=== PATIENT | female | born 1985 | race African-American/Black ===

== ENCOUNTER 2016-12-28 06:52 | Emergency (ER) | payer MEDICAID ==
[2016-12-28] MEDS ORDERED: Alum Hydrox/Mag Hydrox/Simeth 30 ML, Lidocaine 2% 15 ML PO ONE ×2 (07:12)
[2016-12-28] MEDS ORDERED: Ondansetron 4 MG/2 ML SDV IVPUSH ONE (07:14)
[2016-12-28] MEDS ORDERED: Sodium Chloride 0.9% 1,000 ML IV SCH (07:15)
[2016-12-28] MEDS ORDERED: Hyoscyamine 0.125 MG Tab.SL SL ONE (07:16)
--- NOTE | 2016-12-28 07:19 | EDM.PDOC ---
ED HPI GENERAL MEDICAL PROBLEM - General Chief Complaint: Chest Pain Stated Complaint: CHEST PAIN Time Seen by Provider: 12/28/16 07:06 Source of Information: Reports: Patient History Limitations: Reports: No Limitations - History of Present Illness INITIAL COMMENTS - FREE TEXT/NARRATIVE: 31-year-old female descent presents to the ED with acute onset of central lower chest pain about 45 minutes ago that started at work this morning. She describes a deep aching burning sensation. She not prone to reflux but she is up overweight. She's had previous cholecystectomy. She states she's been drinking only water so far this morning. Denies true odynophagia. Does not hurt to take a deep breath has not been coughing or bringing up any phlegm. No associated fever or chills. Does not drink alcohol. She does not smoke cigarettes. She is nondiabetic. Onset: Today Onset Date: 12/28/16 Onset Time: 06:00 Duration: Minutes: Location: Reports: Chest (Lower retrosternal area.) Quality: Reports: Ache, Burning, Pressure Severity: Moderate Improves with: Reports: None Worsens with: Reports: None Context: Denies: Activity, Exercise, Lifting, Sick Contact, Trauma, Other Associated Symptoms: Reports: Chest Pain. 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 Denies: Blood Pressure Problem (See history of present), Claudication, Dyspnea on Exertion, Edema, Lightheadedness, Orthopnea, PND Endocrine: Reports: No Symptoms GI/Abdominal: Denies: Anorexia, Black Stool, Bloody Stool, Constipation, Diarrhea, Decreased Appetite, Difficulty Swallowing, Distension, Flatus, Hematemesis, Hematochezia, Melena : Reports: No Symptoms Musculoskeletal: Reports: No Symptoms Skin: Reports: No Symptoms Neurological: Reports: No Symptoms Psychiatric: Reports: No Symptoms Hematologic/Lymphatic: Reports: No Symptoms Immunologic: Reports: No Symptoms ED EXAM, GENERAL - Physical Exam Exam: See Below Exam Limited By: No Limitations General Appearance: Alert, WD/WN, No Apparent Distress Eye Exam: Bilateral Eye: Normal Inspection (No jaundice) Throat/Mouth: Normal Inspection, Normal Lips, Normal Oropharynx Head: Atraumatic, Normocephalic Neck: Normal Inspection, Supple, Non-Tender, Full Range of Motion. No: Lymphadenopathy (L), Lymphadenopathy (R) Respiratory/Chest: No Respiratory Distress, Lungs Clear, Normal Breath Sounds, No Accessory Muscle Use, Other (No chest wall pain on examination.) Cardiovascular: Normal Peripheral Pulses, Regular Rate, Rhythm, No Edema, No Gallop, No Murmur Peripheral Pulses: 2+: Posterior Tibial (L), Posterior Tibial (R), Dorsalis Pedis (L), Dorsalis Pedis (R) GI/Abdominal: Normal Bowel Sounds, Soft, Non-Tender, No Organomegaly, No Distention (Moderately obese.), No Abnormal Bruit, No Mass, Other Back Exam: Normal Inspection, Full Range of Motion. No: CVA Tenderness (L), CVA Tenderness (R) Extremities: Normal Inspection, Normal Range of Motion, Non-Tender, No Pedal Edema, Normal Capillary Refill Neurological: Alert, Oriented, Normal Cognition, Normal Gait, Normal Reflexes, No Motor/Sensory Deficits Psychiatric: Normal Affect, Normal Mood Skin Exam: Warm, Dry, Intact, Normal Color, No Rash EKG INTERPRETATION EKG Date: 12/28/16 Time: 07:20 Rhythm: NSR Rate (beats/min): 80 [place]: normal P-wave: present QRS: other (Early R wave transition. Decreased voltage in precordial leads.) ST-T: other (T-wave inversion in leads [address] segment elevation in leads one and aVL which is a early repolarization pattern.) Course - Vital Signs Last Recorded V/S: Last Vital Signs Temp 36.8 C 12/28/16 07:01 Pulse 76 12/28/16 07:01 Resp 24 H 12/28/16 07:01 BP 104/83 12/28/16 07:01 Pulse Ox 97 12/28/16 07:01 - Orders/Labs/Meds Orders: Active Orders 24 hr Category Date Time Status EKG Documentation Completion [RC] STAT Care 12/28/16 07:13 Active Abdomen 1V Flat [CR] Stat Exams 12/28/16 07:13 Ordered Chest 1V Frontal [CR] Stat Exams 12/28/16 07:13 Ordered Famotidine [Pepcid] Med 12/28/16 08:35 Once 20 mg PO ONETIME ONE Sodium Chloride 0.9% [Normal Saline] 1,000 ml Med 12/28/16 07:15 Active IV ASDIRECTED Medication Orders Sodium Chloride (Normal Saline) 1,000 mls @ 125 mls/hr IV ASDIRECTED SAMANTA Last Admin: 12/28/16 07:37 Dose: 125 mls/hr Labs: Laboratory Tests 12/28/16 12/28/16 Range/Units 08:01 08:01 WBC 6.29 (3.98-10.04) K/mm3 RBC 4.69 (3.98-5.22) M/mm3 Hgb 12.8 (11.2-15.7) gm/L Hct 40.5 (34.1-44.9) % MCV 86.4 (79.4-94.8) fl MCH 27.3 (25.6-32.2) pg MCHC 31.6 L (32.2-35.5) g/dl RDW Std Deviation 45.6 (36.4-46.3) fL Plt Count 350 (182-369) K/mm3 MPV 9.8 (9.4-12.3) fl Neutrophils % (Manual) 59 (40-60) % Band Neutrophils % 1 (0-10) % Lymphocytes % (Manual) 35 (20-40) % Atypical Lymphs % 0 % Monocytes % (Manual) 3 (2-10) % Eosinophils % (Manual) 2 (0.7-5.8) % Basophils % (Manual) 0 L (0.1-1.2) Platelet Estimate Adequate RBC Morph Comment Normal Sodium 140 (136-145) mEq/L Potassium 4.1 (3.5-5.1) mEq/L Chloride 105 (98-107) mEq/L Carbon Dioxide 24 (21-32) mEq/L Anion Gap 15.1 H (5-15) BUN 13 (7-18) mg/dL Creatinine 0.9 (0.55-1.02) mg/dL Est Cr Clr Drug Dosing 79.64 mL/min Estimated GFR (MDRD) > 60 (>60) mL/min BUN/Creatinine Ratio 14.4 (14-18) Glucose 93 (74-106) mg/dL Calcium 9.1 (8.5-10.1) mg/dL Total Bilirubin 0.2 (0.2-1.0) mg/dL AST 12 L (15-37) U/L ALT 19 (14-59) U/L Alkaline Phosphatase 53 (46-116) U/L C-Reactive Protein 0.3 (<1.0) mg/dL Total Protein 8.7 H (6.4-8.2) g/dl Albumin 3.6 (3.4-5.0) g/dl Globulin 5.1 gm/dL Albumin/Globulin Ratio 0.7 L (1-2) Amylase 57 (25-115) U/L Meds: Medications Generic Name Dose Route Start Last Admin Trade Name Ducq PRN Reason Stop Dose Admin Sodium Chloride 1,000 mls @ 125 mls/hr 12/28/16 07:15 12/28/16 07:37 Normal Saline IV 125 mls/hr ASDIRECTED SAMANTA Administration Discontinued Medications Generic Name Dose Route Start Last Admin Trade Name Ducq PRN Reason Stop Dose Admin Al Hydroxide/Mg Hydroxide 30 0 ml 12/28/16 07:12 12/28/16 07:36 ml/ Lidocaine HCl 15 ml PO 12/28/16 07:13 15 ml ONETIME ONE Administration Hyoscyamine 0.125 mg 12/28/16 07:16 12/28/16 08:04 Hyomax-Sl SL 12/28/16 07:17 0.125 mg ONETIME ONE Administration Ondansetron HCl 4 mg 12/28/16 07:14 12/28/16 07:37 Zofran IVPUSH 12/28/16 07:15 4 mg ONETIME ONE Administration - Radiology Interpretation Free Text/Narrative:: 31-year-old female of descent presents to the ED with centrals lower chest discomfort which she describes as burning pressure discomfort. Started about 45 minutes ago after she had started work at 6:00. No trouble swallowing water. She is mildly prominent to gastroesophageal reflux but does not use TUMS or Rolaids very often. She's had previous cholecystectomy. Examination reveals a benign chest examination no pain on palpation of ribs or sternum. There is equal bilaterally heart sounds are normal. She is obese and some pain appreciated on deep palpation in the epigastrium. Previous cholecystectomy noted. Bowel sounds are normal. Plan one view chest x-ray one view abdomen. Routine labs included amylase. Suspect gastroesophageal reflux with esophageal spasm. Given Zofran 4 mg IV. Will send 0.125 mg sublingual. GI cocktail will be given as well. - Re-Assessments/Exams Free Text/Narrative Re-Assessment/Exam: 12/28/16 07:59 chest x-ray which is within normal limits. Abdominal films reveal increased air in the gastric pouch right in the midline. There is no evidence of air upon the heart suggests hiatal hernia. 12/28/16 08:35 chemistry is normal as well. It appears that since she is pain- free after taking Alesse in the GI cocktail that it was GI tract in origin i.e. esophageal spasm or hiatal hernia. Will give her Pepcid 20 mg po now. Ecomend Zantack 150mg odat hs for the next week. She wishes to return to work. Departure - Departure Time of Disposition: 08:41 Disposition: Home, Self-Care 01 Condition: fair Clinical Impression: GERD without esophagitis Forms: ED Department Discharge, Return to Work/School Form Additional Instructions: Evaluation in the emergency room today in regards to development is retrosternal or chest pain after obtaining work today. Most likely this appears it was secondary to spasm of your food pipe likely from reflux of stomach contents up into the lower food pipe during sleep last night. This would cause an irritation and inflammation that may last up to a week. Suggest either Pepcid 20 mg twice daily or Zantac 50 mg twice daily for the next week to bring it under control. May use TUMS or Rolaids or other antacids as well it reoccurs. You are cleared to return to work with no restrictions. - My Orders Last 24 Hours: My Active Orders 12/28/16 07:13 EKG Documentation Completion [RC] STAT Abdomen 1V Flat [CR] Stat Chest 1V Frontal [CR] Stat 12/28/16 07:15 Sodium Chloride 0.9% [Normal Saline] 1,000 ml IV ASDIRECTED 12/28/16 08:35 Famotidine [Pepcid] 20 mg PO ONETIME ONE - Assessment/Plan Last 24 Hours: My Active Orders 12/28/16 07:13 EKG Documentation Completion [RC] STAT Abdomen 1V Flat [CR] Stat Chest 1V Frontal [CR] Stat 12/28/16 07:15 Sodium Chloride 0.9% [Normal Saline] 1,000 ml IV ASDIRECTED 12/28/16 08:35 Famotidine [Pepcid] 20 mg PO ONETIME ONE
[2016-12-28] MEDS ORDERED: Famotidine 20 MG Tab PO ONE (08:35)
[2016-12-28 09:05] VITALS: BP 110/64
--- NOTE | 2016-12-29 08:17 | CR ---
Abdomen: Supine view of the abdomen was obtained. Comparison: No previous study. Mild increased stool is seen throughout colon. Bowel gas pattern is otherwise unremarkable. Surgical clip is noted within the right upper abdomen. Calcification noted within the left pelvis compatible with phlebolith. Bony structures are grossly intact. Impression: 1. Mild increased stool throughout the colon. Other incidental findings. Diagnostic code #2
--- NOTE | 2016-12-29 08:17 | CR ---
Chest: PA view of the chest was obtained. Comparison: No previous study. Heart size and mediastinum are within normal limits for PA technique. Lungs are clear with no acute infiltrates. Old fracture deformity which appears healed is seen within the right clavicle. Incidental azygos lobe is noted. Impression: 1. Incidental findings. Nothing acute is appreciated on PA chest x-ray. Diagnostic code #2
== END 2016-12-28 09:01 | disposition home or self-care (01) ==
LOC: JD.ED 06:52
DX: K21.9 Gastro-esophageal reflux disease without esophagitis (principal); Z88.6 Allergy status to analgesic agent; Z90.49 Acquired absence of other specified parts of digestive tract
CPT/HCPCS: 36415; 71010; 74000; 80053; 82150; 85025; 86140; 93005; 96361; 96374; 99285; A9270; J2405; J7040; 99284

== ENCOUNTER 2017-07-31 08:45 | Emergency (ER) | payer BC, MEDICAID ==
--- NOTE | 2017-07-31 09:49 | EDM.PDOC ---
ED HPI GENERAL MEDICAL PROBLEM - General Chief Complaint: Upper Extremity Injury/Pain Stated Complaint: RIGHT SHOULDER INJURY Time Seen by Provider: 07/31/17 09:05 Source of Information: Reports: Patient History Limitations: Reports: No Limitations - History of Present Illness INITIAL COMMENTS - FREE TEXT/NARRATIVE: The patient presents with right clavicle pain. She slipped and fell and landed into the garbage can. She did not hit her head and she had no LOC. She has no headache. Her clavicle hurts. She broke her clavicle back in 2007 and it did not heal right. She also has a rash that she has had for weeks. It is on the right arm,chest and right leg. This does itch. She has no new detergents or soaps. Onset: Gradual Duration: Hour(s): Location: Reports: Upper Extremity, Right (clavicle) Quality: Reports: Sharp Severity: Moderate Improves with: Reports: Immobilization Worsens with: Reports: Movement Context: Reports: Trauma (She slipped and fell and hurt her right clavicle) Associated Symptoms: Reports: No Other Symptoms Right Shoulder Pain Score (Numeric/FACES): 10 - Related Data Allergies Allergy/AdvReac Type Severity Reaction Status Date / Time aspirin Allergy Anaphylactic Verified 12/28/16 07:01 Shock Home Meds: Home Meds Nystatin [Nystatin Crm] 15 gm TOP BID #1 tube 07/31/17 [Rx] traMADol [Ultram] 50 - 100 mg PO Q6H PRN #20 tablet 07/31/17 [Rx] Past Medical History - Past Surgical History GI Surgical History: Reports: Cholecystectomy Musculoskeletal Surgical History: Reports: Other (See Below) Other Musculoskeletal Surgeries/Procedures:: right collarbone surgery. Social & Family History - Family History Family Medical History: Noncontributory - Tobacco Use Smoking Status *Q: Never Smoker Second Hand Smoke Exposure: No - Caffeine Use Caffeine Use: Reports: None - Recreational Drug Use Recreational Drug Use: No - Living Situation & Occupation Living situation: Reports: Occupation: Employed Review of Systems - Review of Systems Review Of Systems: See Below Constitutional: Reports: No Symptoms Eyes: Reports: No Symptoms Ears: Reports: No Symptoms Nose: Reports: No Symptoms Mouth/Throat: Reports: No Symptoms Respiratory: Reports: No Symptoms Cardiovascular: Reports: No Symptoms GI/Abdominal: Reports: No Symptoms Genitourinary: Reports: No Symptoms Musculoskeletal: Reports: Other (Right clavicle pain) Skin: Reports: Rash ED EXAM, GENERAL - Physical Exam Exam: See Below Exam Limited By: No Limitations General Appearance: Alert, No Apparent Distress Ears: Normal External Exam Nose: Normal Inspection Head: Atraumatic, Normocephalic Neck: Normal Inspection Respiratory/Chest: No Respiratory Distress, Lungs Clear, Normal Breath Sounds Cardiovascular: Regular Rate, Rhythm, No Edema, No Murmur GI/Abdominal: Soft, Non-Tender, No Organomegaly, No Mass Extremities: Other (Pain upon palpation to the right clavicle. Good sensation and pulses distally) Neurological: Alert, Oriented, No Motor/Sensory Deficits Skin Exam: Other (Scally rash to the right arm, right chest and right leg. There is a clear center to a few of the lesions.) Course - Vital Signs Last Recorded V/S: Last Vital Signs Temp 98.6 F 07/31/17 08:56 Pulse 85 07/31/17 08:56 Resp 14 07/31/17 08:56 BP 128/83 07/31/17 08:56 Pulse Ox 96 07/31/17 08:56 - Orders/Labs/Meds Orders: Active Orders 24 hr Category Date Time Status Clavicle Rt [CR] Stat Exams 07/31/17 09:18 Taken Durable Medical Equipment for Discharge [DME for Oth 07/31/17 10:07 Ordered Discharge] [COMM] Stat - Re-Assessments/Exams Free Text/Narrative Re-Assessment/Exam: 07/31/17 09:46 Her clavicle x-ray shows an old fracture but nothing new. She has ring worm or tinea corporis. I will get her on some nystatin. Departure - Departure Time of Disposition: 10:10 Disposition: Home, Self-Care 01 Condition: Good Clinical Impression: Tinea corporis Fall Qualifiers: Encounter type: initial encounter Qualified Code(s): W19.XXXA - Unspecified fall, initial encounter Contusion of right clavicle Qualifiers: Encounter type: initial encounter Qualified Code(s): S40.011A - Contusion of right shoulder, initial encounter - Discharge Information Prescriptions: Nystatin [Nystatin Crm] 15 gm TOP BID #1 tube traMADol [Ultram] 50 - 100 mg PO Q6H PRN #20 tablet PRN Reason: Pain Referrals: PCP,None [Primary Care Provider] - Forms: ED Department Discharge Additional Instructions: Apply the nystatin 2 times per day. Ice your clavicle 3 times per day. Take the ultram as needed for pain. - My Orders Last 24 Hours: My Active Orders 07/31/17 09:18 Clavicle Rt [CR] Stat 07/31/17 10:07 Durable Medical Equipment for Discharge [DME for Discharge] [COMM] Stat - Assessment/Plan Last 24 Hours: My Active Orders 07/31/17 09:18 Clavicle Rt [CR] Stat 07/31/17 10:07 Durable Medical Equipment for Discharge [DME for Discharge] [COMM] Stat
[2017-07-31 10:23] VITALS: BP 112/77
--- NOTE | 2017-08-01 10:43 | CR ---
Right clavicle: Two views of the right clavicle were obtained. Comparison: No previous study. Deformity from old healed clavicle fracture is seen. No acute fracture is identified. No additional abnormality is seen. Impression: 1. Old healed fracture deformity within the clavicle. Nothing acute is seen. Diagnostic code #2
== END 2017-07-31 10:23 | disposition home or self-care (01) ==
LOC: JD.ED 08:45
DX: S40.011A Contusion of right shoulder, initial encounter (principal); B35.4 Tinea corporis; Z88.6 Allergy status to analgesic agent; W01.0XXA Fall on same level from slipping, tripping and stumbling without subsequent striking against object, initial encounter
CPT/HCPCS: 73000-26-RT; 73000-RT; 99283

== ENCOUNTER 2017-08-16 11:57 | Emergency (ER) | payer BC ==
[2017-08-16 12:10] VITALS: BP 132/108
[2017-08-16] MEDS ORDERED: LORazepam 2 MG/ML MDV IVPUSH ONE (12:12)
[2017-08-16] MEDS ORDERED: Sodium Chloride 0.9% 10 ML Syringe FLUSH PRN ×2 (12:12→13:46)
[2017-08-16] MEDS ORDERED: HYDROmorphone 1 MG/ML Syringe IVPUSH ONE (12:12)
[2017-08-16] MEDS ORDERED: Ondansetron 4 MG/2 ML SDV IVPUSH ONE (12:13)
[2017-08-16] MEDS ORDERED: Sodium Chloride 0.9% 1,000 ML IV ONE (12:13)
--- NOTE | 2017-08-16 12:19 | EDM.PDOC ---
ED HPI GENERAL MEDICAL PROBLEM - General Chief Complaint: Respiratory Problem Stated Complaint: SOB Time Seen by Provider: 08/16/17 12:04 Source of Information: Reports: Patient History Limitations: Reports: No Limitations - History of Present Illness INITIAL COMMENTS - FREE TEXT/NARRATIVE: 32-year-old female presents for evaluation and treatment of sudden onset of chest pain and shortness breath. Patient reports that she was playing with her kids. She then developed sudden chest pain. This occurred about 30 minutes prior to arrival in the ER. Current symptoms include chest pain, shortness of breath, lightheadedness, nausea and vomiting. She reports the pain in her chest is severe with any deep breathing. Rates the pain as a 10 out of 10. She states she has not been ill recently. Denies any recent fevers or coughs. Denies any pain or swelling in her legs recently. States she's never had anything like this before. No treatments prior to arrival in the ER. Patient enters the ER and is hyperventilating and vomiting. Onset: Today Duration: Minutes: (30) Location: Reports: Chest Middle Chest Pain Score (Numeric/FACES): 10 - Related Data Allergies Allergy/AdvReac Type Severity Reaction Status Date / Time aspirin Allergy Anaphylactic Verified 08/16/17 12:10 Shock Home Meds: Home Meds Omeprazole 20 mg PO DAILY #14 cap.sr 08/16/17 [Rx] Past Medical History - Past Surgical History GI Surgical History: Reports: Cholecystectomy Musculoskeletal Surgical History: Reports: Other (See Below) Other Musculoskeletal Surgeries/Procedures:: right collarbone surgery. Social & Family History - Family History Family Medical History: Noncontributory - Tobacco Use Smoking Status *Q: Never Smoker Second Hand Smoke Exposure: No - Caffeine Use Caffeine Use: Reports: None - Recreational Drug Use Recreational Drug Use: No - Living Situation & Occupation Living situation: Reports: Occupation: Employed ED ROS GENERAL - Review of Systems Review Of Systems: See Below Constitutional: Denies: Fever Respiratory: Reports: Shortness of Breath. Denies: Cough Cardiovascular: Reports: Chest Pain, Lightheadedness. Denies: Syncope GI/Abdominal: Reports: Nausea, Vomiting. Denies: Abdominal Pain Musculoskeletal: Denies: Leg Pain Neurological: Denies: Syncope ED EXAM, GENERAL - Physical Exam Exam: See Below Exam Limited By: No Limitations General Appearance: Alert, WD/WN, Anxious, Moderate Distress, Obese, Other ( vomiting) Eye Exam: Bilateral Eye: Normal Inspection Ears: Normal External Exam Nose: Normal Inspection Throat/Mouth: Normal Inspection, Normal Lips, Normal Voice, No Airway Compromise Neck: Normal Inspection Respiratory/Chest: Lungs Clear, Normal Breath Sounds, Other (tachypnea) Cardiovascular: Normal Peripheral Pulses, No Murmur, Tachycardia Peripheral Pulses: 2+: Radial (L), Radial (R) GI/Abdominal: Normal Bowel Sounds, Soft, Non-Tender Neurological: Alert, Oriented, Normal Cognition Psychiatric: Anxious Skin Exam: Warm, Dry, Normal Color EKG INTERPRETATION EKG Date: 08/16/17 Time: 13:00 Rhythm: NSR Rate (Beats/Min): 98 Slater: Normal P-Wave: Present QRS: Normal ST-T: Normal QT: Normal EKG Interpretation Comments: NSR at [address] segment changes. Reviewed by myself and Dr. Lobato. Course - Vital Signs Last Recorded V/S: Last Vital Signs Temp 36.4 C 08/16/17 12:06 Pulse 142 H 08/16/17 12:06 Resp 20 08/16/17 12:06 BP 132/108 H 08/16/17 12:06 Pulse Ox 96 08/16/17 12:06 - Orders/Labs/Meds Orders: Active Orders 24 hr Category Date Time Status Cardiac Monitoring [RC] . DIRECTED Care 08/16/17 12:12 Active EKG 12 Lead [EKG Documentation Completion] [RC] STAT Care 08/16/17 12:10 Active Peripheral IV Care [RC] . DIRECTED Care 08/16/17 12:12 Active Peripheral IV Insertion Adult [OM.PC] Routine Oth 08/16/17 12:12 Ordered Labs: Laboratory Tests 08/16/17 08/16/17 08/16/17 Range/Units 13:05 13:05 13:05 WBC 8.96 (3.98-10.04) K/mm3 RBC 4.67 (3.98-5.22) M/mm3 Hgb 12.9 (11.2-15.7) gm/L Hct 40.4 (34.1-44.9) % MCV 86.5 (79.4-94.8) fl MCH 27.6 (25.6-32.2) pg MCHC 31.9 L (32.2-35.5) g/dl RDW Std Deviation 47.4 H (36.4-46.3) fL Plt Count 370 H (182-369) K/mm3 MPV 9.6 (9.4-12.3) fl Neutrophils % (Manual) 72 H (40-60) % Band Neutrophils % 1 (0-10) % Lymphocytes % (Manual) 22 (20-40) % Atypical Lymphs % 0 % Monocytes % (Manual) 4 (2-10) % Eosinophils % (Manual) 1 (0.7-5.8) % Basophils % (Manual) 0 L (0.1-1.2) Platelet Estimate Adequate Plt Morphology Comment Normal RBC Morph Comment Normal PT 10.7 (8.0-13.0) SECONDS INR 0.98 APTT 23 (22-36) SECONDS Sodium 141 (136-145) mEq/L Potassium 3.8 (3.5-5.1) mEq/L Chloride 107 (98-107) mEq/L Carbon Dioxide 22 (21-32) mEq/L Anion Gap 15.8 H (5-15) BUN 14 (7-18) mg/dL Creatinine 1.1 H (0.55-1.02) mg/dL Est Cr Clr Drug Dosing 64.58 mL/min Estimated GFR (MDRD) > 60 (>60) mL/min BUN/Creatinine Ratio 12.7 L (14-18) Glucose 98 (74-106) mg/dL Calcium 9.0 (8.5-10.1) mg/dL Total Bilirubin 0.2 (0.2-1.0) mg/dL AST 16 (15-37) U/L ALT 24 (14-59) U/L Alkaline Phosphatase 48 (46-116) U/L Troponin I < 0.017 (0.00-0.056) ng/mL C-Reactive Protein < 0.2 (<1.0) mg/dL Total Protein 8.1 (6.4-8.2) g/dl Albumin 3.6 (3.4-5.0) g/dl Globulin 4.5 gm/dL Albumin/Globulin Ratio 0.8 L (1-2) Lipase 146 (73-393) U/L HCG, Qual (NEGATIVE) 08/16/17 08/16/17 Range/Units 13:05 15:15 WBC (3.98-10.04) K/mm3 RBC (3.98-5.22) M/mm3 Hgb (11.2-15.7) gm/L Hct (34.1-44.9) % MCV (79.4-94.8) fl MCH (25.6-32.2) pg MCHC (32.2-35.5) g/dl RDW Std Deviation (36.4-46.3) fL Plt Count (182-369) K/mm3 MPV (9.4-12.3) fl Neutrophils % (Manual) (40-60) % Band Neutrophils % (0-10) % Lymphocytes % (Manual) (20-40) % Atypical Lymphs % % Monocytes % (Manual) (2-10) % Eosinophils % (Manual) (0.7-5.8) % Basophils % (Manual) (0.1-1.2) Platelet Estimate Plt Morphology Comment RBC Morph Comment PT (8.0-13.0) SECONDS INR APTT (22-36) SECONDS Sodium (136-145) mEq/L Potassium (3.5-5.1) mEq/L Chloride (98-107) mEq/L Carbon Dioxide (21-32) mEq/L Anion Gap (5-15) BUN (7-18) mg/dL Creatinine (0.55-1.02) mg/dL Est Cr Clr Drug Dosing mL/min Estimated GFR (MDRD) (>60) mL/min BUN/Creatinine Ratio (14-18) Glucose (74-106) mg/dL Calcium (8.5-10.1) mg/dL Total Bilirubin (0.2-1.0) mg/dL AST (15-37) U/L ALT (14-59) U/L Alkaline Phosphatase (46-116) U/L Troponin I < 0.017 (0.00-0.056) ng/mL C-Reactive Protein (<1.0) mg/dL Total Protein (6.4-8.2) g/dl Albumin (3.4-5.0) g/dl Globulin gm/dL Albumin/Globulin Ratio (1-2) Lipase (73-393) U/L HCG, Qual Negative (NEGATIVE) Meds: Medications Discontinued Medications Generic Name Dose Route Start Last Admin Trade Name Freq PRN Reason Stop Dose Admin Acetaminophen 650 mg 08/16/17 14:47 08/16/17 14:54 Tylenol PO 08/16/17 14:48 650 mg NOW ONE Administration Al Hydroxide/Mg Hydroxide 30 0 ml 08/16/17 14:46 08/16/17 14:55 ml/ Lidocaine HCl 15 ml PO 08/16/17 14:47 45 ml ONETIME ONE Administration Hydromorphone HCl 1 mg 08/16/17 12:12 08/16/17 12:36 Dilaudid IVPUSH 08/16/17 12:13 1 mg ONETIME ONE Administration Sodium Chloride 1,000 mls @ 125 mls/hr 08/16/17 12:13 08/16/17 12:33 Normal Saline IV 08/16/17 20:12 125 mls/hr ONETIME ONE Administration Sodium Chloride 100 mls @ 75 mls/hr 08/16/17 14:00 Normal Saline IV ASDIRECTED SAMANTA Iopamidol 100 ml 08/16/17 13:46 08/16/17 14:00 Isovue-370 (76%) IVPUSH 08/16/17 13:47 100 ml ONETIME ONE Administration Iopamidol 50 ml 08/16/17 13:46 08/16/17 14:00 Isovue-370 (76%) IVPUSH 08/16/17 13:47 50 ml ONETIME ONE Administration Lorazepam 0.5 mg 08/16/17 12:12 08/16/17 12:37 Ativan IVPUSH 08/16/17 12:13 0.5 mg ONETIME ONE Administration Ondansetron HCl 4 mg 08/16/17 12:13 08/16/17 12:35 Zofran IVPUSH 08/16/17 12:14 4 mg ONETIME ONE Administration Sodium Chloride 10 ml 08/16/17 12:12 08/16/17 12:35 Saline Flush FLUSH 10 ml ASDIRECTED PRN Administration Keep Vein Open Sodium Chloride 10 ml 08/16/17 13:46 Saline Flush FLUSH ONETIME PRN IV FLUSH - Radiology Interpretation Free Text/Narrative:: CT chest Technique: Multiple axial sections through the chest were obtained. Intravenous contrast was utilized. Study has been performed as a pulmonary angiogram protocol. Findings: Details are slightly diminished secondary to body habitus. Within this limitation, no discrete filling defects are seen to indicate definite pulmonary embolism. Mediastinum and hilar regions show no adenopathy or mass. No pericardial thickening is seen. Small portion of the visualized upper abdominal structures are within normal limits. Small azygos lobe is incidentally noted. Lungs are clear. No pleural effusions or pneumothorax is seen. Partially visualized old healed right-sided clavicle fracture is incidentally noted. No acute bony abnormality is identified. Impression: 1. Slightly less than optimal study secondary to artifact from patient body habitus. 2. Within this limitation, nothing acute is seen. No findings of pulmonary embolism. - Re-Assessments/Exams Free Text/Narrative Re-Assessment/Exam: 08/16/17 14:47 I reviewed the labs, EKG and imaging results the patient. She reports that she still some discomfort in her chest. She is now mostly complaining of a headache. She states that it still is hard for her to breathe. I would treat her for some reflux with a GI cocktail. Tylenol for the headache. Plan is to repeat a troponin in about 10-15 minutes for three-hour troponin and will discharge if negative. 08/16/17 16:05 Repeat trop is negative at <0.017 Patient reports she is coughing up blood. Reports she is coughing up blood clots. I asked nursing staff about this. She was vomiting when she arrived in the ER. We do not appreciate any blood in the emesis. Neither nursing staff or myself as appreciated her coughing at all. I question if this is just some blood tinged sputum as she was retching rather hard when she first arrived to the ER. I do not think she has any esophageal varices or any anything acute. No esophageal perforation or anything else concerning was seen on her CT. I will treat her for reflux as I feel this is likely the cause of her discomfort. I'll have her follow-up with primary care this week. Discharge instructions as documented. Departure - Departure Time of Disposition: 16:14 Disposition: Home, Self-Care 01 Condition: Fair Clinical Impression: Gastroesophageal reflux disease - Discharge Information Prescriptions: Omeprazole 20 mg PO DAILY #14 cap.sr Instructions: Indigestion, [id number] Referrals: PCP,Unknown [Ordering Only Provider] - Cortes Toussaint [Physician] - Forms: ED Department Discharge Additional Instructions: Take the omeprazole as prescribed. 1 tab daily. Follow-up with family medicine in 1-2 weeks for recheck of your symptoms. Recommend Dr. Liang at the [facility]. Call [phone] to schedule with him. Avoid foods that can worsen your symptoms such as spicy foods and alcohol. Please return to ER if your symptoms change or worsen. - My Orders Last 24 Hours: My Active Orders 08/16/17 12:10 EKG 12 Lead [EKG Documentation Completion] [RC] STAT 08/16/17 12:12 Cardiac Monitoring [RC] . DIRECTED Peripheral IV Care [RC] . DIRECTED Peripheral IV Insertion Adult [OM.PC] Routine - Assessment/Plan Last 24 Hours: My Active Orders 08/16/17 12:10 EKG 12 Lead [EKG Documentation Completion] [RC] STAT 08/16/17 12:12 Cardiac Monitoring [RC] . DIRECTED Peripheral IV Care [RC] . DIRECTED Peripheral IV Insertion Adult [OM.PC] Routine
[2017-08-16] MEDS ORDERED: Iopamidol 755 Mg/ML 100 ML Bottle IVPUSH ONE (13:46)
[2017-08-16] MEDS ORDERED: Iopamidol 755 MG/ML 50 ML Bottle IVPUSH ONE (13:46)
[2017-08-16] MEDS ORDERED: Sodium Chloride 0.9% 100 ML IV SCH (14:00)
--- NOTE | 2017-08-16 14:34 | CT ---
CT chest Technique: Multiple axial sections through the chest were obtained. Intravenous contrast was utilized. Study has been performed as a pulmonary angiogram protocol. Findings: Details are slightly diminished secondary to body habitus. Within this limitation, no discrete filling defects are seen to indicate definite pulmonary embolism. Mediastinum and hilar regions show no adenopathy or mass. No pericardial thickening is seen. Small portion of the visualized upper abdominal structures are within normal limits. Small azygos lobe is incidentally noted. Lungs are clear. No pleural effusions or pneumothorax is seen. Partially visualized old healed right-sided clavicle fracture is incidentally noted. No acute bony abnormality is identified. Impression: 1. Slightly less than optimal study secondary to artifact from patient body habitus. 2. Within this limitation, nothing acute is seen. No findings of pulmonary embolism. Diagnostic code #2
[2017-08-16] MEDS ORDERED: Alum Hydrox/Mag Hydrox/Simeth 30 ML, Lidocaine 2% 15 ML PO ONE ×2 (14:46)
[2017-08-16] MEDS ORDERED: Acetaminophen 325 MG Tab PO ONE (14:47)
== END 2017-08-16 16:35 | disposition home or self-care (01) ==
LOC: JD.ED 11:57
DX: K21.9 Gastro-esophageal reflux disease without esophagitis (principal); Z88.6 Allergy status to analgesic agent; Z79.899 Other long term (current) drug therapy
CPT/HCPCS: 36415; 71275; 80053; 83690; 84484; 84703; 85025; 85610; 85730; 86140; 93005; 96361; 96374; 96375; 99285; A9270; J1170; J2060; J2405; J7040; J7050; Q9967; 93010; 99284-25

== ENCOUNTER 2017-11-12 17:49 | Emergency (ER) | payer SELFPAY ==
[2017-11-12] MEDS ORDERED: Sodium Chloride 0.9% 10 ML Syringe FLUSH PRN (18:19)
[2017-11-12 18:29] VITALS: BP 135/86
--- NOTE | 2017-11-12 18:48 | EDM.PDOC ---
ED HPI GENERAL MEDICAL PROBLEM - General Chief Complaint: Abdominal Pain Stated Complaint: CHEST PAIN EYE PROBLEMS HEADACHE Time Seen by Provider: 11/12/17 18:02 Source of Information: Reports: Patient History Limitations: Reports: No Limitations - History of Present Illness INITIAL COMMENTS - FREE TEXT/NARRATIVE: 32-year-old female presents for evaluation and treatment of chest pain, abdominal pain, headaches and blurry vision. Patient reports all of her symptoms started yesterday. States that the headache is located on the left side of her head spinning from the frontal area to the temporal area. She is also complaining of blurry vision. No nausea or vomiting. Addition she is complaining of abdominal pain and chest pain. States that the chest pain is located in the substernal area and radiates under her left breast. No shortness of breath, cough, nausea, vomiting, fevers or chills. Additionally she complains of feeling lightheaded. No syncope as of yet. Patient reports that she took some ibuprofen yesterday but has not had any symptom relief. Last menstrual period was October 08. Patient reports she recently came back to [place] from [place]. She was on a bus for approximately 3 days. She does not have a primary care provider Location: Reports: Head, Chest, Abdomen Headache Pain Score (Numeric/FACES): 9 Abdominal Pain Score (Numeric/FACES): 10 - Related Data Allergies Allergy/AdvReac Type Severity Reaction Status Date / Time aspirin Allergy Anaphylactic Verified 11/12/17 17:57 Shock Home Meds: Home Meds Omeprazole 20 mg PO DAILY #30 cap.sr 11/12/17 [Rx] SUMAtriptan [Imitrex] 25 mg PO ASDIRECTED PRN #10 tab 11/12/17 [Rx] Past Medical History - Past Health History Medical/Surgical History: Denies Medical/Surgical History - Past Surgical History GI Surgical History: Reports: Cholecystectomy Musculoskeletal Surgical History: Reports: Other (See Below) Other Musculoskeletal Surgeries/Procedures:: right collarbone surgery. Social & Family History - Family History Family Medical History: Noncontributory - Tobacco Use Smoking Status *Q: Never Smoker Second Hand Smoke Exposure: No - Caffeine Use Caffeine Use: Reports: None - Recreational Drug Use Recreational Drug Use: No - Living Situation & Occupation Living situation: Reports: Occupation: Employed ED ROS GENERAL - Review of Systems Review Of Systems: See Below Constitutional: Denies: Fever, Chills HEENT: Reports: Ear Pain (left), Vision Change (reports blurry vision) Respiratory: Denies: Shortness of Breath, Cough Cardiovascular: Reports: Chest Pain (earlier, none now) GI/Abdominal: Reports: Abdominal Pain (epigastric/LUQ). Denies: Nausea, Vomiting Neurological: Reports: Headache. Denies: Syncope ED EXAM, GI/ABD - Physical Exam Exam: See Below Exam Limited By: No Limitations General Appearance: Alert, WD/WN, No Apparent Distress, Obese Eyes: Bilateral: Normal Appearance (PERRLA) Ears: Normal External Exam, Normal Canal, Hearing Grossly Normal, Normal TMs Nose: Normal Inspection Throat/Mouth: Normal Inspection, Normal Lips, Normal Oropharynx, Normal Voice, No Airway Compromise Neck: Normal Inspection Respiratory/Chest: No Respiratory Distress, Lungs Clear, Normal Breath Sounds, Chest Non-Tender Cardiovascular: Normal Peripheral Pulses, Regular Rate, Rhythm, No Murmur GI/Abdominal Exam: Normal Bowel Sounds, Soft, Non-Tender Neurological: Alert, Oriented, Normal Cognition, Normal Gait Psychiatric: Normal Affect, Normal Mood Skin Exam: Warm, Dry, Normal Color EKG INTERPRETATION EKG Date: 11/12/17 Time: 18:05 Rhythm: NSR Rate (Beats/Min): 89 Kake: Normal P-Wave: Present QRS: Normal ST-T: Normal QT: Normal EKG Interpretation Comments: NSR at 89 bpm. T wave flattening AVF - non specific. Reviewed by myself and Dr. Martinez. Course - Vital Signs Last Recorded V/S: Last Vital Signs Temp 36.5 C 11/12/17 17:58 Pulse 91 11/12/17 17:58 Resp 18 11/12/17 17:58 BP 135/86 11/12/17 17:58 Pulse Ox 97 11/12/17 17:58 - Orders/Labs/Meds Orders: Active Orders 24 hr Category Date Time Status Cardiac Monitoring [RC] . DIRECTED Care 11/12/17 18:18 Active EKG Documentation Completion [RC] ASDIRECTED Care 11/12/17 18:18 Active Peripheral IV Care [RC] . DIRECTED Care 11/12/17 18:19 Active Chest 2V [CR] Stat Exams 11/12/17 18:18 Taken UA W/MICROSCOPIC [URIN] Stat Lab 11/12/17 18:35 Ordered Sodium Chloride 0.9% [Normal Saline] 100 ml Med 11/12/17 19:30 Active IV ASDIRECTED Sodium Chloride 0.9% [Saline Flush] Med 11/12/17 18:19 Active 10 ml FLUSH ASDIRECTED PRN Peripheral IV Insertion Adult [OM.PC] Routine Oth 11/12/17 18:19 Ordered EKG 12 Lead [EK] Stat Ther 11/12/17 18:18 Ordered Medication Orders Sodium Chloride (Normal Saline) 100 mls @ 60 mls/hr IV ASDIRECTED SAMANTA Last Admin: 11/12/17 19:46 Dose: 60 mls/hr Sodium Chloride (Saline Flush) 10 ml FLUSH ASDIRECTED PRN PRN Reason: Keep Vein Open Last Admin: 11/12/17 19:23 Dose: 10 ml Labs: Laboratory Tests 11/12/17 11/12/17 11/12/17 Range/Units 18:13 18:13 18:13 WBC 5.49 (3.98-10.04) K/mm3 RBC 4.30 (3.98-5.22) M/mm3 Hgb 12.0 (11.2-15.7) gm/L Hct 38.0 (34.1-44.9) % MCV 88.4 (79.4-94.8) fl MCH 27.9 (25.6-32.2) pg MCHC 31.6 L (32.2-35.5) g/dl RDW Std Deviation 45.1 (36.4-46.3) fL Plt Count 323 (182-369) K/mm3 MPV 9.8 (9.4-12.3) fl Neutrophils % (Manual) 53 (40-60) % Band Neutrophils % 0 (0-10) % Lymphocytes % (Manual) 40 (20-40) % Atypical Lymphs % 0 % Monocytes % (Manual) 5 (2-10) % Eosinophils % (Manual) 2 (0.7-5.8) % Basophils % (Manual) 0 L (0.1-1.2) Platelet Estimate Adequate RBC Morph Comment Normal PT (9.5-12.1) SECONDS INR APTT (24-31) SECONDS D-Dimer, Quantitative 0.77 H (0.19-0.50) mg/L Sodium 141 (136-145) mEq/L Potassium 3.7 (3.5-5.1) mEq/L Chloride 104 (98-107) mEq/L Carbon Dioxide 27 (21-32) mEq/L Anion Gap 13.7 (5-15) BUN 13 (7-18) mg/dL Creatinine 0.9 (0.55-1.02) mg/dL Est Cr Clr Drug Dosing 78.93 mL/min Estimated GFR (MDRD) > 60 (>60) mL/min BUN/Creatinine Ratio 14.4 (14-18) Glucose 117 H (74-106) mg/dL Calcium 9.0 (8.5-10.1) mg/dL Total Bilirubin 0.1 L (0.2-1.0) mg/dL AST 11 L (15-37) U/L ALT 21 (14-59) U/L Alkaline Phosphatase 54 (46-116) U/L Troponin I < 0.017 (0.00-0.056) ng/mL C-Reactive Protein (<1.0) mg/dL Total Protein 7.8 (6.4-8.2) g/dl Albumin 3.3 L (3.4-5.0) g/dl Globulin 4.5 gm/dL Albumin/Globulin Ratio 0.7 L (1-2) HCG, Qual (NEGATIVE) Urine Color (Yellow) Urine Appearance (Clear) Urine pH (5.0-8.0) Ur Specific [place] (1.005-1.030) Urine Protein (Negative) Urine Glucose (UA) (Negative) Urine Ketones (Negative) Urine Occult Blood (Negative) Urine Nitrite (Negative) Urine Bilirubin (Negative) Urine Urobilinogen (0.2-1.0) Ur Leukocyte Esterase (Negative) Urine RBC (0-5) /hpf Urine WBC (0-5) /hpf Ur Epithelial Cells (0-5) /hpf Urine Bacteria (FEW) /hpf Urine Mucus (FEW) /hpf 11/12/17 11/12/17 11/12/17 Range/Units 18:13 18:13 18:13 WBC (3.98-10.04) K/mm3 RBC (3.98-5.22) M/mm3 Hgb (11.2-15.7) gm/L Hct (34.1-44.9) % MCV (79.4-94.8) fl MCH (25.6-32.2) pg MCHC (32.2-35.5) g/dl RDW Std Deviation (36.4-46.3) fL Plt Count (182-369) K/mm3 MPV (9.4-12.3) fl Neutrophils % (Manual) (40-60) % Band Neutrophils % (0-10) % Lymphocytes % (Manual) (20-40) % Atypical Lymphs % % Monocytes % (Manual) (2-10) % Eosinophils % (Manual) (0.7-5.8) % Basophils % (Manual) (0.1-1.2) Platelet Estimate RBC Morph Comment PT 10.5 (9.5-12.1) SECONDS INR 0.96 APTT 28 (24-31) SECONDS D-Dimer, Quantitative (0.19-0.50) mg/L Sodium (136-145) mEq/L Potassium (3.5-5.1) mEq/L Chloride (98-107) mEq/L Carbon Dioxide (21-32) mEq/L Anion Gap (5-15) BUN (7-18) mg/dL Creatinine (0.55-1.02) mg/dL Est Cr Clr Drug Dosing mL/min Estimated GFR (MDRD) (>60) mL/min BUN/Creatinine Ratio (14-18) Glucose (74-106) mg/dL Calcium (8.5-10.1) mg/dL Total Bilirubin (0.2-1.0) mg/dL AST (15-37) U/L ALT (14-59) U/L Alkaline Phosphatase (46-116) U/L Troponin I (0.00-0.056) ng/mL C-Reactive Protein 0.6 (<1.0) mg/dL Total Protein (6.4-8.2) g/dl Albumin (3.4-5.0) g/dl Globulin gm/dL Albumin/Globulin Ratio (1-2) HCG, Qual Negative (NEGATIVE) Urine Color (Yellow) Urine Appearance (Clear) Urine pH (5.0-8.0) Ur Specific [place] (1.005-1.030) Urine Protein (Negative) Urine Glucose (UA) (Negative) Urine Ketones (Negative) Urine Occult Blood (Negative) Urine Nitrite (Negative) Urine Bilirubin (Negative) Urine Urobilinogen (0.2-1.0) Ur Leukocyte Esterase (Negative) Urine RBC (0-5) /hpf Urine WBC (0-5) /hpf Ur Epithelial Cells (0-5) /hpf Urine Bacteria (FEW) /hpf Urine Mucus (FEW) /hpf 11/12/17 Range/Units 18:35 WBC (3.98-10.04) K/mm3 RBC (3.98-5.22) M/mm3 Hgb (11.2-15.7) gm/L Hct (34.1-44.9) % MCV (79.4-94.8) fl MCH (25.6-32.2) pg MCHC (32.2-35.5) g/dl RDW Std Deviation (36.4-46.3) fL Plt Count (182-369) K/mm3 MPV (9.4-12.3) fl Neutrophils % (Manual) (40-60) % Band Neutrophils % (0-10) % Lymphocytes % (Manual) (20-40) % Atypical Lymphs % % Monocytes % (Manual) (2-10) % Eosinophils % (Manual) (0.7-5.8) % Basophils % (Manual) (0.1-1.2) Platelet Estimate RBC Morph Comment PT (9.5-12.1) SECONDS INR APTT (24-31) SECONDS D-Dimer, Quantitative (0.19-0.50) mg/L Sodium (136-145) mEq/L Potassium (3.5-5.1) mEq/L Chloride (98-107) mEq/L Carbon Dioxide (21-32) mEq/L Anion Gap (5-15) BUN (7-18) mg/dL Creatinine (0.55-1.02) mg/dL Est Cr Clr Drug Dosing mL/min Estimated GFR (MDRD) (>60) mL/min BUN/Creatinine Ratio (14-18) Glucose (74-106) mg/dL Calcium (8.5-10.1) mg/dL Total Bilirubin (0.2-1.0) mg/dL AST (15-37) U/L ALT (14-59) U/L Alkaline Phosphatase (46-116) U/L Troponin I (0.00-0.056) ng/mL C-Reactive Protein (<1.0) mg/dL Total Protein (6.4-8.2) g/dl Albumin (3.4-5.0) g/dl Globulin gm/dL Albumin/Globulin Ratio (1-2) HCG, Qual (NEGATIVE) Urine Color Yellow (Yellow) Urine Appearance Clear (Clear) Urine pH 8.5 H (5.0-8.0) Ur Specific [place] 1.020 (1.005-1.030) Urine Protein 1+ H (Negative) Urine Glucose (UA) Negative (Negative) Urine Ketones Negative (Negative) Urine Occult Blood 1+ H (Negative) Urine Nitrite Negative (Negative) Urine Bilirubin Negative (Negative) Urine Urobilinogen 0.2 (0.2-1.0) Ur Leukocyte Esterase Negative (Negative) Urine RBC 0-5 (0-5) /hpf Urine WBC 0-5 (0-5) /hpf Ur Epithelial Cells 5-10 H (0-5) /hpf Urine Bacteria Few (FEW) /hpf Urine Mucus Not seen (FEW) /hpf Meds: Medications Generic Name Dose Route Start Last Admin Trade Name Freq PRN Reason Stop Dose Admin Sodium Chloride 100 mls @ 60 mls/hr 11/12/17 19:30 11/12/17 19:46 Normal Saline IV 60 mls/hr ASDIRECTED SAMANTA Administration Sodium Chloride 10 ml 11/12/17 18:19 11/12/17 19:23 Saline Flush FLUSH 10 ml ASDIRECTED PRN Administration Keep Vein Open Discontinued Medications Generic Name Dose Route Start Last Admin Trade Name Freq PRN Reason Stop Dose Admin Famotidine 20 mg 11/12/17 20:46 11/12/17 20:50 Pepcid IVPUSH 11/12/17 20:47 20 mg ONETIME ONE Administration Sodium Chloride 1,000 mls @ 999 mls/hr 11/12/17 19:12 11/12/17 19:19 Normal Saline IV 11/12/17 20:12 999 mls/hr ONETIME ONE Administration Iopamidol 100 ml 11/12/17 19:25 11/12/17 19:45 Isovue-370 (76%) IVPUSH 11/12/17 19:26 100 ml ONETIME ONE Administration Iopamidol 50 ml 11/12/17 19:25 11/12/17 19:45 Isovue-370 (76%) IVPUSH 11/12/17 19:26 10 ml ONETIME ONE Administration Morphine Sulfate 4 mg 11/12/17 19:05 11/12/17 19:21 Morphine IVPUSH 11/12/17 19:06 4 mg ONETIME ONE Administration Ondansetron HCl 4 mg 11/12/17 19:05 11/12/17 19:20 Zofran IVPUSH 11/12/17 19:06 4 mg ONETIME ONE Administration Sodium Chloride 10 ml 11/12/17 19:25 11/12/17 19:45 Saline Flush FLUSH 11/12/17 19:26 10 ml ONETIME ONE Administration - Radiology Interpretation Free Text/Narrative:: Chest x-ray shows no acute intrathoracic process. CT chest Technique: Multiple axial sections through the chest were obtained. Intravenous contrast was utilized. Study has been performed as a pulmonary angiogram protocol. Comparison: Previous CT chest performed as a pulmonary angiogram protocol dated 08/16/17. Findings: Details are slightly less than optimal secondary to patient body habitus. Pulmonary arteries are fairly well-opacified. No discrete filling defects are seen to indicate pulmonary embolism. Mediastinal and hilar regions show no adenopathy or mass. No pericardial effusion is seen. Small portion of the visualized upper abdominal structures appear within normal limits. Lungs are clear with no acute parenchymal densities. Incidental azygos lobe is noted. No pleural effusions are seen. Bone window settings were reviewed which shows no acute osseous abnormality. Impression: 1. No definite pulmonary embolism. 2. Other portions of the CT exam of the chest performed as a pulmonary angiogram protocol appear within normal limits. No significant change from previous exam is seen. Head CT Technique: Multiple axial sections through the brain were obtained. Intravenous contrast was not utilized. Comparison: No previous intracranial imaging is available. Findings: Ventricles along with basal cisterns and sulci over the convexities are within normal limits. No abnormal parenchymal densities are seen. No evidence of intracranial hemorrhage. No midline shift or mass effect is seen. Bone window settings were reviewed which shows no acute calvarial abnormality. Visualized sinuses are clear. Impression: 1. Nothing acute is identified on noncontrast head CT study. - Re-Assessments/Exams Free Text/Narrative Re-Assessment/Exam: 11/12/17 19:16 Checked on the patient. She just returned from x-ray. She is now crying because of the headache and the abdominal pain is so severe. I'm starting to get her labs back. Her d-dimer is elevated at 0.77. Will get a CT pulmonary injury gram to rule out a PE as she does have a risk factor of a long bus ride recently. I will also scan her head is she is complaining of significant headache and blurry vision. Morphine 4 mg of Zofran IV ordered. Of note when she initially entered the ER she was in no obvious distress. She was resting comfortably and watching TV and on her cellphone. 11/12/17 20:[address] results with the patient. Working diagnosis is migraine and reflux. States she is concerned that when she returns home the migraine will return as she has intermittent "head rushes "states this has been occurring the last several days. Initially she reported to me that her symptoms started yesterday. I jacki prescribe her some Imitrex for the migraine and put her on some omeprazole. She is instructed to follow-up with family medicine. Discharge instructions as documented. Departure - Departure Time of Disposition: 20:47 Disposition: Home, Self-Care 01 Condition: Fair Clinical Impression: Migraine, GERD (gastroesophageal reflux disease) - Discharge Information Prescriptions: Omeprazole 20 mg PO DAILY #30 cap.sr SUMAtriptan [Imitrex] 25 mg PO ASDIRECTED PRN #10 tab PRN Reason: Headache Instructions: Migraine Headache, [id number], Gastroesophageal Reflux Disease , Adult, [id number] Referrals: PCP,None [Primary Care Provider] - Cortes Toussaint [Physician] - Forms: ED Department Discharge Additional Instructions: You were given medication the ER that can affect your ability to drive and operate machinery. Do not drive or operate machinery within 12 hours of taking prescription narcotic pain medication. Imitrex 1 tab at onset of migraine. may repeat the dose 2 hours later for migraine persist. May take [id number] Tylenol or Motrin as needed for additional migraine relief. Rest. make sure you are drinking plenty of fluids. Taking omeprazole daily. Follow-up with family medicine within one week for recheck of your symptoms. Recommend Dr. Liang at the [facility], [place], operated by [facility]. Call [phone] to schedule with him. Please return to the ER if your symptoms change or worsen. - My Orders Last 24 Hours: My Active Orders 11/12/17 18:18 Cardiac Monitoring [RC] . DIRECTED EKG Documentation Completion [RC] ASDIRECTED Chest 2V [CR] Stat EKG 12 Lead [EK] Stat 11/12/17 18:19 Peripheral IV Care [RC] . DIRECTED Sodium Chloride 0.9% [Saline Flush] 10 ml FLUSH ASDIRECTED PRN Peripheral IV Insertion Adult [OM.PC] Routine 11/12/17 18:35 UA W/MICROSCOPIC [URIN] Stat 11/12/17 19:30 Sodium Chloride 0.9% [Normal Saline] 100 ml IV ASDIRECTED - Assessment/Plan Last 24 Hours: My Active Orders 11/12/17 18:18 Cardiac Monitoring [RC] . DIRECTED EKG Documentation Completion [RC] ASDIRECTED Chest 2V [CR] Stat EKG 12 Lead [EK] Stat 11/12/17 18:19 Peripheral IV Care [RC] . DIRECTED Sodium Chloride 0.9% [Saline Flush] 10 ml FLUSH ASDIRECTED PRN Peripheral IV Insertion Adult [OM.PC] Routine 11/12/17 18:35 UA W/MICROSCOPIC [URIN] Stat 11/12/17 19:30 Sodium Chloride 0.9% [Normal Saline] 100 ml IV ASDIRECTED
[2017-11-12] MEDS ORDERED: Ondansetron 4 MG/2 ML SDV IVPUSH ONE (19:05)
[2017-11-12] MEDS ORDERED: Morphine 4 MG/ML Syringe IVPUSH ONE (19:05)
[2017-11-12] MEDS ORDERED: Sodium Chloride 0.9% 1,000 ML IV ONE (19:12)
[2017-11-12] MEDS ORDERED: Iopamidol 755 Mg/ML 100 ML Bottle IVPUSH ONE (19:25)
[2017-11-12] MEDS ORDERED: Sodium Chloride 0.9% 10 ML Syringe FLUSH ONE (19:25)
[2017-11-12] MEDS ORDERED: Iopamidol 755 MG/ML 50 ML Bottle IVPUSH ONE (19:25)
[2017-11-12] MEDS ORDERED: Sodium Chloride 0.9% 100 ML IV SCH (19:30)
--- NOTE | 2017-11-12 20:12 | CT ---
Head CT Technique: Multiple axial sections through the brain were obtained. Intravenous contrast was not utilized. Comparison: No previous intracranial imaging is available. Findings: Ventricles along with basal cisterns and sulci over the convexities are within normal limits. No abnormal parenchymal densities are seen. No evidence of intracranial hemorrhage. No midline shift or mass effect is seen. Bone window settings were reviewed which shows no acute calvarial abnormality. Visualized sinuses are clear. Impression: 1. Nothing acute is identified on noncontrast head CT study. Diagnostic code #1
--- NOTE | 2017-11-12 20:13 | CT ---
CT chest Technique: Multiple axial sections through the chest were obtained. Intravenous contrast was utilized. Study has been performed as a pulmonary angiogram protocol. Comparison: Previous CT chest performed as a pulmonary angiogram protocol dated 08/16/17. Findings: Details are slightly less than optimal secondary to patient body habitus. Pulmonary arteries are fairly well-opacified. No discrete filling defects are seen to indicate pulmonary embolism. Mediastinal and hilar regions show no adenopathy or mass. No pericardial effusion is seen. Small portion of the visualized upper abdominal structures appear within normal limits. Lungs are clear with no acute parenchymal densities. Incidental azygos lobe is noted. No pleural effusions are seen. Bone window settings were reviewed which shows no acute osseous abnormality. Impression: 1. No definite pulmonary embolism. 2. Other portions of the CT exam of the chest performed as a pulmonary angiogram protocol appear within normal limits. No significant change from previous exam is seen. Diagnostic code #1
[2017-11-12] MEDS ORDERED: Famotidine 20 MG/2 ML SDV IVPUSH ONE (20:46)
--- NOTE | 2017-11-13 09:17 | CR ---
Chest: Two views of the chest were obtained. Comparison: Prior chest x-ray of 12/28/16. Heart size and mediastinum are normal. Old healed right clavicle fracture is seen. Bony structures are otherwise unremarkable. Lungs are clear. Impression: 1. Incidental finding. Nothing acute is appreciated on two-view chest x-ray. Diagnostic code #2
== END 2017-11-12 21:04 | disposition home or self-care (01) ==
LOC: JD.ED 17:49
DX: G43.909 Migraine, unspecified, not intractable, without status migrainosus (principal); K21.9 Gastro-esophageal reflux disease without esophagitis; Z88.6 Allergy status to analgesic agent
CPT/HCPCS: 36415; 70450; 71046; 71275; 80053; 81001; 84484; 84703; 85025; 85379; 85610; 85730; 86140; 93005; 96361; 96374; 96375; 99285; J2270; J2405; J7030; J7040; J7050; Q9967; 93010; 99284

== ENCOUNTER 2017-11-28 11:38 | Emergency (ER) | payer MEDICAID ==
--- NOTE | 2017-11-28 12:08 | EDM.PDOC ---
ED HPI GENERAL MEDICAL PROBLEM - General Chief Complaint: Abdominal Pain Stated Complaint: ABDOMINAL PAIN Time Seen by Provider: 11/28/17 12:07 Source of Information: Reports: Patient History Limitations: Reports: No Limitations - History of Present Illness INITIAL COMMENTS - FREE TEXT/NARRATIVE: Patient is here for evaluation of right lower quadrant/right flank pain. She states that this is been intermittent for the last few months significantly worse today. She took one Motrin last night felt it helped a small bit but she has taking nothing today. Patient denies any nausea or vomiting. She denies fever or chills. She has had significantly decreased appetite. Did have some chicken this morning and tolerated this well. Last bowel movement was this morning and normal. She has been drinking less fluids. Patient has no chronic medical conditions. She is not on any medication on a routine basis. LMP 11/08/2017. She is sexually active. Denies any vaginal itching/burning/discharge. She reports occasional/ intermittent dysuria. Denies any hematuria or abnormal urine color or smell. Right Lower Abdomen Pain Score (Numeric/FACES): 10 - Related Data Allergies Allergy/AdvReac Type Severity Reaction Status Date / Time aspirin Allergy Anaphylactic Verified 11/12/17 17:57 Shock Home Meds: Home Meds Omeprazole 20 mg PO DAILY #30 tablet. 11/28/17 [Rx] Past Medical History - Past Health History Medical/Surgical History: Denies Medical/Surgical History - Past Surgical History GI Surgical History: Reports: Cholecystectomy Female Surgical History: Reports: Section Musculoskeletal Surgical History: Reports: Other (See Below) Other Musculoskeletal Surgeries/Procedures:: right collarbone fracture Social & Family History - Family History Family Medical History: Noncontributory - Tobacco Use Smoking Status *Q: Never Smoker Second Hand Smoke Exposure: No - Caffeine Use Caffeine Use: Reports: None - Recreational Drug Use Recreational Drug Use: No - Living Situation & Occupation Living situation: Reports: Occupation: Employed ED ROS GENERAL - Review of Systems Review Of Systems: See Below Constitutional: Reports: Decreased Appetite. Denies: Fever, Chills, Weakness, Fatigue HEENT: Reports: No Symptoms Respiratory: Reports: No Symptoms Cardiovascular: Reports: No Symptoms GI/Abdominal: Reports: Abdominal Pain, Decreased Appetite. Denies: Constipation , Diarrhea, Nausea, Vomiting : Reports: Flank Pain. Denies: Dysuria, Frequency, Hematuria Musculoskeletal: Reports: No Symptoms Skin: Reports: No Symptoms ED EXAM, GI/ABD - Physical Exam Exam: See Below General Appearance: Alert, WD/WN, Anxious, Mild Distress Throat/Mouth: Normal Inspection, Normal Oropharynx Respiratory/Chest: No Respiratory Distress, Lungs Clear, Normal Breath Sounds Cardiovascular: Normal Peripheral Pulses, Regular Rate, Rhythm, No Murmur GI/Abdominal Exam: Normal Bowel Sounds, Soft, Tender (RLQ tenderness), Other ( Negative Ros[place] sign). No: Rebound Back Exam: Normal Inspection, CVA Tenderness (R). No: CVA Tenderness (L) Neurological: Alert, Oriented, No Motor/Sensory Deficits Psychiatric: Anxious Skin Exam: Warm, Dry, Intact Course - Vital Signs Last Recorded V/S: Last Vital Signs Temp 98.4 F 11/28/17 11:57 Pulse 111 H 11/28/17 11:57 Resp 20 11/28/17 11:57 BP 126/89 11/28/17 11:57 Pulse Ox 96 11/28/17 11:57 - Orders/Labs/Meds Orders: Active Orders 24 hr Category Date Time Status UA W/MICROSCOPIC [URIN] Stat Lab 11/28/17 12:10 Ordered Sodium Chloride 0.9% [Saline Flush] Med 11/28/17 14:05 Active 10 ml FLUSH ONETIME PRN Medication Orders Sodium Chloride (Saline Flush) 10 ml FLUSH ONETIME PRN PRN Reason: IV FLUSH Last Admin: 11/28/17 14:10 Dose: 10 ml Labs: Laboratory Tests 11/28/17 11/28/17 11/28/17 Range/Units 12:05 12:05 12:10 WBC 9.24 (3.98-10.04) K/mm3 RBC 4.60 (3.98-5.22) M/mm3 Hgb 12.9 (11.2-15.7) gm/L Hct 40.1 (34.1-44.9) % MCV 87.2 (79.4-94.8) fl MCH 28.0 (25.6-32.2) pg MCHC 32.2 (32.2-35.5) g/dl RDW Std Deviation 46.2 (36.4-46.3) fL Plt Count 405 H (182-369) K/mm3 MPV 9.9 (9.4-12.3) fl Neutrophils % (Manual) 62 H (40-60) % Band Neutrophils % 0 (0-10) % Lymphocytes % (Manual) 33 (20-40) % Atypical Lymphs % 0 % Monocytes % (Manual) 5 (2-10) % Eosinophils % (Manual) 0 L (0.7-5.8) % Basophils % (Manual) 0 L (0.1-1.2) Platelet Estimate Adequate RBC Morph Comment Normal Sodium 132 L (136-145) mEq/L Potassium 5.0 (3.5-5.1) mEq/L Chloride 101 (98-107) mEq/L Carbon Dioxide 23 (21-32) mEq/L Anion Gap 13.0 (5-15) BUN 12 (7-18) mg/dL Creatinine 0.8 (0.55-1.02) mg/dL Est Cr Clr Drug Dosing 88.79 mL/min Estimated GFR (MDRD) > 60 (>60) mL/min BUN/Creatinine Ratio 15.0 (14-18) Glucose 131 H (74-106) mg/dL Calcium 9.3 (8.5-10.1) mg/dL Total Bilirubin 0.4 (0.2-1.0) mg/dL AST 31 (15-37) U/L ALT 23 (14-59) U/L Alkaline Phosphatase 49 (46-116) U/L C-Reactive Protein 1.1 H* (<1.0) mg/dL Total Protein 8.6 H (6.4-8.2) g/dl Albumin 3.5 (3.4-5.0) g/dl Globulin 5.1 gm/dL Albumin/Globulin Ratio 0.7 L (1-2) Urine Color Yellow (Yellow) Urine Appearance Clear (Clear) Urine pH 5.5 (5.0-8.0) Ur Specific [place] > or = 1.030 (1.005-1.030) Urine Protein Negative (Negative) Urine Glucose (UA) Negative (Negative) Urine Ketones Negative (Negative) Urine Occult Blood Negative (Negative) Urine Nitrite Negative (Negative) Urine Bilirubin Negative (Negative) Urine Urobilinogen 0.2 (0.2-1.0) Ur Leukocyte Esterase Negative (Negative) Urine RBC Not seen (0-5) /hpf Urine WBC 0-5 (0-5) /hpf Ur Epithelial Cells 0-5 (0-5) /hpf Urine Bacteria Few (FEW) /hpf Urine Mucus Few (FEW) /hpf Urine HCG, Qual (NEGATIVE) 11/28/17 Range/Units 12:10 WBC (3.98-10.04) K/mm3 RBC (3.98-5.22) M/mm3 Hgb (11.2-15.7) gm/L Hct (34.1-44.9) % MCV (79.4-94.8) fl MCH (25.6-32.2) pg MCHC (32.2-35.5) g/dl RDW Std Deviation (36.4-46.3) fL Plt Count (182-369) K/mm3 MPV (9.4-12.3) fl Neutrophils % (Manual) (40-60) % Band Neutrophils % (0-10) % Lymphocytes % (Manual) (20-40) % Atypical Lymphs % % Monocytes % (Manual) (2-10) % Eosinophils % (Manual) (0.7-5.8) % Basophils % (Manual) (0.1-1.2) Platelet Estimate RBC Morph Comment Sodium (136-145) mEq/L Potassium (3.5-5.1) mEq/L Chloride (98-107) mEq/L Carbon Dioxide (21-32) mEq/L Anion Gap (5-15) BUN (7-18) mg/dL Creatinine (0.55-1.02) mg/dL Est Cr Clr Drug Dosing mL/min Estimated GFR (MDRD) (>60) mL/min BUN/Creatinine Ratio (14-18) Glucose (74-106) mg/dL Calcium (8.5-10.1) mg/dL Total Bilirubin (0.2-1.0) mg/dL AST (15-37) U/L ALT (14-59) U/L Alkaline Phosphatase (46-116) U/L C-Reactive Protein (<1.0) mg/dL Total Protein (6.4-8.2) g/dl Albumin (3.4-5.0) g/dl Globulin gm/dL Albumin/Globulin Ratio (1-2) Urine Color (Yellow) Urine Appearance (Clear) Urine pH (5.0-8.0) Ur Specific [place] (1.005-1.030) Urine Protein (Negative) Urine Glucose (UA) (Negative) Urine Ketones (Negative) Urine Occult Blood (Negative) Urine Nitrite (Negative) Urine Bilirubin (Negative) Urine Urobilinogen (0.2-1.0) Ur Leukocyte Esterase (Negative) Urine RBC (0-5) /hpf Urine WBC (0-5) /hpf Ur Epithelial Cells (0-5) /hpf Urine Bacteria (FEW) /hpf Urine Mucus (FEW) /hpf Urine HCG, Qual Negative (NEGATIVE) Meds: Medications Generic Name Dose Route Start Last Admin Trade Name Freq PRN Reason Stop Dose Admin Sodium Chloride 10 ml 11/28/17 14:05 11/28/17 14:10 Saline Flush FLUSH 10 ml ONETIME PRN Administration IV FLUSH Discontinued Medications Generic Name Dose Route Start Last Admin Trade Name Freq PRN Reason Stop Dose Admin Hydromorphone HCl 0.5 mg 11/28/17 12:19 11/28/17 12:36 Dilaudid IVPUSH 11/28/17 12:20 0.5 mg ONETIME ONE Administration Sodium Chloride 1,000 mls @ 999 mls/hr 11/28/17 13:06 11/28/17 13:25 Normal Saline IV 11/28/17 14:06 999 mls/hr ONETIME ONE Administration Iopamidol 150 ml 11/28/17 14:05 11/28/17 14:10 Isovue-300 (61%) IVPUSH 11/28/17 14:06 150 ml ONETIME ONE Administration - Re-Assessments/Exams Free Text/Narrative Re-Assessment/Exam: Patient is a fair amount of pain so was given 0.5 mg Dilaudid IV which helped. She continues to have significant right lower quadrant tenderness. WBC 9,240 with 62% neutrophils and no bands. This is normal range, however, her WBC on 11/12/2017 was 5,490. CRP is 1.1 (was 0.6 11/12/2017). Urinalysis does not demonstrate infection or hematuria. Will get a CT of her abdomen and pelvis. With the flank pain will not use oral contrast. CT is unremarkable. There is no hydronephrosis or nephrolithiasis. No findings of appendicitis, appendix measures 6 mm size and has no inflammatory changes. Nothing acute on CT to explain patient's pain. She has had some greasy foods in the past few days and this certainly could be contributing to it. Recommend a bland/low fat diet. Maximize oral fluid intake. She also was started on omeprazole several weeks ago but has not picked this up yet. I recommend she start that daily. She has a PCP at [facility] that was assigned by Medicaid, she is not sure who this is. Patient will find out and follow up with the next week or return to emergency room if needed. 11/28/17 15:03 11/28/17 15:09 Departure - Departure Time of Disposition: 15:05 Disposition: Home, Self-Care 01 Condition: Good Clinical Impression: Abdominal pain Qualifiers: Abdominal location: right lower quadrant Qualified Code(s): R10.31 - Right lower quadrant pain - Discharge Information Prescriptions: Omeprazole 20 mg PO DAILY #30 tablet.dr Instructions: Abdominal Pain, Adult, [id number] Referrals: PCP,None [Primary Care Provider] - Forms: ED Department Discharge Additional Instructions: You are evaluated in the emergency room for abdominal pain. Your workup here today was negative. I recommend a very bland low-fat and no processed foods. High fiber. Maximize oral fluid intake. Start the omeprazole that was previously prescribed and sent to [facility] Follow-up next week with your PCP at [facility] or return to the emergency room if any worsening of pain or fever greater than 101F. - My Orders Last 24 Hours: My Active Orders 11/28/17 12:10 UA W/MICROSCOPIC [URIN] Stat 11/28/17 14:05 Sodium Chloride 0.9% [Saline Flush] 10 ml FLUSH ONETIME PRN - Assessment/Plan Last 24 Hours: My Active Orders 11/28/17 12:10 UA W/MICROSCOPIC [URIN] Stat 11/28/17 14:05 Sodium Chloride 0.9% [Saline Flush] 10 ml FLUSH ONETIME PRN
[2017-11-28] MEDS ORDERED: HYDROmorphone 0.5 MG/0.5 ML SYRINGE IVPUSH ONE (12:19)
[2017-11-28] MEDS ORDERED: Sodium Chloride 0.9% 1,000 ML IV ONE (13:06)
[2017-11-28] MEDS ORDERED: Sodium Chloride 0.9% 10 ML Syringe FLUSH PRN (14:05)
[2017-11-28] MEDS ORDERED: Iopamidol 612 MG/ML 150 ML Bottle IVPUSH ONE (14:05)
--- NOTE | 2017-11-28 14:38 | CT ---
CT abdomen and pelvis. Technique:: Multiple axial sections were obtained from above the dome of the diaphragm inferiorly through the pubic symphysis. Intravenous contrast was utilized. Comparison: No prior CT abdomen or pelvis exam Findings: Appendix measures 6 mm in size which is within normal limits. No inflammatory change is seen around the appendix. Visualized lung bases shows nothing acute. Liver shows no focal parenchymal abnormality. Surgical clips are seen from prior cholecystectomy. Spleen appears within normal limits. Several soft tissue nodules anterior to the spleen are seen which are compatible with incidental accessory splenic tissue. Adrenal glands show no nodule. Kidneys show symmetric contrast enhancement without hydronephrosis or mass. Pancreas is within normal limits. Aorta shows no aneurysmal dilatation. No retroperitoneal adenopathy or mesenteric abnormalities are seen. Delayed images shows contrast within the distal ureters and within the bladder. No free fluid or inflammatory change is seen. No bowel dilatation is seen. Scattered mesenteric lymph nodes are seen which are felt to be within normal limits. Bone window settings were reviewed which appear within normal limits for the patient's age. Small fat-containing umbilical hernia is noted. Impression: 1. No findings of appendicitis. 2. Nothing acute is appreciated on CT study of the abdomen and pelvis. Diagnostic code #2
[2017-11-28 15:29] VITALS: BP 108/65
== END 2017-11-28 15:25 | disposition home or self-care (01) ==
LOC: JD.ED 11:38
DX: R10.31 Right lower quadrant pain (principal); Z88.6 Allergy status to analgesic agent
CPT/HCPCS: 36415; 74177; 80053; 81001; 81025; 85025; 86140; 96361; 96374; 99284; J1170; J7040; J7050; Q9967

== ENCOUNTER 2018-01-14 10:39 | Emergency (ER) | payer MEDICAID ==
[2018-01-14 10:53] VITALS: BP 126/77
--- NOTE | 2018-01-14 10:55 | EDM.PDOC ---
ED HPI GENERAL MEDICAL PROBLEM - General Chief Complaint: Headache Stated Complaint: HEADACHE/DIZZY Time Seen by Provider: 01/14/18 10:55 Source of Information: Reports: Patient - History of Present Illness INITIAL COMMENTS - FREE TEXT/NARRATIVE: Patient is here for evaluation of the headache started approximately 3 days ago. She states that this was initially behind her left eye, now moved only through her entire left side of her head. She says it is NOT the worst headache she is ever had but it is very bad. She states that she has not had a frequent history of headache or migraine diagnosis, however she was evaluated in the emergency room 2 months ago for similar headache. Patient states that she took Advil last night which helped very minimally. She has not taken anything today. She does note an aspirin allergy, however he takes Advil/ibuprofen and has previously taken Toradol without difficulty. She has not had any head injury. Patient denies any change in her routine. Has not traveled recently, went to [place] several months ago. No ill contacts. She does not take medications daily Drinks approximately one soda per day for caffeine. Denies any tobacco use. Denies any illicit drug use. She does have significant photophobia, no phonophobia. She is , works at [employer], [employer] 29 Dec 2017. Had a recent eye exam a few months ago and reports this was normal. Treatments CHICKEN FANCIER: Reports: Other (see below) Other Treatments CHICKEN FANCIER: advil last noc Headache Pain Score (Numeric/FACES): 10 - Related Data Allergies Allergy/AdvReac Type Severity Reaction Status Date / Time aspirin Allergy Anaphylactic Verified 11/12/17 17:57 Shock Home Meds: Home Meds SUMAtriptan Succinate [Imitrex] 50 mg PO DAILY #10 tablet 01/14/18 [Rx] Past Medical History - Past Health History Medical/Surgical History: Denies Medical/Surgical History - Past Surgical History GI Surgical History: Reports: Cholecystectomy Female Surgical History: Reports: Section Musculoskeletal Surgical History: Reports: Other (See Below) Other Musculoskeletal Surgeries/Procedures:: right collarbone fracture Social & Family History - Family History Family Medical History: Noncontributory - Tobacco Use Smoking Status *Q: Never Smoker - Caffeine Use Caffeine Use: Reports: Soda - Recreational Drug Use Recreational Drug Use: No - Living Situation & Occupation Living situation: Reports: Occupation: Employed ED ROS GENERAL - Review of Systems Review Of Systems: See Below Constitutional: Denies: Fever, Chills, Malaise, Weakness, Fatigue HEENT: Denies: Ear Pain, Eye Discharge Respiratory: Reports: No Symptoms Cardiovascular: Reports: No Symptoms Endocrine: Reports: No Symptoms GI/Abdominal: Reports: No Symptoms : Reports: No Symptoms Musculoskeletal: Denies: Neck Pain, Shoulder Pain, Back Pain, Muscle Stiffness Skin: Reports: No Symptoms Neurological: Reports: Headache. Denies: Confusion, Dizziness, Numbness, Paresthesia, Seizure, Syncope, Tingling, Weakness, Change in Speech, Gait Disturbance Psychiatric: Reports: Anxiety. Denies: Agitation, Confusion, Depression Hematologic/Lymphatic: Reports: No Symptoms - Physical Exam Exam: See Below Exam Limited By: No Limitations General Appearance: Alert, WD/WN, Anxious Eye Exam: Bilateral Eye: PERRL, Vision Changes Ears: Normal External Exam, Normal Canal, Normal TMs Nose: Normal Inspection, Normal Mucosa Throat/Mouth: Normal Inspection, Normal Oropharynx, Other (Gold tooth) Head Exam: Atraumatic, Normocephalic Neck: Normal Inspection, Non-Tender, Full Range of Motion Respiratory/Chest: No Respiratory Distress, Lungs Clear, Normal Breath Sounds Cardiovascular: Normal Peripheral Pulses, Regular Rate, Rhythm, No Murmur GI/Abdominal: Normal Bowel Sounds, Soft, Non-Tender Neuro Exam (Abbreviated): Alert, Oriented, Normal Cognition, Normal Gait, Normal Reflexes, No Motor/Sensory Deficits Psychiatric: Normal Affect, Normal Mood Skin Exam: Warm, Dry, Intact Course - Vital Signs Last Recorded V/S: Last Vital Signs Temp 98.0 F 01/14/18 10:52 Pulse 85 01/14/18 10:52 Resp 20 01/14/18 10:52 BP 126/77 01/14/18 10:52 Pulse Ox 97 01/14/18 10:52 - Orders/Labs/Meds Orders: Active Orders 24 hr Category Date Time Status DRUG SCREEN, URINE [URCHEM] Stat Lab 01/14/18 11:30 Ordered HCG QUALITATIVE,URINE [URCHEM] Stat Lab 01/14/18 11:30 Ordered UA W/MICROSCOPIC [URIN] Stat Lab 01/14/18 11:30 Ordered Labs: Laboratory Tests 01/14/18 01/14/18 01/14/18 Range/Units 11:25 11:25 11:30 WBC 6.56 (3.98-10.04) K/mm3 RBC 4.41 (3.98-5.22) M/mm3 Hgb 12.6 (11.2-15.7) gm/L Hct 38.5 (34.1-44.9) % MCV 87.3 (79.4-94.8) fl MCH 28.6 (25.6-32.2) pg MCHC 32.7 (32.2-35.5) g/dl RDW Std Deviation 45.8 (36.4-46.3) fL Plt Count 342 (182-369) K/mm3 MPV 9.8 (9.4-12.3) fl Neutrophils % (Manual) 55 (40-60) % Band Neutrophils % 1 (0-10) % Lymphocytes % (Manual) 34 (20-40) % Atypical Lymphs % 0 % Monocytes % (Manual) 5 (2-10) % Eosinophils % (Manual) 4 (0.7-5.8) % Basophils % (Manual) 1 (0.1-1.2) Platelet Estimate Adequate Plt Morphology Comment Normal RBC Morph Comment Normal Sodium 137 (136-145) mEq/L Potassium 4.4 (3.5-5.1) mEq/L Chloride 105 (98-107) mEq/L Carbon Dioxide 24 (21-32) mEq/L Anion Gap 12.4 (5-15) BUN 14 (7-18) mg/dL Creatinine 1.0 (0.55-1.02) mg/dL Est Cr Clr Drug Dosing 71.03 mL/min Estimated GFR (MDRD) > 60 (>60) mL/min BUN/Creatinine Ratio 14.0 (14-18) Glucose 90 (74-106) mg/dL Calcium 9.4 (8.5-10.1) mg/dL Total Bilirubin 0.2 (0.2-1.0) mg/dL AST 20 (15-37) U/L ALT 28 (14-59) U/L Alkaline Phosphatase 52 (46-116) U/L C-Reactive Protein 0.5 (<1.0) mg/dL Total Protein 8.1 (6.4-8.2) g/dl Albumin 3.4 (3.4-5.0) g/dl Globulin 4.7 gm/dL Albumin/Globulin Ratio 0.7 L (1-2) TSH 3rd Generation 0.439 (0.358-3.74) uIU/mL Urine Color (Yellow) Urine Appearance (Clear) Urine pH (5.0-8.0) Ur Specific [place] (1.005-1.030) Urine Protein (Negative) Urine Glucose (UA) (Negative) Urine Ketones (Negative) Urine Occult Blood (Negative) Urine Nitrite (Negative) Urine Bilirubin (Negative) Urine Urobilinogen (0.2-1.0) Ur Leukocyte Esterase (Negative) Urine RBC (0-5) /hpf Urine WBC (0-5) /hpf Ur Epithelial Cells (0-5) /hpf Amorphous Sediment (NOT SEEN) /hpf Urine Bacteria (FEW) /hpf Urine Mucus (FEW) /hpf Urine HCG, Qual (NEGATIVE) Urine Opiates Screen Negative (NEGATIVE) Ur Buprenorphine Scrn Negative (NEGATIVE) Ur Oxycodone Screen Negative (NEGATIVE) Urine Methadone Screen Negative (NEGATIVE) Ur Propoxyphene Screen Negative (NEGATIVE) Ur Barbiturates Screen Negative (NEGATIVE) Ur Tricyclics Screen Negative (NEGATIVE) Ur Phencyclidine Scrn Negative (NEGATIVE) Ur Amphetamine Screen Negative (NEGATIVE) U Methamphetamines Scrn Negative (NEGATIVE) U Benzodiazepines Scrn Negative (NEGATIVE) U Cocaine Metab Screen Negative (NEGATIVE) U Marijuana (THC) Screen Negative (NEGATIVE) Ethyl Alcohol 0.00 (0.00) gm% 01/14/18 01/14/18 Range/Units 11:30 11:30 WBC (3.98-10.04) K/mm3 RBC (3.98-5.22) M/mm3 Hgb (11.2-15.7) gm/L Hct (34.1-44.9) % MCV (79.4-94.8) fl MCH (25.6-32.2) pg MCHC (32.2-35.5) g/dl RDW Std Deviation (36.4-46.3) fL Plt Count (182-369) K/mm3 MPV (9.4-12.3) fl Neutrophils % (Manual) (40-60) % Band Neutrophils % (0-10) % Lymphocytes % (Manual) (20-40) % Atypical Lymphs % % Monocytes % (Manual) (2-10) % Eosinophils % (Manual) (0.7-5.8) % Basophils % (Manual) (0.1-1.2) Platelet Estimate Plt Morphology Comment RBC Morph Comment Sodium (136-145) mEq/L Potassium (3.5-5.1) mEq/L Chloride (98-107) mEq/L Carbon Dioxide (21-32) mEq/L Anion Gap (5-15) BUN (7-18) mg/dL Creatinine (0.55-1.02) mg/dL Est Cr Clr Drug Dosing mL/min Estimated GFR (MDRD) (>60) mL/min BUN/Creatinine Ratio (14-18) Glucose (74-106) mg/dL Calcium (8.5-10.1) mg/dL Total Bilirubin (0.2-1.0) mg/dL AST (15-37) U/L ALT (14-59) U/L Alkaline Phosphatase (46-116) U/L C-Reactive Protein (<1.0) mg/dL Total Protein (6.4-8.2) g/dl Albumin (3.4-5.0) g/dl Globulin gm/dL Albumin/Globulin Ratio (1-2) TSH 3rd Generation (0.358-3.74) uIU/mL Urine Color Yellow (Yellow) Urine Appearance Clear (Clear) Urine pH 6.5 (5.0-8.0) Ur Specific [place] 1.025 (1.005-1.030) Urine Protein Trace H (Negative) Urine Glucose (UA) Negative (Negative) Urine Ketones Negative (Negative) Urine Occult Blood Negative (Negative) Urine Nitrite Negative (Negative) Urine Bilirubin Negative (Negative) Urine Urobilinogen 0.2 (0.2-1.0) Ur Leukocyte Esterase Negative (Negative) Urine RBC 0-5 (0-5) /hpf Urine WBC 0-5 (0-5) /hpf Ur Epithelial Cells 5-10 H (0-5) /hpf Amorphous Sediment Moderate H (NOT SEEN) /hpf Urine Bacteria Few (FEW) /hpf Urine Mucus Not seen (FEW) /hpf Urine HCG, Qual Negative (NEGATIVE) Urine Opiates Screen (NEGATIVE) Ur Buprenorphine Scrn (NEGATIVE) Ur Oxycodone Screen (NEGATIVE) Urine Methadone Screen (NEGATIVE) Ur Propoxyphene Screen (NEGATIVE) Ur Barbiturates Screen (NEGATIVE) Ur Tricyclics Screen (NEGATIVE) Ur Phencyclidine Scrn (NEGATIVE) Ur Amphetamine Screen (NEGATIVE) U Methamphetamines Scrn (NEGATIVE) U Benzodiazepines Scrn (NEGATIVE) U Cocaine Metab Screen (NEGATIVE) U Marijuana (THC) Screen (NEGATIVE) Ethyl Alcohol (0.00) gm% Meds: Medications Discontinued Medications Generic Name Dose Route Start Last Admin Trade Name Freq PRN Reason Stop Dose Admin Diphenhydramine HCl 25 mg 01/14/18 11:13 01/14/18 11:39 Benadryl IVPUSH 01/14/18 11:14 25 mg ONETIME ONE Administration Sodium Chloride 1,000 mls @ 999 mls/hr 01/14/18 11:09 01/14/18 11:36 Normal Saline IV 01/14/18 12:09 999 mls/hr ONETIME ONE Administration Ketorolac Tromethamine 30 mg 01/14/18 11:15 01/14/18 11:41 Toradol IVPUSH 01/14/18 11:16 30 mg ONETIME ONE Administration Metoclopramide HCl 5 mg 01/14/18 11:11 01/14/18 11:37 Reglan IVPUSH 01/14/18 11:12 5 mg ONETIME ONE Administration Sumatriptan Succinate 50 mg 01/14/18 12:09 01/14/18 12:30 Imitrex PO 01/14/18 12:10 50 mg ONETIME ONE Administration - Re-Assessments/Exams Free Text/Narrative Re-Assessment/Exam: Neurologic exam normal. Will get basic lab work. She had normal head CT 11/12/17 and reports today's headache is not the worst she has ever had. Incidentally noted she is on her cell phone in the room. Will give 30 mg Toradol, as she has taken this safely in the past. 25 mg Benadryl & 5mg Reglan. Start 1L NS. 50 mg by mouth Imitrex. Patient significantly improved on above treatment. Will discharge home on 400mg riboflavin daily and PRN Imitrex. She will FU with PCP this week or return to ER if needed. 01/14/18 11:37 01/14/18 17:53 Departure - Departure Time of Disposition: 13:33 Disposition: Home, Self-Care 01 Condition: Good Clinical Impression: Migraine - Discharge Information Prescriptions: SUMAtriptan Succinate [Imitrex] 50 mg PO DAILY #10 tablet Instructions: Migraine Headache, [id number] Referrals: PCP,Unknown [Primary Care Provider] - Forms: ED Department Discharge Additional Instructions: You were evaluated in the emergency room for a migraine headache. Recommend you go home and rest, continue to push water intake. You may take the Imitrex at onset of headache, can repeat this in an hour if needed. Do not take more than 4 tablets in a 24-hour period. Start [id number] Riboflavin 400 mg daily. You need to follow up with her primary provider within the week for further evaluation and to discuss prevention of these. Certainly return to the emergency room if needed. - My Orders Last 24 Hours: My Active Orders 01/14/18 11:30 DRUG SCREEN, URINE [URCHEM] Stat HCG QUALITATIVE,URINE [URCHEM] Stat UA W/MICROSCOPIC [URIN] Stat - Assessment/Plan Last 24 Hours: My Active Orders 01/14/18 11:30 DRUG SCREEN, URINE [URCHEM] Stat HCG QUALITATIVE,URINE [URCHEM] Stat UA W/MICROSCOPIC [URIN] Stat
[2018-01-14] MEDS ORDERED: Sodium Chloride 0.9% 1,000 ML IV ONE (11:09)
[2018-01-14] MEDS ORDERED: Metoclopramide 10 MG/2 ML SDV IVPUSH ONE (11:11)
[2018-01-14] MEDS ORDERED: diphenhydrAMINE 50 MG/ML SDV IVPUSH ONE (11:13)
[2018-01-14] MEDS ORDERED: Ketorolac 30 MG/ML SDV IVPUSH ONE (11:15)
[2018-01-14] MEDS ORDERED: SUMAtriptan 50 MG Tab PO ONE (12:09)
== END 2018-01-14 14:12 | disposition home or self-care (01) ==
LOC: JD.ED 10:39
DX: G43.909 Migraine, unspecified, not intractable, without status migrainosus (principal); Z79.899 Other long term (current) drug therapy; Z88.6 Allergy status to analgesic agent
CPT/HCPCS: 36415; 80053; 80306; 81001; 81025; 84443; 85007; 85027; 86140; 96361; 96374; 96375; 99284; A9270; G0480; J1200; J1885; J2765; J7040

== ENCOUNTER 2018-02-05 16:03 | Emergency (ER) | payer MEDICAID ==
[2018-02-05 16:28] VITALS: BP 113/64
--- NOTE | 2018-02-05 17:39 | EDM.PDOC ---
ED HPI GENERAL MEDICAL PROBLEM - General Chief Complaint: Lower Extremity Injury/Pain Stated Complaint: KNEE PAIN /FALL Time Seen by Provider: 02/05/18 16:29 Source of Information: Reports: Patient History Limitations: Reports: No Limitations - History of Present Illness INITIAL COMMENTS - FREE TEXT/NARRATIVE: The patient was at a shop in town and she slipped and fell and landed on her knees. She has bilateral knee pain and low back pain. She did not hit her head or hurt her neck. She has no numbness or weakness in her legs. Onset: Sudden Duration: Minutes: Location: Reports: Back, Lower Extremity, Left (knee), Lower Extremity, Right ( Knee) Quality: Reports: Sharp Severity: Moderate Improves with: Reports: Immobilization Worsens with: Reports: Movement Associated Symptoms: Reports: No Other Symptoms Bilateral Knee Pain Score (Numeric/FACES): 9 - Related Data Allergies Allergy/AdvReac Type Severity Reaction Status Date / Time aspirin Allergy Anaphylactic Verified 11/12/17 17:57 Shock Past Medical History - Past Health History Medical/Surgical History: Denies Medical/Surgical History - Past Surgical History GI Surgical History: Reports: Cholecystectomy Female Surgical History: Reports: Section Musculoskeletal Surgical History: Reports: Other (See Below) Other Musculoskeletal Surgeries/Procedures:: right collarbone fracture Social & Family History - Family History Family Medical History: Noncontributory - Tobacco Use Smoking Status *Q: Never Smoker - Caffeine Use Caffeine Use: Reports: Soda - Recreational Drug Use Recreational Drug Use: No - Living Situation & Occupation Living situation: Reports: Occupation: Employed Review of Systems - Review of Systems Review Of Systems: See Below Constitutional: Reports: No Symptoms Eyes: Reports: No Symptoms Ears: Reports: No Symptoms Nose: Reports: No Symptoms Mouth/Throat: Reports: No Symptoms Respiratory: Reports: No Symptoms Cardiovascular: Reports: No Symptoms GI/Abdominal: Reports: No Symptoms Genitourinary: Reports: No Symptoms Musculoskeletal: Reports: Back Pain (Moderat pain upon palpation to the low back ), Other (Bilateral knee pain) ED EXAM, GENERAL - Physical Exam Exam: See Below Exam Limited By: No Limitations General Appearance: Alert, No Apparent Distress Ears: Normal External Exam Nose: Normal Inspection Head: Atraumatic, Normocephalic Neck: Normal Inspection Respiratory/Chest: No Respiratory Distress, Lungs Clear, Normal Breath Sounds Cardiovascular: Regular Rate, Rhythm, No Edema, No Murmur GI/Abdominal: Soft, Non-Tender, No Organomegaly, No Mass Back Exam: Other (Pain upon palpation to her low back.) Extremities: Other (Pain upon palpation to both knees. She can walk. Ligaments feel stable.) Neurological: Alert, Oriented, No Motor/Sensory Deficits Course - Vital Signs Last Recorded V/S: Last Vital Signs Temp 97.5 F 02/05/18 16:25 Pulse 88 02/05/18 16:25 Resp 18 02/05/18 16:25 BP 113/64 02/05/18 16:25 Pulse Ox 99 02/05/18 16:25 - Orders/Labs/Meds Orders: Active Orders 24 hr Category Date Time Status Knee Min 4V Lt [CR] Stat Exams 02/05/18 16:33 Taken Knee Min 4V Rt [CR] Stat Exams 02/05/18 16:33 Taken Lumbar Spine 2 or 3V [CR] Stat Exams 02/05/18 16:34 Taken - Re-Assessments/Exams Free Text/Narrative Re-Assessment/Exam: 02/05/18 17:38 I ordered an x-ray of her lumbar spine and both knees. Her x-rays look good. Departure - Departure Time of Disposition: 17:40 Disposition: Home, Self-Care 01 Condition: Good Clinical Impression: Fall Qualifiers: Encounter type: initial encounter Qualified Code(s): W19.XXXA - Unspecified fall, initial encounter Knee contusion Qualifiers: Encounter type: initial encounter Laterality: unspecified laterality Qualified Code(s): S80.00XA - Contusion of unspecified knee, initial encounter - Discharge Information Referrals: PCP,None [Primary Care Provider] - Elsy Barriga PA [Physician Compliance Professional] - 1 Week Additional Instructions: Ice the areas that hurt for 15 minutes 3 times per day for 2 days. Take tylenol or motrin for pain. Follow up with Elsy Barriga within a week if you are not better. Please return if you are worse. - My Orders Last 24 Hours: My Active Orders 02/05/18 16:33 Knee Min 4V Lt [CR] Stat Knee Min 4V Rt [CR] Stat 02/05/18 16:34 Lumbar Spine 2 or 3V [CR] Stat - Assessment/Plan Last 24 Hours: My Active Orders 02/05/18 16:33 Knee Min 4V Lt [CR] Stat Knee Min 4V Rt [CR] Stat 02/05/18 16:34 Lumbar Spine 2 or 3V [CR] Stat
--- NOTE | 2018-02-06 10:58 | CR ---
Left knee: Five views of the left knee were obtained. Comparison: No prior left knee exam. Medial and lateral joint spaces are maintained in height. No joint effusion is seen. No fracture or other bony abnormality is seen. Impression: 1. No abnormality is seen on left knee exam. Diagnostic code #1
--- NOTE | 2018-02-06 10:58 | CR ---
Right knee: Four views of the right knee were obtained. Comparison: No prior right knee exam. No joint effusion is seen. Medial and lateral joint compartments are maintained in height. No fracture or other bony abnormality is seen. Impression: 1. No abnormality is seen on right knee exam. Diagnostic code #1
--- NOTE | 2018-02-06 10:58 | CR ---
Lumbar spine: AP, lateral and coned-down lateral views centered to the lumbosacral junction were obtained. Comparison: No previous lumbar spine imaging. Vertebral body heights are maintained. Disc spaces are maintained. Minimal posterior osteophyte is noted at L4-L5. No anterior osteophytes are seen. Pedicles as well as transverse and spinous processes are intact. Sacroiliac joints are unremarkable. Impression: 1. Minimal degenerative change. 2. Nothing acute is appreciated on three-view lumbar spine study. Diagnostic code #1
== END 2018-02-05 18:00 | disposition home or self-care (01) ==
LOC: JD.ED 16:03
DX: S80.01XA Contusion of right knee, initial encounter (principal); S80.02XA Contusion of left knee, initial encounter; Z88.6 Allergy status to analgesic agent; W01.0XXA Fall on same level from slipping, tripping and stumbling without subsequent striking against object, initial encounter
CPT/HCPCS: 72100; 72100-26; 73564-26-LT; 73564-26-RT; 73564-LT; 73564-RT; 99283

== ENCOUNTER 2018-09-30 08:02 | Emergency (ER) | payer MEDICAID ==
[2018-09-30 08:35] VITALS: BP 103/72
--- NOTE | 2018-09-30 08:45 | EDM.PDOC ---
<Rusty Kirkland - Last Filed: 09/30/18 08:45> ED HPI GENERAL MEDICAL PROBLEM - General Chief Complaint: General Stated Complaint: SORES IN MOUTH Time Seen by Provider: 09/30/18 08:33 - History of Present Illness INITIAL COMMENTS - FREE TEXT/NARRATIVE: Pt presents to the Emergency room for concerns about a lesion in her mouth that she first noticed last evening. She describes the lesion as a "red spot" that is located on the inner surface of her left cheek. It is not painful, it does not bleed, there is no discharge, it has not progressed or changed in any way. She denies any aggravating factors. She has not tried anything to treat the lesion. She denies any traumatic injury to the region however she admits to have had dental "cleaning" that took place on Sep 10. She also admits to have changed toothpaste recently. She has no new sexual contacts within the past year. She lives with her son who has had exposure to hand foot mouth disease at a local school. - Related Data Allergies Allergy/AdvReac Type Severity Reaction Status Date / Time aspirin Allergy Anaphylactic Verified 09/30/18 08:30 Shock Home Meds: Home Meds . [No Known Home Meds] 09/30/18 [History] Past Medical History Cardiovascular History: Reports: High Cholesterol (On atorvastatin) ED ROS GENERAL - Review of Systems Review Of Systems: See Below Constitutional: Reports: No Symptoms. Denies: Fever, Chills HEENT: Reports: Rhinitis, Other (See HPI). Denies: Dental Pain, Ear Pain, Eye Pain, Hearing Loss Respiratory: Reports: No Symptoms. Denies: Shortness of Breath, Wheezing, Cough Cardiovascular: Reports: No Symptoms. Denies: Chest Pain, Edema, Palpitations Endocrine: Reports: No Symptoms, Other (History of prediabetes). Denies: Polydypsia GI/Abdominal: Reports: No Symptoms. Denies: Abdominal Pain, Bloody Stool, Diarrhea, Difficulty Swallowing, Nausea, Vomiting : Reports: No Symptoms. Denies: Dysuria, Flank Pain, Frequency, Irregular Menses Musculoskeletal: Reports: No Symptoms. Denies: Joint Pain, Muscle Pain, Muscle Stiffness Skin: Reports: No Symptoms. Denies: Jaundice, Mottled, Bruising, Rash Neurological: Reports: No Symptoms. Denies: Confusion, Dizziness, Headache Psychiatric: Reports: No Symptoms. Denies: Agitation, Anxiety, Confusion, Suicidal Ideation Hematologic/Lymphatic: Reports: No Symptoms. Denies: Anemia, Easy Bleeding, Easy Bruising, Swollen Glands ED EXAM, GENERAL - Physical Exam Exam: See Below Exam Limited By: No Limitations General Appearance: Alert, No Apparent Distress Eye Exam: Bilateral Eye: EOMI, Normal Inspection, PERRL Ears: Normal External Exam, Normal Canal, Hearing Grossly Normal, Normal TMs Ear Exam: Bilateral Ear: Auricle Normal, Canal Normal, TM normal Nose: Normal Inspection, Normal Mucosa, No Blood Throat/Mouth: Normal Lips, Normal Teeth, Normal Gums, Normal Voice, No Airway Compromise, Other (approximately 0.25 cm superficial hemorrhagic nonblanchable lesion on the inner surface of the mid left buccal surface.There is no active bleeding, discharge, or surrounding erythema. Right cheek is without lesions or discoloration.) Head: Atraumatic, Normocephalic. No: Facial Tenderness Neck: Normal Inspection, Supple, Non-Tender, Full Range of Motion. No: Lymphadenopathy (L) Respiratory/Chest: No Respiratory Distress, Lungs Clear, Normal Breath Sounds. No: Rhonchi, Wheezing Cardiovascular: Normal Peripheral Pulses, Regular Rate, Rhythm, No Edema, No Gallop, No JVD, No Murmur, No Rub Peripheral Pulses: 2+: Radial (L), Radial (R) GI/Abdominal: Normal Bowel Sounds, Soft, Non-Tender, No Organomegaly, No Distention (Female) Exam: Deferred Rectal (Female) Exam: Deferred Neurological: Alert, Oriented, CN II-XII Intact, Normal Cognition, Normal Reflexes, No Motor/Sensory Deficits Psychiatric: Normal Affect, Normal Mood Skin Exam: Warm, Dry, Intact, Normal Color, No Rash. No: Jaundice, Petechiae Lymphatic: No Adenopathy Course - Vital Signs Last Recorded V/S: Last Vital Signs Temp 36.6 C 09/30/18 08:32 Pulse 78 09/30/18 08:32 Resp 18 09/30/18 08:32 BP 103/72 09/30/18 08:32 Pulse Ox 97 09/30/18 08:32 Departure - Departure Disposition: Home, Self-Care 01 Clinical Impression: Oral mucosal lesion - Discharge Information Instructions: Oral Mucositis Referrals: Marlen,Ewelina L, PA-C [Primary Care Provider] - Forms: ED Department Discharge Additional Instructions: Evaluation the emergency room this morning in regards to identified painless sore on the inner aspect of your left cheek. On inspection this has all the signs and symptoms of a bite to the mucosa or lining of your cheek as it lines up perfectly with where your teeth with me. It's may have occurred while you were asleep. At any rate it does not represent any sign of any infectious disease disorder or gdmj-ibew-fnm-mouth disorder. It will go through the colors of a bruise in dissipate over the next 5-7 days. No treatment is required <Tavon Martinez - Last Filed: 09/30/18 09:20> ED HPI GENERAL MEDICAL PROBLEM - General Source of Information: Reports: Patient History Limitations: Reports: No Limitations - History of Present Illness Onset: Sudden Onset Date: 09/29/18 (Patient first noted lesions in her left buccal mucosa last evening.) Duration: Hour(s): Location: Reports: Face (Lesions in her left buccal mucosa.) Quality: Reports: Other Severity: Mild (No pain) Improves with: Reports: None Worsens with: Reports: None Associated Symptoms: Reports: No Other Symptoms Treatments HAMMERER: Reports: Other (see below) (None) Past Medical History - Past Health History Medical/Surgical History: Denies Medical/Surgical History Cardiovascular History: Reports: High Cholesterol 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 - Infectious Disease History Infectious Disease History: Reports: Chicken Pox - Past Surgical History GI Surgical History: Reports: Cholecystectomy Female Surgical History: Reports: Section Musculoskeletal Surgical History: Reports: Other (See Below) Other Musculoskeletal Surgeries/Procedures:: right collarbone fracture Social & Family History - Family History Family Medical History: Noncontributory - Tobacco Use Smoking Status *Q: Never Smoker Second Hand Smoke Exposure: No - Caffeine Use Caffeine Use: Reports: None - Recreational Drug Use Recreational Drug Use: No - Living Situation & Occupation Living situation: Reports: Occupation: Employed Course - Radiology Interpretation Free Text/Narrative:: Patient was seen and examined by student Oscar Kirkland-PA student. I then examined the patient myself. I agree with his findings of a self bite to the inner buccal mucosa on the left side. She has no recollection of biting herself and therefore may have occurred while she was sleeping. However the lesion is right where the teeth would meet. Is in the midline and left buccal mucosa and shows 2 small hemorrhagic areas of 0.25 mm with some superficial abrasions. Patient denies any pain at the site. Patient reassured she does not have anything contagious or infectious. I agree with the student's documentation and findings. And treatment plan Departure - Departure Time of Disposition: 08:43 Condition: Fair - Discharge Information *PRESCRIPTION DRUG MONITORING PROGRAM REVIEWED*: Not Applicable *COPY OF PRESCRIPTION DRUG MONITORING REPORT IN PATIENT ANN: Not Applicable
== END 2018-09-30 08:51 | disposition home or self-care (01) ==
LOC: JD.ED 08:02
DX: K13.70 Unspecified lesions of oral mucosa (principal); Z88.6 Allergy status to analgesic agent
CPT/HCPCS: 99281; 99282

== ENCOUNTER 2018-12-12 22:14 | Emergency (ER) | payer MEDICAID ==
[2018-12-12 22:25] VITALS: BP 120/79
--- NOTE | 2018-12-12 23:23 | EDM.PDOC ---
ED HPI GENERAL MEDICAL PROBLEM - General Chief Complaint: Abdominal Pain Stated Complaint: RIGHT SIDE PAIN Time Seen by Provider: 12/12/18 23:16 - History of Present Illness INITIAL COMMENTS - FREE TEXT/NARRATIVE: 33-year-old female presents emergency room with abdominal pain Pain started for 5 days ago progressively getting worse starts in the right flank radiates down. She says it always hurts nothing seems to improve it or make it better other than taking some medication but she's not sure what she's taken for. She has minimal nausea no vomiting. No diarrhea no constipation. She denies a prior history of kidney stones. She denies being because she hasn't been sexually active. Right Lower Abdomen Pain Score (Numeric/FACES): 10 - Related Data Allergies Allergy/AdvReac Type Severity Reaction Status Date / Time aspirin Allergy Anaphylactic Verified 09/30/18 08:30 Shock Home Meds: Home Meds . 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 - Infectious Disease History Infectious Disease History: Reports: Chicken Pox - Past Surgical History GI Surgical History: Reports: Cholecystectomy Female Surgical History: Reports: Section Musculoskeletal Surgical History: Reports: Other (See Below) Other Musculoskeletal Surgeries/Procedures:: right collarbone fracture Social & Family History - Family History Family Medical History: Noncontributory - Tobacco Use Smoking Status *Q: Never Smoker - Caffeine Use Caffeine Use: Reports: None - Recreational Drug Use Recreational Drug Use: No - Living Situation & Occupation Living situation: Reports: Occupation: Employed ED ROS GENERAL - Review of Systems Review Of Systems: See Below Constitutional: Reports: No Symptoms HEENT: Reports: No Symptoms Respiratory: Reports: No Symptoms Cardiovascular: Reports: No Symptoms Endocrine: Reports: No Symptoms GI/Abdominal: Reports: Abdominal Pain : Reports: No Symptoms ED EXAM, GI/ABD - Physical Exam Exam: See Below Exam Limited By: No Limitations General Appearance: Alert, No Apparent Distress Head: Atraumatic, Normocephalic Neck: Normal Inspection, Supple, Non-Tender, Full Range of Motion Respiratory/Chest: No Respiratory Distress, Lungs Clear, Normal Breath Sounds Cardiovascular: Regular Rate, Rhythm, No Edema, No Murmur GI/Abdominal Exam: Normal Bowel Sounds, Other (He has right sided discomfort not necessarily worsened with palpation no suprapubic discomfort no epigastric discomfort no rigidity rebound or guarding she is morbidly obese which interfere somewhat with the exam) Back Exam: Normal Inspection. No: CVA Tenderness (L), CVA Tenderness (R) Extremities: Normal Inspection. No: Pedal Edema Course - Vital Signs Last Recorded V/S: Last Vital Signs Temp 36.7 C 12/12/18 22:24 Pulse 77 12/12/18 22:24 Resp 20 12/12/18 22:24 BP 120/79 12/12/18 22:24 Pulse Ox 100 12/12/18 22:24 - Orders/Labs/Meds Orders: Active Orders 24 hr Category Date Time Status Abdomen w Cont [CT] Stat Exams 12/12/18 23:55 Taken Labs: Laboratory Tests 12/12/18 12/12/18 12/12/18 Range/Units 22:40 22:50 22:50 WBC 9.60 (3.98-10.04) K/mm3 RBC 4.44 (3.98-5.22) M/mm3 Hgb 12.6 (11.2-15.7) gm/L Hct 38.0 (34.1-44.9) % MCV 85.6 (79.4-94.8) fl MCH 28.4 (25.6-32.2) pg MCHC 33.2 (32.2-35.5) g/dl RDW Std Deviation 45.2 (36.4-46.3) fL Plt Count 333 (182-369) K/mm3 MPV 9.8 (9.4-12.3) fl Neutrophils % (Manual) 38 L (40-60) % Band Neutrophils % 1 (0-10) % Lymphocytes % (Manual) 54 H (20-40) % Atypical Lymphs % 0 % Monocytes % (Manual) 5 (2-10) % Eosinophils % (Manual) 2 (0.7-5.8) % Basophils % (Manual) 0 L (0.1-1.2) Platelet Estimate Adequate Plt Morphology Comment Normal RBC Morph Comment Normal Sodium 136 (136-145) mEq/L Potassium 3.9 (3.5-5.1) mEq/L Chloride 103 (98-107) mEq/L Carbon Dioxide 23 (21-32) mEq/L Anion Gap 13.9 (5-15) BUN 13 (7-18) mg/dL Creatinine 0.8 (0.55-1.02) mg/dL Est Cr Clr Drug Dosing 91.68 mL/min Estimated GFR (MDRD) > 60 (>60) mL/min BUN/Creatinine Ratio 16.3 (14-18) Glucose 95 (74-106) mg/dL Calcium 9.4 (8.5-10.1) mg/dL Total Bilirubin 0.1 L (0.2-1.0) mg/dL AST 13 L (15-37) U/L ALT 24 (14-59) U/L Alkaline Phosphatase 50 (46-116) U/L C-Reactive Protein 0.4 (<1.0) mg/dL Total Protein 8.1 (6.4-8.2) g/dl Albumin 3.5 (3.4-5.0) g/dl Globulin 4.6 gm/dL Albumin/Globulin Ratio 0.8 L (1-2) HCG, Qual (NEGATIVE) Urine Color Yellow (Yellow) Urine Appearance Clear (Clear) Urine pH 5.5 (5.0-8.0) Ur Specific Dunlap > or = 1.030 (1.005-1.030) Urine Protein Negative (Negative) Urine Glucose (UA) Negative (Negative) Urine Ketones Negative (Negative) Urine Occult Blood Negative (Negative) Urine Nitrite Negative (Negative) Urine Bilirubin Negative (Negative) Urine Urobilinogen 0.2 (0.2-1.0) Ur Leukocyte Esterase Negative (Negative) Urine RBC 0-5 (0-5) /hpf Urine WBC 0-5 (0-5) /hpf Ur Squamous Epith Cells 0-5 (0-5) /hpf Urine Bacteria Rare (FEW) /hpf Urine Mucus Moderate H (FEW) /hpf 12/12/18 Range/Units 22:50 WBC (3.98-10.04) K/mm3 RBC (3.98-5.22) M/mm3 Hgb (11.2-15.7) gm/L Hct (34.1-44.9) % MCV (79.4-94.8) fl MCH (25.6-32.2) pg MCHC (32.2-35.5) g/dl RDW Std Deviation (36.4-46.3) fL Plt Count (182-369) K/mm3 MPV (9.4-12.3) fl Neutrophils % (Manual) (40-60) % Band Neutrophils % (0-10) % Lymphocytes % (Manual) (20-40) % Atypical Lymphs % % Monocytes % (Manual) (2-10) % Eosinophils % (Manual) (0.7-5.8) % Basophils % (Manual) (0.1-1.2) Platelet Estimate Plt Morphology Comment RBC Morph Comment Sodium (136-145) mEq/L Potassium (3.5-5.1) mEq/L Chloride (98-107) mEq/L Carbon Dioxide (21-32) mEq/L Anion Gap (5-15) BUN (7-18) mg/dL Creatinine (0.55-1.02) mg/dL Est Cr Clr Drug Dosing mL/min Estimated GFR (MDRD) (>60) mL/min BUN/Creatinine Ratio (14-18) Glucose (74-106) mg/dL Calcium (8.5-10.1) mg/dL Total Bilirubin (0.2-1.0) mg/dL AST (15-37) U/L ALT (14-59) U/L Alkaline Phosphatase (46-116) U/L C-Reactive Protein (<1.0) mg/dL Total Protein (6.4-8.2) g/dl Albumin (3.4-5.0) g/dl Globulin gm/dL Albumin/Globulin Ratio (1-2) HCG, Qual Negative (NEGATIVE) Urine Color (Yellow) Urine Appearance (Clear) Urine pH (5.0-8.0) Ur Specific [place] (1.005-1.030) Urine Protein (Negative) Urine Glucose (UA) (Negative) Urine Ketones (Negative) Urine Occult Blood (Negative) Urine Nitrite (Negative) Urine Bilirubin (Negative) Urine Urobilinogen (0.2-1.0) Ur Leukocyte Esterase (Negative) Urine RBC (0-5) /hpf Urine WBC (0-5) /hpf Ur Squamous Epith Cells (0-5) /hpf Urine Bacteria (FEW) /hpf Urine Mucus (FEW) /hpf Meds: Medications Discontinued Medications Generic Name Dose Route Start Last Admin Trade Name Nessa PRN Reason Stop Dose Admin Fentanyl 50 mcg 12/12/18 23:54 12/13/18 00:08 Sublimaze IVPUSH 12/12/18 23:55 50 mcg ONETIME ONE Administration Fentanyl 50 mcg 12/13/18 00:45 12/13/18 01:15 Sublimaze IVPUSH 12/13/18 00:46 50 mcg ONETIME ONE Administration Iohexol 100 ml 12/13/18 00:39 Omnipaque-300 IVPUSH 12/13/18 00:40 ONETIME ONE - Re-Assessments/Exams Free Text/Narrative Re-Assessment/Exam: 12/13/18 02:26 Initial evaluation is concerned about an early appendicitis and with her body habitus trying to check for rebound tenderness is very difficult. Side did go ahead and get a CT without oral contrast because kidney stone was in the differential ultimately this showed the appendix well which was normal and the CT in general was negative. At this point the patient is doing quite a bit better Departure - Departure Time of Disposition: 02:27 Disposition: Home, Self-Care 01 Clinical Impression: Abdominal pain of unknown cause - Discharge Information Referrals: Ewelina Gee PA-C [Primary Care Provider] - Forms: ED Department Discharge Additional Instructions: Return to the emergency room with any questions problems worsening symptoms. Follow-up in the clinic on Friday if needed. Use ibuprofen or naproxen as needed for discomfort - My Orders Last 24 Hours: My Active Orders 12/12/18 23:55 Abdomen w Cont [CT] Stat - Assessment/Plan Last 24 Hours: My Active Orders 12/12/18 23:55 Abdomen w Cont [CT] Stat
[2018-12-12] MEDS ORDERED: fentaNYL 100 MCG/2 ML SDV IVPUSH ONE (23:54)
[2018-12-13] MEDS ORDERED: Iohexol 647 MG/ML 100 ML Bottle IVPUSH ONE (00:39)
[2018-12-13] MEDS ORDERED: fentaNYL 100 MCG/2 ML SDV IVPUSH ONE (00:45)
--- NOTE | 2018-12-14 06:34 | CT ---
CT abdomen and pelvis Technique: Multiple axial sections were obtained from above the dome of the diaphragm inferiorly through the pubic symphysis. Intravenous contrast was utilized. No oral contrast has been given. Delayed images were obtained through the bladder. Comparison: Prior CT abdomen and pelvis exam of 04/10/18. Findings: Small portion of the visualized lung bases show nothing acute. Liver contains no focal abnormality. Spleen appears within normal limits. Accessory splenic tissue is noted off the anterior spleen which is incidental. Adrenal glands show no nodule. Surgical clips are seen from prior cholecystectomy. Pancreas appears normal. Kidneys show symmetric contrast enhancement without hydronephrosis or mass. Aorta shows no aneurysm. No retroperitoneal adenopathy is seen. No pelvic mass or adenopathy is seen. Appendix is seen which is normal in size. No free fluid or inflammatory change is seen. Scattered mesenteric lymph nodes are seen which are stable from previous exam and felt to be within normal limits. Delayed images show contrast within the bladder. Bone window settings were reviewed which appear within normal limits for the patient's age. Impression: 1. Incidental findings. Nothing acute is appreciated on CT study of the abdomen and pelvis. Diagnostic code #2 I agree with preliminary report from [facility], finalized on 12/13/18, 2:02 AM Central Time
== END 2018-12-13 02:35 | disposition home or self-care (01) ==
LOC: JD.ED 22:14
DX: R10.9 Unspecified abdominal pain (principal); E11.9 Type 2 diabetes mellitus without complications; E78.00 Pure hypercholesterolemia, unspecified; Z88.6 Allergy status to analgesic agent
CPT/HCPCS: 36415; 74160; 80053; 81001; 84703; 85007; 85027; 86140; 96374; 96376; 99284; J3010

== ENCOUNTER 2019-04-10 14:17 | Emergency (ER) | payer MEDICAID ==
[2019-04-10 14:40] VITALS: BP 123/57; PULSE 63
--- NOTE | 2019-04-10 16:01 | EDM.PDOC ---
ED HPI GENERAL MEDICAL PROBLEM - General Chief Complaint: Abdominal Pain Stated Complaint: ABDOMINAL PAIN Time Seen by Provider: 04/10/19 14:45 Source of Information: Reports: Patient History Limitations: Reports: No Limitations - History of Present Illness INITIAL COMMENTS - FREE TEXT/NARRATIVE: 34-year-old female presents for evaluation and treatment of lower abdominal and pelvic pain. States that the pain came on gradually yesterday night. She denies any fevers, chills, nausea, vomiting, dysuria or hematuria. She identifies pain primarily in the suprapubic area. Last menstrual period was March 15. She did have a bowel movement today. Reports previous abdominal surgeries include a and cholecystectomy. 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 - Infectious Disease History Infectious Disease History: Reports: Chicken Pox - Past Surgical History GI Surgical History: Reports: Cholecystectomy Female Surgical History: Reports: Section Musculoskeletal Surgical History: Reports: Other (See Below) Other Musculoskeletal Surgeries/Procedures:: right collarbone fracture Social & Family History - Family History Family Medical History: Noncontributory - Tobacco Use Smoking Status *Q: Never Smoker - Caffeine Use Caffeine Use: Reports: None - Recreational Drug Use Recreational Drug Use: No - Living Situation & Occupation Living situation: Reports: Occupation: Employed ED ROS GENERAL - Review of Systems Review Of Systems: See Below Constitutional: Denies: Fever, Chills GI/Abdominal: Reports: Abdominal Pain (suprapubic). Denies: Diarrhea, Nausea, Vomiting : Denies: Dysuria, Hematuria ED EXAM, RENAL/ - Physical Exam Exam: See Below Exam Limited By: No Limitations General Appearance: Alert, WD/WN, No Apparent Distress, Obese Respiratory/Chest: No Respiratory Distress, Lungs Clear, Normal Breath Sounds Cardiovascular: Normal Peripheral Pulses, Regular Rate, Rhythm, No Murmur GI/Abdominal: Normal Bowel Sounds, Soft, Tender (suprapubic) Neurological: Alert, Oriented, Normal Cognition Psychiatric: Normal Affect, Normal Mood Skin Exam: Warm, Dry, Normal Color Course - Vital Signs Last Recorded V/S: Last Vital Signs Temp 96.6 F 04/10/19 14:37 Pulse 63 04/10/19 14:37 Resp 17 04/10/19 14:37 BP 123/57 L 04/10/19 14:37 Pulse Ox 100 04/10/19 14:37 - Orders/Labs/Meds Labs: Laboratory Tests 04/10/19 04/10/19 Range/Units 14:42 14:42 Urine Color Light yellow (Yellow) Urine Appearance Turbid H (Clear) Urine pH 5.5 (5.0-8.0) Ur Specific [place] > or = 1.030 (1.005-1.030) Urine Protein Negative (Negative) Urine Glucose (UA) Negative (Negative) Urine Ketones Negative (Negative) Urine Occult Blood Negative (Negative) Urine Nitrite Negative (Negative) Urine Bilirubin Negative (Negative) Urine Urobilinogen 0.2 (0.2-1.0) Ur Leukocyte Esterase Negative (Negative) Urine RBC 0-5 (0-5) /hpf Urine WBC 0-5 (0-5) /hpf Ur Epithelial Cells 0-5 (0-5) /hpf Amorphous Sediment Moderate H (NOT SEEN) /hpf Urine Bacteria Moderate H (FEW) /hpf Urine Mucus Not seen (FEW) /hpf Urine HCG, Qual Negative (NEGATIVE) - Re-Assessments/Exams Free Text/Narrative Re-Assessment/Exam: 04/10/19 15:58 Reviewed the urine results with the patient. We will discharge her home at this time. Discharge instructions this document. Departure - Departure Time of Disposition: 15:58 Disposition: Home, Self-Care 01 Condition: Good Clinical Impression: UTI (urinary tract infection) - Discharge Information *PRESCRIPTION DRUG MONITORING PROGRAM REVIEWED*: No *COPY OF PRESCRIPTION DRUG MONITORING REPORT IN PATIENT ANN: No Prescriptions: Nitrofurantoin Monohyd/M-Cryst [Macrobid 100 mg Capsule] 100 mg PO BID #14 capsule Instructions: Urinary Tract Infection, Adult, [id number] Referrals: Ewelina Gee PA-C [Primary Care Provider] - Forms: ED Department Discharge Additional Instructions: Take the Macrobid as prescribed. 1 cap Twice a day for 7 days. Make you are drinking plenty of fluids. [id number] Tylenol or Motrin as needed for pain relief. Follow-up with your primary care provider if not much better in 1-2 weeks. Please return to ER if your symptoms change or worsen.
== END 2019-04-10 16:15 | disposition home or self-care (01) ==
LOC: JD.ED 14:17
DX: N39.0 Urinary tract infection, site not specified (principal); E11.9 Type 2 diabetes mellitus without complications; Z90.49 Acquired absence of other specified parts of digestive tract; Z88.8 Allergy status to other drugs, medicaments and biological substances
CPT/HCPCS: 81001; 81025; 87086; 87088; 87186; 99283; 99284

== ENCOUNTER 2019-05-06 22:22 | Emergency (ER) | payer SELFPAY ==
[2019-05-06 22:40] VITALS: BP 138/78; PULSE 77
--- NOTE | 2019-05-06 23:13 | EDM.PDOC ---
ED HPI GENERAL MEDICAL PROBLEM - General Chief Complaint: Genitourinary Problem Stated Complaint: ABDOMINAL PAIN Time Seen by Provider: 05/06/19 22:36 Source of Information: Reports: Patient History Limitations: Reports: No Limitations - History of Present Illness INITIAL COMMENTS - FREE TEXT/NARRATIVE: 34 y/o F with vaginal discharge x a few hours. Recently treated for UTI with nitrofurantoin. She now has vaginal itching/discomfort and some green discharge. No significant abdominal pain. Due to start menses but hasn't started yet, has been sexually active. Mild dysuria, no hematuria. No fever. 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 - Infectious Disease History Infectious Disease History: Reports: Chicken Pox - Past Surgical History GI Surgical History: Reports: Cholecystectomy Female Surgical History: Reports: Section Musculoskeletal Surgical History: Reports: Other (See Below) Other Musculoskeletal Surgeries/Procedures:: right collarbone fracture Social & Family History - Family History Family Medical History: Noncontributory - Tobacco Use Smoking Status *Q: Never Smoker - Caffeine Use Caffeine Use: Reports: None - Recreational Drug Use Recreational Drug Use: No - Living Situation & Occupation Living situation: Reports: Occupation: Employed ED ROS GENERAL - Review of Systems Review Of Systems: See Below Constitutional: Denies: Fever Respiratory: Reports: No Symptoms Cardiovascular: Reports: No Symptoms GI/Abdominal: Reports: No Symptoms : Reports: Discharge ED EXAM, GI/ABD - Physical Exam Exam: See Below Exam Limited By: No Limitations General Appearance: Alert, WD/WN, No Apparent Distress Ears: Normal External Exam Nose: Normal Inspection Throat/Mouth: Normal Inspection, Normal Voice Head: Atraumatic, Normocephalic Neck: Normal Inspection, Supple Respiratory/Chest: No Respiratory Distress (Female) Exam: Normal External Exam, Normal Speculum Exam, Normal Bimanual Exam, Vaginal Bleeding. No: Cervical Discharge, Vaginal Discharge Neurological: Alert, Oriented Psychiatric: Normal Affect, Normal Mood Course - Vital Signs Last Recorded V/S: Last Vital Signs Temp 36.4 C 05/06/19 22:32 Pulse 77 05/06/19 22:32 Resp 20 05/06/19 22:32 BP 138/78 05/06/19 22:32 Pulse Ox 98 05/06/19 22:32 - Orders/Labs/Meds Orders: Active Orders 24 hr Category Date Time Status GC/CHLAMYDIA BY PCR [MOLEC] Stat Lab 05/06/19 23:38 Ordered VAGINAL PATHOGENS BY DNA PROBE [MREF] Stat Lab 05/06/19 23:38 Ordered Labs: Laboratory Tests 05/06/19 05/06/19 Range/Units 22:44 22:44 Urine Color Yellow (Yellow) Urine Appearance Clear (Clear) Urine pH 5.5 (5.0-8.0) Ur Specific [place] > or = 1.030 (1.005-1.030) Urine Protein Negative (Negative) Urine Glucose (UA) Negative (Negative) Urine Ketones Negative (Negative) Urine Occult Blood Negative (Negative) Urine Nitrite Negative (Negative) Urine Bilirubin Negative (Negative) Urine Urobilinogen 0.2 (0.2-1.0) Ur Leukocyte Esterase Negative (Negative) Urine RBC 0-5 (0-5) /hpf Urine WBC 0-5 (0-5) /hpf Ur Squamous Epith Cells 0-5 (0-5) /hpf Urine Bacteria Few (FEW) /hpf Urine Mucus Few (FEW) /hpf Urine HCG, Qual Negative (NEGATIVE) Meds: Medications Discontinued Medications Generic Name Dose Route Start Last Admin Trade Name Freq PRN Reason Stop Dose Admin Fluconazole 150 mg 05/06/19 23:36 Diflucan PO 05/06/19 23:37 ONETIME ONE - Re-Assessments/Exams Free Text/Narrative Re-Assessment/Exam: 05/06/19 23:42 GC/chlamydia sent, no physical exam findings to suggest PID. Will treat presumtively for yeast infection given symptoms. UA neg for infection, not . Departure - Departure Time of Disposition: 23:45 Disposition: Home, Self-Care 01 Clinical Impression: Vaginitis Qualifiers: Chronicity: acute Qualified Code(s): N76.0 - Acute vaginitis - Discharge Information Prescriptions: Fluconazole 150 mg PO ONETIME #1 tablet Referrals: Ewelina Gee PA-C [Primary Care Provider] - Forms: ED Department Discharge Additional Instructions: 1. Take additional fluconazole tablet in 3 days as prescribed. 2. You will receive a phone call if any of your additional infection testing shows an infection that requires treatment. 3. Follow up with Ewelina if you continue to have symptoms. - My Orders Last 24 Hours: My Active Orders 05/06/19 23:38 GC/CHLAMYDIA BY PCR [MOLEC] Stat VAGINAL PATHOGENS BY DNA PROBE [MREF] Stat - Assessment/Plan Last 24 Hours: My Active Orders 05/06/19 23:38 GC/CHLAMYDIA BY PCR [MOLEC] Stat VAGINAL PATHOGENS BY DNA PROBE [MREF] Stat
[2019-05-06] MEDS ORDERED: Fluconazole 150 MG Tab PO ONE (23:36)
[2019-05-07 01:33] LABS: C. TRACHOMATIS BY PCR NOT DETECTED; N. GONORRHOEAE BY PCR NOT DETECTED
== END 2019-05-06 23:55 | disposition home or self-care (01) ==
LOC: JD.ED 22:22
DX: N76.0 Acute vaginitis (principal); E11.9 Type 2 diabetes mellitus without complications; Z88.6 Allergy status to analgesic agent
CPT/HCPCS: 81001; 81025; 87210; 87491; 87591; 87808; 99284; A9270

== ENCOUNTER 2019-11-14 21:37 | Emergency (ER) | payer SELFPAY ==
[2019-11-14 21:52] VITALS: BP 131/66; PULSE 69
[2019-11-14] MEDS ORDERED: Ketorolac 60 MG/2 ML SDV IM ONE (22:09)
[2019-11-14] MEDS ORDERED: Acetaminophen 325 MG Tab PO ONE (22:09)
--- NOTE | 2019-11-14 22:17 | EDM.PDOC ---
ED HPI GENERAL MEDICAL PROBLEM - General Chief Complaint: Upper Extremity Injury/Pain Stated Complaint: SHOULDER PAIN Time Seen by Provider: 11/14/19 21:55 Source of Information: Reports: Patient, RN Notes Reviewed - History of Present Illness INITIAL COMMENTS - FREE TEXT/NARRATIVE: 34 yr old female comes in with pain R upper back that started 3 days ago. No known injury, thinks she may have "slept wrong". No chest pain, cough or difficulty breathing. Does not radiate into shoulder or arm. Pain is worse with movement of trunk and arm. 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 - Infectious Disease History Infectious Disease History: Reports: Chicken Pox - Past Surgical History GI Surgical History: Reports: Cholecystectomy Female Surgical History: Reports: Section Musculoskeletal Surgical History: Reports: Other (See Below) Other Musculoskeletal Surgeries/Procedures:: right collarbone fracture Social & Family History - Family History Family Medical History: Noncontributory - Tobacco Use Smoking Status *Q: Never Smoker Second Hand Smoke Exposure: No - Caffeine Use Caffeine Use: Reports: None - Recreational Drug Use Recreational Drug Use: No - Living Situation & Occupation Living situation: Reports: Occupation: Employed Review of Systems - Review of Systems Review Of Systems: See Below Constitutional: Denies: Chills, Fever Mouth/Throat: Reports: No Symptoms Respiratory: Denies: Shortness of Breath, Pleuritic Chest Pain, Cough Cardiovascular: Denies: Chest Pain GI/Abdominal: Denies: Abdominal Pain, Nausea, Vomiting Musculoskeletal: Reports: Back Pain. Denies: Shoulder Pain, Arm Pain Neurological: Reports: No Symptoms ED EXAM, GENERAL - Physical Exam Exam: See Below General Appearance: Alert, No Apparent Distress Throat/Mouth: Normal Inspection Head: Atraumatic Neck: Supple, Full Range of Motion Respiratory/Chest: No Respiratory Distress, Lungs Clear, Normal Breath Sounds. No: Rhonchi, Wheezing Cardiovascular: Regular Rate, Rhythm Back Exam: Other (tenderness above and medial to R scapula). No: Vertebral Tenderness Extremities: Normal Inspection, Normal Range of Motion Neurological: Alert, Oriented, No Motor/Sensory Deficits Skin Exam: Warm, Dry Course - Vital Signs Last Recorded V/S: Last Vital Signs Temp 97.3 F 11/14/19 21:44 Pulse 69 11/14/19 21:44 Resp 18 11/14/19 21:44 BP 131/66 11/14/19 21:44 Pulse Ox 99 11/14/19 21:44 - Orders/Labs/Meds Orders: Active Orders 24 hr Category Date Time Status Acetaminophen [Tylenol] Med 11/14/19 22:09 Once 975 mg PO NOW ONE Ketorolac [Toradol] Med 11/14/19 22:09 Once 60 mg IM ONETIME ONE Departure - Departure Time of Disposition: 22:20 Disposition: Home, Self-Care 01 Condition: Fair Clinical Impression: Back pain Qualifiers: Back pain location: thoracic back pain Chronicity: acute Back pain laterality: right Qualified Code(s): M54.6 - Pain in thoracic spine - Discharge Information Referrals: Ewelina Gee PA-C [Primary Care Provider] - Additional Instructions: Avoid heavy lifting for now. Alternate ice and heat as needed. Naprosyn 500 mg twice daily for pain and inflamation. Prescription has been sent to [facility] pharmacy. Tylenol in addition 3 time daily in between doses of Naprosyn for extra pain relief as needed. Follow up with your regular medical provider if not much better within 3 to 5 days as expected. Sepsis Event Note - Evaluation Sepsis Screening Result: No Definite Risk - Focused Exam Vital Signs: Vital Signs Temp Pulse Resp BP Pulse Ox 11/14/19 21:44 97.3 F 69 18 131/66 99 Date Exam was Performed: 11/14/19 Time Exam was Performed: 22:11 - My Orders Last 24 Hours: My Active Orders 11/14/19 22:09 Acetaminophen [Tylenol] 975 mg PO NOW ONE Ketorolac [Toradol] 60 mg IM ONETIME ONE - Assessment/Plan Last 24 Hours: My Active Orders 11/14/19 22:09 Acetaminophen [Tylenol] 975 mg PO NOW ONE Ketorolac [Toradol] 60 mg IM ONETIME ONE
== END 2019-11-14 22:30 | disposition home or self-care (01) ==
LOC: JD.ED 21:37
DX: M54.6 Pain in thoracic spine (principal); E11.9 Type 2 diabetes mellitus without complications; Z88.8 Allergy status to other drugs, medicaments and biological substances
CPT/HCPCS: 96372; 99283; A9270; J1885

== ENCOUNTER 2020-02-16 17:09 | Emergency (ER) | payer SELFPAY ==
[2020-02-16 17:29] VITALS: BP 118/75; PULSE 94
[2020-02-16] MEDS ORDERED: Ketorolac 30 MG/ML SDV IVPUSH ONE (18:00)
[2020-02-16] MEDS ORDERED: Sodium Chloride 0.9% 10 ML Syringe FLUSH PRN ×2 (18:00→18:44)
[2020-02-16] MEDS ORDERED: Sodium Chloride 0.9% 1,000 ML IV SCH (18:00)
[2020-02-16] MEDS ORDERED: HYDROmorphone 0.5 MG/0.5 ML Syringe IVPUSH ONE ×2 (18:05→21:06)
[2020-02-16] MEDS ORDERED: Ondansetron 4 MG/2 ML SDV IVPUSH ONE (18:06)
--- NOTE | 2020-02-16 18:07 | EDM.PDOC ---
ED HPI GENERAL MEDICAL PROBLEM - General Chief Complaint: Chest Pain Stated Complaint: CHEST PAIN Time Seen by Provider: 02/16/20 17:53 Source of Information: Reports: Patient History Limitations: Reports: No Limitations - History of Present Illness INITIAL COMMENTS - FREE TEXT/NARRATIVE: Patient is a 34-year-old female who presents to the emergency department with complaints of right sided chest pain that radiates around through her back. Pain started yesterday while she was lying in bed and has been getting progressively worse. She denies any recent exertional activities or heavy lifting. She has no chronic health conditions and has no cardiac history. She is not on control and has no history of blood clots. She denies shortness of breath, however states when she takes a deep breath it is painful. She has not taken anything for pain. 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 - Infectious Disease History Infectious Disease History: Reports: Chicken Pox - Past Surgical History GI Surgical History: Reports: Cholecystectomy Female Surgical History: Reports: Section Musculoskeletal Surgical History: Reports: Other (See Below) Other Musculoskeletal Surgeries/Procedures:: right collarbone fracture Social & Family History - Family History Family Medical History: Noncontributory - Tobacco Use Smoking Status *Q: Never Smoker - Caffeine Use Caffeine Use: Reports: Coffee - Recreational Drug Use Recreational Drug Use: No - Living Situation & Occupation Living situation: Reports: Occupation: Employed ED ROS GENERAL - Review of Systems Review Of Systems: See Below Constitutional: Reports: No Symptoms. Denies: Fever, Chills, Weakness HEENT: Reports: No Symptoms Respiratory: Reports: No Symptoms, Pleuritic Chest Pain. Denies: Shortness of Breath, Wheezing Cardiovascular: Reports: Chest Pain (rt chest mid wall wrapping to mid back) Endocrine: Reports: No Symptoms GI/Abdominal: Reports: No Symptoms : Reports: No Symptoms Musculoskeletal: Reports: No Symptoms Skin: Reports: No Symptoms Neurological: Reports: No Symptoms Psychiatric: Reports: No Symptoms Hematologic/Lymphatic: Reports: No Symptoms Immunologic: Reports: No Symptoms ED EXAM, GENERAL - Physical Exam Exam: See Below Exam Limited By: No Limitations General Appearance: Alert, WD/WN, No Apparent Distress Respiratory/Chest: No Respiratory Distress, Lungs Clear, Normal Breath Sounds, No Accessory Muscle Use, Other (Chest wall tenderness directly below the right breast wrapping around to the right mid back.) Cardiovascular: Normal Peripheral Pulses, Regular Rate, Rhythm, No Edema, No Gallop, No JVD, No Murmur, No Rub Neurological: Alert, Oriented, CN II-XII Intact, Normal Cognition, Normal Gait, Normal Reflexes, No Motor/Sensory Deficits Psychiatric: Normal Affect, Normal Mood Skin Exam: Warm, Dry, Intact, Normal Color, No Rash EKG INTERPRETATION EKG Date: 02/16/20 Time: 17:51 Rhythm: NSR Rate (Beats/Min): 79 [place]: Normal P-Wave: Present QRS: Normal ST-T: Normal QT: Normal EKG Interpretation Comments: Sinus arrhythmia with rate 64 to 90/min Early R wave transition consider right ventricular hypertrophy Mildly decreased voltage precordial leads EKG interpreted by Dr. Michelle OCHOA Course - Vital Signs Last Recorded V/S: Last Vital Signs Temp 97.0 F 02/16/20 17:26 Pulse 94 02/16/20 17:26 Resp 18 02/16/20 17:26 BP 118/75 02/16/20 17:26 Pulse Ox 97 02/16/20 17:26 - Orders/Labs/Meds Orders: Active Orders 24 hr Category Date Time Status EKG Documentation Completion [RC] ASDIRECTED Care 02/16/20 17:46 Active Peripheral IV Care [RC] . DIRECTED Care 02/16/20 18:00 Active Sodium Chloride 0.9% [Normal Saline] 1,000 ml Med 02/16/20 18:00 Active IV ASDIRECTED Sodium Chloride 0.9% [Normal Saline] 100 ml Med 02/16/20 18:45 Active IV ASDIRECTED Sodium Chloride 0.9% [Saline Flush] Med 02/16/20 18:00 Active 10 ml FLUSH ASDIRECTED PRN Sodium Chloride 0.9% [Saline Flush] Med 02/16/20 18:44 Active 10 ml FLUSH ONETIME PRN Peripheral IV Insertion Adult [OM.PC] Stat Oth 02/16/20 18:00 Ordered EKG 12 Lead [EK] Stat Ther 02/16/20 17:46 Ordered Medication Orders Sodium Chloride (Normal Saline) 1,000 mls @ 150 mls/hr IV ASDIRECTED SAMANTA Last Admin: 02/16/20 18:12 Dose: 150 mls/hr Documented by: NATHAN Sodium Chloride (Normal Saline) 100 mls @ 60 mls/hr IV ASDIRECTED SAMATNA Last Admin: 02/16/20 20:36 Dose: 60 mls/hr Documented by: WILLIAM Sodium Chloride (Saline Flush) 10 ml FLUSH ASDIRECTED PRN PRN Reason: Keep Vein Open Last Admin: 02/16/20 18:11 Dose: 10 ml Documented by: NATHAN Sodium Chloride (Saline Flush) 10 ml FLUSH ONETIME PRN PRN Reason: Keep Vein Open Last Admin: 02/16/20 20:36 Dose: 10 ml Documented by: [email or web address] Labs: Laboratory Tests 02/16/20 02/16/20 02/16/20 Range/Units 17:50 17:50 17:50 WBC 7.58 (3.98-10.04) K/mm3 RBC 4.42 (3.98-5.22) M/mm3 Hgb 12.5 (11.2-15.7) gm/dl Hct 38.9 (34.1-44.9) % MCV 88.0 (79.4-94.8) fl MCH 28.3 (25.6-32.2) pg MCHC 32.1 L (32.2-35.5) g/dl RDW Std Deviation 44.8 (36.4-46.3) fL Plt Count 377 H (182-369) K/mm3 MPV 9.8 (9.4-12.3) fl Neut % (Auto) 49.1 (34.0-71.1) % Lymph % (Auto) 43.1 (19.3-51.7) % [place] % (Auto) 6.5 (4.7-12.5) % Eos % (Auto) 1.2 (0.7-5.8) Baso % (Auto) 0.1 (0.1-1.2) % Neut # (Auto) 3.72 (1.56-6.13) K/mm3 Lymph # (Auto) 3.27 (1.18-3.74) K/mm3 [place] # (Auto) 0.49 H (0.24-0.36) K/mm3 Eos # (Auto) 0.09 (0.04-0.36) K/mm3 Baso # (Auto) 0.01 (0.01-0.08) K/mm3 D-Dimer, Quantitative 0.76 H (0.19-0.50) mg/L Sodium 139 (136-145) mEq/L Potassium 3.9 (3.5-5.1) mEq/L Chloride 105 (98-107) mEq/L Carbon Dioxide 23 (21-32) mEq/L Anion Gap 14.9 (5-15) BUN 14 (7-18) mg/dL Creatinine 1.3 H (0.55-1.02) mg/dL Est Cr Clr Drug Dosing 53.65 mL/min Estimated GFR (MDRD) 58 (>60) mL/min BUN/Creatinine Ratio 10.8 L (14-18) Glucose 119 H (74-106) mg/dL Calcium 9.0 (8.5-10.1) mg/dL Total Bilirubin 0.1 L (0.2-1.0) mg/dL AST 34 (15-37) U/L ALT 62 H (14-59) U/L Alkaline Phosphatase 52 (46-116) U/L Troponin I < 0.017 (0.00-0.056) ng/mL Total Protein 8.1 (6.4-8.2) g/dl Albumin 3.4 (3.4-5.0) g/dl Globulin 4.7 gm/dL Albumin/Globulin Ratio 0.7 L (1-2) Meds: Medications Generic Name Dose Route Start Last Admin Trade Name Freq PRN Reason Stop Dose Admin Sodium Chloride 1,000 mls @ 150 mls/hr 02/16/20 18:00 02/16/20 18:12 Normal Saline IV 150 mls/hr ASDIRECTED SAMANTA Administration Sodium Chloride 100 mls @ 60 mls/hr 02/16/20 18:45 02/16/20 20:36 Normal Saline IV 60 mls/hr ASDIRECTED SAMANTA Administration Sodium Chloride 10 ml 02/16/20 18:00 02/16/20 18:11 Saline Flush FLUSH 10 ml ASDIRECTED PRN Administration Keep Vein Open Sodium Chloride 10 ml 02/16/20 18:44 02/16/20 20:36 Saline Flush FLUSH 10 ml ONETIME PRN Administration Keep Vein Open Discontinued Medications Generic Name Dose Route Start Last Admin Trade Name Freq PRN Reason Stop Dose Admin Hydromorphone HCl 0.5 mg 02/16/20 18:05 02/16/20 18:11 Dilaudid IVPUSH 02/16/20 18:06 0.5 mg ONETIME ONE Administration Hydromorphone HCl 0.5 mg 02/16/20 21:06 Dilaudid IVPUSH 02/16/20 21:07 ONETIME ONE Iopamidol 100 ml 02/16/20 18:44 02/16/20 20:36 [id number] (76%) IVPUSH 02/16/20 18:45 100 ml ONETIME ONE Administration Iopamidol 50 ml 02/16/20 18:51 02/16/20 20:36 Isovue-370 (76%) IVPUSH 02/16/20 18:52 50 ml ONETIME ONE Administration Ketorolac Tromethamine 30 mg 02/16/20 18:00 02/16/20 18:16 Toradol IVPUSH 02/16/20 18:01 Not Given ONETIME ONE Ondansetron HCl 4 mg 02/16/20 18:06 02/16/20 18:11 Zofran IVPUSH 02/16/20 18:07 4 mg ONETIME ONE Administration - Re-Assessments/Exams Free Text/Narrative Re-Assessment/Exam: Patient is a 34-year-old female who presents to the emergency department with a 1 day history of right-sided chest wall pain wrapping around to her right back. She denies any known injury. I ordered a CBC, CMP, troponin, d-dimer, EKG, chest x-ray. She has an anaphylactic allergy to aspirin, therefore we are going to try to avoid salicylates. I have ordered NS at 150 and Dilaudid 0.5 mg IV with Zofran 4 mg IV. 02/16/20 1840 D-dimer came back slightly elevated at 0.76. Blood work was otherwise unremarkable. Patient denies a history of blood clots and is not on control, however with her chest discomfort, I have ordered a CT angiogram of the chest to rule out PE. She did have some improvement in her pain with the medications given. 02/16/20 21:12 CT angiogram of the chest was negative for any acute PEs. She is starting to have a return of pain. I will give her another dose of Dilaudid 0.5 mg. We will send a prescription for prednisone and Flexeril to [email or web address] her musculoskeletal chest wall discomfort. Recommended that she also take [id number] Tylenol and use heat as needed. Discharge instructions as documented. Departure - Departure Time of Disposition: 21:13 Disposition: Home, Self-Care 01 Condition: Good Clinical Impression: Chest wall pain - Discharge Information *PRESCRIPTION DRUG MONITORING PROGRAM REVIEWED*: No *COPY OF PRESCRIPTION DRUG MONITORING REPORT IN PATIENT ANN: No Prescriptions: Cyclobenzaprine [Flexeril] 10 mg PO Q8H PRN #10 tab PRN Reason: Muscle Spasm predniSONE [Prednisone] 20 mg PO ASDIRECTED #15 tablet Instructions: Chest Wall Pain, [id number] Referrals: Ewelina Gee PA-C [Primary Care Provider] - Forms: ED Department Discharge Additional Instructions: You were seen in the emergency department today for right-sided chest wall pain since last night. Your work-up included blood work, EKG of your heart, chest x- ray, and a CT angiogram of your chest. The results your work-up were found to be normal. You are not having a heart attack and you do not have a blood clot in your lungs. As we discussed, the likely cause your chest pain is musculoskeletal in nature. Since you have an anaphylactic allergy to aspirin, we are going to avoid salicylates in your treatment altogether. A prescription for prednisone which is a steroid to reduce the inflammation and Flexeril which is a muscle relaxer to relax the muscles has been sent to [facility] and [email or web address]. Take these medications as prescribed. Use [id number] Tylenol and topical heat over the next few days to treat the symptoms. If you continue to have symptoms, you may follow-up in the clinic with your primary care provider or return to the ER for worsening symptoms. Sepsis Event Note (ED) - Evaluation Sepsis Screening Result: No Definite Risk - Focused Exam Vital Signs: Vital Signs Temp Pulse Resp BP Pulse Ox 02/16/20 17:26 97.0 F 94 18 118/75 97 - My Orders Last 24 Hours: My Active Orders 02/16/20 17:46 EKG Documentation Completion [RC] ASDIRECTED EKG 12 Lead [EK] Stat 02/16/20 18:00 Peripheral IV Care [RC] . DIRECTED Sodium Chloride 0.9% [Normal Saline] 1,000 ml IV ASDIRECTED Sodium Chloride 0.9% [Saline Flush] 10 ml FLUSH ASDIRECTED PRN Peripheral IV Insertion Adult [OM.PC] Stat 02/16/20 18:44 Sodium Chloride 0.9% [Saline Flush] 10 ml FLUSH ONETIME PRN 02/16/20 18:45 Sodium Chloride 0.9% [Normal Saline] 100 ml IV ASDIRECTED - Assessment/Plan Last 24 Hours: My Active Orders 02/16/20 17:46 EKG Documentation Completion [RC] ASDIRECTED EKG 12 Lead [EK] Stat 02/16/20 18:00 Peripheral IV Care [RC] . DIRECTED Sodium Chloride 0.9% [Normal Saline] 1,000 ml IV ASDIRECTED Sodium Chloride 0.9% [Saline Flush] 10 ml FLUSH ASDIRECTED PRN Peripheral IV Insertion Adult [OM.PC] Stat 02/16/20 18:44 Sodium Chloride 0.9% [Saline Flush] 10 ml FLUSH ONETIME PRN 02/16/20 18:45 Sodium Chloride 0.9% [Normal Saline] 100 ml IV ASDIRECTED
[2020-02-16] MEDS ORDERED: Iopamidol 755 Mg/ML 100 ML Bottle IVPUSH ONE (18:44)
[2020-02-16] MEDS ORDERED: Sodium Chloride 0.9% 100 ML IV SCH (18:45)
[2020-02-16] MEDS ORDERED: Iopamidol 755 MG/ML 50 ML Bottle IVPUSH ONE (18:51)
--- NOTE | 2020-02-16 19:07 | CR ---
Chest: PA and lateral views of the chest were obtained. Comparison: Prior chest x-ray of 11/12/17. Heart size and mediastinum are normal. Lungs are clear. Small azygos lobe is noted within the right upper lung which is stable. Old healed right clavicle fracture is stable. No acute osseous finding is seen. Impression: 1. Nothing acute is seen on 2 view chest x-ray. Diagnostic code #1 This report was dictated in MDT
--- NOTE | 2020-02-16 20:56 | CT ---
CT chest Technique: Multiple axial sections were obtained through the chest as a pulmonary angiogram protocol. Intravenous contrast was utilized. Findings: Pulmonary arteries are moderately well opacified. Details are somewhat limited due to patient body habitus. No filling defects are seen within the main or segmental branches. Smaller subsegmental pulmonary emboli could be missed. Mediastinum and hilar region show no adenopathy. Visualized upper abdominal structures shows no discrete abnormality. Surgical clips are seen from prior cholecystectomy. Azygos lobe is noted within the upper right lung. Lungs otherwise are clear. Bone window settings were reviewed. No acute osseous finding is appreciated. Impression: 1. Details are slightly limited secondary to body habitus. 2. No findings of pulmonary embolism within the main or segmental branches. Smaller subsegmental pulmonary emboli could be missed. 3. No acute abnormality is otherwise seen on CT study of the chest. Diagnostic code #2 This report was dictated in MDT
== END 2020-02-16 21:35 | disposition home or self-care (01) ==
LOC: JD.ED 17:09
DX: R07.89 Other chest pain (principal); E11.9 Type 2 diabetes mellitus without complications; Z88.6 Allergy status to analgesic agent
CPT/HCPCS: 36415; 71046; 71275; 80053; 84484; 85025; 85379; 93005; 96374; 96375; 96376; 99285; J1170; J2405; J7030; J7050; Q9967; 93010; 99284

== ENCOUNTER 2020-04-04 15:48 | Emergency (ER) | payer MEDICAID, OTHER ==
[2020-04-04 16:02] VITALS: BP 135/90; PULSE 88
[2020-04-04] MEDS ORDERED: HYDROmorphone 1 MG/ML Syringe IM ONE (16:26)
--- NOTE | 2020-04-04 17:46 | US ---
Pelvic ultrasound: Multiple real-time images were obtained transvaginally of the pelvis. Comparison: No prior pelvic ultrasound is available. Technologist's note: Difficult pelvic ultrasound due to body habitus Findings: Uterus is anteverted. No myometrial abnormality is appreciated. Endometrial thickness is 1.5 cm which is within normal limits. Left ovary is not visualized. Right ovary is only vaguely seen and appears to be normal in size. No free fluid is seen. Measurements: Uterus: Length 8.9 cm, AP height 5.0 cm, transverse width 6.0 cm Impression: 1. Nonvisualized right ovary with poorly visualized left ovary. 2. Pelvic ultrasound is otherwise unremarkable. Diagnostic code #2 Study was dictated in MDT
--- NOTE | 2020-04-04 18:34 | EDM.PDOC ---
ED HPI GENERAL MEDICAL PROBLEM - General Chief Complaint: Abdominal Pain Stated Complaint: ABDOMINAL PAIN Time Seen by Provider: 04/04/20 16:06 Source of Information: Reports: Patient History Limitations: Reports: No Limitations - History of Present Illness INITIAL COMMENTS - FREE TEXT/NARRATIVE: Patient is a 35-year-old female presenting to the emergency department with complaints of a one-week history of intermittent pelvic cramping as well as significant tenderness to her bilateral breasts. She describes the cramping is similar to menstrual cramps but worse. The last a couple minutes at onset and then generally resolve. They may happen a couple times a day. She also has tenderness to her bilateral breasts. She states prior to her. She generally will get a little bit of tenderness in 1 of her breast but never both and not to this degree. She denies the possibility of , however she is not on any form of control. She is sexually active and in a monogamous relationship and denies any concern for gonorrhea chlamydia. She has had no fever, chills, nausea, or vomiting. Denies any abnormal vaginal discharge. Her last menstrual period was March 13 and states that they come about every 27 days indicating that she is due for her period in about 6 days. Lower Abdomen Pain Score (Numeric/FACES): 8 - Related Data Allergies Allergy/AdvReac Type Severity Reaction Status Date / Time aspirin Allergy Anaphylactic Verified 04/04/20 16:01 Shock Home Meds: Home Meds . 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 Hematologic History: Reports: None Immunologic History: Reports: None Oncologic (Cancer) History: Reports: None Dermatologic History: Reports: None - Infectious Disease History Infectious Disease History: Reports: None - Past Surgical History GI Surgical History: Reports: Cholecystectomy Female Surgical History: Reports: Section Musculoskeletal Surgical History: Reports: Other (See Below) Other Musculoskeletal Surgeries/Procedures:: right collarbone fracture Social & Family History - Family History Family Medical History: Noncontributory - Tobacco Use Smoking Status *Q: Never Smoker - Caffeine Use Caffeine Use: Reports: None - Recreational Drug Use Recreational Drug Use: No - Living Situation & Occupation Living situation: Reports: Occupation: Employed ED ROS GENERAL - Review of Systems Review Of Systems: Comprehensive ROS is negative, except as noted in HPI. ED EXAM, RENAL/ - Physical Exam Exam: See Below General Appearance: Alert, WD/WN, No Apparent Distress Respiratory/Chest: No Respiratory Distress, Lungs Clear, Normal Breath Sounds, No Accessory Muscle Use, Chest Non-Tender Cardiovascular: Normal Peripheral Pulses, Regular Rate, Rhythm, No Edema, No Gallop, No JVD, No Murmur, No Rub GI/Abdominal: Normal Bowel Sounds, Soft, No Organomegaly, No Distention, No Abnormal Bruit, No Mass, Tender (Suprapubic) Neurological: Alert, Oriented, CN II-XII Intact, Normal Cognition, Normal Gait, Normal Reflexes, No Motor/Sensory Deficits Psychiatric: Normal Affect, Normal Mood Course - Vital Signs Last Recorded V/S: Last Vital Signs Temp 97.5 F 04/04/20 15:59 Pulse 88 04/04/20 15:59 Resp 16 04/04/20 15:59 BP 135/90 04/04/20 15:59 Pulse Ox 100 04/04/20 15:59 - Orders/Labs/Meds Labs: Laboratory Tests 04/04/20 04/04/20 04/04/20 Range/Units 16:35 16:35 16:38 WBC 8.61 (3.98-10.04) K/mm3 RBC 4.56 (3.98-5.22) M/mm3 Hgb 13.0 (11.2-15.7) gm/dl Hct 40.2 (34.1-44.9) % MCV 88.2 (79.4-94.8) fl MCH 28.5 (25.6-32.2) pg MCHC 32.3 (32.2-35.5) g/dl RDW Std Deviation 47.3 H (36.4-46.3) fL Plt Count 359 (182-369) K/mm3 MPV 9.8 (9.4-12.3) fl Neut % (Auto) 59.6 (34.0-71.1) % Lymph % (Auto) 30.9 (19.3-51.7) % [place] % (Auto) 8.6 (4.7-12.5) % Eos % (Auto) 0.7 (0.7-5.8) Baso % (Auto) 0.1 (0.1-1.2) % Neut # (Auto) 5.13 (1.56-6.13) K/mm3 Lymph # (Auto) 2.66 (1.18-3.74) K/mm3 [place] # (Auto) 0.74 H (0.24-0.36) K/mm3 Eos # (Auto) 0.06 (0.04-0.36) K/mm3 Baso # (Auto) 0.01 (0.01-0.08) K/mm3 Sodium 135 L (136-145) mEq/L Potassium 3.8 (3.5-5.1) mEq/L Chloride 101 (98-107) mEq/L Carbon Dioxide 23 (21-32) mEq/L Anion Gap 14.8 (5-15) BUN 14 (7-18) mg/dL Creatinine 0.9 (0.55-1.02) mg/dL Est Cr Clr Drug Dosing 76.77 mL/min Estimated GFR (MDRD) > 60 (>60) mL/min BUN/Creatinine Ratio 15.6 (14-18) Glucose 149 H (74-106) mg/dL Calcium 9.3 (8.5-10.1) mg/dL Total Bilirubin 0.1 L (0.2-1.0) mg/dL AST 9 L (15-37) U/L ALT 25 (14-59) U/L Alkaline Phosphatase 53 (46-116) U/L C-Reactive Protein 1.0 (<1.0) mg/dL Total Protein 8.3 H (6.4-8.2) g/dl Albumin 3.4 (3.4-5.0) g/dl Globulin 4.9 gm/dL Albumin/Globulin Ratio 0.7 L (1-2) Urine Color Yellow (Yellow) Urine Appearance Clear (Clear) Urine pH 6.0 (5.0-8.0) Ur Specific [place] > or = 1.030 (1.005-1.030) Urine Protein Negative (Negative) Urine Glucose (UA) Negative (Negative) Urine Ketones Negative (Negative) Urine Occult Blood Negative (Negative) Urine Nitrite Negative (Negative) Urine Bilirubin Negative (Negative) Urine Urobilinogen 0.2 (0.2-1.0) Ur Leukocyte Esterase Negative (Negative) Urine RBC Not seen (0-5) /hpf Urine WBC 0-5 (0-5) /hpf Ur Squamous Epith Cells 5-10 H (0-5) /hpf Urine Bacteria Not seen (FEW) /hpf Urine Mucus Not seen (FEW) /hpf Urine HCG, Qual (NEGATIVE) 04/04/20 Range/Units 16:38 WBC (3.98-10.04) K/mm3 RBC (3.98-5.22) M/mm3 Hgb (11.2-15.7) gm/dl Hct (34.1-44.9) % MCV (79.4-94.8) fl MCH (25.6-32.2) pg MCHC (32.2-35.5) g/dl RDW Std Deviation (36.4-46.3) fL Plt Count (182-369) K/mm3 MPV (9.4-12.3) fl Neut % (Auto) (34.0-71.1) % Lymph % (Auto) (19.3-51.7) % [place] % (Auto) (4.7-12.5) % Eos % (Auto) (0.7-5.8) Baso % (Auto) (0.1-1.2) % Neut # (Auto) (1.56-6.13) K/mm3 Lymph # (Auto) (1.18-3.74) K/mm3 [place] # (Auto) (0.24-0.36) K/mm3 Eos # (Auto) (0.04-0.36) K/mm3 Baso # (Auto) (0.01-0.08) K/mm3 Sodium (136-145) mEq/L Potassium (3.5-5.1) mEq/L Chloride (98-107) mEq/L Carbon Dioxide (21-32) mEq/L Anion Gap (5-15) BUN (7-18) mg/dL Creatinine (0.55-1.02) mg/dL Est Cr Clr Drug Dosing mL/min Estimated GFR (MDRD) (>60) mL/min BUN/Creatinine Ratio (14-18) Glucose (74-106) mg/dL Calcium (8.5-10.1) mg/dL Total Bilirubin (0.2-1.0) mg/dL AST (15-37) U/L ALT (14-59) U/L Alkaline Phosphatase (46-116) U/L C-Reactive Protein (<1.0) mg/dL Total Protein (6.4-8.2) g/dl Albumin (3.4-5.0) g/dl Globulin gm/dL Albumin/Globulin Ratio (1-2) Urine Color (Yellow) Urine Appearance (Clear) Urine pH (5.0-8.0) Ur Specific [place] (1.005-1.030) Urine Protein (Negative) Urine Glucose (UA) (Negative) Urine Ketones (Negative) Urine Occult Blood (Negative) Urine Nitrite (Negative) Urine Bilirubin (Negative) Urine Urobilinogen (0.2-1.0) Ur Leukocyte Esterase (Negative) Urine RBC (0-5) /hpf Urine WBC (0-5) /hpf Ur Squamous Epith Cells (0-5) /hpf Urine Bacteria (FEW) /hpf Urine Mucus (FEW) /hpf Urine HCG, Qual Negative (NEGATIVE) Meds: Medications Discontinued Medications Generic Name Dose Route Start Last Admin Trade Name Freq PRN Reason Stop Dose Admin Hydromorphone HCl 1 mg 04/04/20 16:26 04/04/20 16:37 Dilaudid IM 04/04/20 16:27 1 mg ONETIME ONE Administration - Re-Assessments/Exams Free Text/Narrative Re-Assessment/Exam: Patient is a 35-year-old female presenting to the emergency department with complaints of a one-week history of intermittent pelvic cramping as well as significant tenderness to her bilateral breast. I have ordered CBC, CMP, CRP, urinalysis, and a transvaginal ultrasound of her uterus. Patient has an aspirin allergy and states that her throat gets itchy with ibuprofen, therefore we are going to forego Toradol. I will give her Dilaudid 1 mg IM. 04/04/20 18:31 Patient's ultrasound was grossly unremarkable. Blood work was found to be normal. Urinalysis was negative for infection. test was negative. Ultrasound of the uterus showed no abnormalities. Patient declined testing for STIs at this time and states that she is not concerned that she could have this. Her pain is better after the medications given. Discussed with her breast tenderness and intermittent cramping, she is likely experiencing PMS symptoms. I did recommend that she call to schedule a visit with a mill machinist to discuss her symptoms and for ongoing management as needed. She is in agreement with this plan. Discharge instructions as documented. Departure - Departure Time of Disposition: 18:33 Disposition: Home, Self-Care 01 Condition: Good Clinical Impression: Pelvic cramping, Breast tenderness in female - Discharge Information *PRESCRIPTION DRUG MONITORING PROGRAM REVIEWED*: No *COPY OF PRESCRIPTION DRUG MONITORING REPORT IN PATIENT ANN: No Referrals: Ewelina Gee PA-C [Primary Care Provider] - Additional Instructions: You were seen in the emergency department today for 1 week history of intermittent pelvic cramping as well as tenderness to your bilateral breast. Work-up included blood work, urinalysis, and an ultrasound of your uterus. Your work-up was found to be normal. test was negative. As we discussed, it is possible that you are experiencing symptoms of PMS. Recommend that you use [id number] Tylenol and ibuprofen as needed for pain. I would also recommend that you establish care with a mill machinist for ongoing monitoring and management of your symptoms. The number to schedule with 1 of the providers in the clinic is [phone]. Return to the ER as needed. Sepsis Event Note (ED) - Evaluation Sepsis Screening Result: No Definite Risk - Focused Exam Vital Signs: Vital Signs Temp Pulse Resp BP Pulse Ox 04/04/20 15:59 97.5 F 88 16 135/90 100
== END 2020-04-04 18:41 | disposition home or self-care (01) ==
LOC: JD.ED 15:48
DX: R10.2 Pelvic and perineal pain (principal); N64.4 Mastodynia; E11.9 Type 2 diabetes mellitus without complications; E66.9 Obesity, unspecified; Z90.49 Acquired absence of other specified parts of digestive tract; Z88.6 Allergy status to analgesic agent
CPT/HCPCS: 36415; 76830; 80053; 81001; 81025; 85025; 86140; 96372; 99284; J1170; 99283

== ENCOUNTER 2020-09-30 07:50 | Emergency (ER) | payer MEDICAID ==
--- NOTE | 2020-09-30 08:14 | EDM.PDOC ---
ED HPI GENERAL MEDICAL PROBLEM - General Chief Complaint: Chest Pain Stated Complaint: CHEST PAIN X 3 DAYS Time Seen by Provider: 09/30/20 08:01 - History of Present Illness INITIAL COMMENTS - FREE TEXT/NARRATIVE: 35-year-old female presents the emergency room with chest pain. The patient describes the chest pain is substernal sharp in nature. It is worsened by deep breathing. The pain does radiate into her left arm. She has not had any associated shortness of breath nausea or vomiting. The patient states she was at home working when the pain started she was not doing anything strenuous. She does not recall anything that makes the pain worse or makes the pain better. She is not on control denies being . She has not had any calf or lower extremity tenderness or any other tenderness for that matter. Patient has had pain like this in the past but it was thought to be related to gallbladder that has since been removed. The pain does radiate into her left arm generalized ache that stops just above the elbow. The patient is allergic to aspirin. Left Chest Pain Score (Numeric/FACES): 10 - Related Data Allergies Allergy/AdvReac Type Severity Reaction Status Date / Time aspirin Allergy Severe Anaphylactic Verified 09/30/20 08:01 Shock Home Meds: Home Meds . 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 Hematologic History: Reports: None Immunologic History: Reports: None Oncologic (Cancer) History: Reports: None Dermatologic History: Reports: None - Infectious Disease History Infectious Disease History: Reports: None - Past Surgical History GI Surgical History: Reports: Cholecystectomy Female Surgical History: Reports: Section Musculoskeletal Surgical History: Reports: Other (See Below) Other Musculoskeletal Surgeries/Procedures:: right collarbone fracture Social & Family History - Family History Family Medical History: No Pertinent Family History - Caffeine Use Caffeine Use: Reports: None - Living Situation & Occupation Living situation: Reports: Occupation: Employed ED ROS GENERAL - Review of Systems Review Of Systems: See Below Constitutional: Reports: No Symptoms HEENT: Reports: No Symptoms Respiratory: Reports: Pleuritic Chest Pain. Denies: Shortness of Breath, Cough Cardiovascular: Reports: Chest Pain. Denies: Edema Endocrine: Reports: No Symptoms GI/Abdominal: Denies: Abdominal Pain, Constipation, Diarrhea, Nausea, Vomiting : Reports: No Symptoms Musculoskeletal: Reports: No Symptoms Neurological: Reports: No Symptoms ED EXAM, GENERAL - Physical Exam Exam: See Below Exam Limited By: No Limitations General Appearance: Alert, No Apparent Distress, Other (She is tachycardic upon arrival pulse of approximately 120 with rest this comes down to the low 100s) Head: Atraumatic, Normocephalic Neck: Normal Inspection, Supple, Non-Tender, Full Range of Motion Respiratory/Chest: No Respiratory Distress, Lungs Clear, Normal Breath Sounds Cardiovascular: Regular Rate, Rhythm, No Edema, No Murmur GI/Abdominal: Normal Bowel Sounds, Soft, Non-Tender, Other (Morbid obesity) Back Exam: Normal Inspection. No: CVA Tenderness (L), CVA Tenderness (R) Extremities: Normal Inspection, Non-Tender, No Pedal Edema Neurological: Alert, Oriented, Normal Cognition #1 Interpretation EKG Date: 09/30/20 Rhythm: Other (Sinus tachycardia rate 103) [place]: Normal P-Wave: Absent (P waves are present there is some OR depression leads I and II and aVL) QRS: Other (Borderline decreased voltage most likely due to body habitus) ST-T: Other (Nonspecific nondiagnostic changes) QT: Normal EKG Interpretation Comments: Abnormal EKG Course - Vital Signs Last Recorded V/S: Last Vital Signs Temp 36.6 C 09/30/20 09:04 Pulse 86 09/30/20 11:09 Resp 13 09/30/20 09:04 BP 111/54 L 09/30/20 11:09 Pulse Ox 100 09/30/20 11:09 - Orders/Labs/Meds Orders: Active Orders 24 hr Category Date Time Status Ang Chest [CT] Stat Exams 09/30/20 09:05 Taken Chest 1V Frontal [CR] Stat Exams 09/30/20 08:02 Taken Sodium Chloride 0.9% [Normal Saline] 250 ml Med 09/30/20 09:30 Active IV ASDIRECTED Sodium Chloride 0.9% [Normal Saline] 250 ml Med 09/30/20 10:15 Active IV ASDIRECTED Sodium Chloride 0.9% [Saline Flush] Med 09/30/20 10:27 Active 10 ml FLUSH ONETIME PRN Medication Orders Sodium Chloride (Normal Saline) 250 mls @ 75 mls/hr IV ASDIRECTED SAMANTA Last Admin: 09/30/20 09:48 Dose: 75 mls/hr Documented by: [email or web address] Sodium Chloride (Normal Saline) 250 mls @ 75 mls/hr IV ASDIRECTED SAMANTA Last Admin: 09/30/20 10:27 Dose: 75 mls/hr Documented by: [id number] Sodium Chloride (Saline Flush) 10 ml FLUSH ONETIME PRN PRN Reason: Keep Vein Open Last Admin: 09/30/20 10:30 Dose: 10 ml Documented by: [id number] Admin: 09/30/20 10:28 Dose: 10 ml Documented by: [email or web address] Labs: Laboratory Tests 09/30/20 09/30/20 09/30/20 Range/Units 08:05 08:05 08:05 WBC 4.89 (3.98-10.04) K/mm3 RBC 4.70 (3.98-5.22) M/mm3 Hgb 12.8 (11.2-15.7) gm/dl Hct 40.6 (34.1-44.9) % MCV 86.4 (79.4-94.8) fl MCH 27.2 (25.6-32.2) pg MCHC 31.5 L (32.2-35.5) g/dl RDW Std Deviation 46.1 (36.4-46.3) fL Plt Count 231 D (182-369) K/mm3 MPV 9.9 (9.4-12.3) fl Neut % (Auto) 41.4 (34.0-71.1) % Lymph % (Auto) 36.6 (19.3-51.7) % [place] % (Auto) 15.7 H (4.7-12.5) % Eos % (Auto) 5.5 (0.7-5.8) Baso % (Auto) 0.2 (0.1-1.2) % Neut # (Auto) 2.02 (1.56-6.13) K/mm3 Lymph # (Auto) 1.79 (1.18-3.74) K/mm3 [place] # (Auto) 0.77 H (0.24-0.36) K/mm3 Eos # (Auto) 0.27 (0.04-0.36) K/mm3 Baso # (Auto) 0.01 (0.01-0.08) K/mm3 Manual Slide Review Normal smear PT (9.7-12.0) SECONDS INR APTT (21.7-31.4) SECONDS Sodium 135 L (136-145) mEq/L Potassium 4.1 (3.5-5.1) mEq/L Chloride 101 (98-107) mEq/L Carbon Dioxide 21 (21-32) mEq/L Anion Gap 17.1 H (5-15) BUN 16 (7-18) mg/dL Creatinine 0.9 (0.55-1.02) mg/dL Est Cr Clr Drug Dosing 76.77 mL/min Estimated GFR (MDRD) > 60 (>60) mL/min BUN/Creatinine Ratio 17.8 (14-18) Glucose 100 (74-106) mg/dL Calcium 9.1 (8.5-10.1) mg/dL Magnesium 1.9 (1.8-2.4) mg/dl Total Bilirubin 0.2 (0.2-1.0) mg/dL AST 22 (15-37) U/L ALT 50 (14-59) U/L Alkaline Phosphatase 57 (46-116) U/L Troponin I < 0.017 (0.00-0.056) ng/mL Total Protein 8.7 H (6.4-8.2) g/dl Albumin 3.5 (3.4-5.0) g/dl Globulin 5.2 gm/dL Albumin/Globulin Ratio 0.7 L (1-2) HCG, Qual Negative (NEGATIVE) 09/30/20 09/30/20 09/30/20 Range/Units 09:10 09:10 11:30 WBC (3.98-10.04) K/mm3 RBC (3.98-5.22) M/mm3 Hgb (11.2-15.7) gm/dl Hct (34.1-44.9) % MCV (79.4-94.8) fl MCH (25.6-32.2) pg MCHC (32.2-35.5) g/dl RDW Std Deviation (36.4-46.3) fL Plt Count (182-369) K/mm3 MPV (9.4-12.3) fl Neut % (Auto) (34.0-71.1) % Lymph % (Auto) (19.3-51.7) % [place] % (Auto) (4.7-12.5) % Eos % (Auto) (0.7-5.8) Baso % (Auto) (0.1-1.2) % Neut # (Auto) (1.56-6.13) K/mm3 Lymph # (Auto) (1.18-3.74) K/mm3 [place] # (Auto) (0.24-0.36) K/mm3 Eos # (Auto) (0.04-0.36) K/mm3 Baso # (Auto) (0.01-0.08) K/mm3 Manual Slide Review PT 10.9 (9.7-12.0) SECONDS INR 1.02 APTT 30.2 (21.7-31.4) SECONDS Sodium (136-145) mEq/L Potassium (3.5-5.1) mEq/L Chloride (98-107) mEq/L Carbon Dioxide (21-32) mEq/L Anion Gap (5-15) BUN (7-18) mg/dL Creatinine (0.55-1.02) mg/dL Est Cr Clr Drug Dosing mL/min Estimated GFR (MDRD) (>60) mL/min BUN/Creatinine Ratio (14-18) Glucose (74-106) mg/dL Calcium (8.5-10.1) mg/dL Magnesium (1.8-2.4) mg/dl Total Bilirubin (0.2-1.0) mg/dL AST (15-37) U/L ALT (14-59) U/L Alkaline Phosphatase (46-116) U/L Troponin I < 0.017 (0.00-0.056) ng/mL Total Protein (6.4-8.2) g/dl Albumin (3.4-5.0) g/dl Globulin gm/dL Albumin/Globulin Ratio (1-2) HCG, Qual (NEGATIVE) Meds: Medications Generic Name Dose Route Start Last Admin Trade Name Freq PRN Reason Stop Dose Admin Sodium Chloride 250 mls @ 75 mls/hr 09/30/20 09:30 09/30/20 09:48 Normal Saline IV 75 mls/hr ASDIRECTED SAMANTA Administration Sodium Chloride 250 mls @ 75 mls/hr 09/30/20 10:15 09/30/20 10:27 Normal Saline IV 75 mls/hr ASDIRECTED SAMANTA Administration Sodium Chloride 10 ml 09/30/20 10:27 09/30/20 10:30 Saline Flush FLUSH 10 ml ONETIME PRN Administration Keep Vein Open Discontinued Medications Generic Name Dose Route Start Last Admin Trade Name Freq PRN Reason Stop Dose Admin Fentanyl 50 mcg 09/30/20 08:20 09/30/20 08:52 Sublimaze IVPUSH 09/30/20 08:21 50 mcg ONETIME ONE Administration Fentanyl 50 mcg 09/30/20 10:01 09/30/20 10:02 Sublimaze IVPUSH 09/30/20 10:02 50 mcg ONETIME ONE Administration Fentanyl Confirm 09/30/20 09:59 09/30/20 10:03 Sublimaze Administered 09/30/20 10:00 Not Given Dose 100 mcg .ROUTE .STK-MED ONE Sodium Chloride 1,000 mls @ 999 mls/hr 09/30/20 11:05 09/30/20 11:06 Normal Saline IV 09/30/20 12:05 999 mls/hr ONETIME ONE Administration Iopamidol 100 ml 09/30/20 09:26 09/30/20 09:48 [id number] (76%) IVPUSH 09/30/20 09:27 75 ml ONETIME ONE Administration Iopamidol 100 ml 09/30/20 10:02 09/30/20 10:27 [id number] (76%) IVPUSH 09/30/20 10:03 100 ml ONETIME ONE Administration - Re-Assessments/Exams Free Text/Narrative Re-Assessment/Exam: 09/30/20 08:46 Sent tachycardia albeit mild pleuritic-like chest pain will proceed to CTA after we get a negative hCG. 09/30/20 09:59 Patient is back from CT apparently the IV blew while she was getting contrast. According to the certified endoscopy technician the patient screamed on this happened and now she has a headache. The patient did receive a dose of fentanyl early on and had good relief of her chest pain this is back we will redose the fentanyl. 09/30/20 10:06 The radiologist reviewed the CT and it cannot be interpreted. We will start another IV and reattempt the study. Situation discussed with the patient she seems to understand. 09/30/20 11:13 CTA is negative for pulmonary embolism. We will check a second troponin now. 09/30/20 13:43 Second troponin is negative. Patient has a heart score of 2 history is more consistent with a muscle skeletal injury EKG does not show any significant ST depression or significant repolarization abnormalities. Her age is less than 45 she has a couple risk factors negative family history. And her troponins have been negative x2, below are detectable limits we discussed the implication of this and the patient would like to go home. Patient will be started on Tylenol as needed for discomfort. Departure - Departure Time of Disposition: 13:45 Disposition: Home, Self-Care 01 Clinical Impression: Chest pain Referrals: Ewelina Gee PA-C [Primary Care Provider] - Forms: ED Department Discharge Additional Instructions: Return to the emergency room with any questions problems or worsening symptoms. Use Tylenol 650-1000 mg every 6 hours as needed for pain do not take more than 4000 mg a day. 2 regular strength Tylenol is the same as 650 mg 2 extra strength Tylenol is 1000 mg. Follow-up with your healthcare provider on Friday or Friday for recheck discuss the pros and cons to potential cardiac stress testing. Sepsis Event Note (ED) - Evaluation Sepsis Screening Result: No Definite Risk - Focused Exam Vital Signs: Vital Signs Temp Pulse Resp BP Pulse Ox 09/30/20 11:09 86 111/54 L 100 09/30/20 09:04 36.6 C 94 13 106/60 98 09/30/20 08:14 102 H 146/70 H 97 09/30/20 07:58 36.2 C 119 H 24 H 140/93 H 97 - My Orders Last 24 Hours: My Active Orders 09/30/20 08:02 Chest 1V Frontal [CR] Stat 09/30/20 09:05 Ang Chest [CT] Stat 09/30/20 09:30 Sodium Chloride 0.9% [Normal Saline] 250 ml IV ASDIRECTED 09/30/20 10:15 Sodium Chloride 0.9% [Normal Saline] 250 ml IV ASDIRECTED 09/30/20 10:27 Sodium Chloride 0.9% [Saline Flush] 10 ml FLUSH ONETIME PRN - Assessment/Plan Last 24 Hours: My Active Orders 09/30/20 08:02 Chest 1V Frontal [CR] Stat 09/30/20 09:05 Ang Chest [CT] Stat 09/30/20 09:30 Sodium Chloride 0.9% [Normal Saline] 250 ml IV ASDIRECTED 09/30/20 10:15 Sodium Chloride 0.9% [Normal Saline] 250 ml IV ASDIRECTED 09/30/20 10:27 Sodium Chloride 0.9% [Saline Flush] 10 ml FLUSH ONETIME PRN
[2020-09-30] MEDS ORDERED: fentaNYL 100 MCG/2 ML SDV IVPUSH ONE ×2 (08:20→10:01)
[2020-09-30] MEDS ORDERED: Iopamidol 755 Mg/ML 100 ML Bottle IVPUSH ONE ×2 (09:26→10:02)
[2020-09-30] MEDS ORDERED: Sodium Chloride 0.9% 250 ML IV SCH ×2 (09:30→10:15)
[2020-09-30] MEDS ORDERED: fentaNYL 100 MCG/2 ML SDV ONE (09:59)
[2020-09-30] MEDS: Sodium Chloride 0.9% 10 ML Syringe FLUSH PRN ×2 (10:28→10:30)
[2020-09-30] MEDS ORDERED: Sodium Chloride 0.9% 1,000 ML IV ONE (11:05)
[2020-09-30 14:18] VITALS: BP 120/62; PULSE 95
--- NOTE | 2020-10-01 11:35 | CR ---
Chest: Portable upright view of the chest was obtained. Comparison: Prior chest x-ray of 02/16/20. Small azygos lobe is noted. Old healed right clavicle fracture is noted. Cardiothymic silhouette is normal. Lungs are clear with no acute parenchymal change. Impression: 1. Nothing acute is seen on portable chest x-ray. Diagnostic code #2
--- NOTE | 2020-10-01 16:50 | CT ---
CT chest Technique: Mutiple axial images were obtained through the chest as a pulmonary angiogram protocl. First set was performed around 9:33 AM which was nondiagnostic for pulmonary embolism. Second set was performed at 10:21 AM. Comparison: Prior CT angiogram study of 02/16/20. Findings: Pulmonary arteries on the second study are fairly well opacified. No discrete filling defects are seen to indicate definite pulmonary embolism. Thoracic aorta shows no aneurysm. No mediastinal adenopathy is seen. No pericardial thickening is identified. Small portion of the visualized upper abdominal structures show nothing acute. Azygos lobe is noted. Lungs show no acute parenchymal change. Partially seen old healed right clavicle fracture is noted. Impression: 1. Nothing is definitely appreciated to indicate pulmonary embolism. 2. Other findings which are incidental. Nothing acute is appreciated. 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
== END 2020-09-30 14:17 | disposition home or self-care (01) ==
LOC: JD.ED 07:50
DX: R07.2 Precordial pain (principal); E11.9 Type 2 diabetes mellitus without complications; E66.9 Obesity, unspecified; Z68.43 Body mass index [BMI] 50.0-59.9, adult; Z88.6 Allergy status to analgesic agent
CPT/HCPCS: 36415; 71045; 71275; 80053; 83735; 84484; 84703; 85025; 85610; 85730; 96374; 96376; 99285; J3010; J7030; J7050; Q9967; 93010; 99284

== ENCOUNTER 2020-10-04 17:06 | Emergency (ER) | payer MEDICAID ==
[2020-10-04] MEDS ORDERED: Dexamethasone 10 MG/ML SDV IM ONE (17:31)
[2020-10-04 18:18] VITALS: BP 120/96; PULSE 99
--- NOTE | 2020-10-04 18:19 | EDM.PDOC ---
ED HPI GENERAL MEDICAL PROBLEM - General Chief Complaint: Respiratory Problem Stated Complaint: COVID + Time Seen by Provider: 10/04/20 17:15 Source of Information: Reports: Patient, RN Notes Reviewed History Limitations: Reports: No Limitations - History of Present Illness INITIAL COMMENTS - FREE TEXT/NARRATIVE: Patient is a 35-year-old female who presents to the ED for evaluation of her shortness of breath. Patient was diagnosed with COVID-19 on 10/02/2020, but states she has been having symptoms for the last week or so. She was evaluated in this ER on 09/30/2020, had multiple labs and a angio of her chest, and nothing was really found. Patient was discharged home with general recommendations. She notes that she is still not been feeling well so she is been bouncing back between here in the clinic and states again that she was tested for Covid on Friday and it was positive. She is complaining of increased shortness of breath with any sort of exertion, she was monitoring O2 sats at home and states that they went down into 88% for a brief period of time. Her O2 sats at the time of triage are 96% on room air, and they have stayed between 94- 96% while being in the ER. Patient states she had a fever at home, she has has a dry cough, she states she does not have much of an appetite and has not been eating much. 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 Hematologic History: Reports: None Immunologic History: Reports: None Oncologic (Cancer) History: Reports: None Dermatologic History: Reports: None - Infectious Disease History Infectious Disease History: Reports: Chicken Pox, Novel Coronavirus - Past Surgical History GI Surgical History: Reports: Cholecystectomy Female Surgical History: Reports: Section Musculoskeletal Surgical History: Reports: Other (See Below) Other Musculoskeletal Surgeries/Procedures:: right collarbone fracture Social & Family History - Family History Family Medical History: No Pertinent Family History - Tobacco Use Tobacco Use Status *Q: Never Tobacco User Second Hand Smoke Exposure: No - Caffeine Use Caffeine Use: Reports: None - Recreational Drug Use Recreational Drug Use: No - Living Situation & Occupation Living situation: Reports: Occupation: Employed ED ROS GENERAL - Review of Systems Review Of Systems: Comprehensive ROS is negative, except as noted in HPI. ED EXAM, GENERAL - Physical Exam Exam: See Below Exam Limited By: No Limitations General Appearance: Alert, WD/WN, No Apparent Distress, Obese Respiratory/Chest: No Respiratory Distress, Lungs Clear, Normal Breath Sounds, No Accessory Muscle Use, Chest Non-Tender Cardiovascular: Normal Peripheral Pulses, Regular Rate, Rhythm, No Edema Peripheral Pulses: 2+: Radial (L), Radial (R) Neurological: Alert, Oriented, Normal Cognition, No Motor/Sensory Deficits Psychiatric: Normal Affect, Normal Mood Skin Exam: Warm, Dry, Intact, Normal Color, No Rash Course - Vital Signs Last Recorded V/S: Last Vital Signs Temp 97.6 F 10/04/20 17:10 Pulse 100 10/04/20 17:32 Resp 18 10/04/20 17:10 BP 119/96 H 10/04/20 17:32 Pulse Ox 97 10/04/20 17:32 - Orders/Labs/Meds Orders: Active Orders 24 hr Category Date Time Status Chest 1V Frontal [CR] Stat Exams 10/04/20 17:31 Ordered Meds: Medications Discontinued Medications Generic Name Dose Route Start Last Admin Trade Name Ducq PRN Reason Stop Dose Admin Dexamethasone 6 mg 10/04/20 17:31 10/04/20 17:50 Decadron IM 10/04/20 17:32 6 mg ONETIME ONE Administration - Re-Assessments/Exams Free Text/Narrative Re-Assessment/Exam: 10/04/20 18:16 Patient presents to the ED for her ongoing Covid symptoms. For today's purposes I did repeat a chest x-ray, and have given her a 6 mg IM injection of dexamethasone for management. Other than her morbid obesity, patient has no other risk factors identified for outpatient monoclonal antibody therapy. Due to the patient having multiple extensive work-ups in the ER in clinic recently, I did discuss the benefits/drawbacks to taking more labs, and for them to be on par with her viral issues. Patient states she is okay with getting a chest x- ray at this time. I did also make the patient aware, that due to her body habitus that she might have a little worse time with the shortness of breath, and that she is in the day 7-10 range, and again this is going to make her feel quite under the weather for a few more days. Patient verbalized understanding at this time. 10/04/20 18:18 Chest x-ray performed and compared to her films done on September 30 do demonstrate the starts of Covid pneumonia with diffuse patchy infiltrates observed by myself and Dr. Varghese. Departure - Departure Time of Disposition: 18:18 Disposition: Home, Self-Care 01 Condition: Fair Clinical Impression: COVID-19 - Discharge Information *PRESCRIPTION DRUG MONITORING PROGRAM REVIEWED*: No *COPY OF PRESCRIPTION DRUG MONITORING REPORT IN PATIENT ANN: No Prescriptions: dexAMETHasone [Decadron] 6 mg PO ACDINNER #9 tablet Instructions: COVID-19 Frequently Asked Questions, Prone Position Therapy Referrals: PCP,None [Primary Care Provider] - Additional Instructions: You were seen in the ER today for ongoing and/or worsening respiratory symptoms. Your chest x-ray showed signs of a viral type pneumonia that is consistent with COVID-19. Your oxygen levels were great at 96% on room air. You were given an IM injection of a steroid, to help relieve some of your symptoms from COVID-19 and had been given a prescription for oral steroid therapy. You will need to take 1 tablet once daily for the next 9-10 days or until gone. Please try to increase your oral fluid intake, and eat multiple small meals throughout the day, to keep yourself healthy. You need to keep yourself nourished in order to fight off this disease. You can try a liquid diet like gatorade/powerade as well to get your electrolytes. You may take 500 mg Tylenol every hours 6 hours for pain/fever relief. Do not exceed 4000 mg Tylenol in a 24-hour time span. However, running a fever is your body's natural response to illness, and it allows the body to develop antibodies to disease, we are recommending trying to limit the use of Tylenol as much as possible to allow your body's natural immune response. Recommend you obtain a pulse oximeter and monitor your oxygen levels at home, you should place the monitor on your finger, and sit in a calm, quiet position for a few minutes and then record the number that is on the screen. If this consistently below 90% on room air without movement, this would be cause for concern to come back to the hospital for further management of your COVID-19 disease. Sepsis Event Note (ED) - Evaluation Sepsis Screening Result: No Definite Risk - Focused Exam Vital Signs: Vital Signs Temp Pulse Resp BP Pulse Ox 10/04/20 17:32 100 119/96 H 97 10/04/20 17:10 97.6 F 113 H 18 124/80 98 - My Orders Last 24 Hours: My Active Orders 10/04/20 17:31 Chest 1V Frontal [CR] Stat - Assessment/Plan Last 24 Hours: My Active Orders 10/04/20 17:31 Chest 1V Frontal [CR] Stat
--- NOTE | 2020-10-05 10:13 | CR ---
Chest: Portable view of the chest was obtained. Comparison: Prior chest x-ray and chest CT study performed on 09/30/20. Heart size and mediastinum are normal. Increased density is identified within both mid and lower lungs which have increased in prominence from prior studies. Slightly limited inspiratory effort is noted. Old healed right clavicle fracture is noted. Impression: 1. Increasing density within both mid and lower lungs compatible with COVID pneumonia. Findings have increased from prior studies. 2. Other incidental findings as noted above. Diagnostic code #3
== END 2020-10-04 18:32 | disposition home or self-care (01) ==
LOC: JD.ED 17:06
DX: U07.1 COVID-19 (principal); I10 Essential (primary) hypertension; E11.9 Type 2 diabetes mellitus without complications; E66.9 Obesity, unspecified; Z68.43 Body mass index [BMI] 50.0-59.9, adult; Z88.6 Allergy status to analgesic agent
CPT/HCPCS: 71045; 71045-26; 96372; 99283; 99284-25; J1100

== ENCOUNTER 2020-10-06 13:52 | Inpatient (IN) | payer MEDICAID ==
[2020-10-06] MEDS ORDERED: Sodium Chloride 0.9% 10 ML Syringe FLUSH PRN (14:34)
--- NOTE | 2020-10-06 15:25 | EDM.PDOC ---
ED HPI GENERAL MEDICAL PROBLEM - General Chief Complaint: Respiratory Problem Stated Complaint: COVID + CANT BREATHE Time Seen by Provider: 10/06/20 14:33 Source of Information: Reports: Patient, RN Notes Reviewed - History of Present Illness INITIAL COMMENTS - FREE TEXT/NARRATIVE: 35 yr old female comes in with difficulty breathing. She first became ill about 1 week ago with cough, fever, chills, myalgias. She was tested at the covid clinic 2 days ago and found to be covid positive. She has become much more short of breath yesterday and today. She states it "hurts to breath" No hx of asthma or other pulmonary problems. She is very obese with a BMI of 54.4. There has been no vomiting. A couple episodes of diarrhea. 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 Hematologic History: Reports: None Immunologic History: Reports: None Oncologic (Cancer) History: Reports: None Dermatologic History: Reports: None - Infectious Disease History Infectious Disease History: Reports: Chicken Pox, Novel Coronavirus - Past Surgical History GI Surgical History: Reports: Cholecystectomy Female Surgical History: Reports: Section Musculoskeletal Surgical History: Reports: Other (See Below) Other Musculoskeletal Surgeries/Procedures:: right collarbone fracture Social & Family History - Family History Family Medical History: No Pertinent Family History - Tobacco Use Tobacco Use Status *Q: Never Tobacco User - Caffeine Use Caffeine Use: Reports: None - Recreational Drug Use Recreational Drug Use: No - Living Situation & Occupation Living situation: Reports: Occupation: Employed ED ROS GENERAL - Review of Systems Review Of Systems: See Below Constitutional: Reports: Fever, Chills, Decreased Appetite HEENT: Reports: Rhinitis Respiratory: Reports: Shortness of Breath, Pleuritic Chest Pain, Cough GI/Abdominal: Reports: Diarrhea, Decreased Appetite, Nausea. Denies: Vomiting Musculoskeletal: Reports: Other (generalized achiness) Skin: Denies: Rash Neurological: Reports: Headache ED EXAM, GENERAL - Physical Exam Exam: See Below General Appearance: Alert, Mild Distress Head: Atraumatic Neck: Supple Respiratory/Chest: Respiratory Distress (moderate tachypnea), Rhonchi (mild bilat). No: Wheezing Cardiovascular: Tachycardia GI/Abdominal: Non-Tender Extremities: No: Leg Pain Neurological: Alert, Oriented, No Motor/Sensory Deficits Skin Exam: Warm, Dry #1 Interpretation EKG Date: 10/06/20 Rhythm: NSR [place]: Normal P-Wave: Present QRS: Normal ST-T: Other (mild diffuse nonspecific t wave changes) Course - Vital Signs Last Recorded V/S: Last Vital Signs Temp 101.5 F H 10/06/20 14:13 Pulse 121 H 10/06/20 14:13 Resp 31 H 10/06/20 14:13 BP 122/75 10/06/20 14:13 Pulse Ox 81 L 10/06/20 14:13 - Orders/Labs/Meds Orders: Active Orders 24 hr Category Date Time Status EKG 12 Lead [EKG Documentation Completion] [RC] STAT Care 10/06/20 14:34 Active Peripheral IV Care [RC] . DIRECTED Care 10/06/20 14:35 Active Chest 1V Frontal [CR] Stat Exams 10/06/20 14:34 Taken HEPATIC FUNCTION PANEL,HFP [CHEM] DAILY Lab 10/07/20 17:00 Ordered HEPATIC FUNCTION PANEL,HFP [CHEM] DAILY Lab 10/08/20 17:00 Ordered HEPATIC FUNCTION PANEL,HFP [CHEM] DAILY Lab 10/09/20 17:00 Ordered HEPATIC FUNCTION PANEL,HFP [CHEM] DAILY Lab 10/10/20 17:00 Ordered Sodium Chloride 0.9% [Saline Flush] Med 10/06/20 14:34 Active 10 ml FLUSH ASDIRECTED PRN Peripheral IV Insertion Adult [OM.PC] Stat Oth 10/06/20 14:35 Ordered Medication Orders Sodium Chloride (Saline Flush) 10 ml FLUSH ASDIRECTED PRN PRN Reason: Keep Vein Open Last Admin: 10/06/20 16:42 Dose: 10 ml Documented by: ELLE Labs: Laboratory Tests 10/06/20 10/06/20 10/06/20 Range/Units 14:40 14:40 14:40 WBC 7.03 (3.98-10.04) K/mm3 RBC 4.69 (3.98-5.22) M/mm3 Hgb 12.7 (11.2-15.7) gm/dl Hct 40.3 (34.1-44.9) % MCV 85.9 (79.4-94.8) fl MCH 27.1 (25.6-32.2) pg MCHC 31.5 L (32.2-35.5) g/dl RDW Std Deviation 46.3 (36.4-46.3) fL Plt Count 337 D (182-369) K/mm3 MPV 9.5 (9.4-12.3) fl Neut % (Auto) 62.7 (34.0-71.1) % Lymph % (Auto) 29.9 (19.3-51.7) % [place] % (Auto) 7.0 (4.7-12.5) % Eos % (Auto) 0 L (0.7-5.8) Baso % (Auto) 0.3 (0.1-1.2) % Neut # (Auto) 4.41 (1.56-6.13) K/mm3 Lymph # (Auto) 2.10 (1.18-3.74) K/mm3 [place] # (Auto) 0.49 H (0.24-0.36) K/mm3 Eos # (Auto) 0.00 L (0.04-0.36) K/mm3 Baso # (Auto) 0.02 (0.01-0.08) K/mm3 Manual Slide Review D-Dimer, Quantitative (0.19-0.50) mg/L Sodium 136 (136-145) mEq/L Potassium 3.9 (3.5-5.1) mEq/L Chloride 99 (98-107) mEq/L Carbon Dioxide 24 (21-32) mEq/L Anion Gap 16.9 H (5-15) BUN 10 (7-18) mg/dL Creatinine 1.1 H (0.55-1.02) mg/dL Est Cr Clr Drug Dosing 62.82 mL/min Estimated GFR (MDRD) > 60 (>60) mL/min BUN/Creatinine Ratio 9.1 L (14-18) Glucose 98 (74-106) mg/dL Calcium 8.9 (8.5-10.1) mg/dL Ferritin (8-252) ng/ml Total Bilirubin 0.2 (0.2-1.0) mg/dL Direct Bilirubin (0.0-0.2) mg/dl Indirect Bilirubin AST 40 H (15-37) U/L ALT 69 H (14-59) U/L Alkaline Phosphatase 53 (46-116) U/L Lactate Dehydrogenase 317 H (81-234) U/L C-Reactive Protein 1.9 H* (<1.0) mg/dL Total Protein 8.9 H (6.4-8.2) g/dl Albumin 3.4 (3.4-5.0) g/dl Globulin 5.5 gm/dL Albumin/Globulin Ratio 0.6 L (1-2) 10/06/20 10/06/20 10/06/20 Range/Units 14:40 14:40 17:23 WBC (3.98-10.04) K/mm3 RBC (3.98-5.22) M/mm3 Hgb (11.2-15.7) gm/dl Hct (34.1-44.9) % MCV (79.4-94.8) fl MCH (25.6-32.2) pg MCHC (32.2-35.5) g/dl RDW Std Deviation (36.4-46.3) fL Plt Count (182-369) K/mm3 MPV (9.4-12.3) fl Neut % (Auto) (34.0-71.1) % Lymph % (Auto) (19.3-51.7) % [place] % (Auto) (4.7-12.5) % Eos % (Auto) (0.7-5.8) Baso % (Auto) (0.1-1.2) % Neut # (Auto) (1.56-6.13) K/mm3 Lymph # (Auto) (1.18-3.74) K/mm3 [place] # (Auto) (0.24-0.36) K/mm3 Eos # (Auto) (0.04-0.36) K/mm3 Baso # (Auto) (0.01-0.08) K/mm3 Manual Slide Review D-Dimer, Quantitative 1.01 H (0.19-0.50) mg/L Sodium (136-145) mEq/L Potassium (3.5-5.1) mEq/L Chloride (98-107) mEq/L Carbon Dioxide (21-32) mEq/L Anion Gap (5-15) BUN (7-18) mg/dL Creatinine (0.55-1.02) mg/dL Est Cr Clr Drug Dosing mL/min Estimated GFR (MDRD) (>60) mL/min BUN/Creatinine Ratio (14-18) Glucose (74-106) mg/dL Calcium (8.5-10.1) mg/dL Ferritin 150 (8-252) ng/ml Total Bilirubin 0.3 (0.2-1.0) mg/dL Direct Bilirubin 0.10 (0.0-0.2) mg/dl Indirect Bilirubin 0.20 AST 35 (15-37) U/L ALT 64 H (14-59) U/L Alkaline Phosphatase 50 (46-116) U/L Lactate Dehydrogenase (81-234) U/L C-Reactive Protein (<1.0) mg/dL Total Protein 8.5 H (6.4-8.2) g/dl Albumin 3.3 L (3.4-5.0) g/dl Globulin 5.2 gm/dL Albumin/Globulin Ratio 0.6 L (1-2) Meds: Medications Generic Name Dose Route Start Last Admin Trade Name Freq PRN Reason Stop Dose Admin Sodium Chloride 10 ml 10/06/20 14:34 10/06/20 16:42 Saline Flush FLUSH 10 ml ASDIRECTED PRN Administration Keep Vein Open Discontinued Medications Generic Name Dose Route Start Last Admin Trade Name Freq PRN Reason Stop Dose Admin Dexamethasone 6 mg 10/06/20 16:56 Dexamethasone IV 10/06/20 16:57 ONETIME ONE Remdesivir 200 mg/ Sodium 250 mls @ 250 mls/hr 10/06/20 16:55 10/06/20 17:39 Chloride IV 10/06/20 16:56 250 mls/hr ONETIME ONE Administration - Re-Assessments/Exams Free Text/Narrative Re-Assessment/Exam: 10/06/20 18:27 O2 sats at time of triage only 81 %. They came up quickly to high 90's with 3 L NC. At rest she has tolerated dropping her oxygen down to 1.5 L NC with sats in the mid 90's at time of my exam. Unfortunately her CXR shows quite severe bilat. infiltrates. Have ordered IV remdesivir and decadron. Pt will be admitted for further treatment. Departure - Departure Time of Disposition: 17:30 Disposition: Admitted As Inpatient 68 Condition: Serious Clinical Impression: Pneumonia due to COVID-19 virus, Hypoxia - Discharge Information Referrals: PCP,None [Primary Care Provider] - Forms: ED Department Discharge Sepsis Event Note (ED) - Evaluation Sepsis Screening Result: Possible Sepsis Risk - Focused Exam Vital Signs: Vital Signs Temp Pulse Resp BP Pulse Ox 10/06/20 14:13 101.5 F H 121 H 31 H 122/75 81 L ED Communication - Discussed Case With (1) Discussed Case With (1): Admitting Provider (Dr Watkins, decision to admit at about 17:30.) - My Orders Last 24 Hours: My Active Orders 10/06/20 14:34 EKG 12 Lead [EKG Documentation Completion] [RC] STAT Chest 1V Frontal [CR] Stat Sodium Chloride 0.9% [Saline Flush] 10 ml FLUSH ASDIRECTED PRN 10/06/20 14:35 Peripheral IV Care [RC] . DIRECTED Peripheral IV Insertion Adult [OM.PC] Stat 10/07/20 17:00 HEPATIC FUNCTION PANEL,HFP [CHEM] DAILY 10/08/20 17:00 HEPATIC FUNCTION PANEL,HFP [CHEM] DAILY 10/09/20 17:00 HEPATIC FUNCTION PANEL,HFP [CHEM] DAILY 10/10/20 17:00 HEPATIC FUNCTION PANEL,HFP [CHEM] DAILY - Assessment/Plan Last 24 Hours: My Active Orders 10/06/20 14:34 EKG 12 Lead [EKG Documentation Completion] [RC] STAT Chest 1V Frontal [CR] Stat Sodium Chloride 0.9% [Saline Flush] 10 ml FLUSH ASDIRECTED PRN 10/06/20 14:35 Peripheral IV Care [RC] . DIRECTED Peripheral IV Insertion Adult [OM.PC] Stat 10/07/20 17:00 HEPATIC FUNCTION PANEL,HFP [CHEM] DAILY 10/08/20 17:00 HEPATIC FUNCTION PANEL,HFP [CHEM] DAILY 10/09/20 17:00 HEPATIC FUNCTION PANEL,HFP [CHEM] DAILY 10/10/20 17:00 HEPATIC FUNCTION PANEL,HFP [CHEM] DAILY
[2020-10-06] MEDS ORDERED: REMDESIVIR 200 MG in Sodium Chloride 0.9% 250 ML IV ONE (16:55)
[2020-10-06] MEDS ORDERED: Dexamethasone 4 MG/ML 5 ML MDV IV ONE (16:56)
[2020-10-06] MEDS ORDERED: Sodium Chloride 0.9% 1,000 ML IV SCH (19:15)
--- NOTE | 2020-10-06 21:20 | PCM.HP.2 ---
H&P History of Present Illness - General Date of Service: 10/06/20 Admit Problem/Dx: Admission Diagnosis/Problem Admission Diagnosis/Problem Hypoxia Source of Information: Patient, Old Records, Provider, RN Notes Reviewed History Limitations: Reports: Physical Impairment - History of Present Illness Initial Comments - Free Text/Narative: This is a 35 yo female with past medical hx/o HTN, HLD, Recurrent UTI, Migraines TAO, DM2, and Obesity who presented to ED with complaints of worsening covid-19 infection. She states her symptoms started about 1 week ago and have progressively gotten worse the in past few days. She reports having difficulty catching her air associated with pleuritic pain, fever, chills, wet cough, headache, diarrhea, and generalized aches and pains. Her appetite has not been great. She tested positive with covid 2 days ago and was only on dexamethasone for treatment. She never received antibiotic. No Regeneron or Lizabeth Caitie's monoclonal drug therapy. She carries no hx/o pulmonary insufficiency. She endorses no cardiovascular disease. Her initial work up in ED shows a CBC remarkable for MCHC of 31.5, monocyte # of 0.49 and Eosinophil # of 0. Her coagulation study is notable for D-dimer of 1.01. Her chemistry is significant for AG of 16.9, Cr of 1.1, AST of 40, ALT of 69, LDH of 317, CRP of 1.9, Total Protein of 8.9, and Albumin of 3.3. Her chest x-ray shows bilateral patchy pulmonary infiltrate suggestive of covid-19 pne umonia. Bilateral Chest Pain Score (Numeric/FACES): 10 - Related Data Allergies/Adverse Reactions: Allergies Allergy/AdvReac Type Severity Reaction Status Date / Time aspirin Allergy Severe Anaphylactic Verified 10/06/20 23:19 Shock Home Medications: Home Meds . 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 Hematologic History: Reports: None Immunologic History: Reports: None Oncologic (Cancer) History: Reports: None Dermatologic History: Reports: None - Infectious Disease History Infectious Disease History: Reports: Chicken Pox, Novel Coronavirus - Past Surgical History GI Surgical History: Reports: Cholecystectomy Female Surgical History: Reports: Section Musculoskeletal Surgical History: Reports: Other (See Below) Other Musculoskeletal Surgeries/Procedures:: right collarbone fracture Social & Family History - Family History Family Medical History: No Pertinent Family History - Tobacco Use Tobacco Use Status *Q: Never Tobacco User - Caffeine Use Caffeine Use: Reports: None - Recreational Drug Use Recreational Drug Use: No - Living Situation & Occupation Living situation: Reports: Occupation: Employed H&P Review of Systems - Review of Systems: Review Of Systems: See Below General: Reports: Fever, Chills, Malaise, Weakness, Fatigue, Decreased Appetite HEENT: Reports: No Symptoms, Headaches, Rhinitis Pulmonary: Reports: Pleuritic Chest Pain, Cough. Denies: Shortness of Breath Cardiovascular: Denies: Chest Pain Gastrointestinal: Reports: Diarrhea, Nausea. Denies: Abdominal Pain, Vomiting Genitourinary: Denies: Frequency Musculoskeletal: Denies: Joint Pain Skin: Denies: Cyanosis, Jaundice, Mottled, Diaphoresis Psychiatric: Denies: Depression, Anxiety Neurological: Reports: Weakness. Denies: Confusion, Difficulty Walking, Gait Disturbance Hematologic/Lymphatic: Reports: No Symptoms Immunologic: Reports: No Symptoms Exam - Exam Exam: See Below - Vital Signs Vital Signs: Last Vital Signs Temp 38.6 C H 10/06/20 14:13 Pulse 121 H 10/06/20 14:13 Resp 31 H 10/06/20 14:13 BP 122/75 10/06/20 14:13 Pulse Ox 81 L 10/06/20 14:13 Weight: 143.789 kg - Exam Quality Assessment: Supplemental Oxygen General: Alert, Oriented, Cooperative, Other (Morbidly Obese) HEENT: Conjunctiva Clear, EACs Clear, EOMI, Hearing Intact, Mucosa Moist & [place], Nares Patent, Normal Nasal Septum, Posterior Pharynx Clear, Pupils Equal, Pupils Reactive, TMs Clear Neck: Supple, Trachea Midline Lungs: Normal Respiratory Effort, Decreased Breath Sounds Cardiovascular: Regular Rate, Regular Rhythm GI/Abdominal Exam: Normal Bowel Sounds, Soft, Non-Tender, No Organomegaly, No Distention, No Abnormal Bruit, No Mass, Other (Obese) (Female) Exam: Deferred Rectal (Female) Exam: Deferred Back Exam: Normal Inspection, Decreased Range of Motion Extremities: Normal Inspection, Normal Range of Motion, Non-Tender, No Pedal Edema, Normal Capillary Refill Peripheral Pulses: 2+: Dorsalis Pedis (L), Dorsalis Pedis (R) Skin: Warm, Dry, Intact Neuro Extensive - Mental Status: Oriented x3, Normal Cognition, Memory Intact Neuro Extensive - Motor, Sensory, Reflexes: CN II-XII Intact, Normal Gait DTR: 2+: Achilles (L), Achilles (R) Psychiatric: Alert, Normal Affect, Normal Mood - Patient Data Lab Results Last 24 hrs: Laboratory Results - last 24 hr 10/06/20 10/06/20 10/06/20 Range/Units 14:40 14:40 14:40 WBC 7.03 (3.98-10.04) K/mm3 RBC 4.69 (3.98-5.22) M/mm3 Hgb 12.7 (11.2-15.7) gm/dl Hct 40.3 (34.1-44.9) % MCV 85.9 (79.4-94.8) fl MCH 27.1 (25.6-32.2) pg MCHC 31.5 L (32.2-35.5) g/dl RDW Std Deviation 46.3 (36.4-46.3) fL Plt Count 337 D (182-369) K/mm3 MPV 9.5 (9.4-12.3) fl Neut % (Auto) 62.7 (34.0-71.1) % Lymph % (Auto) 29.9 (19.3-51.7) % [place] % (Auto) 7.0 (4.7-12.5) % Eos % (Auto) 0 L (0.7-5.8) Baso % (Auto) 0.3 (0.1-1.2) % Neut # (Auto) 4.41 (1.56-6.13) K/mm3 Lymph # (Auto) 2.10 (1.18-3.74) K/mm3 [place] # (Auto) 0.49 H (0.24-0.36) K/mm3 Eos # (Auto) 0.00 L (0.04-0.36) K/mm3 Baso # (Auto) 0.02 (0.01-0.08) K/mm3 Manual Slide Review D-Dimer, Quantitative (0.19-0.50) mg/L Sodium 136 (136-145) mEq/L Potassium 3.9 (3.5-5.1) mEq/L Chloride 99 (98-107) mEq/L Carbon Dioxide 24 (21-32) mEq/L Anion Gap 16.9 H (5-15) BUN 10 (7-18) mg/dL Creatinine 1.1 H (0.55-1.02) mg/dL Est Cr Clr Drug Dosing 62.82 mL/min Estimated GFR (MDRD) > 60 (>60) mL/min BUN/Creatinine Ratio 9.1 L (14-18) Glucose 98 (74-106) mg/dL Calcium 8.9 (8.5-10.1) mg/dL Ferritin (8-252) ng/ml Total Bilirubin 0.2 (0.2-1.0) mg/dL Direct Bilirubin (0.0-0.2) mg/dl Indirect Bilirubin AST 40 H (15-37) U/L ALT 69 H (14-59) U/L Alkaline Phosphatase 53 (46-116) U/L Lactate Dehydrogenase 317 H (81-234) U/L C-Reactive Protein 1.9 H* (<1.0) mg/dL Total Protein 8.9 H (6.4-8.2) g/dl Albumin 3.4 (3.4-5.0) g/dl Globulin 5.5 gm/dL Albumin/Globulin Ratio 0.6 L (1-2) 10/06/20 10/06/20 10/06/20 Range/Units 14:40 14:40 17:23 WBC (3.98-10.04) K/mm3 RBC (3.98-5.22) M/mm3 Hgb (11.2-15.7) gm/dl Hct (34.1-44.9) % MCV (79.4-94.8) fl MCH (25.6-32.2) pg MCHC (32.2-35.5) g/dl RDW Std Deviation (36.4-46.3) fL Plt Count (182-369) K/mm3 MPV (9.4-12.3) fl Neut % (Auto) (34.0-71.1) % Lymph % (Auto) (19.3-51.7) % [place] % (Auto) (4.7-12.5) % Eos % (Auto) (0.7-5.8) Baso % (Auto) (0.1-1.2) % Neut # (Auto) (1.56-6.13) K/mm3 Lymph # (Auto) (1.18-3.74) K/mm3 [place] # (Auto) (0.24-0.36) K/mm3 Eos # (Auto) (0.04-0.36) K/mm3 Baso # (Auto) (0.01-0.08) K/mm3 Manual Slide Review D-Dimer, Quantitative 1.01 H (0.19-0.50) mg/L Sodium (136-145) mEq/L Potassium (3.5-5.1) mEq/L Chloride (98-107) mEq/L Carbon Dioxide (21-32) mEq/L Anion Gap (5-15) BUN (7-18) mg/dL Creatinine (0.55-1.02) mg/dL Est Cr Clr Drug Dosing mL/min Estimated GFR (MDRD) (>60) mL/min BUN/Creatinine Ratio (14-18) Glucose (74-106) mg/dL Calcium (8.5-10.1) mg/dL Ferritin 150 (8-252) ng/ml Total Bilirubin 0.3 (0.2-1.0) mg/dL Direct Bilirubin 0.10 (0.0-0.2) mg/dl Indirect Bilirubin 0.20 AST 35 (15-37) U/L ALT 64 H (14-59) U/L Alkaline Phosphatase 50 (46-116) U/L Lactate Dehydrogenase (81-234) U/L C-Reactive Protein (<1.0) mg/dL Total Protein 8.5 H (6.4-8.2) g/dl Albumin 3.3 L (3.4-5.0) g/dl Globulin 5.2 gm/dL Albumin/Globulin Ratio 0.6 L (1-2) Result Diagrams: 10/07/20 05:30 10/07/20 05:30 Sepsis Event Note - Evaluation Sepsis Screening Result: Possible Sepsis Risk - Focused Exam Vital Signs: Vital Signs Temp Pulse Resp BP Pulse Ox 10/06/20 14:13 38.6 C H 121 H 31 H 122/75 81 L Problem List Initiated/Reviewed/Updated: Yes Orders Last 24hrs: Active Orders 24 hr Category Date Time Status Admission Status [Patient Status] [ADT] Routine ADT 10/06/20 18:35 Active EKG 12 Lead [EKG Documentation Completion] [RC] STAT Care 10/06/20 14:34 Active Peripheral IV Care [RC] . DIRECTED Care 10/06/20 14:35 Active Chest 1V Frontal [CR] Stat Exams 10/06/20 14:34 Taken HEPATIC FUNCTION PANEL,HFP [CHEM] DAILY Lab 10/07/20 17:00 Ordered HEPATIC FUNCTION PANEL,HFP [CHEM] DAILY Lab 10/08/20 17:00 Ordered HEPATIC FUNCTION PANEL,HFP [CHEM] DAILY Lab 10/09/20 17:00 Ordered HEPATIC FUNCTION PANEL,HFP [CHEM] DAILY Lab 10/10/20 17:00 Ordered Sodium Chloride 0.9% [Normal Saline] 1,000 ml Med 10/06/20 19:15 Active IV ONETIME Sodium Chloride 0.9% [Saline Flush] Med 10/06/20 14:34 Active 10 ml FLUSH ASDIRECTED PRN Peripheral IV Insertion Adult [OM.PC] Stat Oth 10/06/20 14:35 Ordered Medication Orders Sodium Chloride (Normal Saline) 1,000 mls @ 999 mls/hr IV ONETIME SAMANTA Last Infusion: 10/06/20 20:06 Dose: 75 mls/hr Documented by: Admin: 10/06/20 19:19 Dose: 999 mls/hr Documented by: ELLE Sodium Chloride (Saline Flush) 10 ml FLUSH ASDIRECTED PRN PRN Reason: Keep Vein Open Last Admin: 10/06/20 16:42 Dose: 10 ml Documented by: ELLE Assessment/Plan Comment:: This is a 35 yo female with past medical hx/o HTN, HLD, Recurrent UTI, Migraines TAO, DM2, and Obesity who presented to ED with co mplaints of worsening covid-19 infection. Assessment: Acute: Covid-19 Pneumonia Hypoxia with O2 sat in the low 80s on RA Fever with a temp of 38.6 C Elevated LDH of 317 Elevated CRP of 1.9 Sinus Tachycardia with HR in the 120s Tachypnea with RR in the 30s -Symptoms started about a week ago -Covid positive 2 days ago -Only on oral steroid -No Monoclonal antibody therapy -Chest x-ray shows bilateral patchy pulmonary infiltrate -Plan: Inflammatory markers. Dexamethasone 6 mg po daily for 10 days and Veklury for 5 days. Consider Actemra Therapy. IV antibiotics. Vit D level and Thyroid Panel. Oral zinc supplement. IS/FV as directed. H2B for GI prophylaxis. DVT prophylaxis: Lovenox 40 mg sub BID. RT to assess and treat. Mild Renal Insufficiency -Cr of 1.1, BUN wnl -Decreased appetite -IV fluids for mild hydration -Monitor renal panel Hyperglycemia with DM2 -BS of 98 -Expect to get worse with steroid (for covid-19 treatment) -She is diet controlled -Plan: A1C level. Accu-check TID with ISS Generalized Weakness Fatigue/Myalgias Elevated Liver Enzymes Class II Obese -Vit D and Thyroid Panel -BMI of 54 -Dietary Consult for weight management Elevated D-dimer 1.01 Pleuritic Pain -Likely due to ongoing pulmonary infection -Sputum culture with gram stain, PRN decongestant/expectorant, IS and FV as directed Chronic: HTN, HLD, Recurrent UTI, Migraines TAO, DM2, and Obesity Plan: Admit to [facility]. Routine AM labs. Inflammatory markers. ADA diet. Resume home meds once verified. Additional orders as above. PT/OT for generalized weakness. Code status is full. Prognosis is guarded-good.
[2020-10-06] MEDS ORDERED: Ibuprofen 600 MG Tab PO PRN (21:50)
[2020-10-06] MEDS ORDERED: Bisacodyl 5 MG Tab PO PRN (21:50)
[2020-10-06] MEDS ORDERED: Albuterol/Ipratropium 3.0-0.5 MG/3 ML Neb Soln NEB PRN (21:50)
[2020-10-06] MEDS ORDERED: Acetaminophen 650 MG Supp RECTAL PRN (21:50)
[2020-10-06] MEDS ORDERED: Polyethylene Glycol 3350 Powder 17 GM Packet PO PRN (21:50)
[2020-10-06] MEDS ORDERED: Zolpidem 5 MG Tab PO PRN (21:50)
[2020-10-06] MEDS ORDERED: HYDROmorphone 0.5 MG/0.5 ML Syringe IVPUSH PRN (21:50)
[2020-10-06] MEDS ORDERED: Ondansetron 4 MG/2 ML SDV IV PRN (21:50)
[2020-10-06] MEDS ORDERED: Promethazine 12.5 MG in Sodium Chloride 0.9% 50 ML IV PRN (21:50)
[2020-10-06] MEDS ORDERED: cefTRIAXone 1 GM in Sodium Chloride 0.9% 100 ML IV SCH (22:15)
[2020-10-06] MEDS ORDERED: Enoxaparin 40 MG/0.4 ML Syringe SUBCUT ONE (22:15)
[2020-10-06] MEDS ORDERED: guaiFENesin/Dextromethorphan 100-10 MG/5 ML Soln 5 ML Cup PO PRN (22:35)
[2020-10-06] MEDS ORDERED: Acetaminophen/Butalbital/Caffeine 325-50-40 MG Tab PO PRN (22:40)
[2020-10-06] MEDS: cefTRIAXone 1 GM in Sodium Chloride 0.9% 100 ML IV SCH (23:04)
[2020-10-06] MEDS: Azithromycin 500 MG in Sodium Chloride 0.9% 250 ML IV SCH (23:58)
[2020-10-07] MEDS: Acetaminophen/HYDROcodone 325-5 MG Tab PO PRN ×2 (01:47→19:45)
[2020-10-07] MEDS ORDERED: Sodium Chloride 0.9% 0 ML ONE (07:56)
--- NOTE | 2020-10-07 08:23 | PCM.PN ---
- General Info Date of Service: 10/07/20 Admission Dx/Problem (Free Text): Admission Diagnosis/Problem Admission Diagnosis/Problem Hypoxia Subjective Update: No significant overnight or acute issues. She states she feels better today. She is currently proning. Afebrile w/o leukocytosis. Her CRP is slightly elevated at 3.5. Her albumin is slightly low at 3.0. Functional Status: Reports: Pain Controlled, Tolerating Diet, Ambulating, Urinat ing, Incentive Spirometry. Denies: New Symptoms - Review of Systems General: Reports: Malaise. Denies: Fever, Chills Pulmonary: Reports: Shortness of Breath Cardiovascular: Denies: Chest Pain Gastrointestinal: Denies: Abdominal Pain, Nausea, Vomiting Genitourinary: Reports: No Symptoms Musculoskeletal: Reports: No Symptoms Skin: Denies: Cyanosis Neurological: Reports: Weakness Psychiatric: Denies: Depression, Anxiety - Patient Data Vitals - Most Recent: Last Vital Signs Temp 36.4 C 10/07/20 02:00 Pulse 89 10/07/20 02:00 Resp 14 10/07/20 02:00 BP 110/65 10/07/20 02:00 Pulse Ox 91 L 10/07/20 03:00 Weight - Most Recent: 143.789 kg I&O - Last 24 Hours: Intake & Output 10/06/20 10/07/20 10/07/20 22:59 06:59 14:59 Output Total 200 1000 Balance -200 -1000 Lab Results Last 24 Hours: Laboratory Results - last 24 hr 10/06/20 10/06/20 10/06/20 Range/Units 14:40 14:40 14:40 WBC 7.03 (3.98-10.04) K/mm3 RBC 4.69 (3.98-5.22) M/mm3 Hgb 12.7 (11.2-15.7) gm/dl Hct 40.3 (34.1-44.9) % MCV 85.9 (79.4-94.8) fl MCH 27.1 (25.6-32.2) pg MCHC 31.5 L (32.2-35.5) g/dl RDW Std Deviation 46.3 (36.4-46.3) fL Plt Count 337 D (182-369) K/mm3 MPV 9.5 (9.4-12.3) fl Neut % (Auto) 62.7 (34.0-71.1) % Lymph % (Auto) 29.9 (19.3-51.7) % [place] % (Auto) 7.0 (4.7-12.5) % Eos % (Auto) 0 L (0.7-5.8) Baso % (Auto) 0.3 (0.1-1.2) % Neut # (Auto) 4.41 (1.56-6.13) K/mm3 Lymph # (Auto) 2.10 (1.18-3.74) K/mm3 [place] # (Auto) 0.49 H (0.24-0.36) K/mm3 Eos # (Auto) 0.00 L (0.04-0.36) K/mm3 Baso # (Auto) 0.02 (0.01-0.08) K/mm3 Manual Slide Review D-Dimer, Quantitative (0.19-0.50) mg/L Sodium 136 (136-145) mEq/L Potassium 3.9 (3.5-5.1) mEq/L Chloride 99 (98-107) mEq/L Carbon Dioxide 24 (21-32) mEq/L Anion Gap 16.9 H (5-15) BUN 10 (7-18) mg/dL Creatinine 1.1 H (0.55-1.02) mg/dL Est Cr Clr Drug Dosing 62.82 mL/min Estimated GFR (MDRD) > 60 (>60) mL/min BUN/Creatinine Ratio 9.1 L (14-18) Glucose 98 (74-106) mg/dL Calcium 8.9 (8.5-10.1) mg/dL Magnesium (1.8-2.4) mg/dl Ferritin (8-252) ng/ml Total Bilirubin 0.2 (0.2-1.0) mg/dL Direct Bilirubin (0.0-0.2) mg/dl Indirect Bilirubin AST 40 H (15-37) U/L ALT 69 H (14-59) U/L Alkaline Phosphatase 53 (46-116) U/L Lactate Dehydrogenase 317 H (81-234) U/L C-Reactive Protein 1.9 H* (<1.0) mg/dL Total Protein 8.9 H (6.4-8.2) g/dl Albumin 3.4 (3.4-5.0) g/dl Globulin 5.5 gm/dL Albumin/Globulin Ratio 0.6 L (1-2) Free T4 (0.76-1.46) ng/dL TSH 3rd Generation (0.358-3.74) uIU/mL 10/06/20 10/06/20 10/06/20 Range/Units 14:40 14:40 17:23 WBC (3.98-10.04) K/mm3 RBC (3.98-5.22) M/mm3 Hgb (11.2-15.7) gm/dl Hct (34.1-44.9) % MCV (79.4-94.8) fl MCH (25.6-32.2) pg MCHC (32.2-35.5) g/dl RDW Std Deviation (36.4-46.3) fL Plt Count (182-369) K/mm3 MPV (9.4-12.3) fl Neut % (Auto) (34.0-71.1) % Lymph % (Auto) (19.3-51.7) % [place] % (Auto) (4.7-12.5) % Eos % (Auto) (0.7-5.8) Baso % (Auto) (0.1-1.2) % Neut # (Auto) (1.56-6.13) K/mm3 Lymph # (Auto) (1.18-3.74) K/mm3 [place] # (Auto) (0.24-0.36) K/mm3 Eos # (Auto) (0.04-0.36) K/mm3 Baso # (Auto) (0.01-0.08) K/mm3 Manual Slide Review D-Dimer, Quantitative 1.01 H (0.19-0.50) mg/L Sodium (136-145) mEq/L Potassium (3.5-5.1) mEq/L Chloride (98-107) mEq/L Carbon Dioxide (21-32) mEq/L Anion Gap (5-15) BUN (7-18) mg/dL Creatinine (0.55-1.02) mg/dL Est Cr Clr Drug Dosing mL/min Estimated GFR (MDRD) (>60) mL/min BUN/Creatinine Ratio (14-18) Glucose (74-106) mg/dL Calcium (8.5-10.1) mg/dL Magnesium (1.8-2.4) mg/dl Ferritin 150 (8-252) ng/ml Total Bilirubin 0.3 (0.2-1.0) mg/dL Direct Bilirubin 0.10 (0.0-0.2) mg/dl Indirect Bilirubin 0.20 AST 35 (15-37) U/L ALT 64 H (14-59) U/L Alkaline Phosphatase 50 (46-116) U/L Lactate Dehydrogenase (81-234) U/L C-Reactive Protein (<1.0) mg/dL Total Protein 8.5 H (6.4-8.2) g/dl Albumin 3.3 L (3.4-5.0) g/dl Globulin 5.2 gm/dL Albumin/Globulin Ratio 0.6 L (1-2) Free T4 (0.76-1.46) ng/dL TSH 3rd Generation (0.358-3.74) uIU/mL 10/06/20 10/07/20 10/07/20 Range/Units 22:18 05:30 05:30 WBC 5.02 (3.98-10.04) K/mm3 RBC 4.67 (3.98-5.22) M/mm3 Hgb 12.9 (11.2-15.7) gm/dl Hct 40.5 (34.1-44.9) % MCV 86.7 (79.4-94.8) fl MCH 27.6 (25.6-32.2) pg MCHC 31.9 L (32.2-35.5) g/dl RDW Std Deviation 46.6 H (36.4-46.3) fL Plt Count 279 (182-369) K/mm3 MPV 9.5 (9.4-12.3) fl Neut % (Auto) 53.9 (34.0-71.1) % Lymph % (Auto) 33.3 (19.3-51.7) % [place] % (Auto) 11.8 (4.7-12.5) % Eos % (Auto) 0 L (0.7-5.8) Baso % (Auto) 1.0 (0.1-1.2) % Neut # (Auto) 2.71 (1.56-6.13) K/mm3 Lymph # (Auto) 1.67 (1.18-3.74) K/mm3 [place] # (Auto) 0.59 H (0.24-0.36) K/mm3 Eos # (Auto) 0.00 L (0.04-0.36) K/mm3 Baso # (Auto) 0.05 (0.01-0.08) K/mm3 Manual Slide Review Not Reportable D-Dimer, Quantitative (0.19-0.50) mg/L Sodium 138 (136-145) mEq/L Potassium 4.4 (3.5-5.1) mEq/L Chloride 105 (98-107) mEq/L Carbon Dioxide 25 (21-32) mEq/L Anion Gap 12.4 (5-15) BUN 11 (7-18) mg/dL Creatinine 1.1 H (0.55-1.02) mg/dL Est Cr Clr Drug Dosing 62.82 mL/min Estimated GFR (MDRD) > 60 (>60) mL/min BUN/Creatinine Ratio 10.0 L (14-18) Glucose 107 H (74-106) mg/dL Calcium 8.4 L (8.5-10.1) mg/dL Magnesium 2.4 (1.8-2.4) mg/dl Ferritin (8-252) ng/ml Total Bilirubin 0.2 0.2 (0.2-1.0) mg/dL Direct Bilirubin (0.0-0.2) mg/dl Indirect Bilirubin AST 37 34 (15-37) U/L ALT 64 H 58 (14-59) U/L Alkaline Phosphatase 46 47 (46-116) U/L Lactate Dehydrogenase (81-234) U/L C-Reactive Protein 3.5 H* (<1.0) mg/dL Total Protein 8.3 H 8.4 H (6.4-8.2) g/dl Albumin 3.1 L 3.0 L (3.4-5.0) g/dl Globulin 5.2 5.4 gm/dL Albumin/Globulin Ratio 0.6 L 0.6 L (1-2) Free T4 1.00 (0.76-1.46) ng/dL TSH 3rd Generation 0.748 (0.358-3.74) uIU/mL Juanito Results Last 24 Hours: Microbiology 10/07/20 01:44 Gram Stain - Preliminary Sputum - Expectorated Med Orders - Current: Current Medications Acetaminophen (Tylenol) 650 mg RECTAL Q4H PRN PRN Reason: Pain (mild 1-3) Acetaminophen/Butalbital/Caffeine (Fioricet 325-50-40 Mg) 2 tab PO Q6H PRN PRN Reason: Headache/Pain Hydrocodone Bitart/Acetaminophen ([place] 325-5 Mg) 2 tab PO Q4H PRN PRN Reason: Pain (moderate 4-6) Last Admin: 10/07/20 01:47 Dose: 2 tab Documented by: Albuterol/Ipratropium (Duoneb 3.0-0.5 Mg/3 Ml) 3 ml NEB Q4H PRN PRN Reason: Shortness Of Breath/wheezing Bisacodyl (Dulcolax) 5 mg PO DAILY PRN PRN Reason: Constipation Dexamethasone (Dexamethasone) 6 mg PO DAILY [facility] Stop: 10/16/20 09:01 Enoxaparin Sodium (Lovenox) 40 mg SUBCUT BID SAMANTA Famotidine (Pepcid) 20 mg PO BID [facility] Guaifenesin/Phenylephrine HCl (Robitussin Dm) 10 ml PO Q4H PRN PRN Reason: Cough Hydromorphone HCl (Dilaudid) 0.5 mg IVPUSH Q2H PRN PRN Reason: Pain (severe 7-10) Last Admin: 10/07/20 00:05 Dose: 0.5 mg Documented by: Sodium Chloride (Normal Saline) 1,000 mls @ 999 mls/hr IV ONETIME [facility] Last Infusion: 10/06/20 20:06 Dose: 75 mls/hr Documented by: Promethazine HCl 12.5 mg/ (Sodium Chloride) 50.5 mls @ 100 mls/hr IV Q6H PRN PRN Reason: Nausea/Vomiting Azithromycin 500 mg/ Sodium (Chloride) 250 mls @ 250 mls/hr IV Q24H [facility] Last Admin: 10/06/20 23:58 Dose: 250 mls/hr Documented by: Ceftriaxone Sodium 1 gm/ (Sodium Chloride) 100 mls @ 200 mls/hr IV Q24H [facility] Last Admin: 10/06/20 23:04 Dose: 200 mls/hr Documented by: Remdesivir 100 mg/ Sodium (Chloride) 100 mls @ 100 mls/hr IV Q24H [facility] Stop: 10/10/20 17:59 Ibuprofen (Motrin) 600 mg PO Q6H PRN PRN Reason: Pain (moderate 4-6) Insulin Human Lispro (Humalog) 0 unit SUBCUT TIDAC [facility]; Protocol Last Admin: 10/07/20 07:54 Dose: Not Given Documented by: Ondansetron HCl (Zofran) 4 mg IV Q6H PRN PRN Reason: Nausea/Vomiting Polyethylene Glycol (Miralax) 17 gm PO DAILY PRN PRN Reason: Constipation Senna/Docusate Sodium (Senna Plus) 1 tab PO BID PRN PRN Reason: Constipation Sodium Chloride (Saline Flush) 10 ml FLUSH ASDIRECTED PRN PRN Reason: Keep Vein Open Last Admin: 10/06/20 16:42 Dose: 10 ml Documented by: Zinc Sulfate (Zincate) 220 mg PO DAILY [facility] Zolpidem Tartrate (Ambien) 5 mg PO BEDTIME PRN PRN Reason: Sleep Discontinued Medications Dexamethasone (Dexamethasone) 6 mg IV ONETIME ONE Stop: 10/06/20 16:57 Last Admin: 10/06/20 19:02 Dose: 6 mg Documented by: Enoxaparin Sodium (Lovenox) 40 mg SUBCUT ONETIME ONE Stop: 10/06/20 22:16 Last Admin: 10/06/20 23:04 Dose: 40 mg Documented by: Remdesivir 200 mg/ Sodium (Chloride) 250 mls @ 250 mls/hr IV ONETIME ONE Stop: 10/06/20 16:56 Last Admin: 10/06/20 17:39 Dose: 250 mls/hr Documented by: Remdesivir 100 mg/ Sodium (Chloride) 100 mls @ 100 mls/hr IV Q24H [facility] Stop: 10/10/20 11:59 Sodium Chloride (Normal Saline) Confirm Administered Dose 100 mls @ as directed .ROUTE .STK-MED ONE Stop: 10/07/20 07:57 Last Admin: 10/07/20 08:15 Dose: Not Given Documented by: - Exam Quality Assessment: Supplemental Oxygen General: Alert, Oriented, Cooperative, No Acute Distress, Other (Morbidly Obese) HEENT: Pupils Equal, Pupils Reactive, EOMI, Mucous Membr. Moist/[place] Neck: Supple Lungs: Normal Respiratory Effort, Decreased Breath Sounds Cardiovascular: Regular Rate, Regular Rhythm GI/Abdominal Exam: Normal Bowel Sounds, Soft, Non-Tender, No Organomegaly, No Distention, No Abnormal Bruit, Other (Obese) (Female) Exam: Deferred Back Exam: Normal Inspection, Decreased Range of Motion Extremities: Normal Inspection, Normal Range of Motion, Non-Tender, No Pedal Edema, Normal Capillary Refill Peripheral Pulses: 2+: Dorsalis Pedis (L), Dorsalis Pedis (R) Skin: Warm, Dry, Intact Neurological: No New Focal Deficit Psy/Mental Status: Alert, Normal Affect, Normal Mood - Patient Data Lab Results Last 24 hrs: Laboratory Results - last 24 hr 10/06/20 10/06/20 10/06/20 Range/Units 14:40 14:40 14:40 WBC 7.03 (3.98-10.04) K/mm3 RBC 4.69 (3.98-5.22) M/mm3 Hgb 12.7 (11.2-15.7) gm/dl Hct 40.3 (34.1-44.9) % MCV 85.9 (79.4-94.8) fl MCH 27.1 (25.6-32.2) pg MCHC 31.5 L (32.2-35.5) g/dl RDW Std Deviation 46.3 (36.4-46.3) fL Plt Count 337 D (182-369) K/mm3 MPV 9.5 (9.4-12.3) fl Neut % (Auto) 62.7 (34.0-71.1) % Lymph % (Auto) 29.9 (19.3-51.7) % [place] % (Auto) 7.0 (4.7-12.5) % Eos % (Auto) 0 L (0.7-5.8) Baso % (Auto) 0.3 (0.1-1.2) % Neut # (Auto) 4.41 (1.56-6.13) K/mm3 Lymph # (Auto) 2.10 (1.18-3.74) K/mm3 [place] # (Auto) 0.49 H (0.24-0.36) K/mm3 Eos # (Auto) 0.00 L (0.04-0.36) K/mm3 Baso # (Auto) 0.02 (0.01-0.08) K/mm3 Manual Slide Review D-Dimer, Quantitative (0.19-0.50) mg/L Sodium 136 (136-145) mEq/L Potassium 3.9 (3.5-5.1) mEq/L Chloride 99 (98-107) mEq/L Carbon Dioxide 24 (21-32) mEq/L Anion Gap 16.9 H (5-15) BUN 10 (7-18) mg/dL Creatinine 1.1 H (0.55-1.02) mg/dL Est Cr Clr Drug Dosing 62.82 mL/min Estimated GFR (MDRD) > 60 (>60) mL/min BUN/Creatinine Ratio 9.1 L (14-18) Glucose 98 (74-106) mg/dL Calcium 8.9 (8.5-10.1) mg/dL Magnesium (1.8-2.4) mg/dl Ferritin (8-252) ng/ml Total Bilirubin 0.2 (0.2-1.0) mg/dL Direct Bilirubin (0.0-0.2) mg/dl Indirect Bilirubin AST 40 H (15-37) U/L ALT 69 H (14-59) U/L Alkaline Phosphatase 53 (46-116) U/L Lactate Dehydrogenase 317 H (81-234) U/L C-Reactive Protein 1.9 H* (<1.0) mg/dL Total Protein 8.9 H (6.4-8.2) g/dl Albumin 3.4 (3.4-5.0) g/dl Globulin 5.5 gm/dL Albumin/Globulin Ratio 0.6 L (1-2) Free T4 (0.76-1.46) ng/dL TSH 3rd Generation (0.358-3.74) uIU/mL 10/06/20 10/06/20 10/06/20 Range/Units 14:40 14:40 17:23 WBC (3.98-10.04) K/mm3 RBC (3.98-5.22) M/mm3 Hgb (11.2-15.7) gm/dl Hct (34.1-44.9) % MCV (79.4-94.8) fl MCH (25.6-32.2) pg MCHC (32.2-35.5) g/dl RDW Std Deviation (36.4-46.3) fL Plt Count (182-369) K/mm3 MPV (9.4-12.3) fl Neut % (Auto) (34.0-71.1) % Lymph % (Auto) (19.3-51.7) % [place] % (Auto) (4.7-12.5) % Eos % (Auto) (0.7-5.8) Baso % (Auto) (0.1-1.2) % Neut # (Auto) (1.56-6.13) K/mm3 Lymph # (Auto) (1.18-3.74) K/mm3 [place] # (Auto) (0.24-0.36) K/mm3 Eos # (Auto) (0.04-0.36) K/mm3 Baso # (Auto) (0.01-0.08) K/mm3 Manual Slide Review D-Dimer, Quantitative 1.01 H (0.19-0.50) mg/L Sodium (136-145) mEq/L Potassium (3.5-5.1) mEq/L Chloride (98-107) mEq/L Carbon Dioxide (21-32) mEq/L Anion Gap (5-15) BUN (7-18) mg/dL Creatinine (0.55-1.02) mg/dL Est Cr Clr Drug Dosing mL/min Estimated GFR (MDRD) (>60) mL/min BUN/Creatinine Ratio (14-18) Glucose (74-106) mg/dL Calcium (8.5-10.1) mg/dL Magnesium (1.8-2.4) mg/dl Ferritin 150 (8-252) ng/ml Total Bilirubin 0.3 (0.2-1.0) mg/dL Direct Bilirubin 0.10 (0.0-0.2) mg/dl Indirect Bilirubin 0.20 AST 35 (15-37) U/L ALT 64 H (14-59) U/L Alkaline Phosphatase 50 (46-116) U/L Lactate Dehydrogenase (81-234) U/L C-Reactive Protein (<1.0) mg/dL Total Protein 8.5 H (6.4-8.2) g/dl Albumin 3.3 L (3.4-5.0) g/dl Globulin 5.2 gm/dL Albumin/Globulin Ratio 0.6 L (1-2) Free T4 (0.76-1.46) ng/dL TSH 3rd Generation (0.358-3.74) uIU/mL 10/06/20 10/07/20 10/07/20 Range/Units 22:18 05:30 05:30 WBC 5.02 (3.98-10.04) K/mm3 RBC 4.67 (3.98-5.22) M/mm3 Hgb 12.9 (11.2-15.7) gm/dl Hct 40.5 (34.1-44.9) % MCV 86.7 (79.4-94.8) fl MCH 27.6 (25.6-32.2) pg MCHC 31.9 L (32.2-35.5) g/dl RDW Std Deviation 46.6 H (36.4-46.3) fL Plt Count 279 (182-369) K/mm3 MPV 9.5 (9.4-12.3) fl Neut % (Auto) 53.9 (34.0-71.1) % Lymph % (Auto) 33.3 (19.3-51.7) % [place] % (Auto) 11.8 (4.7-12.5) % Eos % (Auto) 0 L (0.7-5.8) Baso % (Auto) 1.0 (0.1-1.2) % Neut # (Auto) 2.71 (1.56-6.13) K/mm3 Lymph # (Auto) 1.67 (1.18-3.74) K/mm3 [place] # (Auto) 0.59 H (0.24-0.36) K/mm3 Eos # (Auto) 0.00 L (0.04-0.36) K/mm3 Baso # (Auto) 0.05 (0.01-0.08) K/mm3 Manual Slide Review Not Reportable D-Dimer, Quantitative (0.19-0.50) mg/L Sodium 138 (136-145) mEq/L Potassium 4.4 (3.5-5.1) mEq/L Chloride 105 (98-107) mEq/L Carbon Dioxide 25 (21-32) mEq/L Anion Gap 12.4 (5-15) BUN 11 (7-18) mg/dL Creatinine 1.1 H (0.55-1.02) mg/dL Est Cr Clr Drug Dosing 62.82 mL/min Estimated GFR (MDRD) > 60 (>60) mL/min BUN/Creatinine Ratio 10.0 L (14-18) Glucose 107 H (74-106) mg/dL Calcium 8.4 L (8.5-10.1) mg/dL Magnesium 2.4 (1.8-2.4) mg/dl Ferritin (8-252) ng/ml Total Bilirubin 0.2 0.2 (0.2-1.0) mg/dL Direct Bilirubin (0.0-0.2) mg/dl Indirect Bilirubin AST 37 34 (15-37) U/L ALT 64 H 58 (14-59) U/L Alkaline Phosphatase 46 47 (46-116) U/L Lactate Dehydrogenase (81-234) U/L C-Reactive Protein 3.5 H* (<1.0) mg/dL Total Protein 8.3 H 8.4 H (6.4-8.2) g/dl Albumin 3.1 L 3.0 L (3.4-5.0) g/dl Globulin 5.2 5.4 gm/dL Albumin/Globulin Ratio 0.6 L 0.6 L (1-2) Free T4 1.00 (0.76-1.46) ng/dL TSH 3rd Generation 0.748 (0.358-3.74) uIU/mL Result Diagrams: 10/07/20 05:30 10/07/20 05:30 Juanito Results Last 24 hrs: Microbiology 10/07/20 01:44 Gram Stain - Preliminary Sputum - Expectorated Sepsis Event Note - Evaluation Sepsis Screening Result: Possible Sepsis Risk - Focused Exam Vital Signs: Vital Signs Temp Pulse Resp BP Pulse Ox Pulse Ox 10/07/20 03:00 91 L 10/07/20 02:00 36.4 C 89 14 110/65 95 10/06/20 23:00 94 L 10/06/20 22:00 36.6 C 100 16 111/69 93 L - Problem List Review Problem List Initiated/Reviewed/Updated: Yes - My Orders Last 24 Hours: My Active Orders 10/06/20 Dinner Heart Healthy Diet [DIET] 10/06/20 21:50 Cardiac Monitoring [RC] CONTINUOUS Height and Weight [RC] 04 Intake and Output [RC] 04,16 Oxygen Therapy [RC] PRN Pulse Oximetry [RC] CONTINUOUS Up With Assistance [RC] ASDIRECTED Up ad Katie [RC] ASDIRECTED VTE/DVT Education [RC] Vital Signs [RC] Q4HR Consult to Case Management/Lunch Wagon Operator [CONS] Routine Consult to Financial Cost Analyst [CONS] Routine Consult to Spiritual Care [CONS] Routine OT Evaluation and Treatment [CONS] Routine PT Evaluation and Treatment [CONS] Routine Respiratory Care Assess and Treatment [CONS] Routine Acetaminophen [Tylenol] 650 mg RECTAL Q4H PRN Acetaminophen/HYDROcodone [[place] 325-5 MG] 2 tab PO Q4H PRN Albuterol/Ipratropium [DuoNeb 3.0-0.5 MG/3 ML] 3 ml NEB Q4H PRN Docusate Sodium/Sennosides [Senna Plus] 1 tab PO BID PRN HYDROmorphone [Dilaudid] 0.5 mg IVPUSH Q2H PRN Ibuprofen [Motrin] 600 mg PO Q6H PRN Ondansetron [Zofran] 4 mg IV Q6H PRN Promethazine [Phenergan] 12.5 mg Sodium Chloride 0.9% [Normal Saline] 50 ml IV Q6H Zolpidem [Ambien] 5 mg PO BEDTIME PRN bisacodyL [Dulcolax] 5 mg PO DAILY PRN polyethylene glycoL 3350 [MiraLAX] 17 gm PO DAILY PRN Sequential Compression Device [OM.PC] Per Unit Routine Resuscitation Status Routine 10/06/20 21:51 Antiembolic Devices [RC] 10/06/20 21:52 RT Aerosol Therapy [RC] ASDIRECTED 10/06/20 22:18 HEPATIC FUNCTION PANEL,HFP [CHEM] Stat 10/06/20 22:30 cefTRIAXone [Rocephin] 1 gm Sodium Chloride 0.9% [Normal Saline] 100 ml IV Q24H 10/06/20 22:35 Flutter Valve Therapy [RT Chest Physiotherapy] [RC] ASDIRECTED Incentive Spirometry [RT Incentive Spirometry] [RC] ASDIRECTED Dextromethorphan/guaiFENesin [Robitussin DM] 10 ml PO Q4H PRN 10/06/20 22:38 Accu Check [Blood Glucose Check, Bedside] [RC] TIDAC 10/06/20 22:40 Acetaminophen/Butalbital/Caff [Fioricet 325-50-40 MG] 2 tab PO Q6H PRN 10/06/20 23:00 Azithromycin [Zithromax] 500 mg Sodium Chloride 0.9% [Normal Saline (AdvBag)] 250 ml IV Q24H 10/07/20 01:44 CULTURE SPUTUM + SMEAR [RM] Stat 10/07/20 05:30 A1C [GLYCOSYLATED HEMOGLOBIN,HGBA1C] [CHEM] AM C-REACTIVE PROTEIN [CHEM] AM CMP [COMPREHENSIVE METABOLIC PN,CMP] [CHEM] AM MAGNESIUM [CHEM] AM T4 FREE [CHEM] AM TSH [CHEM] AM VITAMIN D,25-HYDROXY [CHEM] AM 10/07/20 Breakfast Consistent Carbohydrate Diet [DIET] Insulin Lispro [HumaLOG] See Protocol SUBCUT TIDAC 10/07/20 09:00 Enoxaparin [Lovenox] 40 mg SUBCUT BID Famotidine [Pepcid] 20 mg PO BID Zinc Sulfate [Zincate] 220 mg PO DAILY dexAMETHasone 6 mg PO DAILY 10/07/20 17:00 Remdesivir 100 mg Sodium Chloride 0.9% [Normal Saline] 100 ml IV Q24H 10/08/20 05:11 Chest 1V Frontal [CR] AM C-REACTIVE PROTEIN [CHEM] AM CBC WITH AUTO DIFF [HEME] AM CMP [COMPREHENSIVE METABOLIC PN,CMP] [CHEM] AM MAGNESIUM [CHEM] AM 10/09/20 05:11 C-REACTIVE PROTEIN [CHEM] AM CBC WITH AUTO DIFF [HEME] AM CMP [COMPREHENSIVE METABOLIC PN,CMP] [CHEM] AM MAGNESIUM [CHEM] AM 10/10/20 05:11 C-REACTIVE PROTEIN [CHEM] AM CBC WITH AUTO DIFF [HEME] AM CMP [COMPREHENSIVE METABOLIC PN,CMP] [CHEM] AM MAGNESIUM [CHEM] AM 10/11/20 05:11 C-REACTIVE PROTEIN [CHEM] AM CBC WITH AUTO DIFF [HEME] AM CMP [COMPREHENSIVE METABOLIC PN,CMP] [CHEM] AM MAGNESIUM [CHEM] AM 10/12/20 05:11 C-REACTIVE PROTEIN [CHEM] AM CBC WITH AUTO DIFF [HEME] AM CMP [COMPREHENSIVE METABOLIC PN,CMP] [CHEM] AM MAGNESIUM [CHEM] AM 10/13/20 05:11 C-REACTIVE PROTEIN [CHEM] AM CBC WITH AUTO DIFF [HEME] AM CMP [COMPREHENSIVE METABOLIC PN,CMP] [CHEM] AM MAGNESIUM [CHEM] AM - Plan Plan:: This is a 35 yo female with past medical hx/o HTN, HLD, Recurrent UTI, Migraines TAO, DM2, and Obesity who presented to ED with complaints of worsening covid-19 infection. Assessment: Acute: Covid-19 Pneumonia Hypoxia with O2 sat in the low 80s on RA; now on 5L sating in the low 90s Fever with a temp of 38.6 C Elevated LDH of 317 Elevated CRP of 1.9; now at 3.5 Sinus Tachycardia with HR in the 120s Tachypnea with RR in the 30s -Symptoms started about a week ago -Covid positive 2 days ago -Only on oral steroid -No Monoclonal antibody therapy -Vit D level pending -Thyroid panel wnl -Chest x-ray shows bilateral patchy pulmonary infiltrate -Repeat chest x-ray in AM -Plan: Inflammatory markers. Dexamethasone 6 mg po daily for 10 days and Veklury for 5 days. Actemra Therapy today. IV antibiotics. Oral zinc supplement. IS/FV as directed. H2B for GI prophylaxis. DVT prophylaxis: Lovenox 40 mg sub BID. RT to assess and treat. Mild Renal Insufficiency -Cr of 1.1, BUN wnl -Decreased appetite -IV fluids for mild hydration -Monitor renal panel Hyperglycemia with DM2 -BS of 98; now 107 -Expect to get worse with steroid (for covid-19 treatment) -She is diet controlled -A1c pending -Plan: Accu-check TID with ISS Generalized Weakness Fatigue/Myalgias Elevated Liver Enzymes Class II Obese -Vit D and Thyroid Panel -BMI of 54 -Dietary Consult for weight management Elevated D-dimer 1.01 Pleuritic Pain -Likely due to ongoing pulmonary infection -Sputum culture with gram stain, PRN decongestant/expectorant, IS and FV as directed Chronic: HTN, HLD, Recurrent UTI, Migraines TAO, DM2, and Obesity Plan: Continue current treatment. Routine AM labs. Inflammatory marker to monitor response to treatment. ADA diet. Aggressive proning. Additional orders as above. PT/OT for generalized weakness. Code status is full. Prognosis is guarded-good.
[2020-10-07] MEDS: Zinc Sulfate 220 MG Cap PO SCH (08:26)
[2020-10-07] MEDS: Famotidine 20 MG Tab PO SCH ×2 (08:26→21:13)
[2020-10-07] MEDS: Dexamethasone 4 MG Tab PO SCH (08:27)
[2020-10-07] MEDS: Enoxaparin 40 MG/0.4 ML Syringe SUBCUT SCH ×2 (08:27→22:01)
[2020-10-07] MEDS ORDERED: REMDESIVIR 100 MG in Sodium Chloride 0.9% 100 ML IV SCH (11:00)
[2020-10-07] MEDS: REMDESIVIR 100 MG in Sodium Chloride 0.9% 100 ML IV SCH (16:26)
[2020-10-07] MEDS: cefTRIAXone 1 GM in Sodium Chloride 0.9% 100 ML IV SCH (22:02)
[2020-10-07] MEDS: Azithromycin 500 MG in Sodium Chloride 0.9% 250 ML IV SCH (22:41)
--- NOTE | 2020-10-08 06:59 | PCM.PN ---
- General Info Date of Service: 10/08/20 Admission Dx/Problem (Free Text): Admission Diagnosis/Problem Admission Diagnosis/Problem Hypoxia Subjective Update: No significant overnight or acute issues. However shes a little more short of breath than usual and coughing up more phlegm. She is currently proning. Afebrile w/o leukocytosis. Her CRP is down to 1.8. Her albumin is slightly low at 2.9. BS is fairly controlled. Her d-dimer is 1.55. Her repeat chest x-ray is AM shows worsening pneumonia. Functional Status: Reports: Pain Controlled, Tolerating Diet, Ambulating, Urinating, Incentive Spirometry. Denies: New Symptoms - Review of Systems General: Denies: Fever, Weakness, Fatigue, Malaise, Chills HEENT: Denies: Contact Lenses Pulmonary: Denies: Shortness of Breath, Cough, Sputum Cardiovascular: Denies: Chest Pain Gastrointestinal: Denies: Abdominal Pain, Nausea, Vomiting Genitourinary: Reports: No Symptoms Musculoskeletal: Reports: No Symptoms Skin: Denies: Cyanosis, Jaundice, Pallor Neurological: Denies: Confusion, Difficulty Walking, Gait Disturbance Psychiatric: Denies: Depression, Anxiety - Patient Data Vitals - Most Recent: Last Vital Signs Temp 36.2 C 10/08/20 04:00 Pulse 56 L 10/08/20 04:00 Resp 16 10/08/20 04:00 BP 91/54 L 10/08/20 04:00 Pulse Ox 98 10/08/20 04:00 Weight - Most Recent: 143.789 kg I&O - Last 24 Hours: Intake & Output 10/07/20 10/07/20 10/08/20 14:59 22:59 06:59 Intake Total 240 1300 826 Output Total 800 Balance 240 500 826 Lab Results Last 24 Hours: Laboratory Results - last 24 hr 10/07/20 10/07/20 10/07/20 Range/Units 05:30 11:33 15:54 WBC (3.98-10.04) K/mm3 RBC (3.98-5.22) M/mm3 Hgb (11.2-15.7) gm/dl Hct (34.1-44.9) % MCV (79.4-94.8) fl MCH (25.6-32.2) pg MCHC (32.2-35.5) g/dl RDW Std Deviation (36.4-46.3) fL Plt Count (182-369) K/mm3 MPV (9.4-12.3) fl Neut % (Auto) (34.0-71.1) % Lymph % (Auto) (19.3-51.7) % [place] % (Auto) (4.7-12.5) % Eos % (Auto) (0.7-5.8) Baso % (Auto) (0.1-1.2) % Neut # (Auto) (1.56-6.13) K/mm3 Lymph # (Auto) (1.18-3.74) K/mm3 [place] # (Auto) (0.24-0.36) K/mm3 Eos # (Auto) (0.04-0.36) K/mm3 Baso # (Auto) (0.01-0.08) K/mm3 Manual Slide Review Normal smear Sodium (136-145) mEq/L Potassium (3.5-5.1) mEq/L Chloride (98-107) mEq/L Carbon Dioxide (21-32) mEq/L Anion Gap (5-15) BUN (7-18) mg/dL Creatinine (0.55-1.02) mg/dL Est Cr Clr Drug Dosing mL/min Estimated GFR (MDRD) (>60) mL/min BUN/Creatinine Ratio (14-18) Glucose (74-106) mg/dL POC Glucose 104 215 H (70-105) mg/dL Calcium (8.5-10.1) mg/dL Magnesium (1.8-2.4) mg/dl Total Bilirubin (0.2-1.0) mg/dL AST (15-37) U/L ALT (14-59) U/L Alkaline Phosphatase (46-116) U/L C-Reactive Protein (<1.0) mg/dL Total Protein (6.4-8.2) g/dl Albumin (3.4-5.0) g/dl Globulin gm/dL Albumin/Globulin Ratio (1-2) 10/07/20 10/08/20 10/08/20 Range/Units 16:46 05:20 05:20 WBC 5.78 (3.98-10.04) K/mm3 RBC 4.64 (3.98-5.22) M/mm3 Hgb 12.8 (11.2-15.7) gm/dl Hct 40.4 (34.1-44.9) % MCV 87.1 (79.4-94.8) fl MCH 27.6 (25.6-32.2) pg MCHC 31.7 L (32.2-35.5) g/dl RDW Std Deviation 47.2 H (36.4-46.3) fL Plt Count 320 (182-369) K/mm3 MPV 9.6 (9.4-12.3) fl Neut % (Auto) 38.8 (34.0-71.1) % Lymph % (Auto) 47.6 (19.3-51.7) % [place] % (Auto) 12.6 H (4.7-12.5) % Eos % (Auto) 0.3 L (0.7-5.8) Baso % (Auto) 0.5 (0.1-1.2) % Neut # (Auto) 2.24 (1.56-6.13) K/mm3 Lymph # (Auto) 2.75 (1.18-3.74) K/mm3 [place] # (Auto) 0.73 H (0.24-0.36) K/mm3 Eos # (Auto) 0.02 L (0.04-0.36) K/mm3 Baso # (Auto) 0.03 (0.01-0.08) K/mm3 Manual Slide Review Sodium 140 (136-145) mEq/L Potassium 4.2 (3.5-5.1) mEq/L Chloride 106 (98-107) mEq/L Carbon Dioxide 25 (21-32) mEq/L Anion Gap 13.2 (5-15) BUN 9 (7-18) mg/dL Creatinine 1.0 (0.55-1.02) mg/dL Est Cr Clr Drug Dosing 69.10 mL/min Estimated GFR (MDRD) > 60 (>60) mL/min BUN/Creatinine Ratio 9.0 L (14-18) Glucose 84 (74-106) mg/dL POC Glucose (70-105) mg/dL Calcium 8.7 (8.5-10.1) mg/dL Magnesium 2.7 H (1.8-2.4) mg/dl Total Bilirubin 0.2 0.1 L (0.2-1.0) mg/dL AST 23 20 (15-37) U/L ALT 52 45 (14-59) U/L Alkaline Phosphatase 47 44 L (46-116) U/L C-Reactive Protein 1.8 H* (<1.0) mg/dL Total Protein 8.5 H 8.1 (6.4-8.2) g/dl Albumin 3.0 L 2.9 L (3.4-5.0) g/dl Globulin 5.5 5.2 gm/dL Albumin/Globulin Ratio 0.6 L 0.6 L (1-2) Juanito Results Last 24 Hours: Microbiology 10/07/20 01:44 Gram Stain - Final Sputum - Expectorated Sputum Culture - Final Med Orders - Current: Current Medications Acetaminophen (Tylenol) 650 mg RECTAL Q4H PRN PRN Reason: Pain (mild 1-3) Acetaminophen/Butalbital/Caffeine (Fioricet 325-50-40 Mg) 2 tab PO Q6H PRN PRN Reason: Headache/Pain Hydrocodone Bitart/Acetaminophen ([place] 325-5 Mg) 2 tab PO Q4H PRN PRN Reason: Pain (moderate 4-6) Last Admin: 10/07/20 19:45 Dose: 2 tab Documented by: Albuterol/Ipratropium (Duoneb 3.0-0.5 Mg/3 Ml) 3 ml NEB Q4H PRN PRN Reason: Shortness Of Breath/wheezing Bisacodyl (Dulcolax) 5 mg PO DAILY PRN PRN Reason: Constipation Dexamethasone (Dexamethasone) 6 mg PO DAILY [facility] Stop: 10/16/20 09:01 Last Admin: 10/07/20 08:27 Dose: 6 mg Documented by: Enoxaparin Sodium (Lovenox) 40 mg SUBCUT BID [facility] Last Admin: 10/07/20 22:01 Dose: 40 mg Documented by: Famotidine (Pepcid) 20 mg PO BID [facility] Last Admin: 10/07/20 21:13 Dose: 20 mg Documented by: Guaifenesin/Phenylephrine HCl (Robitussin Dm) 10 ml PO Q4H PRN PRN Reason: Cough Hydromorphone HCl (Dilaudid) 0.5 mg IVPUSH Q2H PRN PRN Reason: Pain (severe 7-10) Last Admin: 10/07/20 00:05 Dose: 0.5 mg Documented by: Sodium Chloride (Normal Saline) 1,000 mls @ 999 mls/hr IV ONETIME [facility] Last Infusion: 10/06/20 20:06 Dose: 75 mls/hr Documented by: Promethazine HCl 12.5 mg/ (Sodium Chloride) 50.5 mls @ 100 mls/hr IV Q6H PRN PRN Reason: Nausea/Vomiting Azithromycin 500 mg/ Sodium (Chloride) 250 mls @ 250 mls/hr IV Q24H [facility] Last Admin: 10/07/20 22:41 Dose: 250 mls/hr Documented by: Ceftriaxone Sodium 1 gm/ (Sodium Chloride) 100 mls @ 200 mls/hr IV Q24H [facility] Last Admin: 10/07/20 22:02 Dose: 200 mls/hr Documented by: Remdesivir 100 mg/ Sodium (Chloride) 100 mls @ 100 mls/hr IV Q24H [facility] Stop: 10/10/20 17:59 Last Admin: 10/07/20 16:26 Dose: 100 mls/hr Documented by: Ibuprofen (Motrin) 600 mg PO Q6H PRN PRN Reason: Pain (moderate 4-6) Insulin Human Lispro (Humalog) 0 unit SUBCUT TIDAC [facility]; Protocol Last Admin: 10/08/20 06:32 Dose: Not Given Documented by: Ondansetron HCl (Zofran) 4 mg IV Q6H PRN PRN Reason: Nausea/Vomiting Polyethylene Glycol (Miralax) 17 gm PO DAILY PRN PRN Reason: Constipation Senna/Docusate Sodium (Senna Plus) 1 tab PO BID PRN PRN Reason: Constipation Sodium Chloride (Saline Flush) 10 ml FLUSH ASDIRECTED PRN PRN Reason: Keep Vein Open Last Admin: 10/06/20 16:42 Dose: 10 ml Documented by: Zinc Sulfate (Zincate) 220 mg PO DAILY [facility] Last Admin: 10/07/20 08:26 Dose: 220 mg Documented by: Zolpidem Tartrate (Ambien) 5 mg PO BEDTIME PRN PRN Reason: Sleep Discontinued Medications Dexamethasone (Dexamethasone) 6 mg IV ONETIME ONE Stop: 10/06/20 16:57 Last Admin: 10/06/20 19:02 Dose: 6 mg Documented by: Enoxaparin Sodium (Lovenox) 40 mg SUBCUT ONETIME ONE Stop: 10/06/20 22:16 Last Admin: 10/06/20 23:04 Dose: 40 mg Documented by: Remdesivir 200 mg/ Sodium (Chloride) 250 mls @ 250 mls/hr IV ONETIME ONE Stop: 10/06/20 16:56 Last Admin: 10/06/20 17:39 Dose: 250 mls/hr Documented by: Remdesivir 100 mg/ Sodium (Chloride) 100 mls @ 100 mls/hr IV Q24H [facility] Stop: 10/10/20 11:59 Sodium Chloride (Normal Saline) Confirm Administered Dose 100 mls @ as directed .ROUTE .STK-MED ONE Stop: 10/07/20 07:57 Last Admin: 10/07/20 08:15 Dose: Not Given Documented by: Tocilizumab 800 mg/ Sodium (Chloride) 100 mls @ 100 mls/hr IV ONETIME ONE Stop: 10/07/20 12:29 Last Admin: 10/07/20 12:35 Dose: 100 mls/hr Documented by: - Exam General: Alert, Oriented, Cooperative HEENT: Pupils Equal, Pupils Reactive, EOMI, Mucous Membr. Moist/[place] Neck: Supple Lungs: Normal Respiratory Effort, Decreased Breath Sounds Cardiovascular: Regular Rate, Regular Rhythm GI/Abdominal Exam: Normal Bowel Sounds, Soft, Non-Tender, No Organomegaly, No Distention, No Abnormal Bruit (Female) Exam: Deferred Back Exam: Normal Inspection, Decreased Range of Motion Extremities: Normal Inspection, Normal Range of Motion, Non-Tender, No Pedal Edema, Normal Capillary Refill Peripheral Pulses: 2+: Dorsalis Pedis (L), Dorsalis Pedis (R) Skin: Warm, Dry, Intact Neurological: No New Focal Deficit Psy/Mental Status: Alert, Normal Affect, Normal Mood - Patient Data Lab Results Last 24 hrs: Laboratory Results - last 24 hr 10/07/20 10/07/20 10/07/20 Range/Units 05:30 11:33 15:54 WBC (3.98-10.04) K/mm3 RBC (3.98-5.22) M/mm3 Hgb (11.2-15.7) gm/dl Hct (34.1-44.9) % MCV (79.4-94.8) fl MCH (25.6-32.2) pg MCHC (32.2-35.5) g/dl RDW Std Deviation (36.4-46.3) fL Plt Count (182-369) K/mm3 MPV (9.4-12.3) fl Neut % (Auto) (34.0-71.1) % Lymph % (Auto) (19.3-51.7) % [place] % (Auto) (4.7-12.5) % Eos % (Auto) (0.7-5.8) Baso % (Auto) (0.1-1.2) % Neut # (Auto) (1.56-6.13) K/mm3 Lymph # (Auto) (1.18-3.74) K/mm3 [place] # (Auto) (0.24-0.36) K/mm3 Eos # (Auto) (0.04-0.36) K/mm3 Baso # (Auto) (0.01-0.08) K/mm3 Manual Slide Review Normal smear Sodium (136-145) mEq/L Potassium (3.5-5.1) mEq/L Chloride (98-107) mEq/L Carbon Dioxide (21-32) mEq/L Anion Gap (5-15) BUN (7-18) mg/dL Creatinine (0.55-1.02) mg/dL Est Cr Clr Drug Dosing mL/min Estimated GFR (MDRD) (>60) mL/min BUN/Creatinine Ratio (14-18) Glucose (74-106) mg/dL POC Glucose 104 215 H (70-105) mg/dL Calcium (8.5-10.1) mg/dL Magnesium (1.8-2.4) mg/dl Total Bilirubin (0.2-1.0) mg/dL AST (15-37) U/L ALT (14-59) U/L Alkaline Phosphatase (46-116) U/L C-Reactive Protein (<1.0) mg/dL Total Protein (6.4-8.2) g/dl Albumin (3.4-5.0) g/dl Globulin gm/dL Albumin/Globulin Ratio (1-2) 10/07/20 10/08/20 10/08/20 Range/Units 16:46 05:20 05:20 WBC 5.78 (3.98-10.04) K/mm3 RBC 4.64 (3.98-5.22) M/mm3 Hgb 12.8 (11.2-15.7) gm/dl Hct 40.4 (34.1-44.9) % MCV 87.1 (79.4-94.8) fl MCH 27.6 (25.6-32.2) pg MCHC 31.7 L (32.2-35.5) g/dl RDW Std Deviation 47.2 H (36.4-46.3) fL Plt Count 320 (182-369) K/mm3 MPV 9.6 (9.4-12.3) fl Neut % (Auto) 38.8 (34.0-71.1) % Lymph % (Auto) 47.6 (19.3-51.7) % [place] % (Auto) 12.6 H (4.7-12.5) % Eos % (Auto) 0.3 L (0.7-5.8) Baso % (Auto) 0.5 (0.1-1.2) % Neut # (Auto) 2.24 (1.56-6.13) K/mm3 Lymph # (Auto) 2.75 (1.18-3.74) K/mm3 [place] # (Auto) 0.73 H (0.24-0.36) K/mm3 Eos # (Auto) 0.02 L (0.04-0.36) K/mm3 Baso # (Auto) 0.03 (0.01-0.08) K/mm3 Manual Slide Review Sodium 140 (136-145) mEq/L Potassium 4.2 (3.5-5.1) mEq/L Chloride 106 (98-107) mEq/L Carbon Dioxide 25 (21-32) mEq/L Anion Gap 13.2 (5-15) BUN 9 (7-18) mg/dL Creatinine 1.0 (0.55-1.02) mg/dL Est Cr Clr Drug Dosing 69.10 mL/min Estimated GFR (MDRD) > 60 (>60) mL/min BUN/Creatinine Ratio 9.0 L (14-18) Glucose 84 (74-106) mg/dL POC Glucose (70-105) mg/dL Calcium 8.7 (8.5-10.1) mg/dL Magnesium 2.7 H (1.8-2.4) mg/dl Total Bilirubin 0.2 0.1 L (0.2-1.0) mg/dL AST 23 20 (15-37) U/L ALT 52 45 (14-59) U/L Alkaline Phosphatase 47 44 L (46-116) U/L C-Reactive Protein 1.8 H* (<1.0) mg/dL Total Protein 8.5 H 8.1 (6.4-8.2) g/dl Albumin 3.0 L 2.9 L (3.4-5.0) g/dl Globulin 5.5 5.2 gm/dL Albumin/Globulin Ratio 0.6 L 0.6 L (1-2) Result Diagrams: 10/10/20 05:37 10/10/20 05:37 Juanito Results Last 24 hrs: Microbiology 10/07/20 01:44 Gram Stain - Final Sputum - Expectorated Sputum Culture - Final Sepsis Event Note - Evaluation Sepsis Screening Result: No Definite Risk - Focused Exam Vital Signs: Vital Signs Temp Pulse Resp BP Pulse Ox Pulse Ox 10/08/20 04:00 36.2 C 56 L 16 91/54 L 98 10/08/20 00:00 36.6 C 73 18 96 10/07/20 23:00 94 L 10/07/20 22:36 95 10/07/20 20:00 36.1 C 78 22 H 130/71 97 - Problem List Review Problem List Initiated/Reviewed/Updated: Yes - My Orders Last 24 Hours: My Active Orders 10/07/20 Breakfast Consistent Carbohydrate Diet [DIET] Insulin Lispro [HumaLOG] See Protocol SUBCUT TIDAC 10/07/20 09:00 Enoxaparin [Lovenox] 40 mg SUBCUT BID Famotidine [Pepcid] 20 mg PO BID Zinc Sulfate [Zincate] 220 mg PO DAILY dexAMETHasone 6 mg PO DAILY 10/07/20 17:00 Remdesivir 100 mg Sodium Chloride 0.9% [Normal Saline] 100 ml IV Q24H 10/08/20 05:11 Chest 1V Frontal [CR] AM 10/08/20 05:20 BILIRUBIN DIRECT [CHEM] Routine C-REACTIVE PROTEIN [CHEM] AM CBC WITH AUTO DIFF [HEME] AM CMP [COMPREHENSIVE METABOLIC PN,CMP] [CHEM] AM MAGNESIUM [CHEM] AM 10/09/20 05:11 C-REACTIVE PROTEIN [CHEM] AM CBC WITH AUTO DIFF [HEME] AM CMP [COMPREHENSIVE METABOLIC PN,CMP] [CHEM] AM MAGNESIUM [CHEM] AM 10/10/20 05:11 C-REACTIVE PROTEIN [CHEM] AM CBC WITH AUTO DIFF [HEME] AM CMP [COMPREHENSIVE METABOLIC PN,CMP] [CHEM] AM MAGNESIUM [CHEM] AM 10/11/20 05:11 C-REACTIVE PROTEIN [CHEM] AM CBC WITH AUTO DIFF [HEME] AM CMP [COMPREHENSIVE METABOLIC PN,CMP] [CHEM] AM MAGNESIUM [CHEM] AM 10/12/20 05:11 C-REACTIVE PROTEIN [CHEM] AM CBC WITH AUTO DIFF [HEME] AM CMP [COMPREHENSIVE METABOLIC PN,CMP] [CHEM] AM MAGNESIUM [CHEM] AM 10/13/20 05:11 C-REACTIVE PROTEIN [CHEM] AM CBC WITH AUTO DIFF [HEME] AM CMP [COMPREHENSIVE METABOLIC PN,CMP] [CHEM] AM MAGNESIUM [CHEM] AM - Plan Plan:: This is a 35 yo female with past medical hx/o HTN, HLD, Recurrent UTI, Migraines TAO, DM2, and Obesity who presented to ED with com plaints of worsening covid-19 infection. Assessment: Acute: Covid-19 Pneumonia, worsening Hypoxia with O2 sat in the low 80s on RA; now on 7L sating in the low 90s Fever with a temp of 38.6, now 35.9 Elevated LDH of 317 Elevated CRP of 1.9; now at 3.5 Sinus Tachycardia with HR in the 120s, resolved Tachypnea with RR in the 30s; now in the 20s -Symptoms started about a week ago -Covid positive 2 days ago -Only on oral steroid -No Monoclonal antibody therapy -Vit D level pending -Thyroid panel wnl -Chest x-ray shows bilateral patchy pulmonary infiltrate -Repeat chest x-ray shows worsening lung infection -Plan: Inflammatory markers. Dexamethasone 6 mg po daily for 10 days and Veklury for 5 days. Actemra Therapy 10/07/2020. IV antibiotics. Oral zinc supplement. IS/FV as directed. H2B for GI prophylaxis. DVT prophylaxis: Lovenox 40 mg sub BID. RT to assess and treat. Mild Renal Insufficiency, resolved -Cr of 1.1, BUN wnl -Decreased appetite -IV fluids for mild hydration -Monitor renal panel Hyperglycemia with DM2 -BS of 98; now 153 -Expect to get worse with steroid (for covid-19 treatment) -She is diet controlled -A1c pending -Plan: Accu-check TID with ISS Generalized Weakness Fatigue/Myalgias Elevated Liver Enzymes Class II Obese -Vit D is pending -Thyroid Panel is wnl -BMI of 54 -Dietary Consult for weight management Elevated D-dimer 1.01; now 1.55 Pleuritic Pain -Likely due to ongoing pulmonary infection -Sputum culture with gram stain, PRN decongestant/expectorant, IS and FV as directed Chronic: HTN, HLD, Recurrent UTI, Migraines TAO, DM2, and Obesity Plan: Continue current treatment. Her lungs look worse. Routine AM labs. Inflammatory marker to monitor response to treatment. ADA diet. Aggressive proning. Additional orders as above. PT/OT for generalized weakness. Code status is full. Prognosis is guarded-good.
[2020-10-08] MEDS: Zinc Sulfate 220 MG Cap PO SCH (08:03)
[2020-10-08] MEDS: Dexamethasone 4 MG Tab PO SCH (08:03)
[2020-10-08] MEDS: Famotidine 20 MG Tab PO SCH ×2 (08:04→20:37)
[2020-10-08] MEDS: Enoxaparin 40 MG/0.4 ML Syringe SUBCUT SCH ×2 (08:04→20:37)
--- NOTE | 2020-10-08 10:40 | CR ---
Chest: Portable view of the chest was obtained. Comparison: Prior chest x-ray of 10/04/20. Patchy areas of increased density are seen on both sides of the chest. Findings are slightly increased from previous exam. Poor inspiratory effort is noted. Heart size and mediastinum are normal. Old healed fracture is noted within right clavicle. Impression: 1. Slight increasing density on both sides of the chest compatible with worsening Covid pneumonia. 2. Other stable findings as noted above. Diagnostic code #3
[2020-10-08] MEDS: REMDESIVIR 100 MG in Sodium Chloride 0.9% 100 ML IV SCH (16:16)
[2020-10-08] MEDS ORDERED: Furosemide 20 MG/2 ML VIAL IVPUSH ONE (19:47)
[2020-10-08] MEDS ORDERED: Loperamide 2 MG Cap PO PRN (21:42)
[2020-10-08] MEDS: cefTRIAXone 1 GM in Sodium Chloride 0.9% 100 ML IV SCH (21:46)
[2020-10-08] MEDS: Azithromycin 500 MG in Sodium Chloride 0.9% 250 ML IV SCH (22:54)
[2020-10-09] MEDS: Famotidine 20 MG Tab PO SCH ×2 (08:00→21:01)
[2020-10-09] MEDS: Zinc Sulfate 220 MG Cap PO SCH (08:00)
[2020-10-09] MEDS: Furosemide 20 MG/2 ML VIAL IVPUSH SCH (08:00)
[2020-10-09] MEDS: Dexamethasone 4 MG Tab PO SCH (08:00)
[2020-10-09] MEDS: Enoxaparin 40 MG/0.4 ML Syringe SUBCUT SCH ×2 (08:01→21:01)
--- NOTE | 2020-10-09 12:05 | CR ---
Chest: Portable view of the chest was obtained. Comparison: Prior chest x-ray of 10/04/20. Poor inspiratory effort is seen. Patchy areas of increased density are noted within both sides of the chest most likely representing pneumonia. Findings are fairly stable from prior exam. Old healed right clavicle fracture is seen. Impression: 1. Findings as noted above compatible with continuing Covid pneumonia. 2. Nothing acute is definitely appreciated. Diagnostic code #3
[2020-10-09 13:38] LABS: HEMOGLOBIN A1C 6.1 %
--- NOTE | 2020-10-09 15:20 | PCM.PN ---
- General Info Date of Service: 10/09/20 Admission Dx/Problem (Free Text): Admission Diagnosis/Problem Admission Diagnosis/Problem Hypoxia Subjective Update: Patient states that she does not feel as good today. She started feeling funny after getting dexamethasone. Otherwise, her oxygenation has been improving. She was liters earlier that was able to be weaned down to 2-1/2 L. Functional Status: Reports: Pain Controlled - Review of Systems General: Reports: No Symptoms HEENT: Reports: No Symptoms Pulmonary: Reports: Shortness of Breath Cardiovascular: Reports: No Symptoms Gastrointestinal: Reports: No Symptoms Musculoskeletal: Reports: No Symptoms Skin: Reports: No Symptoms Neurological: Reports: No Symptoms Psychiatric: Reports: Anxiety - Patient Data Vitals - Most Recent: Last Vital Signs Temp 97.0 F 10/09/20 11:53 Pulse 98 10/09/20 12:00 Resp 20 10/09/20 11:53 BP 112/70 10/09/20 11:53 Pulse Ox 92 L 10/09/20 15:00 Weight - Most Recent: 309 lb I&O - Last 24 Hours: Intake & Output 10/09/20 10/09/20 10/09/20 06:59 14:59 22:59 Intake Total 750 120 Output Total 345 1250 Balance 405 -1130 Lab Results Last 24 Hours: Laboratory Results - last 24 hr 10/06/20 10/07/20 10/08/20 Range/Units 22:18 05:30 16:10 WBC (3.98-10.04) K/mm3 RBC (3.98-5.22) M/mm3 Hgb (11.2-15.7) gm/dl Hct (34.1-44.9) % MCV (79.4-94.8) fl MCH (25.6-32.2) pg MCHC (32.2-35.5) g/dl RDW Std Deviation (36.4-46.3) fL Plt Count (182-369) K/mm3 MPV (9.4-12.3) fl Neut % (Auto) (34.0-71.1) % Lymph % (Auto) (19.3-51.7) % [place] % (Auto) (4.7-12.5) % Eos % (Auto) (0.7-5.8) Baso % (Auto) (0.1-1.2) % Neut # (Auto) (1.56-6.13) K/mm3 Lymph # (Auto) (1.18-3.74) K/mm3 [place] # (Auto) (0.24-0.36) K/mm3 Eos # (Auto) (0.04-0.36) K/mm3 Baso # (Auto) (0.01-0.08) K/mm3 Manual Slide Review Sodium (136-145) mEq/L Potassium (3.5-5.1) mEq/L Chloride (98-107) mEq/L Carbon Dioxide (21-32) mEq/L Anion Gap (5-15) BUN (7-18) mg/dL Creatinine (0.55-1.02) mg/dL Est Cr Clr Drug Dosing mL/min Estimated GFR (MDRD) (>60) mL/min BUN/Creatinine Ratio (14-18) Glucose (74-106) mg/dL POC Glucose 152 H (70-105) mg/dL Hemoglobin A1c 6.1 H ( - 5.6) % Calcium (8.5-10.1) mg/dL Magnesium (1.8-2.4) mg/dl Total Bilirubin (0.2-1.0) mg/dL Direct Bilirubin 0.10 (0.0-0.2) mg/dl Indirect Bilirubin 0.10 AST (15-37) U/L ALT (14-59) U/L Alkaline Phosphatase (46-116) U/L C-Reactive Protein (<1.0) mg/dL Total Protein (6.4-8.2) g/dl Albumin (3.4-5.0) g/dl Globulin gm/dL Albumin/Globulin Ratio (1-2) 10/08/20 10/09/20 10/09/20 Range/Units 21:28 05:46 05:46 WBC 6.44 (3.98-10.04) K/mm3 RBC 4.64 (3.98-5.22) M/mm3 Hgb 12.6 (11.2-15.7) gm/dl Hct 40.3 (34.1-44.9) % MCV 86.9 (79.4-94.8) fl MCH 27.2 (25.6-32.2) pg MCHC 31.3 L (32.2-35.5) g/dl RDW Std Deviation 46.7 H (36.4-46.3) fL Plt Count 377 H (182-369) K/mm3 MPV 9.6 (9.4-12.3) fl Neut % (Auto) 38.0 (34.0-71.1) % Lymph % (Auto) 50.2 (19.3-51.7) % [place] % (Auto) 10.6 (4.7-12.5) % Eos % (Auto) 0.3 L (0.7-5.8) Baso % (Auto) 0.6 (0.1-1.2) % Neut # (Auto) 2.45 (1.56-6.13) K/mm3 Lymph # (Auto) 3.23 (1.18-3.74) K/mm3 [place] # (Auto) 0.68 H (0.24-0.36) K/mm3 Eos # (Auto) 0.02 L (0.04-0.36) K/mm3 Baso # (Auto) 0.04 (0.01-0.08) K/mm3 Manual Slide Review Abnormal smear Sodium (136-145) mEq/L Potassium (3.5-5.1) mEq/L Chloride (98-107) mEq/L Carbon Dioxide (21-32) mEq/L Anion Gap (5-15) BUN (7-18) mg/dL Creatinine (0.55-1.02) mg/dL Est Cr Clr Drug Dosing mL/min Estimated GFR (MDRD) (>60) mL/min BUN/Creatinine Ratio (14-18) Glucose (74-106) mg/dL POC Glucose 146 H (70-105) mg/dL Hemoglobin A1c ( - 5.6) % Calcium (8.5-10.1) mg/dL Magnesium (1.8-2.4) mg/dl Total Bilirubin 0.1 L (0.2-1.0) mg/dL Direct Bilirubin (0.0-0.2) mg/dl Indirect Bilirubin AST 15 (15-37) U/L ALT 34 (14-59) U/L Alkaline Phosphatase 41 L (46-116) U/L C-Reactive Protein (<1.0) mg/dL Total Protein 7.8 (6.4-8.2) g/dl Albumin 2.9 L (3.4-5.0) g/dl Globulin 4.9 gm/dL Albumin/Globulin Ratio 0.6 L (1-2) 10/09/20 10/09/20 10/09/20 Range/Units 05:46 06:29 11:51 WBC (3.98-10.04) K/mm3 RBC (3.98-5.22) M/mm3 Hgb (11.2-15.7) gm/dl Hct (34.1-44.9) % MCV (79.4-94.8) fl MCH (25.6-32.2) pg MCHC (32.2-35.5) g/dl RDW Std Deviation (36.4-46.3) fL Plt Count (182-369) K/mm3 MPV (9.4-12.3) fl Neut % (Auto) (34.0-71.1) % Lymph % (Auto) (19.3-51.7) % [place] % (Auto) (4.7-12.5) % Eos % (Auto) (0.7-5.8) Baso % (Auto) (0.1-1.2) % Neut # (Auto) (1.56-6.13) K/mm3 Lymph # (Auto) (1.18-3.74) K/mm3 [place] # (Auto) (0.24-0.36) K/mm3 Eos # (Auto) (0.04-0.36) K/mm3 Baso # (Auto) (0.01-0.08) K/mm3 Manual Slide Review Sodium 142 (136-145) mEq/L Potassium 4.2 (3.5-5.1) mEq/L Chloride 105 (98-107) mEq/L Carbon Dioxide 26 (21-32) mEq/L Anion Gap 15.2 H (5-15) BUN 13 (7-18) mg/dL Creatinine 1.0 (0.55-1.02) mg/dL Est Cr Clr Drug Dosing 69.10 mL/min Estimated GFR (MDRD) > 60 (>60) mL/min BUN/Creatinine Ratio 13.0 L (14-18) Glucose 84 (74-106) mg/dL POC Glucose 86 108 H (70-105) mg/dL Hemoglobin A1c ( - 5.6) % Calcium 8.7 (8.5-10.1) mg/dL Magnesium 2.3 (1.8-2.4) mg/dl Total Bilirubin 0.2 (0.2-1.0) mg/dL Direct Bilirubin (0.0-0.2) mg/dl Indirect Bilirubin AST 15 (15-37) U/L ALT 37 (14-59) U/L Alkaline Phosphatase 42 L (46-116) U/L C-Reactive Protein 0.5 (<1.0) mg/dL Total Protein 7.8 (6.4-8.2) g/dl Albumin 2.8 L (3.4-5.0) g/dl Globulin 5.0 gm/dL Albumin/Globulin Ratio 0.6 L (1-2) Med Orders - Current: Current Medications Acetaminophen (Tylenol) 650 mg RECTAL Q4H PRN PRN Reason: Pain (mild 1-3) Acetaminophen/Butalbital/Caffeine (Fioricet 325-50-40 Mg) 2 tab PO Q6H PRN PRN Reason: Headache/Pain Hydrocodone Bitart/Acetaminophen ([place] 325-5 Mg) 2 tab PO Q4H PRN PRN Reason: Pain (moderate 4-6) Last Admin: 10/07/20 19:45 Dose: 2 tab Documented by: Albuterol/Ipratropium (Duoneb 3.0-0.5 Mg/3 Ml) 3 ml NEB Q4H PRN PRN Reason: Shortness Of Breath/wheezing Bisacodyl (Dulcolax) 5 mg PO DAILY PRN PRN Reason: Constipation Dexamethasone (Dexamethasone) 6 mg PO DAILY [facility] Stop: 10/16/20 09:01 Last Admin: 10/09/20 08:00 Dose: 6 mg Documented by: Enoxaparin Sodium (Lovenox) 40 mg SUBCUT BID [facility] Last Admin: 10/09/20 08:01 Dose: 40 mg Documented by: Famotidine (Pepcid) 20 mg PO BID [facility] Last Admin: 10/09/20 08:00 Dose: 20 mg Documented by: Furosemide (Lasix) 20 mg IVPUSH DAILY [facility] Stop: 10/11/20 09:01 Last Admin: 10/09/20 08:00 Dose: 20 mg Documented by: Guaifenesin/Phenylephrine HCl (Robitussin Dm) 10 ml PO Q4H PRN PRN Reason: Cough Hydromorphone HCl (Dilaudid) 0.5 mg IVPUSH Q2H PRN PRN Reason: Pain (severe 7-10) Last Admin: 10/07/20 00:05 Dose: 0.5 mg Documented by: Sodium Chloride (Normal Saline) 1,000 mls @ 999 mls/hr IV ONETIME [facility] Last Infusion: 10/06/20 20:06 Dose: 75 mls/hr Documented by: Promethazine HCl 12.5 mg/ (Sodium Chloride) 50.5 mls @ 100 mls/hr IV Q6H PRN PRN Reason: Nausea/Vomiting Azithromycin 500 mg/ Sodium (Chloride) 250 mls @ 250 mls/hr IV Q24H [facility] Last Admin: 10/08/20 22:54 Dose: 250 mls/hr Documented by: Ceftriaxone Sodium 1 gm/ (Sodium Chloride) 100 mls @ 200 mls/hr IV Q24H [facility] Last Admin: 10/08/20 21:46 Dose: 200 mls/hr Documented by: Remdesivir 100 mg/ Sodium (Chloride) 100 mls @ 100 mls/hr IV Q24H [facility] Stop: 10/10/20 17:59 Last Admin: 10/08/20 16:16 Dose: 100 mls/hr Documented by: Insulin Human Lispro (Humalog) 0 unit SUBCUT TIDAC [facility]; Protocol Last Admin: 10/09/20 12:47 Dose: Not Given Documented by: Loperamide HCl (Imodium) 4 mg PO Q6H PRN PRN Reason: Diarrhea Last Admin: 10/08/20 21:50 Dose: 4 mg Documented by: Ondansetron HCl (Zofran) 4 mg IV Q6H PRN PRN Reason: Nausea/Vomiting Polyethylene Glycol (Miralax) 17 gm PO DAILY PRN PRN Reason: Constipation Senna/Docusate Sodium (Senna Plus) 1 tab PO BID PRN PRN Reason: Constipation Sodium Chloride (Saline Flush) 10 ml FLUSH ASDIRECTED PRN PRN Reason: Keep Vein Open Last Admin: 10/06/20 16:42 Dose: 10 ml Documented by: Zinc Sulfate (Zincate) 220 mg PO DAILY [facility] Last Admin: 10/09/20 08:00 Dose: 220 mg Documented by: Zolpidem Tartrate (Ambien) 5 mg PO BEDTIME PRN PRN Reason: Sleep Discontinued Medications Dexamethasone (Dexamethasone) 6 mg IV ONETIME ONE Stop: 10/06/20 16:57 Last Admin: 10/06/20 19:02 Dose: 6 mg Documented by: Enoxaparin Sodium (Lovenox) 40 mg SUBCUT ONETIME ONE Stop: 10/06/20 22:16 Last Admin: 10/06/20 23:04 Dose: 40 mg Documented by: Furosemide (Lasix) 20 mg IVPUSH NOW ONE Stop: 10/08/20 19:48 Last Admin: 10/08/20 20:38 Dose: 20 mg Documented by: Remdesivir 200 mg/ Sodium (Chloride) 250 mls @ 250 mls/hr IV ONETIME ONE Stop: 10/06/20 16:56 Last Admin: 10/06/20 17:39 Dose: 250 mls/hr Documented by: Remdesivir 100 mg/ Sodium (Chloride) 100 mls @ 100 mls/hr IV Q24H [facility] Stop: 10/10/20 11:59 Sodium Chloride (Normal Saline) Confirm Administered Dose 100 mls @ as directed .ROUTE .STK-MED ONE Stop: 10/07/20 07:57 Last Admin: 10/07/20 08:15 Dose: Not Given Documented by: Tocilizumab 800 mg/ Sodium (Chloride) 100 mls @ 100 mls/hr IV ONETIME ONE Stop: 10/07/20 12:29 Last Admin: 10/07/20 12:35 Dose: 100 mls/hr Documented by: Ibuprofen (Motrin) 600 mg PO Q6H PRN PRN Reason: Pain (moderate 4-6) - Exam Quality Assessment: Supplemental Oxygen, Urine Catheter General: Alert, Oriented HEENT: Pupils Equal, Mucous Membr. Moist/[place] Neck: Supple Lungs: Normal Respiratory Effort, Rales (Bibasilar) Cardiovascular: Regular Rate, Regular Rhythm GI/Abdominal Exam: Normal Bowel Sounds, Soft, Non-Tender, No Organomegaly, No Distention, No Abnormal Bruit Extremities: Normal Inspection, Non-Tender, No Pedal Edema, Normal Capillary Refill Skin: Warm, Dry, Intact Psy/Mental Status: Alert, Normal Affect, Normal Mood - Patient Data Lab Results Last 24 hrs: Laboratory Results - last 24 hr 10/06/20 10/07/20 10/08/20 Range/Units 22:18 05:30 16:10 WBC (3.98-10.04) K/mm3 RBC (3.98-5.22) M/mm3 Hgb (11.2-15.7) gm/dl Hct (34.1-44.9) % MCV (79.4-94.8) fl MCH (25.6-32.2) pg MCHC (32.2-35.5) g/dl RDW Std Deviation (36.4-46.3) fL Plt Count (182-369) K/mm3 MPV (9.4-12.3) fl Neut % (Auto) (34.0-71.1) % Lymph % (Auto) (19.3-51.7) % [place] % (Auto) (4.7-12.5) % Eos % (Auto) (0.7-5.8) Baso % (Auto) (0.1-1.2) % Neut # (Auto) (1.56-6.13) K/mm3 Lymph # (Auto) (1.18-3.74) K/mm3 [place] # (Auto) (0.24-0.36) K/mm3 Eos # (Auto) (0.04-0.36) K/mm3 Baso # (Auto) (0.01-0.08) K/mm3 Manual Slide Review Sodium (136-145) mEq/L Potassium (3.5-5.1) mEq/L Chloride (98-107) mEq/L Carbon Dioxide (21-32) mEq/L Anion Gap (5-15) BUN (7-18) mg/dL Creatinine (0.55-1.02) mg/dL Est Cr Clr Drug Dosing mL/min Estimated GFR (MDRD) (>60) mL/min BUN/Creatinine Ratio (14-18) Glucose (74-106) mg/dL POC Glucose 152 H (70-105) mg/dL Hemoglobin A1c 6.1 H ( - 5.6) % Calcium (8.5-10.1) mg/dL Magnesium (1.8-2.4) mg/dl Total Bilirubin (0.2-1.0) mg/dL Direct Bilirubin 0.10 (0.0-0.2) mg/dl Indirect Bilirubin 0.10 AST (15-37) U/L ALT (14-59) U/L Alkaline Phosphatase (46-116) U/L C-Reactive Protein (<1.0) mg/dL Total Protein (6.4-8.2) g/dl Albumin (3.4-5.0) g/dl Globulin gm/dL Albumin/Globulin Ratio (1-2) 10/08/20 10/09/20 10/09/20 Range/Units 21:28 05:46 05:46 WBC 6.44 (3.98-10.04) K/mm3 RBC 4.64 (3.98-5.22) M/mm3 Hgb 12.6 (11.2-15.7) gm/dl Hct 40.3 (34.1-44.9) % MCV 86.9 (79.4-94.8) fl MCH 27.2 (25.6-32.2) pg MCHC 31.3 L (32.2-35.5) g/dl RDW Std Deviation 46.7 H (36.4-46.3) fL Plt Count 377 H (182-369) K/mm3 MPV 9.6 (9.4-12.3) fl Neut % (Auto) 38.0 (34.0-71.1) % Lymph % (Auto) 50.2 (19.3-51.7) % [place] % (Auto) 10.6 (4.7-12.5) % Eos % (Auto) 0.3 L (0.7-5.8) Baso % (Auto) 0.6 (0.1-1.2) % Neut # (Auto) 2.45 (1.56-6.13) K/mm3 Lymph # (Auto) 3.23 (1.18-3.74) K/mm3 [place] # (Auto) 0.68 H (0.24-0.36) K/mm3 Eos # (Auto) 0.02 L (0.04-0.36) K/mm3 Baso # (Auto) 0.04 (0.01-0.08) K/mm3 Manual Slide Review Abnormal smear Sodium (136-145) mEq/L Potassium (3.5-5.1) mEq/L Chloride (98-107) mEq/L Carbon Dioxide (21-32) mEq/L Anion Gap (5-15) BUN (7-18) mg/dL Creatinine (0.55-1.02) mg/dL Est Cr Clr Drug Dosing mL/min Estimated GFR (MDRD) (>60) mL/min BUN/Creatinine Ratio (14-18) Glucose (74-106) mg/dL POC Glucose 146 H (70-105) mg/dL Hemoglobin A1c ( - 5.6) % Calcium (8.5-10.1) mg/dL Magnesium (1.8-2.4) mg/dl Total Bilirubin 0.1 L (0.2-1.0) mg/dL Direct Bilirubin (0.0-0.2) mg/dl Indirect Bilirubin AST 15 (15-37) U/L ALT 34 (14-59) U/L Alkaline Phosphatase 41 L (46-116) U/L C-Reactive Protein (<1.0) mg/dL Total Protein 7.8 (6.4-8.2) g/dl Albumin 2.9 L (3.4-5.0) g/dl Globulin 4.9 gm/dL Albumin/Globulin Ratio 0.6 L (1-2) 10/09/20 10/09/20 10/09/20 Range/Units 05:46 06:29 11:51 WBC (3.98-10.04) K/mm3 RBC (3.98-5.22) M/mm3 Hgb (11.2-15.7) gm/dl Hct (34.1-44.9) % MCV (79.4-94.8) fl MCH (25.6-32.2) pg MCHC (32.2-35.5) g/dl RDW Std Deviation (36.4-46.3) fL Plt Count (182-369) K/mm3 MPV (9.4-12.3) fl Neut % (Auto) (34.0-71.1) % Lymph % (Auto) (19.3-51.7) % [place] % (Auto) (4.7-12.5) % Eos % (Auto) (0.7-5.8) Baso % (Auto) (0.1-1.2) % Neut # (Auto) (1.56-6.13) K/mm3 Lymph # (Auto) (1.18-3.74) K/mm3 [place] # (Auto) (0.24-0.36) K/mm3 Eos # (Auto) (0.04-0.36) K/mm3 Baso # (Auto) (0.01-0.08) K/mm3 Manual Slide Review Sodium 142 (136-145) mEq/L Potassium 4.2 (3.5-5.1) mEq/L Chloride 105 (98-107) mEq/L Carbon Dioxide 26 (21-32) mEq/L Anion Gap 15.2 H (5-15) BUN 13 (7-18) mg/dL Creatinine 1.0 (0.55-1.02) mg/dL Est Cr Clr Drug Dosing 69.10 mL/min Estimated GFR (MDRD) > 60 (>60) mL/min BUN/Creatinine Ratio 13.0 L (14-18) Glucose 84 (74-106) mg/dL POC Glucose 86 108 H (70-105) mg/dL Hemoglobin A1c ( - 5.6) % Calcium 8.7 (8.5-10.1) mg/dL Magnesium 2.3 (1.8-2.4) mg/dl Total Bilirubin 0.2 (0.2-1.0) mg/dL Direct Bilirubin (0.0-0.2) mg/dl Indirect Bilirubin AST 15 (15-37) U/L ALT 37 (14-59) U/L Alkaline Phosphatase 42 L (46-116) U/L C-Reactive Protein 0.5 (<1.0) mg/dL Total Protein 7.8 (6.4-8.2) g/dl Albumin 2.8 L (3.4-5.0) g/dl Globulin 5.0 gm/dL Albumin/Globulin Ratio 0.6 L (1-2) Result Diagrams: 10/09/20 05:46 10/09/20 05:46 Sepsis Event Note - Evaluation Sepsis Screening Result: No Definite Risk - Focused Exam Vital Signs: Vital Signs Temp Pulse Pulse Resp BP Pulse Ox 10/09/20 15:00 92 L 10/09/20 12:00 98 95 10/09/20 11:53 97.0 F 82 20 112/70 91 L 10/09/20 11:00 75 93 L 10/09/20 10:00 76 95 10/09/20 09:15 94 L 10/09/20 09:00 96 93 L 10/09/20 08:00 78 91 L 10/09/20 07:55 97.3 F 74 38 H 115/68 93 L 10/09/20 04:00 97.6 F 55 L 22 H 98/69 99 - Problem List & Annotations (1) Hypoxia SNOMED Code(s): 797606942 Code(s): R09.02 - HYPOXEMIA Status: Acute Current Visit: Yes (2) Pneumonia due to COVID-19 virus SNOMED Code(s): 330587747623749820 Code(s): U07.1 - COVID-19; J12.82 - PNEUMONIA DUE TO CORONAVIRUS DISEASE 2019 Status: Acute Current Visit: Yes - Problem List Review Problem List Initiated/Reviewed/Updated: Yes - Plan Plan:: This is a 35 yo female with past medical hx/o HTN, HLD, Recurrent UTI, Migraines TAO, DM2, and Obesity who presented to ED with complaints of worsening covid-19 infection. Assessment: Acute: Covid-19 Pneumonia, improving Hypoxia: Down to 2.5 L in the low 90s saturation Afebrile overnight CRP 1.8 Sinus Tachycardia with HR in the 120s, resolved Tachypnea with RR in the 20s -Thyroid panel wnl -Chest x-ray shows bilateral patchy pulmonary infiltrate, poor inspiratory effort making analysis difficult -Plan: Inflammatory markers. Dexamethasone 6 mg po daily for 10 days and Veklury for 5 days. Actemra Therapy 10/07/2020. IV antibiotics. Oral zinc supplement. IS/FV as directed. H2B for GI prophylaxis. DVT prophylaxis: Lovenox 40 mg sub BID. RT to assess and treat. Hyperglycemia without DM2 -Hemoglobin A1c of 6.1. Not treated prior to admission. -BS of 98; now 153 -Expect to get worse with steroid (for covid-19 treatment) -She is diet controlled -A1c pending -Plan: Accu-check TID with ISS Generalized Weakness Fatigue/Myalgias Elevated Liver Enzymes Class II Obese -Vit D and Thyroid Panel -BMI of 54 -Dietary Consult for weight management Minimally elevated D-dimer 1.01; 1.55 yesterday Pleuritic Pain -Likely due to ongoing pulmonary infection -Sputum culture with gram stain, PRN decongestant/expectorant, IS and FV as directed Chronic: HTN, HLD, Recurrent UTI, Migraines TAO, DM2, and Obesity Plan: Continue current treatment. Routine Covid labs in the morning. ADA diet. Aggressive proning. Additional orders as above. PT/OT for generalized weakness. Code status is full. Prognosis is guarded-good.
[2020-10-09 15:38] LABS: VITAMIN D,25-HYDROXY 13.8 ng/ml (30.0-100.0)
[2020-10-09] MEDS: REMDESIVIR 100 MG in Sodium Chloride 0.9% 100 ML IV SCH (16:20)
[2020-10-09] MEDS: cefTRIAXone 1 GM in Sodium Chloride 0.9% 100 ML IV SCH (22:59)
[2020-10-09] MEDS: Azithromycin 500 MG in Sodium Chloride 0.9% 250 ML IV SCH (23:33)
[2020-10-10] MEDS: Zinc Sulfate 220 MG Cap PO SCH (09:04)
[2020-10-10] MEDS: Dexamethasone 4 MG Tab PO SCH (09:04)
[2020-10-10] MEDS: Enoxaparin 40 MG/0.4 ML Syringe SUBCUT SCH ×2 (09:05→20:45)
[2020-10-10] MEDS: Famotidine 20 MG Tab PO SCH ×2 (09:05→20:45)
[2020-10-10] MEDS: Furosemide 20 MG/2 ML VIAL IVPUSH SCH (09:06)
--- NOTE | 2020-10-10 12:17 | PCM.PN ---
- General Info Date of Service: 10/10/20 Admission Dx/Problem (Free Text): Admission Diagnosis/Problem Admission Diagnosis/Problem Hypoxia Subjective Update: Patient states that she is feeling better today. Appetite remains good. No significant symptoms. We have been able to wean down her O2 to 0.5 to 1 L/min. Functional Status: Reports: Pain Controlled - Review of Systems General: Reports: No Symptoms HEENT: Reports: No Symptoms Pulmonary: Reports: No Symptoms Cardiovascular: Reports: No Symptoms Gastrointestinal: Reports: No Symptoms Musculoskeletal: Reports: No Symptoms Neurological: Reports: No Symptoms Psychiatric: Reports: No Symptoms - Patient Data Vitals - Most Recent: Last Vital Signs Temp 96.8 F L 10/10/20 11:38 Pulse 65 10/10/20 11:38 Resp 20 10/10/20 11:38 BP 98/61 10/10/20 11:38 Pulse Ox 92 L 10/10/20 11:38 Weight - Most Recent: 308 lb 14.4 oz I&O - Last 24 Hours: Intake & Output 10/09/20 10/10/20 10/10/20 22:59 06:59 14:59 Intake Total 2040 1100 920 Output Total 482 298 1226 Balance 1790 400 -380 Lab Results Last 24 Hours: Laboratory Results - last 24 hr 10/06/20 10/07/20 10/07/20 Range/Units 22:18 05:30 05:30 WBC (3.98-10.04) K/mm3 RBC (3.98-5.22) M/mm3 Hgb (11.2-15.7) gm/dl Hct (34.1-44.9) % MCV (79.4-94.8) fl MCH (25.6-32.2) pg MCHC (32.2-35.5) g/dl RDW Std Deviation (36.4-46.3) fL Plt Count (182-369) K/mm3 MPV (9.4-12.3) fl Neut % (Auto) (34.0-71.1) % Lymph % (Auto) (19.3-51.7) % [place] % (Auto) (4.7-12.5) % Eos % (Auto) (0.7-5.8) Baso % (Auto) (0.1-1.2) % Neut # (Auto) (1.56-6.13) K/mm3 Lymph # (Auto) (1.18-3.74) K/mm3 [place] # (Auto) (0.24-0.36) K/mm3 Eos # (Auto) (0.04-0.36) K/mm3 Baso # (Auto) (0.01-0.08) K/mm3 Manual Slide Review D-Dimer, Quantitative (0.19-0.50) mg/L Sodium (136-145) mEq/L Potassium (3.5-5.1) mEq/L Chloride (98-107) mEq/L Carbon Dioxide (21-32) mEq/L Anion Gap (5-15) BUN (7-18) mg/dL Creatinine (0.55-1.02) mg/dL Est Cr Clr Drug Dosing mL/min Estimated GFR (MDRD) (>60) mL/min BUN/Creatinine Ratio (14-18) Glucose (74-106) mg/dL POC Glucose (70-105) mg/dL Hemoglobin A1c 6.1 H ( - 5.6) % Calcium (8.5-10.1) mg/dL Magnesium (1.8-2.4) mg/dl Total Bilirubin (0.2-1.0) mg/dL Direct Bilirubin 0.10 (0.0-0.2) mg/dl Indirect Bilirubin 0.10 AST (15-37) U/L ALT (14-59) U/L Alkaline Phosphatase (46-116) U/L C-Reactive Protein (<1.0) mg/dL Total Protein (6.4-8.2) g/dl Albumin (3.4-5.0) g/dl Globulin gm/dL Albumin/Globulin Ratio (1-2) Vitamin D 25-Hydroxy 13.8 L (30.0-100.0) ng/ml 10/07/20 10/08/20 10/09/20 Range/Units 16:46 05:20 05:46 WBC (3.98-10.04) K/mm3 RBC (3.98-5.22) M/mm3 Hgb (11.2-15.7) gm/dl Hct (34.1-44.9) % MCV (79.4-94.8) fl MCH (25.6-32.2) pg MCHC (32.2-35.5) g/dl RDW Std Deviation (36.4-46.3) fL Plt Count (182-369) K/mm3 MPV (9.4-12.3) fl Neut % (Auto) (34.0-71.1) % Lymph % (Auto) (19.3-51.7) % [place] % (Auto) (4.7-12.5) % Eos % (Auto) (0.7-5.8) Baso % (Auto) (0.1-1.2) % Neut # (Auto) (1.56-6.13) K/mm3 Lymph # (Auto) (1.18-3.74) K/mm3 [place] # (Auto) (0.24-0.36) K/mm3 Eos # (Auto) (0.04-0.36) K/mm3 Baso # (Auto) (0.01-0.08) K/mm3 Manual Slide Review D-Dimer, Quantitative (0.19-0.50) mg/L Sodium (136-145) mEq/L Potassium (3.5-5.1) mEq/L Chloride (98-107) mEq/L Carbon Dioxide (21-32) mEq/L Anion Gap (5-15) BUN (7-18) mg/dL Creatinine (0.55-1.02) mg/dL Est Cr Clr Drug Dosing mL/min Estimated GFR (MDRD) (>60) mL/min BUN/Creatinine Ratio (14-18) Glucose (74-106) mg/dL POC Glucose (70-105) mg/dL Hemoglobin A1c ( - 5.6) % Calcium (8.5-10.1) mg/dL Magnesium (1.8-2.4) mg/dl Total Bilirubin (0.2-1.0) mg/dL Direct Bilirubin < 0.05 < 0.05 < 0.05 (0.0-0.2) mg/dl Indirect Bilirubin TNP TNP AST (15-37) U/L ALT (14-59) U/L Alkaline Phosphatase (46-116) U/L C-Reactive Protein (<1.0) mg/dL Total Protein (6.4-8.2) g/dl Albumin (3.4-5.0) g/dl Globulin gm/dL Albumin/Globulin Ratio (1-2) Vitamin D 25-Hydroxy (30.0-100.0) ng/ml 10/09/20 10/10/20 10/10/20 Range/Units 16:30 05:37 05:37 WBC 7.44 (3.98-10.04) K/mm3 RBC 4.63 (3.98-5.22) M/mm3 Hgb 12.5 (11.2-15.7) gm/dl Hct 40.1 (34.1-44.9) % MCV 86.6 (79.4-94.8) fl MCH 27.0 (25.6-32.2) pg MCHC 31.2 L (32.2-35.5) g/dl RDW Std Deviation 46.0 (36.4-46.3) fL Plt Count 429 H (182-369) K/mm3 MPV 9.5 (9.4-12.3) fl Neut % (Auto) 39.0 (34.0-71.1) % Lymph % (Auto) 51.7 (19.3-51.7) % [place] % (Auto) 8.2 (4.7-12.5) % Eos % (Auto) 0.7 (0.7-5.8) Baso % (Auto) 0.1 (0.1-1.2) % Neut # (Auto) 2.90 (1.56-6.13) K/mm3 Lymph # (Auto) 3.85 H (1.18-3.74) K/mm3 [place] # (Auto) 0.61 H (0.24-0.36) K/mm3 Eos # (Auto) 0.05 (0.04-0.36) K/mm3 Baso # (Auto) 0.01 (0.01-0.08) K/mm3 Manual Slide Review Abnormal smear D-Dimer, Quantitative (0.19-0.50) mg/L Sodium (136-145) mEq/L Potassium (3.5-5.1) mEq/L Chloride (98-107) mEq/L Carbon Dioxide (21-32) mEq/L Anion Gap (5-15) BUN (7-18) mg/dL Creatinine (0.55-1.02) mg/dL Est Cr Clr Drug Dosing mL/min Estimated GFR (MDRD) (>60) mL/min BUN/Creatinine Ratio (14-18) Glucose (74-106) mg/dL POC Glucose 147 H (70-105) mg/dL Hemoglobin A1c ( - 5.6) % Calcium (8.5-10.1) mg/dL Magnesium (1.8-2.4) mg/dl Total Bilirubin 0.1 L (0.2-1.0) mg/dL Direct Bilirubin < 0.05 (0.0-0.2) mg/dl Indirect Bilirubin TNP AST 14 L (15-37) U/L ALT 36 (14-59) U/L Alkaline Phosphatase 36 L (46-116) U/L C-Reactive Protein (<1.0) mg/dL Total Protein 7.6 (6.4-8.2) g/dl Albumin 2.9 L (3.4-5.0) g/dl Globulin 4.7 gm/dL Albumin/Globulin Ratio 0.6 L (1-2) Vitamin D 25-Hydroxy (30.0-100.0) ng/ml 10/10/20 10/10/20 10/10/20 Range/Units 05:37 05:37 07:24 WBC (3.98-10.04) K/mm3 RBC (3.98-5.22) M/mm3 Hgb (11.2-15.7) gm/dl Hct (34.1-44.9) % MCV (79.4-94.8) fl MCH (25.6-32.2) pg MCHC (32.2-35.5) g/dl RDW Std Deviation (36.4-46.3) fL Plt Count (182-369) K/mm3 MPV (9.4-12.3) fl Neut % (Auto) (34.0-71.1) % Lymph % (Auto) (19.3-51.7) % [place] % (Auto) (4.7-12.5) % Eos % (Auto) (0.7-5.8) Baso % (Auto) (0.1-1.2) % Neut # (Auto) (1.56-6.13) K/mm3 Lymph # (Auto) (1.18-3.74) K/mm3 [place] # (Auto) (0.24-0.36) K/mm3 Eos # (Auto) (0.04-0.36) K/mm3 Baso # (Auto) (0.01-0.08) K/mm3 Manual Slide Review D-Dimer, Quantitative 2.36 H (0.19-0.50) mg/L Sodium 143 (136-145) mEq/L Potassium 4.3 (3.5-5.1) mEq/L Chloride 106 (98-107) mEq/L Carbon Dioxide 28 (21-32) mEq/L Anion Gap 13.3 (5-15) BUN 13 (7-18) mg/dL Creatinine 1.0 (0.55-1.02) mg/dL Est Cr Clr Drug Dosing 69.10 mL/min Estimated GFR (MDRD) > 60 (>60) mL/min BUN/Creatinine Ratio 13.0 L (14-18) Glucose 84 (74-106) mg/dL POC Glucose 81 (70-105) mg/dL Hemoglobin A1c ( - 5.6) % Calcium 8.9 (8.5-10.1) mg/dL Magnesium 2.2 (1.8-2.4) mg/dl Total Bilirubin 0.2 (0.2-1.0) mg/dL Direct Bilirubin (0.0-0.2) mg/dl Indirect Bilirubin AST 16 (15-37) U/L ALT 32 (14-59) U/L Alkaline Phosphatase 40 L (46-116) U/L C-Reactive Protein < 0.2 (<1.0) mg/dL Total Protein 7.5 (6.4-8.2) g/dl Albumin 2.9 L (3.4-5.0) g/dl Globulin 4.6 gm/dL Albumin/Globulin Ratio 0.6 L (1-2) Vitamin D 25-Hydroxy (30.0-100.0) ng/ml 10/10/20 Range/Units 11:35 WBC (3.98-10.04) K/mm3 RBC (3.98-5.22) M/mm3 Hgb (11.2-15.7) gm/dl Hct (34.1-44.9) % MCV (79.4-94.8) fl MCH (25.6-32.2) pg MCHC (32.2-35.5) g/dl RDW Std Deviation (36.4-46.3) fL Plt Count (182-369) K/mm3 MPV (9.4-12.3) fl Neut % (Auto) (34.0-71.1) % Lymph % (Auto) (19.3-51.7) % [place] % (Auto) (4.7-12.5) % Eos % (Auto) (0.7-5.8) Baso % (Auto) (0.1-1.2) % Neut # (Auto) (1.56-6.13) K/mm3 Lymph # (Auto) (1.18-3.74) K/mm3 [place] # (Auto) (0.24-0.36) K/mm3 Eos # (Auto) (0.04-0.36) K/mm3 Baso # (Auto) (0.01-0.08) K/mm3 Manual Slide Review D-Dimer, Quantitative (0.19-0.50) mg/L Sodium (136-145) mEq/L Potassium (3.5-5.1) mEq/L Chloride (98-107) mEq/L Carbon Dioxide (21-32) mEq/L Anion Gap (5-15) BUN (7-18) mg/dL Creatinine (0.55-1.02) mg/dL Est Cr Clr Drug Dosing mL/min Estimated GFR (MDRD) (>60) mL/min BUN/Creatinine Ratio (14-18) Glucose (74-106) mg/dL POC Glucose 91 (70-105) mg/dL Hemoglobin A1c ( - 5.6) % Calcium (8.5-10.1) mg/dL Magnesium (1.8-2.4) mg/dl Total Bilirubin (0.2-1.0) mg/dL Direct Bilirubin (0.0-0.2) mg/dl Indirect Bilirubin AST (15-37) U/L ALT (14-59) U/L Alkaline Phosphatase (46-116) U/L C-Reactive Protein (<1.0) mg/dL Total Protein (6.4-8.2) g/dl Albumin (3.4-5.0) g/dl Globulin gm/dL Albumin/Globulin Ratio (1-2) Vitamin D 25-Hydroxy (30.0-100.0) ng/ml Med Orders - Current: Current Medications Acetaminophen (Tylenol) 650 mg RECTAL Q4H PRN PRN Reason: Pain (mild 1-3) Acetaminophen/Butalbital/Caffeine (Fioricet 325-50-40 Mg) 2 tab PO Q6H PRN PRN Reason: Headache/Pain Hydrocodone Bitart/Acetaminophen ([place] 325-5 Mg) 2 tab PO Q4H PRN PRN Reason: Pain (moderate 4-6) Last Admin: 10/07/20 19:45 Dose: 2 tab Documented by: Albuterol/Ipratropium (Duoneb 3.0-0.5 Mg/3 Ml) 3 ml NEB Q4H PRN PRN Reason: Shortness Of Breath/wheezing Bisacodyl (Dulcolax) 5 mg PO DAILY PRN PRN Reason: Constipation Dexamethasone (Dexamethasone) 6 mg PO DAILY [facility] Stop: 10/16/20 09:01 Last Admin: 10/10/20 09:04 Dose: 6 mg Documented by: Enoxaparin Sodium (Lovenox) 40 mg SUBCUT BID [facility] Last Admin: 10/10/20 09:05 Dose: 40 mg Documented by: Famotidine (Pepcid) 20 mg PO BID [facility] Last Admin: 10/10/20 09:05 Dose: 20 mg Documented by: Furosemide (Lasix) 20 mg IVPUSH DAILY [facility] Stop: 10/11/20 09:01 Last Admin: 10/10/20 09:06 Dose: 20 mg Documented by: Guaifenesin/Phenylephrine HCl (Robitussin Dm) 10 ml PO Q4H PRN PRN Reason: Cough Hydromorphone HCl (Dilaudid) 0.5 mg IVPUSH Q2H PRN PRN Reason: Pain (severe 7-10) Last Admin: 10/07/20 00:05 Dose: 0.5 mg Documented by: Sodium Chloride (Normal Saline) 1,000 mls @ 999 mls/hr IV ONETIME [facility] Last Infusion: 10/06/20 20:06 Dose: 75 mls/hr Documented by: Promethazine HCl 12.5 mg/ (Sodium Chloride) 50.5 mls @ 100 mls/hr IV Q6H PRN PRN Reason: Nausea/Vomiting Azithromycin 500 mg/ Sodium (Chloride) 250 mls @ 250 mls/hr IV Q24H [facility] Last Admin: 10/09/20 23:33 Dose: 250 mls/hr Documented by: Ceftriaxone Sodium 1 gm/ (Sodium Chloride) 100 mls @ 200 mls/hr IV Q24H [facility] Last Admin: 10/09/20 22:59 Dose: 200 mls/hr Documented by: Remdesivir 100 mg/ Sodium (Chloride) 100 mls @ 100 mls/hr IV Q24H [facility] Stop: 10/10/20 17:59 Last Admin: 10/09/20 16:20 Dose: 100 mls/hr Documented by: Insulin Human Lispro (Humalog) 0 unit SUBCUT TIDAC [facility]; Protocol Last Admin: 10/10/20 11:35 Dose: Not Given Documented by: Loperamide HCl (Imodium) 4 mg PO Q6H PRN PRN Reason: Diarrhea Last Admin: 10/08/20 21:50 Dose: 4 mg Documented by: Ondansetron HCl (Zofran) 4 mg IV Q6H PRN PRN Reason: Nausea/Vomiting Polyethylene Glycol (Miralax) 17 gm PO DAILY PRN PRN Reason: Constipation Senna/Docusate Sodium (Senna Plus) 1 tab PO BID PRN PRN Reason: Constipation Sodium Chloride (Saline Flush) 10 ml FLUSH ASDIRECTED PRN PRN Reason: Keep Vein Open Last Admin: 10/06/20 16:42 Dose: 10 ml Documented by: Zinc Sulfate (Zincate) 220 mg PO DAILY [facility] Last Admin: 10/10/20 09:04 Dose: 220 mg Documented by: Zolpidem Tartrate (Ambien) 5 mg PO BEDTIME PRN PRN Reason: Sleep Discontinued Medications Dexamethasone (Dexamethasone) 6 mg IV ONETIME ONE Stop: 10/06/20 16:57 Last Admin: 10/06/20 19:02 Dose: 6 mg Documented by: Enoxaparin Sodium (Lovenox) 40 mg SUBCUT ONETIME ONE Stop: 10/06/20 22:16 Last Admin: 10/06/20 23:04 Dose: 40 mg Documented by: Furosemide (Lasix) 20 mg IVPUSH NOW ONE Stop: 10/08/20 19:48 Last Admin: 10/08/20 20:38 Dose: 20 mg Documented by: Remdesivir 200 mg/ Sodium (Chloride) 250 mls @ 250 mls/hr IV ONETIME ONE Stop: 10/06/20 16:56 Last Admin: 10/06/20 17:39 Dose: 250 mls/hr Documented by: Remdesivir 100 mg/ Sodium (Chloride) 100 mls @ 100 mls/hr IV Q24H [facility] Stop: 10/10/20 11:59 Sodium Chloride (Normal Saline) Confirm Administered Dose 100 mls @ as directed .ROUTE .STK-MED ONE Stop: 10/07/20 07:57 Last Admin: 10/07/20 08:15 Dose: Not Given Documented by: Tocilizumab 800 mg/ Sodium (Chloride) 100 mls @ 100 mls/hr IV ONETIME ONE Stop: 10/07/20 12:29 Last Admin: 10/07/20 12:35 Dose: 100 mls/hr Documented by: Ibuprofen (Motrin) 600 mg PO Q6H PRN PRN Reason: Pain (moderate 4-6) - Exam Quality Assessment: Supplemental Oxygen General: Alert, Oriented HEENT: Pupils Equal, EOMI, Mucous Membr. Moist/[place]ck Neck: Supple Lungs: Clear to Auscultation, Normal Respiratory Effort Cardiovascular: Regular Rate, Regular Rhythm GI/Abdominal Exam: Normal Bowel Sounds, Soft, Non-Tender, No Organomegaly, No Distention, No Abnormal Bruit Extremities: Normal Inspection, Normal Range of Motion, Non-Tender, No Pedal Edema, Normal Capillary Refill Neurological: No New Focal Deficit Psy/Mental Status: Alert, Normal Affect, Normal Mood - Patient Data Lab Results Last 24 hrs: Laboratory Results - last 24 hr 10/06/20 10/07/20 10/07/20 Range/Units 22:18 05:30 05:30 WBC (3.98-10.04) K/mm3 RBC (3.98-5.22) M/mm3 Hgb (11.2-15.7) gm/dl Hct (34.1-44.9) % MCV (79.4-94.8) fl MCH (25.6-32.2) pg MCHC (32.2-35.5) g/dl RDW Std Deviation (36.4-46.3) fL Plt Count (182-369) K/mm3 MPV (9.4-12.3) fl Neut % (Auto) (34.0-71.1) % Lymph % (Auto) (19.3-51.7) % [place] % (Auto) (4.7-12.5) % Eos % (Auto) (0.7-5.8) Baso % (Auto) (0.1-1.2) % Neut # (Auto) (1.56-6.13) K/mm3 Lymph # (Auto) (1.18-3.74) K/mm3 [place] # (Auto) (0.24-0.36) K/mm3 Eos # (Auto) (0.04-0.36) K/mm3 Baso # (Auto) (0.01-0.08) K/mm3 Manual Slide Review D-Dimer, Quantitative (0.19-0.50) mg/L Sodium (136-145) mEq/L Potassium (3.5-5.1) mEq/L Chloride (98-107) mEq/L Carbon Dioxide (21-32) mEq/L Anion Gap (5-15) BUN (7-18) mg/dL Creatinine (0.55-1.02) mg/dL Est Cr Clr Drug Dosing mL/min Estimated GFR (MDRD) (>60) mL/min BUN/Creatinine Ratio (14-18) Glucose (74-106) mg/dL POC Glucose (70-105) mg/dL Hemoglobin A1c 6.1 H ( - 5.6) % Calcium (8.5-10.1) mg/dL Magnesium (1.8-2.4) mg/dl Total Bilirubin (0.2-1.0) mg/dL Direct Bilirubin 0.10 (0.0-0.2) mg/dl Indirect Bilirubin 0.10 AST (15-37) U/L ALT (14-59) U/L Alkaline Phosphatase (46-116) U/L C-Reactive Protein (<1.0) mg/dL Total Protein (6.4-8.2) g/dl Albumin (3.4-5.0) g/dl Globulin gm/dL Albumin/Globulin Ratio (1-2) Vitamin D 25-Hydroxy 13.8 L (30.0-100.0) ng/ml 10/07/20 10/08/20 10/09/20 Range/Units 16:46 05:20 05:46 WBC (3.98-10.04) K/mm3 RBC (3.98-5.22) M/mm3 Hgb (11.2-15.7) gm/dl Hct (34.1-44.9) % MCV (79.4-94.8) fl MCH (25.6-32.2) pg MCHC (32.2-35.5) g/dl RDW Std Deviation (36.4-46.3) fL Plt Count (182-369) K/mm3 MPV (9.4-12.3) fl Neut % (Auto) (34.0-71.1) % Lymph % (Auto) (19.3-51.7) % [place] % (Auto) (4.7-12.5) % Eos % (Auto) (0.7-5.8) Baso % (Auto) (0.1-1.2) % Neut # (Auto) (1.56-6.13) K/mm3 Lymph # (Auto) (1.18-3.74) K/mm3 [place] # (Auto) (0.24-0.36) K/mm3 Eos # (Auto) (0.04-0.36) K/mm3 Baso # (Auto) (0.01-0.08) K/mm3 Manual Slide Review D-Dimer, Quantitative (0.19-0.50) mg/L Sodium (136-145) mEq/L Potassium (3.5-5.1) mEq/L Chloride (98-107) mEq/L Carbon Dioxide (21-32) mEq/L Anion Gap (5-15) BUN (7-18) mg/dL Creatinine (0.55-1.02) mg/dL Est Cr Clr Drug Dosing mL/min Estimated GFR (MDRD) (>60) mL/min BUN/Creatinine Ratio (14-18) Glucose (74-106) mg/dL POC Glucose (70-105) mg/dL Hemoglobin A1c ( - 5.6) % Calcium (8.5-10.1) mg/dL Magnesium (1.8-2.4) mg/dl Total Bilirubin (0.2-1.0) mg/dL Direct Bilirubin < 0.05 < 0.05 < 0.05 (0.0-0.2) mg/dl Indirect Bilirubin TNP TNP AST (15-37) U/L ALT (14-59) U/L Alkaline Phosphatase (46-116) U/L C-Reactive Protein (<1.0) mg/dL Total Protein (6.4-8.2) g/dl Albumin (3.4-5.0) g/dl Globulin gm/dL Albumin/Globulin Ratio (1-2) Vitamin D 25-Hydroxy (30.0-100.0) ng/ml 10/09/20 10/10/20 10/10/20 Range/Units 16:30 05:37 05:37 WBC 7.44 (3.98-10.04) K/mm3 RBC 4.63 (3.98-5.22) M/mm3 Hgb 12.5 (11.2-15.7) gm/dl Hct 40.1 (34.1-44.9) % MCV 86.6 (79.4-94.8) fl MCH 27.0 (25.6-32.2) pg MCHC 31.2 L (32.2-35.5) g/dl RDW Std Deviation 46.0 (36.4-46.3) fL Plt Count 429 H (182-369) K/mm3 MPV 9.5 (9.4-12.3) fl Neut % (Auto) 39.0 (34.0-71.1) % Lymph % (Auto) 51.7 (19.3-51.7) % [place] % (Auto) 8.2 (4.7-12.5) % Eos % (Auto) 0.7 (0.7-5.8) Baso % (Auto) 0.1 (0.1-1.2) % Neut # (Auto) 2.90 (1.56-6.13) K/mm3 Lymph # (Auto) 3.85 H (1.18-3.74) K/mm3 [place] # (Auto) 0.61 H (0.24-0.36) K/mm3 Eos # (Auto) 0.05 (0.04-0.36) K/mm3 Baso # (Auto) 0.01 (0.01-0.08) K/mm3 Manual Slide Review Abnormal smear D-Dimer, Quantitative (0.19-0.50) mg/L Sodium (136-145) mEq/L Potassium (3.5-5.1) mEq/L Chloride (98-107) mEq/L Carbon Dioxide (21-32) mEq/L Anion Gap (5-15) BUN (7-18) mg/dL Creatinine (0.55-1.02) mg/dL Est Cr Clr Drug Dosing mL/min Estimated GFR (MDRD) (>60) mL/min BUN/Creatinine Ratio (14-18) Glucose (74-106) mg/dL POC Glucose 147 H (70-105) mg/dL Hemoglobin A1c ( - 5.6) % Calcium (8.5-10.1) mg/dL Magnesium (1.8-2.4) mg/dl Total Bilirubin 0.1 L (0.2-1.0) mg/dL Direct Bilirubin < 0.05 (0.0-0.2) mg/dl Indirect Bilirubin TNP AST 14 L (15-37) U/L ALT 36 (14-59) U/L Alkaline Phosphatase 36 L (46-116) U/L C-Reactive Protein (<1.0) mg/dL Total Protein 7.6 (6.4-8.2) g/dl Albumin 2.9 L (3.4-5.0) g/dl Globulin 4.7 gm/dL Albumin/Globulin Ratio 0.6 L (1-2) Vitamin D 25-Hydroxy (30.0-100.0) ng/ml 10/10/20 10/10/20 10/10/20 Range/Units 05:37 05:37 07:24 WBC (3.98-10.04) K/mm3 RBC (3.98-5.22) M/mm3 Hgb (11.2-15.7) gm/dl Hct (34.1-44.9) % MCV (79.4-94.8) fl MCH (25.6-32.2) pg MCHC (32.2-35.5) g/dl RDW Std Deviation (36.4-46.3) fL Plt Count (182-369) K/mm3 MPV (9.4-12.3) fl Neut % (Auto) (34.0-71.1) % Lymph % (Auto) (19.3-51.7) % [place] % (Auto) (4.7-12.5) % Eos % (Auto) (0.7-5.8) Baso % (Auto) (0.1-1.2) % Neut # (Auto) (1.56-6.13) K/mm3 Lymph # (Auto) (1.18-3.74) K/mm3 [place] # (Auto) (0.24-0.36) K/mm3 Eos # (Auto) (0.04-0.36) K/mm3 Baso # (Auto) (0.01-0.08) K/mm3 Manual Slide Review D-Dimer, Quantitative 2.36 H (0.19-0.50) mg/L Sodium 143 (136-145) mEq/L Potassium 4.3 (3.5-5.1) mEq/L Chloride 106 (98-107) mEq/L Carbon Dioxide 28 (21-32) mEq/L Anion Gap 13.3 (5-15) BUN 13 (7-18) mg/dL Creatinine 1.0 (0.55-1.02) mg/dL Est Cr Clr Drug Dosing 69.10 mL/min Estimated GFR (MDRD) > 60 (>60) mL/min BUN/Creatinine Ratio 13.0 L (14-18) Glucose 84 (74-106) mg/dL POC Glucose 81 (70-105) mg/dL Hemoglobin A1c ( - 5.6) % Calcium 8.9 (8.5-10.1) mg/dL Magnesium 2.2 (1.8-2.4) mg/dl Total Bilirubin 0.2 (0.2-1.0) mg/dL Direct Bilirubin (0.0-0.2) mg/dl Indirect Bilirubin AST 16 (15-37) U/L ALT 32 (14-59) U/L Alkaline Phosphatase 40 L (46-116) U/L C-Reactive Protein < 0.2 (<1.0) mg/dL Total Protein 7.5 (6.4-8.2) g/dl Albumin 2.9 L (3.4-5.0) g/dl Globulin 4.6 gm/dL Albumin/Globulin Ratio 0.6 L (1-2) Vitamin D 25-Hydroxy (30.0-100.0) ng/ml 10/10/20 Range/Units 11:35 WBC (3.98-10.04) K/mm3 RBC (3.98-5.22) M/mm3 Hgb (11.2-15.7) gm/dl Hct (34.1-44.9) % MCV (79.4-94.8) fl MCH (25.6-32.2) pg MCHC (32.2-35.5) g/dl RDW Std Deviation (36.4-46.3) fL Plt Count (182-369) K/mm3 MPV (9.4-12.3) fl Neut % (Auto) (34.0-71.1) % Lymph % (Auto) (19.3-51.7) % [place] % (Auto) (4.7-12.5) % Eos % (Auto) (0.7-5.8) Baso % (Auto) (0.1-1.2) % Neut # (Auto) (1.56-6.13) K/mm3 Lymph # (Auto) (1.18-3.74) K/mm3 [place] # (Auto) (0.24-0.36) K/mm3 Eos # (Auto) (0.04-0.36) K/mm3 Baso # (Auto) (0.01-0.08) K/mm3 Manual Slide Review D-Dimer, Quantitative (0.19-0.50) mg/L Sodium (136-145) mEq/L Potassium (3.5-5.1) mEq/L Chloride (98-107) mEq/L Carbon Dioxide (21-32) mEq/L Anion Gap (5-15) BUN (7-18) mg/dL Creatinine (0.55-1.02) mg/dL Est Cr Clr Drug Dosing mL/min Estimated GFR (MDRD) (>60) mL/min BUN/Creatinine Ratio (14-18) Glucose (74-106) mg/dL POC Glucose 91 (70-105) mg/dL Hemoglobin A1c ( - 5.6) % Calcium (8.5-10.1) mg/dL Magnesium (1.8-2.4) mg/dl Total Bilirubin (0.2-1.0) mg/dL Direct Bilirubin (0.0-0.2) mg/dl Indirect Bilirubin AST (15-37) U/L ALT (14-59) U/L Alkaline Phosphatase (46-116) U/L C-Reactive Protein (<1.0) mg/dL Total Protein (6.4-8.2) g/dl Albumin (3.4-5.0) g/dl Globulin gm/dL Albumin/Globulin Ratio (1-2) Vitamin D 25-Hydroxy (30.0-100.0) ng/ml Result Diagrams: 10/10/20 05:37 10/10/20 05:37 Sepsis Event Note - Evaluation Sepsis Screening Result: No Definite Risk - Focused Exam Vital Signs: Vital Signs Temp Pulse Resp BP Pulse Ox Pulse Ox 10/10/20 11:38 96.8 F L 65 20 98/61 92 L 10/10/20 08:49 96 10/10/20 08:00 97.6 F 88 20 124/90 92 L 10/10/20 06:13 95 10/10/20 04:00 98 F 57 L 20 103/64 100 - Problem List & Annotations (1) Hypoxia SNOMED Code(s): 822306500 Code(s): R09.02 - HYPOXEMIA Status: Acute Current Visit: Yes (2) Pneumonia due to COVID-19 virus SNOMED Code(s): 625280131963553408 Code(s): U07.1 - COVID-19; J12.82 - PNEUMONIA DUE TO CORONAVIRUS DISEASE 2019 Status: Acute Current Visit: Yes - Problem List Review Problem List Initiated/Reviewed/Updated: Yes - Plan Plan:: This is a 35 yo female with past medical hx/o HTN, HLD, Re current UTI, Migraines TAO, DM2, and Obesity who presented to ED with complaints of worsening covid-19 infection. Assessment: Acute: Covid-19 Pneumonia, improving Hypoxia: Down to 0.5-1 L/m in the low to mid 90s saturation Afebrile overnight CRP <0.2 Tachypnea improving with RR 20 Chest x-ray shows bilateral patchy pulmonary infiltrate, poor inspiratory effort making analysis difficult Plan: Inflammatory markers. Dexamethasone 6 mg po daily for 10 days and Veklury for 5 days. Actemra Therapy 10/07/2020. IV antibiotics. Oral zinc supplement. IS/FV as directed. H2B for GI prophylaxis. DVT prophylaxis: Lovenox 40 mg sub BID. RT to assess and treat. Hyperglycemia without DM2 -Hemoglobin A1c of 6.1. Not treated prior to admission. -BS stable -Expect to get worse with steroid (for covid-19 treatment) -She is diet controlled -Plan: Accu-check TID with ISS Generalized Weakness Fatigue/Myalgias Elevated Liver Enzymes Class II Obese -Vit D and Thyroid Panel -BMI of 54 -Dietary Consult for weight management Minimally elevated D-dimer 1.01; 2.6 today Pleuritic Pain -Likely due to ongoing pulmonary infection -Sputum culture with gram stain, PRN decongestant/expectorant, IS and FV as directed Chronic: HTN, HLD, Recurrent UTI, Migraines TAO, DM2, and Obesity Plan: Continue current treatment. Routine Covid labs in the morning. Aggressive proning. Code status is full. Prognosis is guarded-good. Anticipate discharge tomorrow if we are able to wean off oxygen
[2020-10-10] MEDS: REMDESIVIR 100 MG in Sodium Chloride 0.9% 100 ML IV SCH (17:29)
[2020-10-10 20:45] VITALS: PULSE 92
[2020-10-10] MEDS: cefTRIAXone 1 GM in Sodium Chloride 0.9% 100 ML IV SCH (22:35)
[2020-10-11] MEDS: Famotidine 20 MG Tab PO SCH (08:22)
[2020-10-11] MEDS: Zinc Sulfate 220 MG Cap PO SCH (08:22)
[2020-10-11] MEDS: Enoxaparin 40 MG/0.4 ML Syringe SUBCUT SCH (08:22)
[2020-10-11] MEDS: Dexamethasone 4 MG Tab PO SCH (08:23)
[2020-10-11] MEDS: Furosemide 20 MG/2 ML VIAL IVPUSH SCH (08:25)
[2020-10-11 08:58] VITALS: BP 91/55
--- NOTE | 2020-10-11 10:37 | PCM.DCSUM1 ---
Discharge Summary - Hospital Course HPI Initial Comments: This is a 35 yo female with past medical hx/o HTN, HLD, Recurrent UTI, Migraines TAO, DM2, and Obesity who presented to ED with complaints of worsening covid-19 infection. She states her symptoms started about 1 week ago and have progressively gotten worse the in past few days. She reports having difficulty catching her air associated with pleuritic pain, fever, chills, wet cough, headache, diarrhea, and generalized aches and pains. Her appetite has not been great. She tested positive with covid 2 days ago and was only on dexamethasone for treatment. She never received antibiotic. No Regeneron or InfiKno Caitie's monoclonal drug therapy. She carries no hx/o pulmonary insufficiency. She endorses no cardiovascular disease. Her initial work up in ED shows a CBC remarkable for MCHC of 31.5, monocyte # of 0.49 and Eosinophil # of 0. Her coagulation study is notable for D-dimer of 1.01. Her chemistry is significant for AG of 16.9, Cr of 1.1, AST of 40, ALT of 69, LDH of 317, CRP of 1.9, Total Protein of 8.9, and Albumin of 3.3. Her chest x-ray shows bilateral patchy pulmonary infiltrate suggestive of covid-19 pneumonia. This is a 35 yo female with past medical hx/o HTN, HLD, Recurrent UTI, Migraines TAO, DM2, and Obesity who presented to ED with complaints of worsening covid-19 infection. Assessment: Acute: Covid-19 Pneumonia Hypoxia with O2 sat in the low 80s on RA Fever with a temp of 38.6 C Elevated LDH of 317 Elevated CRP of 1.9 Sinus Tachycardia with HR in the 120s Tachypnea with RR in the 30s -Symptoms started about a week ago -Covid positive 2 days ago -Only on oral steroid -No Monoclonal antibody therapy -Chest x-ray shows bilateral patchy pulmonary infiltrate -Plan: Inflammatory markers. Dexamethasone 6 mg po daily for 10 days and Veklury for 5 days. Consider Actemra Therapy. IV antibiotics. Vit D level and Thyroid Panel. Oral zinc supplement. IS/FV as directed. H2B for GI prophylaxis. DVT prophylaxis: Lovenox 40 mg sub BID. RT to assess and treat. Mild Renal Insufficiency -Cr of 1.1, BUN wnl -Decreased appetite -IV fluids for mild hydration -Monitor renal panel Hyperglycemia with DM2 -BS of 98 -Expect to get worse with steroid (for covid-19 treatment) -She is diet controlled -Plan: A1C level. Accu-check TID with ISS Generalized Weakness Fatigue/Myalgias Elevated Liver Enzymes Class II Obese -Vit D and Thyroid Panel -BMI of 54 -Dietary Consult for weight management Elevated D-dimer 1.01 Pleuritic Pain -Likely due to ongoing pulmonary infection -Sputum culture with gram stain, PRN decongestant/expectorant, IS and FV as directed Chronic: HTN, HLD, Recurrent UTI, Migraines TAO, DM2, and Obesity Plan: Admit to [facility]. Routine AM labs. Inflammatory markers. ADA diet. Resume home meds once verified. Additional orders as above. PT/OT for generalized weakness. Code status is full. Prognosis is guarded-good. Diagnosis: Stroke: No - Discharge Data Discharge Date: 10/11/20 Discharge Disposition: Home, Self-Care 01 Condition: Good - Referral to Home Health Primary Care Physician: Uziel Saede MD - Discharge Diagnosis/Problem(s) (1) Hypoxia SNOMED Code(s): 315476105 ICD Code: R09.02 - HYPOXEMIA Status: Acute (2) Pneumonia due to COVID-19 virus SNOMED Code(s): 701495919895131404 ICD Code: U07.1 - COVID-19; J12.82 - PNEUMONIA DUE TO CORONAVIRUS DISEASE 2019 Status: Acute - Patient Summary/Data Consults: Consultations 10/06/20 21:50 Consult to Case Management/3D Modeler [CONS] Routine Consult to Lokie Engineer [CONS] Routine Consult to Spiritual Care [CONS] Routine OT Evaluation and Treatment [CONS] Routine PT Evaluation and Treatment [CONS] Routine Respiratory Care Assess and Treatment [CONS] Routine Hospital Course: Patient was admitted and treated with COVID-19 therapy of remdesivir, Actemra, dexamethasone, oral zinc, Pepcid, Lovenox, Rocephin, and azithromycin. Patient finished all treatments except dexamethasone which she had 5 days of. Patient did well overall after peaking her oxygen requirement at 6 L nasal cannula. We were able to titrate her O2 over the next several days and discharged home today on room air. Patient will be in quarantine until October 19 per the health department. She will also be treated with Xarelto 10 mg daily for DVT prophylaxis secondary to her elevated D-dimer, obesity, elevated platelet count, and post Covid. She will be very high risk for VTE. Total of 30 days given. She will not need further treatment with dexamethasone and the risk benefit ratio skewed towards more risk than benefit now. - Patient Instructions Diet: Usual Diet as Tolerated Activity: As Tolerated Driving: Do Not Drive Showering/Bathing: May Shower Other/Special Instructions: You will need to be on isolation for another 8 days until October 19, 2020. Follow-up with your primary care provider after that. - Discharge Plan *PRESCRIPTION DRUG MONITORING PROGRAM REVIEWED*: No *COPY OF PRESCRIPTION DRUG MONITORING REPORT IN PATIENT ANN: No Prescriptions/Med Rec: Famotidine [Pepcid] 20 mg PO BID #60 tablet Rivaroxaban [Xarelto] 10 mg PO DAILY #30 tab Home Medications: Home Meds Famotidine [Pepcid] 20 mg PO BID #60 tablet 10/11/20 [Rx] Rivaroxaban [Xarelto] 10 mg PO DAILY #30 tab 10/11/20 [Rx] Patient Handouts: COVID-19 Frequently Asked Questions, Diabetes Mellitus and Sick Day Management, 10 Things You Can Do to Manage Your COVID-19 Symptoms at Home - CDC, Sepsis, Diagnosis, Adult, COVID-19: How to Protect Yourself and Others - CDC Forms: ED Department Discharge Referrals: Uziel Saeed MD [Primary Care Provider] - - Discharge Summary/Plan Comment DC Time >30 min.: Yes - General Info Date of Service: 10/11/20 Admission Dx/Problem (Free Text: Admission Diagnosis/Problem Admission Diagnosis/Problem Hypoxia Subjective Update: Patient is doing well. She is on room air. Appetite is good. Continues with incentive spirometry. Functional Status: Reports: Pain Controlled - Review of Systems General: Reports: No Symptoms HEENT: Reports: No Symptoms Pulmonary: Reports: No Symptoms Cardiovascular: Reports: No Symptoms Gastrointestinal: Reports: No Symptoms Musculoskeletal: Reports: No Symptoms - Patient Data Vitals - Most Recent: Last Vital Signs Temp 96.8 F L 10/11/20 08:00 Pulse 92 10/10/20 20:44 Resp 18 10/11/20 08:00 BP 91/55 L 10/11/20 08:00 Pulse Ox 97 10/11/20 09:23 Weight - Most Recent: 307 lb 11.2 oz I&O - Last 24 hours: Intake & Output 10/10/20 10/11/20 10/11/20 22:59 06:59 14:59 Intake Total 1020 500 Output Total 300 Balance 1020 200 Lab Results - Last 24 hrs: Laboratory Results - last 24 hr 10/10/20 10/10/20 10/11/20 Range/Units 11:35 16:16 05:12 WBC 8.88 (3.98-10.04) K/mm3 RBC 4.81 (3.98-5.22) M/mm3 Hgb 13.0 (11.2-15.7) gm/dl Hct 41.6 (34.1-44.9) % MCV 86.5 (79.4-94.8) fl MCH 27.0 (25.6-32.2) pg MCHC 31.3 L (32.2-35.5) g/dl RDW Std Deviation 45.8 (36.4-46.3) fL Plt Count 439 H (182-369) K/mm3 MPV 9.4 (9.4-12.3) fl Neut % (Auto) 57.6 (34.0-71.1) % Lymph % (Auto) 31.1 (19.3-51.7) % [place] % (Auto) 10.5 (4.7-12.5) % Eos % (Auto) 0.3 L (0.7-5.8) Baso % (Auto) 0.2 (0.1-1.2) % Neut # (Auto) 5.11 (1.56-6.13) K/mm3 Lymph # (Auto) 2.76 (1.18-3.74) K/mm3 [place] # (Auto) 0.93 H (0.24-0.36) K/mm3 Eos # (Auto) 0.03 L (0.04-0.36) K/mm3 Baso # (Auto) 0.02 (0.01-0.08) K/mm3 Manual Slide Review Abnormal smear Sodium (136-145) mEq/L Potassium (3.5-5.1) mEq/L Chloride (98-107) mEq/L Carbon Dioxide (21-32) mEq/L Anion Gap (5-15) BUN (7-18) mg/dL Creatinine (0.55-1.02) mg/dL Est Cr Clr Drug Dosing mL/min Estimated GFR (MDRD) (>60) mL/min BUN/Creatinine Ratio (14-18) Glucose (74-106) mg/dL POC Glucose 91 122 H (70-105) mg/dL Calcium (8.5-10.1) mg/dL Magnesium (1.8-2.4) mg/dl Total Bilirubin (0.2-1.0) mg/dL AST (15-37) U/L ALT (14-59) U/L Alkaline Phosphatase (46-116) U/L C-Reactive Protein (<1.0) mg/dL Total Protein (6.4-8.2) g/dl Albumin (3.4-5.0) g/dl Globulin gm/dL Albumin/Globulin Ratio (1-2) 10/11/20 10/11/20 Range/Units 05:12 06:19 WBC (3.98-10.04) K/mm3 RBC (3.98-5.22) M/mm3 Hgb (11.2-15.7) gm/dl Hct (34.1-44.9) % MCV (79.4-94.8) fl MCH (25.6-32.2) pg MCHC (32.2-35.5) g/dl RDW Std Deviation (36.4-46.3) fL Plt Count (182-369) K/mm3 MPV (9.4-12.3) fl Neut % (Auto) (34.0-71.1) % Lymph % (Auto) (19.3-51.7) % [place] % (Auto) (4.7-12.5) % Eos % (Auto) (0.7-5.8) Baso % (Auto) (0.1-1.2) % Neut # (Auto) (1.56-6.13) K/mm3 Lymph # (Auto) (1.18-3.74) K/mm3 [place] # (Auto) (0.24-0.36) K/mm3 Eos # (Auto) (0.04-0.36) K/mm3 Baso # (Auto) (0.01-0.08) K/mm3 Manual Slide Review Sodium 140 (136-145) mEq/L Potassium 4.6 (3.5-5.1) mEq/L Chloride 104 (98-107) mEq/L Carbon Dioxide 26 (21-32) mEq/L Anion Gap 14.6 (5-15) BUN 16 (7-18) mg/dL Creatinine 0.9 (0.55-1.02) mg/dL Est Cr Clr Drug Dosing 76.77 mL/min Estimated GFR (MDRD) > 60 (>60) mL/min BUN/Creatinine Ratio 17.8 (14-18) Glucose 99 (74-106) mg/dL POC Glucose 99 (70-105) mg/dL Calcium 9.4 (8.5-10.1) mg/dL Magnesium 2.1 (1.8-2.4) mg/dl Total Bilirubin 0.1 L (0.2-1.0) mg/dL AST 24 (15-37) U/L ALT 47 (14-59) U/L Alkaline Phosphatase 40 L (46-116) U/L C-Reactive Protein <0.2 (<1.0) mg/dL Total Protein 8.0 (6.4-8.2) g/dl Albumin 3.0 L (3.4-5.0) g/dl Globulin 5.0 gm/dL Albumin/Globulin Ratio 0.6 L (1-2) Med Orders - Current: Current Medications Acetaminophen (Tylenol) 650 mg RECTAL Q4H PRN PRN Reason: Pain (mild 1-3) Acetaminophen/Butalbital/Caffeine (Fioricet 325-50-40 Mg) 2 tab PO Q6H PRN PRN Reason: Headache/Pain Hydrocodone Bitart/Acetaminophen ([place] 325-5 Mg) 2 tab PO Q4H PRN PRN Reason: Pain (moderate 4-6) Last Admin: 10/07/20 19:45 Dose: 2 tab Documented by: Albuterol/Ipratropium (Duoneb 3.0-0.5 Mg/3 Ml) 3 ml NEB Q4H PRN PRN Reason: Shortness Of Breath/wheezing Bisacodyl (Dulcolax) 5 mg PO DAILY PRN PRN Reason: Constipation Dexamethasone (Dexamethasone 4 Mg Tab) 6 mg PO DAILY SAMANTA Stop: 10/16/20 09:01 Last Admin: 10/11/20 08:23 Dose: 6 mg Documented by: Enoxaparin Sodium (Enoxaparin 40 Mg/0.4 Ml Syringe) 40 mg SUBCUT BID [facility], [facility] Last Admin: 10/11/20 08:22 Dose: 40 mg Documented by: Famotidine (Famotidine 20 Mg Tab) 20 mg PO BID [facility], [facility] Last Admin: 10/11/20 08:22 Dose: 20 mg Documented by: Furosemide (Furosemide 20 Mg/2 Ml Vial) 20 mg IVPUSH DAILY [facility], [facility]1983 Stop: 10/11/20 09:01 Last Admin: 10/11/20 08:25 Dose: 20 mg Documented by: Guaifenesin/Phenylephrine HCl (Robitussin Dm) 10 ml PO Q4H PRN PRN Reason: Cough Last Admin: 10/10/20 22:36 Dose: 10 ml Documented by: Hydromorphone HCl (Dilaudid) 0.5 mg IVPUSH Q2H PRN PRN Reason: Pain (severe 7-10) Last Admin: 10/07/20 00:05 Dose: 0.5 mg Documented by: Sodium Chloride (Normal Saline) 1,000 mls @ 999 mls/hr IV ONETIME [facility], [facility] Last Infusion: 10/06/20 20:06 Dose: 75 mls/hr Documented by: Promethazine HCl 12.5 mg/ (Sodium Chloride) 50.5 mls @ 100 mls/hr IV Q6H PRN PRN Reason: Nausea/Vomiting Ceftriaxone Sodium 1 gm/ (Sodium Chloride) 100 mls @ 200 mls/hr IV Q24H [facility] Stop: 10/10/20 22:59 Last Admin: 10/10/20 22:35 Dose: 200 mls/hr Documented by: Remdesivir 100 mg/ Sodium (Chloride) 100 mls @ 100 mls/hr IV Q24H [facility] Stop: 10/10/20 17:59 Last Admin: 10/10/20 17:29 Dose: 100 mls/hr Documented by: Insulin Human Lispro (Humalog) 0 unit SUBCUT TIDAC [facility], [facility]; Protocol Last Admin: 10/11/20 06:35 Dose: Not Given Documented by: Loperamide HCl (Imodium) 4 mg PO Q6H PRN PRN Reason: Diarrhea Last Admin: 10/08/20 21:50 Dose: 4 mg Documented by: Ondansetron HCl (Zofran) 4 mg IV Q6H PRN PRN Reason: Nausea/Vomiting Polyethylene Glycol (Miralax) 17 gm PO DAILY PRN PRN Reason: Constipation Senna/Docusate Sodium (Senna Plus) 1 tab PO BID PRN PRN Reason: Constipation Sodium Chloride (Saline Flush) 10 ml FLUSH ASDIRECTED PRN PRN Reason: Keep Vein Open Last Admin: 10/06/20 16:42 Dose: 10 ml Documented by: Zinc Sulfate (Zinc Sulfate 220 Mg Cap) 220 mg PO DAILY [facility] Last Admin: 10/11/20 08:22 Dose: 220 mg Documented by: Zolpidem Tartrate (Ambien) 5 mg PO BEDTIME PRN PRN Reason: Sleep Discontinued Medications Dexamethasone (Dexamethasone) 6 mg IV ONETIME ONE Stop: 10/06/20 16:57 Last Admin: 10/06/20 19:02 Dose: 6 mg Documented by: Enoxaparin Sodium (Lovenox) 40 mg SUBCUT ONETIME ONE Stop: 10/06/20 22:16 Last Admin: 10/06/20 23:04 Dose: 40 mg Documented by: Furosemide (Lasix) 20 mg IVPUSH NOW ONE Stop: 10/08/20 19:48 Last Admin: 10/08/20 20:38 Dose: 20 mg Documented by: Remdesivir 200 mg/ Sodium (Chloride) 250 mls @ 250 mls/hr IV ONETIME ONE Stop: 10/06/20 16:56 Last Admin: 10/06/20 17:39 Dose: 250 mls/hr Documented by: Remdesivir 100 mg/ Sodium (Chloride) 100 mls @ 100 mls/hr IV Q24H SAMANTA Stop: 10/10/20 11:59 Azithromycin 500 mg/ Sodium (Chloride) 250 mls @ 250 mls/hr IV Q24H [facility] Last Admin: 10/09/20 23:33 Dose: 250 mls/hr Documented by: Sodium Chloride (Normal Saline) Confirm Administered Dose 100 mls @ as directed .ROUTE .STK-MED ONE Stop: 10/07/20 07:57 Last Admin: 10/07/20 08:15 Dose: Not Given Documented by: Tocilizumab 800 mg/ Sodium (Chloride) 100 mls @ 100 mls/hr IV ONETIME ONE Stop: 10/07/20 12:29 Last Admin: 10/07/20 12:35 Dose: 100 mls/hr Documented by: Ibuprofen (Motrin) 600 mg PO Q6H PRN PRN Reason: Pain (moderate 4-6) - Exam Quality Assessment: Reports: Supplemental Oxygen General: Reports: Alert, Oriented HEENT: Reports: Pupils Equal, EOMI, Mucous Membr. Moist/[place] Neck: Reports: Supple Lungs: Reports: Clear to Auscultation, Normal Respiratory Effort Cardiovascular: Reports: Regular Rate, Regular Rhythm GI/Abdominal Exam: Normal Bowel Sounds, Soft, Non-Tender, No Organomegaly, No Distention, No Abnormal Bruit Extremities: Non-Tender, No Pedal Edema, Normal Capillary Refill Neurological: Reports: No New Focal Deficit Psy/Mental Status: Reports: Alert, Normal Affect, Normal Mood
== END 2020-10-11 11:47 | disposition home or self-care (01) | DRG 177 ==
LOC: JD.ED 13:52 → JD.ICU 21:09 → JD.MS 22:19 → JD.ICU 22:20
PROVIDERS: ADMIT Internal Medicine; ATTEND Internal Medicine
DX: U07.1 COVID-19 (principal); J12.82 Pneumonia due to coronavirus disease 2019; R09.02 Hypoxemia; Z68.43 Body mass index [BMI] 50.0-59.9, adult; E11.65 Type 2 diabetes mellitus with hyperglycemia; R53.1 Weakness; E78.00 Pure hypercholesterolemia, unspecified; Z88.8 Allergy status to other drugs, medicaments and biological substances; I10 Essential (primary) hypertension; E66.9 Obesity, unspecified; E78.5 Hyperlipidemia, unspecified; G43.909 Migraine, unspecified, not intractable, without status migrainosus; M79.10 Myalgia, unspecified site; N28.9 Disorder of kidney and ureter, unspecified; R74.8 Abnormal levels of other serum enzymes; Z88.6 Allergy status to analgesic agent; Z90.49 Acquired absence of other specified parts of digestive tract; Z87.440 Personal history of urinary (tract) infections
CPT/HCPCS: 36415; 71045; 80053; 80076; 82728; 83615; 85025; 85379; 86140; 93005; J1100; J7030; J7050; 51702; 82248; 82306; 82962; 83036; 83605; 83735; 84439; 84443; 87205; 93010; 94667; 94668; 96374; 97162-GP; 99222; 99232; 99233; 99239; 99284; 99285-25; A9270-GY; J0456; J0696; J1170; J1650; J1815-GY; J1940; J3262; J8540

== ENCOUNTER 2020-10-13 18:39 | Emergency (ER) | payer MEDICAID ==
[2020-10-13 19:09] VITALS: BP 123/63; PULSE 72
--- NOTE | 2020-10-13 19:34 | EDM.PDOC ---
ED HPI GENERAL MEDICAL PROBLEM - General Chief Complaint: Respiratory Problem Stated Complaint: SOB/CHEST TIGHTNESS Time Seen by Provider: 10/13/20 18:59 Source of Information: Reports: Patient History Limitations: Reports: No Limitations - History of Present Illness INITIAL COMMENTS - FREE TEXT/NARRATIVE: This is a 35-year-old female. She comes tonight because she is complaining of chest tightness over the last couple of days it seems to be constant. She describes it as sharp, tightness and pulling in her anterior chest and she points basically to the center of her chest. It does not seem to go down her left arm or into her jaw. She also complains of constant tightness in her back around the lower scapular area on both sides. She has not been coughing particularly. She was in the hospital for 5 days due to Covid and was found to have bilateral pneumonia. She was told that she had pulmonary emboli but no angios CT scan can be found in the record. She is on Xarelto 10 mg a day. When she comes in she says that her pulse ox has been running in the mid 90s at home and when she was here on room air it was 99 to 100%. She does not appear to be in acute distress and she is talking normally and acting normally. Indicates she has no swelling of her legs no redness of her legs. back Pain Score (Numeric/FACES): 6 chest Pain Score (Numeric/FACES): 6 - Related Data Allergies Allergy/AdvReac Type Severity Reaction Status Date / Time aspirin Allergy Severe Anaphylactic Verified 10/13/20 19:09 Shock Home Meds: Home Meds Famotidine [Pepcid] 20 mg PO BID #60 tablet 10/11/20 [Rx] Rivaroxaban [Xarelto] 10 mg PO DAILY #30 tab 10/11/20 [Rx] Past Medical History - Past Health History Medical/Surgical History: Denies Medical/Surgical History HEENT History: Reports: None Cardiovascular History: Reports: High Cholesterol, Hypertension Respiratory History: Reports: None Genitourinary History: Reports: Renal Calculus, UTI, Recurrent HOME HEALTH CLINICAL LIAISON History: Reports: Other HOME HEALTH CLINICAL LIAISON History: CS X 1 Musculoskeletal History: Reports: Fracture Neurological History: Reports: Migraines Psychiatric History: Reports: None Endocrine/Metabolic History: Reports: Diabetes, Type II, Obesity/BMI 30+ Other Endocrine/Metabolic History: not on meds, diet controlled. Hematologic History: Reports: None Immunologic History: Reports: None Oncologic (Cancer) History: Reports: None Dermatologic History: Reports: None - Infectious Disease History Infectious Disease History: Reports: Chicken Pox, Novel Coronavirus - Past Surgical History HEENT Surgical History: Reports: Oral Surgery Other HEENT Surgeries/Procedures: wisdom teeth extraction GI Surgical History: Reports: Cholecystectomy Female Surgical History: Reports: Section Musculoskeletal Surgical History: Reports: Other (See Below) Other Musculoskeletal Surgeries/Procedures:: right collarbone fracture Social & Family History - Family History Family Medical History: No Pertinent Family History - Caffeine Use Caffeine Use: Reports: None - Living Situation & Occupation Living situation: Reports: Occupation: Employed ED ROS GENERAL - Review of Systems Review Of Systems: See Below Constitutional: Denies: Fever, Chills HEENT: Reports: No Symptoms Respiratory: Reports: Shortness of Breath, Cough. Denies: Wheezing Cardiovascular: Reports: Chest Pain. Denies: Edema Endocrine: Reports: Fatigue GI/Abdominal: Denies: Abdominal Pain, Diarrhea, Nausea, Vomiting : Reports: No Symptoms Musculoskeletal: Reports: Back Pain Skin: Reports: No Symptoms Neurological: Reports: No Symptoms Psychiatric: Reports: No Symptoms Hematologic/Lymphatic: Reports: No Symptoms Immunologic: Reports: No Symptoms ED EXAM, GENERAL - Physical Exam Exam: See Below Exam Limited By: No Limitations General Appearance: Alert, WD/WN, No Apparent Distress, Other (The patient does not appear to be in any distress and breathing normally, she is morbidly obese.) Eye Exam: Bilateral Eye: Normal Inspection Ears: Normal External Exam, Normal Canal Nose: Normal Inspection Throat/Mouth: Normal Lips, Normal Voice, No Airway Compromise Head: Normocephalic Neck: Supple Respiratory/Chest: No Respiratory Distress, Lungs Clear, Normal Breath Sounds, Other (Posterior on the left side she does have occasional crackle but there is no rales no rhonchi on the right side posteriorly she has clear breath sounds.) Cardiovascular: Regular Rate, Rhythm, No Murmur. No: No Edema GI/Abdominal: Soft, Non-Tender Back Exam: Full Range of Motion. No: CVA Tenderness (L), CVA Tenderness (R) Extremities: Other (Planes of some soreness over her left crow but there is no swelling there is no redness there is no pathology that can be found. She denies redness of her legs or swelling of her legs bilaterally.). No: Pedal Edema Neurological: Alert, Oriented Psychiatric: Normal Affect, Normal Mood Skin Exam: Warm, Dry #1 Interpretation EKG Date: 10/13/20 Time: 20:15 EKG Interpretation Comments: EKG shows a normal sinus rhythm rate of 76. There are no acute ST or T wave changes and no ischemia noted. This is a normal EKG. Course - Vital Signs Last Recorded V/S: Last Vital Signs Temp 97.0 F 10/13/20 18:58 Pulse 72 10/13/20 18:58 Resp 20 10/13/20 18:58 BP 123/63 10/13/20 18:58 Pulse Ox 96 10/13/20 18:58 - Orders/Labs/Meds Orders: Active Orders 24 hr Category Date Time Status EKG 12 Lead [EKG Documentation Completion] [RC] STAT Care 10/13/20 19:28 Active Chest 2V [CR] Stat Exams 10/13/20 19:28 Taken Labs: Laboratory Tests 10/13/20 10/13/20 10/13/20 Range/Units 19:40 19:40 19:40 WBC 7.86 (3.98-10.04) K/mm3 RBC 4.74 (3.98-5.22) M/mm3 Hgb 12.9 (11.2-15.7) gm/dl Hct 41.1 (34.1-44.9) % MCV 86.7 (79.4-94.8) fl MCH 27.2 (25.6-32.2) pg MCHC 31.4 L (32.2-35.5) g/dl RDW Std Deviation 45.8 (36.4-46.3) fL Plt Count 474 H (182-369) K/mm3 MPV 9.3 L (9.4-12.3) fl Neut % (Auto) 28.7 L (34.0-71.1) % Lymph % (Auto) 58.8 H (19.3-51.7) % Pitt % (Auto) 9.2 (4.7-12.5) % Eos % (Auto) 2.3 (0.7-5.8) Baso % (Auto) 0.4 (0.1-1.2) % Neut # (Auto) 2.26 (1.56-6.13) K/mm3 Lymph # (Auto) 4.62 H (1.18-3.74) K/mm3 Pitt # (Auto) 0.72 H (0.24-0.36) K/mm3 Eos # (Auto) 0.18 (0.04-0.36) K/mm3 Baso # (Auto) 0.03 (0.01-0.08) K/mm3 Manual Slide Review Abnormal smear D-Dimer, Quantitative 0.82 H (0.19-0.50) mg/L Sodium 140 (136-145) mEq/L Potassium 4.1 (3.5-5.1) mEq/L Chloride 105 (98-107) mEq/L Carbon Dioxide 25 (21-32) mEq/L Anion Gap 14.1 (5-15) BUN 18 (7-18) mg/dL Creatinine 1.0 (0.55-1.02) mg/dL Est Cr Clr Drug Dosing 69.10 mL/min Estimated GFR (MDRD) > 60 (>60) mL/min BUN/Creatinine Ratio 18.0 (14-18) Glucose 149 H (74-106) mg/dL Calcium 9.1 (8.5-10.1) mg/dL Ferritin (8-252) ng/ml Total Bilirubin 0.1 L (0.2-1.0) mg/dL AST 24 (15-37) U/L ALT 83 H (14-59) U/L Alkaline Phosphatase 43 L (46-116) U/L Lactate Dehydrogenase 236 H (81-234) U/L Troponin I < 0.017 (0.00-0.056) ng/mL C-Reactive Protein <0.2 (<1.0) mg/dL Total Protein 7.3 (6.4-8.2) g/dl Albumin 3.0 L (3.4-5.0) g/dl Globulin 4.3 gm/dL Albumin/Globulin Ratio 0.7 L (1-2) 10/13/20 Range/Units 19:40 WBC (3.98-10.04) K/mm3 RBC (3.98-5.22) M/mm3 Hgb (11.2-15.7) gm/dl Hct (34.1-44.9) % MCV (79.4-94.8) fl MCH (25.6-32.2) pg MCHC (32.2-35.5) g/dl RDW Std Deviation (36.4-46.3) fL Plt Count (182-369) K/mm3 MPV (9.4-12.3) fl Neut % (Auto) (34.0-71.1) % Lymph % (Auto) (19.3-51.7) % Pitt % (Auto) (4.7-12.5) % Eos % (Auto) (0.7-5.8) Baso % (Auto) (0.1-1.2) % Neut # (Auto) (1.56-6.13) K/mm3 Lymph # (Auto) (1.18-3.74) K/mm3 Pitt # (Auto) (0.24-0.36) K/mm3 Eos # (Auto) (0.04-0.36) K/mm3 Baso # (Auto) (0.01-0.08) K/mm3 Manual Slide Review D-Dimer, Quantitative (0.19-0.50) mg/L Sodium (136-145) mEq/L Potassium (3.5-5.1) mEq/L Chloride (98-107) mEq/L Carbon Dioxide (21-32) mEq/L Anion Gap (5-15) BUN (7-18) mg/dL Creatinine (0.55-1.02) mg/dL Est Cr Clr Drug Dosing mL/min Estimated GFR (MDRD) (>60) mL/min BUN/Creatinine Ratio (14-18) Glucose (74-106) mg/dL Calcium (8.5-10.1) mg/dL Ferritin 76 (8-252) ng/ml Total Bilirubin (0.2-1.0) mg/dL AST (15-37) U/L ALT (14-59) U/L Alkaline Phosphatase (46-116) U/L Lactate Dehydrogenase (81-234) U/L Troponin I (0.00-0.056) ng/mL C-Reactive Protein (<1.0) mg/dL Total Protein (6.4-8.2) g/dl Albumin (3.4-5.0) g/dl Globulin gm/dL Albumin/Globulin Ratio (1-2) - Radiology Interpretation Free Text/Narrative:: Chest x-ray shows improvement of her infiltrates from the fifth and the seventh. I do not see any particular residual just some faint infiltrates where she had the original COVID-19 Pneumonia. - Re-Assessments/Exams Free Text/Narrative Re-Assessment/Exam: 10/13/20 20:38 Looking at the patient's labs her ferritin has come down to normal her C- reactive protein is normal her troponin is normal. Her D-dimer is 0.82 tonight and on the ninth it was 2.36 so is coming down as well. She obviously and with her lab seems to be improving versus her symptomology. 10/13/20 20:53 To the patient regarding her chest x-ray results that she has marked improvement from the x-ray on the seventh. We talked about her chronic constant coughing is what I think is causing her chest tightness and her back soreness. I suggest that she get a cough syrup [id number] to help calm the cough down and also take some Aleve or ibuprofen to help with the soreness in her back and her chest. Go over all her labs and how they are returning to normal including her D-dimer. I believe that she is recovering very well but she has this constant cough that is persisting. Departure - Departure Time of Disposition: 20:54 Disposition: Home, Self-Care 01 Condition: Good Clinical Impression: Pneumonia due to COVID-19 virus, Coughing, Musculoskeletal chest pain, Musculoskeletal back pain Chest pain Qualifiers: Chest pain type: other chest pain Qualified Code(s): R07.89 - Other chest pain; R07.8 - Other chest pain - Discharge Information *PRESCRIPTION DRUG MONITORING PROGRAM REVIEWED*: Not Applicable *COPY OF PRESCRIPTION DRUG MONITORING REPORT IN PATIENT ANN: Not Applicable Instructions: Cough, Adult, [id number] Referrals: Uziel Saeed MD [Primary Care Provider] - Forms: ED Department Discharge Additional Instructions: I believe it is your cough that is continuing to cause your chest tightness and discomfort in your back discomfort, I would recommend getting an [id number] cough syrup like Robitussin or Naldecon to help calm that cough down especially at nighttime, also consider getting some Aleve or ibuprofen to help with the soreness. Like we spoke about this evening your chest x-ray and all your blood parameters are improving very nicely but you might have a residual cough for several weeks. Continue with your Xarelto until you follow- up with your family doctor. Return to the ER if needed Sepsis Event Note (ED) - Evaluation Sepsis Screening Result: No Definite Risk - Focused Exam Vital Signs: Vital Signs Temp Pulse Resp BP Pulse Ox 10/13/20 18:58 97.0 F 72 20 123/63 96 - My Orders Last 24 Hours: My Active Orders 10/13/20 19:28 EKG 12 Lead [EKG Documentation Completion] [RC] STAT Chest 2V [CR] Stat - Assessment/Plan Last 24 Hours: My Active Orders 10/13/20 19:28 EKG 12 Lead [EKG Documentation Completion] [RC] STAT Chest 2V [CR] Stat
--- NOTE | 2020-10-14 08:37 | CR ---
Chest: 2 views of the chest were obtained. Comparison: Prior chest x-ray of 10/08/20. Heart size and mediastinum are normal. Lungs are clear with no acute parenchymal change. Small azygos lobe is noted within the right upper chest. Old healed fracture deformity is seen. No acute osseous abnormality is appreciated. Impression: 1. Findings as noted above. 2. Nothing acute is seen on 2 view chest x-ray. Diagnostic code #2
== END 2020-10-13 21:17 | disposition home or self-care (01) ==
LOC: JD.ED 18:39
DX: U07.1 COVID-19 (principal); J12.82 Pneumonia due to coronavirus disease 2019; R07.89 Other chest pain; M54.9 Dorsalgia, unspecified; I10 Essential (primary) hypertension; E11.9 Type 2 diabetes mellitus without complications; E66.9 Obesity, unspecified; Z68.43 Body mass index [BMI] 50.0-59.9, adult
CPT/HCPCS: 36415; 71046; 71046-26; 80053; 82728; 83615; 84484; 85025; 85379; 86140; 93005; 93010; 99284; 99285-25

== ENCOUNTER 2020-12-28 16:31 | Emergency (ER) | payer MEDICAID ==
[2020-12-28 16:46] VITALS: BP 139/85; PULSE 105
[2020-12-28] MEDS ORDERED: Lidocaine 1% 10 ML MDV INJECT ONE (16:53)
[2020-12-28] MEDS ORDERED: Diphtheria,Pertussis(Acell),Tetanus Vaccine 0.5 ML Syringe IM ONE (16:53)
--- NOTE | 2020-12-28 16:58 | EDM.PDOC ---
ED HPI GENERAL MEDICAL PROBLEM - General Chief Complaint: Laceration Stated Complaint: HAND LAC Time Seen by Provider: 12/28/20 16:54 Source of Information: Reports: Patient History Limitations: Reports: No Limitations - History of Present Illness INITIAL COMMENTS - FREE TEXT/NARRATIVE: 35-year-old female presents to the ED with a laceration to the palmar aspect of her ulnar hand. She states she was washing her car in a piece of metal on the fender well caught her hand resulting in a deep laceration at the base of the right fifth finger. Of note she is right-hand dominant. Injury occurred about a half an hour before coming to the ED. She states she cannot member the last time she had a tetanus shot probably age 17. Onset: Today, Sudden Onset Date: 12/28/20 Onset Time: 16:20 Duration: Minutes: Location: Reports: Upper Extremity, Right (Laceration to the ulnar aspect of her right hand at the base of the) Quality: Reports: Ache ( fifth finger.), Burning Severity: Mild Improves with: Reports: None Worsens with: Reports: Movement Context: Reports: Trauma. Denies: Activity, Exercise, Lifting, Sick Contact Associated Symptoms: Reports: No Other Symptoms Treatments CORRAL BOSS: Reports: Other (see below) Right Hand Pain Score (Numeric/FACES): 10 - Related Data Allergies Allergy/AdvReac Type Severity Reaction Status Date / Time aspirin Allergy Severe Anaphylactic Verified 12/28/20 16:41 Shock Home Meds: Home Meds . 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 Hematologic History: Reports: None Immunologic History: Reports: None Oncologic (Cancer) History: Reports: None Dermatologic History: Reports: None - Infectious Disease History Infectious Disease History: Reports: Chicken Pox, Novel Coronavirus - Past Surgical History HEENT Surgical History: Reports: Oral Surgery Other HEENT Surgeries/Procedures: wisdom teeth extraction GI Surgical History: Reports: Cholecystectomy Female Surgical History: Reports: Section Musculoskeletal Surgical History: Reports: Other (See Below) Other Musculoskeletal Surgeries/Procedures:: right collarbone fracture Social & Family History - Family History Family Medical History: No Pertinent Family History - Tobacco Use Tobacco Use Status *Q: Never Tobacco User - Caffeine Use Caffeine Use: Reports: None - Recreational Drug Use Recreational Drug Use: No - Living Situation & Occupation Living situation: Reports: Occupation: Employed ED ROS GENERAL - Review of Systems Review Of Systems: See Below Constitutional: Denies: Fever, Chills, Malaise, Weakness, Fatigue HEENT: Reports: No Symptoms Respiratory: Reports: No Symptoms Cardiovascular: Reports: No Symptoms Endocrine: Reports: No Symptoms GI/Abdominal: Reports: No Symptoms : Reports: No Symptoms Musculoskeletal: Reports: No Symptoms Skin: Reports: No Symptoms Neurological: Reports: No Symptoms Psychiatric: Reports: No Symptoms Hematologic/Lymphatic: Reports: No Symptoms Immunologic: Reports: No Symptoms ED EXAM, SKIN/RASH Exam: See Below Exam Limited By: No Limitations General Appearance: Alert, WD/WN, Mild Distress, Other (Temperature is 36.7. Heart rate 105 and sinus respiratory is 12 with O2 sats of 98% room air BP 1 3985.) Eye Exam: Bilateral Eye: Normal Inspection Extremities: Other (Examination was limited primarily to the laceration on her right hand. She has suffered a deep laceration on the volar aspect of her right hand at the base of the right fifth finger. She has full range of motion of the finger with no clinical evidence of tendon injury and has normal sensation to b) Neurological: Alert, Oriented, CN II-XII Intact, Normal Cognition, Normal Gait Psychiatric: Normal Affect, Anxious Skin: Warm, Dry, Intact, Normal Color ED SKIN PROCEDURES - Laceration/Wound Repair Right Distal Hand Appearance: Subcutaneous, Stellate, Clean Distal NVT: Neuro & Vascular Intact Anesthetic Type: Local Local Anesthesia - Lidocaine (Xylocaine): 1% Plain Local Anesthetic Volume: Other (5 cc) Skin Prep: Saline Saline Irrigation (cc's): 75 Exploration/Debridement/Repair: Minimal Debridement Closed with: Sutures Lac/Wound length In cm: 2.5 Suture Size: 4-0 # of Sutures: 6 Suture Type: Nylon, Running, Simple Course - Vital Signs Last Recorded V/S: Last Vital Signs Temp 36.7 C 12/28/20 16:41 Pulse 105 H 12/28/20 16:41 Resp 12 12/28/20 16:41 BP 139/85 12/28/20 16:41 Pulse Ox 98 12/28/20 16:41 - Orders/Labs/Meds Orders: Active Orders 24 hr Category Date Time Status Vaccines to be Administered [RC] PER UNIT ROUTINE Care 12/28/20 16:53 Active Meds: Medications Discontinued Medications Generic Name Dose Route Start Last Admin Trade Name Nessa PRN Reason Stop Dose Admin Diphtheria/Tetanus/Acell Pertussis 0.5 ml 12/28/20 16:53 12/28/20 17:07 Diphtheria,Pertussis(Acell),Tetanus Vaccine 0.5 Ml Syringe IM 12/28/20 16:54 0.5 ml .ONCE ONE Administration Lidocaine HCl 10 ml 12/28/20 16:53 12/28/20 17:07 Lidocaine 1% 10 Ml Mdv INJECT 12/28/20 16:54 10 ml ONETIME ONE Administration - Radiology Interpretation Free Text/Narrative:: 35-year-old female presents to the ED with an acute laceration to the palm of her right hand at the base of her right fifth finger . Injury was caused by a short piece of metal but is on her car that occurred while she was washing the vehicle. Has approximately 2.5 cm laceration at the base of the right fifth finger. Normal sensation and full range of motion of the finger evident. Plan wound will require laceration repair. Tetanus diphtheria and pertussis vaccine will be given as well. - Re-Assessments/Exams Free Text/Narrative Re-Assessment/Exam: 12/28/20 17:26 Flap laceration palm are aspect of the right hand just proximal to the right fifth metacarpal crease was cleansed and then sutured under local anesthetic times 6 sutures using 4-0 Ethilon. Wound is estimated to be 2.5 cm i n length. She will daily cleanse the wound with soap and water and then apply topical antibiotic such as bacitracin or Polysporin once daily and cover with a bandage to keep clean. Sutures will need to be removed in 10 days time. Tetanus diphtheria and pertussis vaccine was updated today as well. Departure - Departure Time of Disposition: 17:16 Disposition: Home, Self-Care 01 Condition: Fair Clinical Impression: Laceration of hand Qualifiers: Encounter type: initial encounter Foreign body presence: without foreign body Laterality: right Qualified Code(s): S61.411A - Laceration without foreign body of right hand, initial encounter - Discharge Information *PRESCRIPTION DRUG MONITORING PROGRAM REVIEWED*: Not Applicable *COPY OF PRESCRIPTION DRUG MONITORING REPORT IN PATIENT ANN: Not Applicable Instructions: Laceration Care, Adult Referrals: Ewelina Gee PA-C [Primary Care Provider] - Forms: ED Department Discharge Additional Instructions: Evaluation in the emergency room today in regards to the flap laceration to the palmar aspect of your right hand below your fifth finger. This occurred at home while you are washing the car in a sharp piece of chrome resulted in a deep laceration to this area. There is no injury to the underlying nerves or tendons. Wound was anesthetized with 1% lidocaine and sutured times 6 sutures. Dressing placed in the emergency room should stay on until tomorrow morning. After this the wound should be cleansed daily with soap and water. Showering is okay. The wound should not be soaked underwater however until the stitches are removed. Apply topical antibiotic such as bacitracin or Polysporin to the wound once daily and cover with a bandage to keep clean. Sutures will need to be removed in 10 days time. Please make arrangements with your primary care provider to have the sutures removed. Of note her tetanus diphtheria and pertussis vaccine was updated today and is good for the next 10 years. Sepsis Event Note (ED) - Evaluation Sepsis Screening Result: No Definite Risk - Focused Exam Vital Signs: Vital Signs Temp Pulse Resp BP Pulse Ox 12/28/20 16:41 36.7 C 105 H 12 139/85 98 - My Orders Last 24 Hours: My Active Orders 12/28/20 16:53 Vaccines to be Administered [RC] PER UNIT ROUTINE - Assessment/Plan Last 24 Hours: My Active Orders 12/28/20 16:53 Vaccines to be Administered [RC] PER UNIT ROUTINE
== END 2020-12-28 18:06 | disposition home or self-care (01) ==
LOC: JD.ED 16:31
DX: S61.411A Laceration without foreign body of right hand, initial encounter (principal); I10 Essential (primary) hypertension; E11.9 Type 2 diabetes mellitus without complications; E66.9 Obesity, unspecified; Z68.30 Body mass index [BMI] 30.0-30.9, adult; Z88.8 Allergy status to other drugs, medicaments and biological substances; Z23 Encounter for immunization; Z86.16 Personal history of COVID-19; W26.8XXA Contact with other sharp object(s), not elsewhere classified, initial encounter
CPT/HCPCS: 12001; 90471; 90715; 99282-25; 99283

== ENCOUNTER 2021-11-18 18:43 | Emergency (ER) | payer MEDICAID, OTHER ==
[2021-11-18 19:03] VITALS: BP 154/93; PULSE 82
[2021-11-18] MEDS ORDERED: Ibuprofen 800 MG Tab PO ONE (19:36)
== END 2021-11-18 20:26 | disposition home or self-care (01) ==
LOC: JD.ED 18:43
DX: S93.402A Sprain of unspecified ligament of left ankle, initial encounter (principal); E78.00 Pure hypercholesterolemia, unspecified; I10 Essential (primary) hypertension; E11.9 Type 2 diabetes mellitus without complications; E66.9 Obesity, unspecified; Z68.43 Body mass index [BMI] 50.0-59.9, adult; Z88.8 Allergy status to other drugs, medicaments and biological substances; W00.0XXA Fall on same level due to ice and snow, initial encounter
CPT/HCPCS: 73610; 99283; A9270

== ENCOUNTER 2021-12-02 16:45 | Emergency (ER) | payer MEDICAID ==
[2021-12-02 16:54] VITALS: BP 140/71; PULSE 82
[2021-12-02] MEDS ORDERED: HYDROmorphone 1 MG/ML Syringe IVPUSH ONE (17:29)
[2021-12-02] MEDS ORDERED: Sodium Chloride 0.9% 10 ML Syringe FLUSH PRN (17:29)
[2021-12-02] MEDS ORDERED: Ondansetron 4 MG/2 ML SDV IVPUSH ONE (17:29)
[2021-12-02] MEDS ORDERED: Sodium Chloride 0.9% 1,000 ML IV SCH (17:30)
== END 2021-12-02 20:18 | disposition home or self-care (01) ==
LOC: JD.ED 16:45
DX: G89.18 Other acute postprocedural pain (principal); R10.10 Upper abdominal pain, unspecified; R10.31 Right lower quadrant pain; I10 Essential (primary) hypertension; Z88.6 Allergy status to analgesic agent
CPT/HCPCS: 36415; 74019; 80053; 81001; 81025; 83690; 85025; 86140; 93005; 96374; 96375; 99285; J1170; J2405; J3490; J7030

== ENCOUNTER 2021-12-13 20:24 | Emergency (ER) | payer MEDICAID ==
[2021-12-13 20:38] VITALS: BP 154/73; PULSE 79
[2021-12-13] MEDS ORDERED: diphenhydrAMINE 50 MG/ML SDV IVPUSH ONE (20:48)
[2021-12-13] MEDS ORDERED: Albuterol 0.083% 2.5 MG/3 ML Neb Soln NEB ONE (20:48)
[2021-12-13] MEDS ORDERED: Famotidine 20 MG/2 ML SDV IVPUSH ONE (20:48)
[2021-12-13] MEDS ORDERED: EPINEPHrine 1 MG/ML SDV IM ONE (20:50)
== END 2021-12-13 22:14 | disposition home or self-care (01) ==
LOC: JD.ED 20:24
DX: T78.40XA Allergy, unspecified, initial encounter (principal); E78.00 Pure hypercholesterolemia, unspecified; I10 Essential (primary) hypertension; E11.9 Type 2 diabetes mellitus without complications; E66.9 Obesity, unspecified; Z68.42 Body mass index [BMI] 45.0-49.9, adult; Z88.8 Allergy status to other drugs, medicaments and biological substances
CPT/HCPCS: 96372; 96374; 96375; 99283; J0171; J1200; J3490

== ENCOUNTER 2022-04-11 18:27 | Emergency (ER) | payer MEDICAID ==
[2022-04-11 18:55] VITALS: BP 115/73; PULSE 62
== END 2022-04-11 22:20 | disposition home or self-care (01) ==
LOC: JD.ED 18:27
DX: R07.89 Other chest pain (principal); I10 Essential (primary) hypertension; E11.9 Type 2 diabetes mellitus without complications; E66.9 Obesity, unspecified; Z68.41 Body mass index [BMI] 40.0-44.9, adult; Z88.6 Allergy status to analgesic agent; Z79.899 Other long term (current) drug therapy; Z86.16 Personal history of COVID-19; Z90.49 Acquired absence of other specified parts of digestive tract
CPT/HCPCS: 36415; 80053; 81003; 81025; 83735; 85025; 86140; 99284

== ENCOUNTER 2022-05-11 19:17 | Emergency (ER) | payer MEDICAID ==
[2022-05-11 19:48] VITALS: BP 133/89; PULSE 70
[2022-05-11] MEDS ORDERED: Sodium Chloride 0.9% 1,000 ML IV ONE (19:58)
[2022-05-11] MEDS ORDERED: Famotidine 20 MG/2 ML SDV IVPUSH ONE (19:59)
[2022-05-11] MEDS ORDERED: diphenhydrAMINE 50 MG/ML SDV IVPUSH ONE (19:59)
[2022-05-11] MEDS ORDERED: methylPREDNISolone Sodium Succinate 125 MG/2 ML SDV IVPUSH ONE (20:01)
== END 2022-05-12 04:11 | disposition home or self-care (01) ==
LOC: JD.ED 19:17
DX: T78.40XA Allergy, unspecified, initial encounter (principal); I10 Essential (primary) hypertension; E11.9 Type 2 diabetes mellitus without complications; E66.9 Obesity, unspecified; Z68.45 Body mass index [BMI] 70 or greater, adult; Z88.6 Allergy status to analgesic agent; Z79.899 Other long term (current) drug therapy; Z86.16 Personal history of COVID-19; Z90.49 Acquired absence of other specified parts of digestive tract
CPT/HCPCS: 36415; 36600; 80053; 82803; 85025; 96374; 96375; 99283; J1200; J2930; J3490; J7030

== ENCOUNTER 2022-07-24 18:23 | Emergency (ER) | payer MEDICAID ==
[2022-07-24] MEDS ORDERED: Polyethylene Glycol/Electrolytes 4,000 ML Bottle PO ONE (19:01)
[2022-07-24 21:52] VITALS: BP 124/79; PULSE 65
== END 2022-07-24 20:30 | disposition home or self-care (01) ==
LOC: JD.ED 18:23
DX: O99.611 Diseases of the digestive system complicating pregnancy, first trimester (principal); K59.09 Other constipation; O10.919 Unspecified pre-existing hypertension complicating pregnancy, unspecified trimester; O99.210 Obesity complicating pregnancy, unspecified trimester; E66.9 Obesity, unspecified; O24.119 Pre-existing type 2 diabetes mellitus, in pregnancy, unspecified trimester; Z88.8 Allergy status to other drugs, medicaments and biological substances; Z34.90 Encounter for supervision of normal pregnancy, unspecified, unspecified trimester
CPT/HCPCS: 81001; 81025; 99284; A9270

== ENCOUNTER 2022-08-03 10:18 | Emergency (ER) | payer MEDICAID ==
[2022-08-03 10:29] VITALS: BP 115/79; PULSE 88
== END 2022-08-03 15:44 | disposition home or self-care (01) ==
LOC: JD.ED 10:18
DX: O99.891 Other specified diseases and conditions complicating pregnancy (principal); R10.9 Unspecified abdominal pain; E78.00 Pure hypercholesterolemia, unspecified; I10 Essential (primary) hypertension; Z86.16 Personal history of COVID-19; Z88.8 Allergy status to other drugs, medicaments and biological substances; Z3A.01 Less than 8 weeks gestation of pregnancy
CPT/HCPCS: 36415; 76817; 76817-26; 81001; 84702; 85014; 85018; 86900; 86901; 87086; 99284

== ENCOUNTER 2022-08-04 11:22 | Emergency (ER) | payer MEDICAID ==
[2022-08-04 11:45] VITALS: BP 120/68; PULSE 89
[2022-08-04] MEDS ORDERED: Ondansetron 4 MG Tab.DIS PO ONE (12:13)
[2022-08-04] MEDS ORDERED: Acetaminophen/oxyCODONE 325-5 MG Tab PO ONE (12:13)
== END 2022-08-04 12:53 | disposition home or self-care (01) ==
LOC: JD.ED 11:22
DX: O03.4 Incomplete spontaneous abortion without complication (principal); I10 Essential (primary) hypertension; E11.9 Type 2 diabetes mellitus without complications; Z88.8 Allergy status to other drugs, medicaments and biological substances; Z86.16 Personal history of COVID-19
CPT/HCPCS: 99283; A9270

== ENCOUNTER 2022-08-29 02:48 | Emergency (ER) | payer OTHER, MEDICAID ==
[2022-08-29 03:05] VITALS: BP 115/79; PULSE 80
== END 2022-08-29 04:46 | disposition home or self-care (01) ==
LOC: JD.ED 02:48
DX: S83.91XA Sprain of unspecified site of right knee, initial encounter (principal); S39.012A Strain of muscle, fascia and tendon of lower back, initial encounter; S93.402A Sprain of unspecified ligament of left ankle, initial encounter; S60.212A Contusion of left wrist, initial encounter; I10 Essential (primary) hypertension; E11.9 Type 2 diabetes mellitus without complications; E66.9 Obesity, unspecified; Z88.8 Allergy status to other drugs, medicaments and biological substances; Y04.0XXA Assault by unarmed brawl or fight, initial encounter; Y92.89 Other specified places as the place of occurrence of the external cause; Y99.0 Civilian activity done for income or pay
CPT/HCPCS: 72100; 72100-26; 73030-26-LT; 73030-LT; 73110-26-LT; 73110-LT; 73564-26-RT; 73564-RT; 81025; 99283

== ENCOUNTER 2022-12-03 15:05 | Emergency (ER) | payer MEDICAID, OTHER ==
[2022-12-03 15:16] VITALS: BP 111/66; PULSE 68
[2022-12-03] MEDS ORDERED: diphenhydrAMINE 50 MG/ML SDV IVPUSH ONE (15:39)
[2022-12-03] MEDS ORDERED: Ondansetron 4 MG/2 ML SDV IVPUSH ONE (15:39)
[2022-12-03] MEDS ORDERED: Ketorolac 30 MG/ML SDV IVPUSH ONE (15:40)
[2022-12-03] MEDS ORDERED: Sodium Chloride 0.9% 1,000 ML IV SCH (15:45)
[2022-12-03 16:02] LABS: BASOPHILS ABSOLUTE AUTO 0.02 K/mm3 (0.01-0.08); BASOPHILS PERCENT AUTO 0.3 % (0.1-1.2); EOSINOPHILS ABSOLUTE AUTO 0.23 K/mm3 (0.04-0.36); EOSINOPHILS PERCENT AUTO 3.3 (0.7-5.8); HEMATOCRIT 37.9 % (34.1-44.9); HEMOGLOBIN 11.9 gm/dl (11.2-15.7); IMMATURE GRAN ABSOLUTE AUTO 0.01 K/mm3 (0.00-0.10); IMMATURE GRAN PERCENT AUTO 0.1 % (<=1.0); LYMPHOCYTES ABSOLUTE AUTO 2.54 K/mm3 (1.18-3.74); LYMPHOCYTES PERCENT AUTO 36.9 % (19.3-51.7); MEAN CORPUSCULAR HEMOGLOBIN 27.9 pg (25.6-32.2); MEAN CORPUSCULAR HGB CONC 31.4 g/dl (32.2-35.5); MEAN PLATELET VOLUME 9.8 fl (9.4-12.3); MONOCYTES ABSOLUTE AUTO 0.67 K/mm3 (0.24-0.36); MONOCYTES PERCENT AUTO 9.7 % (4.7-12.5); NEUTROPHILS ABSOLUTE AUTO 3.41 K/mm3 (1.56-6.13); NEUTROPHILS PERCENT AUTO 49.7 % (34.0-71.1); PLATELET COUNT,PLT 349 K/mm3 (182-369); RED BLOOD CELL COUNT 4.26 M/mm3 (3.98-5.22); WHITE BLOOD CELL COUNT,WBC 6.88 K/mm3 (3.98-10.04)
[2022-12-03 16:12] LABS: APPEARANCE,URINE CLEAR (Clear); BILIRUBIN,URINE NEGATIVE (Negative); COLOR,URINE YELLOW (Yellow); GLUCOSE,URINE NEGATIVE (Negative); KETONES,URINE NEGATIVE (Negative); LEUKOCYTE ESTERASE,URINE NEGATIVE (Negative); NITRITE,URINE NEGATIVE (Negative); OCCULT BLOOD,URINE NEGATIVE (Negative); PH,URINE 5.5 (5.0-8.0); PROTEIN,URINE NEGATIVE (Negative); UROBILINOGEN,URINE 0.2 (0.2-1.0)
[2022-12-03 16:22] LABS: A/G RATIO 0.7 (1-2); ALBUMIN 3.3 g/dl (3.4-5.0); ANION GAP 11.7 (5-15); BILIRUBIN TOTAL 0.1 mg/dL (0.2-1.0); CALCIUM 8.7 mg/dL (8.5-10.1); EST CRCL DRUG DOSING (CG) 70.66 mL/min; POTASSIUM,K 3.7 mEq/L (3.5-5.1); PROTEIN TOTAL,TP 7.9 g/dl (6.4-8.2)
[2022-12-03 16:41] LABS: CORONAVIRUS COVID-19 NAA NEGATIVE (NEGATIVE); INFLUENZA A NAA NEGATIVE (NEGATIVE); RESPIRATORY SYNCYTIAL VIR NAA NEGATIVE (NEGATIVE)
== END 2022-12-03 17:55 | disposition home or self-care (01) ==
LOC: JD.ED 15:05
DX: R51.9 Headache, unspecified (principal); R50.9 Fever, unspecified; I10 Essential (primary) hypertension; E11.9 Type 2 diabetes mellitus without complications; E66.9 Obesity, unspecified; Z68.41 Body mass index [BMI] 40.0-44.9, adult; Z88.8 Allergy status to other drugs, medicaments and biological substances; Z86.16 Personal history of COVID-19; Z20.822 Contact with and (suspected) exposure to COVID-19; Z90.49 Acquired absence of other specified parts of digestive tract
CPT/HCPCS: 0241U; 36415; 71046; 80053; 81003; 83605; 85025; 87040; J1200; J1885; J2405; J7030; 93010; 96361; 96374; 96375; 99284; 99284-25

== ENCOUNTER 2022-12-22 12:34 | Emergency (ER) | payer MEDICAID ==
[2022-12-22 13:11] LABS: APPEARANCE,URINE CLEAR (Clear); BILIRUBIN,URINE NEGATIVE (Negative); COLOR,URINE YELLOW (Yellow); GLUCOSE,URINE NEGATIVE (Negative); KETONES,URINE TRACE (Negative); LEUKOCYTE ESTERASE,URINE NEGATIVE (Negative); NITRITE,URINE NEGATIVE (Negative); OCCULT BLOOD,URINE NEGATIVE (Negative); PH,URINE 5.5 (5.0-8.0); PROTEIN,URINE NEGATIVE (Negative); UROBILINOGEN,URINE 0.2 (0.2-1.0)
[2022-12-22 13:23] LABS: BACTERIA,URINE FEW /hpf (FEW); MUCUS,URINE FEW /hpf (FEW); RBC,URINE 0-5 /hpf (0-5); WBC,URINE 0-5 /hpf (0-5)
[2022-12-22 13:26] LABS: BASOPHILS ABSOLUTE AUTO 0.01 K/mm3 (0.01-0.08); BASOPHILS PERCENT AUTO 0.1 % (0.1-1.2); EOSINOPHILS ABSOLUTE AUTO 0.06 K/mm3 (0.04-0.36); EOSINOPHILS PERCENT AUTO 0.9 (0.7-5.8); HEMOGLOBIN 12.4 gm/dl (11.2-15.7); IMMATURE GRAN ABSOLUTE AUTO 0.01 K/mm3 (0.00-0.10); IMMATURE GRAN PERCENT AUTO 0.1 % (<=1.0); LYMPHOCYTES PERCENT AUTO 33.7 % (19.3-51.7); MEAN CORPUSCULAR HEMOGLOBIN 28.9 pg (25.6-32.2); MEAN CORPUSCULAR HGB CONC 32.6 g/dl (32.2-35.5); MEAN CORPUSCULAR VOLUME 88.6 fl (79.4-94.8); MEAN PLATELET VOLUME 9.9 fl (9.4-12.3); MONOCYTES ABSOLUTE AUTO 0.77 K/mm3 (0.24-0.36); MONOCYTES PERCENT AUTO 11.3 % (4.7-12.5); NEUTROPHILS ABSOLUTE AUTO 3.67 K/mm3 (1.56-6.13); NEUTROPHILS PERCENT AUTO 53.9 % (34.0-71.1); PLATELET COUNT,PLT 317 K/mm3 (182-369); RED BLOOD CELL COUNT 4.29 M/mm3 (3.98-5.22); WHITE BLOOD CELL COUNT,WBC 6.82 K/mm3 (3.98-10.04)
[2022-12-22 13:50] LABS: A/G RATIO 0.7 (1-2); ALANINE AMINOTRANSFERASE,ALT 21 U/L (14-59); ALBUMIN 3.2 g/dl (3.4-5.0); ALKALINE PHOSPHATASE 50 U/L (46-116); ANION GAP 11.8 (5-15); ASPARTATE AMNIOTRANSFERASE,AST 12 U/L (15-37); BILIRUBIN TOTAL 0.2 mg/dL (0.2-1.0); BLOOD UREA NITROGEN,BUN 12 mg/dL (7-18); BUN/CREATININE RATIO 13.3 (14-18); C-REACTIVE PROTEIN <0.2 mg/dL (<1.0); CALCIUM 8.9 mg/dL (8.5-10.1); CARBON DIOXIDE,CO2 25 mEq/L (21-32); CHLORIDE,CL 105 mEq/L (98-107); CREATININE 0.9 mg/dL (0.55-1.02); EST CRCL DRUG DOSING (CG) 78.51 mL/min; ESTIMATED GFR 86 mL/min (>60); GLUCOSE RANDOM 86 mg/dL (70-99); POTASSIUM,K 3.8 mEq/L (3.5-5.1); PROTEIN TOTAL,TP 7.6 g/dl (6.4-8.2); SODIUM,NA 138 mEq/L (136-145)
[2022-12-22 18:11] VITALS: BP 115/65; PULSE 65
== END 2022-12-22 15:33 | disposition home or self-care (01) ==
LOC: JD.ED 12:34
DX: O99.891 Other specified diseases and conditions complicating pregnancy (principal); R10.30 Lower abdominal pain, unspecified; K59.09 Other constipation; Z3A.01 Less than 8 weeks gestation of pregnancy; I10 Essential (primary) hypertension; E11.9 Type 2 diabetes mellitus without complications; E66.9 Obesity, unspecified; Z68.41 Body mass index [BMI] 40.0-44.9, adult; Z90.49 Acquired absence of other specified parts of digestive tract
CPT/HCPCS: 36415; 76817; 76817-26; 80053; 81001; 81025; 84702; 85025; 86140; 86900; 86901; 99284

== ENCOUNTER 2023-01-15 09:18 | Emergency (ER) | payer MEDICAID ==
[2023-01-15 11:59] VITALS: BP 121/80; PULSE 78
== END 2023-01-15 12:00 | disposition home or self-care (01) ==
LOC: JD.ED 09:18
DX: O99.611 Diseases of the digestive system complicating pregnancy, first trimester (principal); K59.00 Constipation, unspecified; O99.281 Endocrine, nutritional and metabolic diseases complicating pregnancy, first trimester; E78.00 Pure hypercholesterolemia, unspecified; O10.911 Unspecified pre-existing hypertension complicating pregnancy, first trimester; O99.211 Obesity complicating pregnancy, first trimester; O09.91 Supervision of high risk pregnancy, unspecified, first trimester; Z86.16 Personal history of COVID-19; Z88.8 Allergy status to other drugs, medicaments and biological substances; Z98.84 Bariatric surgery status; Z3A.10 10 weeks gestation of pregnancy
CPT/HCPCS: 99283

== ENCOUNTER 2023-01-26 15:28 | Emergency (ER) | payer MEDICAID, OTHER ==
[2023-01-26 15:41] VITALS: BP 114/70; PULSE 89
[2023-01-26] MEDS ORDERED: Metoclopramide 10 MG/2 ML SDV IVPUSH ONE (16:33)
[2023-01-26] MEDS ORDERED: HYDROmorphone 0.5 MG/0.5 ML Syringe IVPUSH ONE (16:33)
[2023-01-26] MEDS ORDERED: Dextrose 5%-Lactated Ringers 1,000 ML IV SCH (16:45)
[2023-01-26 16:54] LABS: BASOPHILS ABSOLUTE AUTO 0.01 K/mm3 (0.01-0.08); BASOPHILS PERCENT AUTO 0.1 % (0.1-1.2); EOSINOPHILS ABSOLUTE AUTO 0.04 K/mm3 (0.04-0.36); EOSINOPHILS PERCENT AUTO 0.5 (0.7-5.8); HEMATOCRIT 37.8 % (34.1-44.9); HEMOGLOBIN 12.5 gm/dl (11.2-15.7); IMMATURE GRAN ABSOLUTE AUTO 0.03 K/mm3 (0.00-0.10); IMMATURE GRAN PERCENT AUTO 0.4 % (<=1.0); LYMPHOCYTES ABSOLUTE AUTO 2.09 K/mm3 (1.18-3.74); LYMPHOCYTES PERCENT AUTO 27.1 % (19.3-51.7); MEAN CORPUSCULAR HEMOGLOBIN 29.2 pg (25.6-32.2); MEAN CORPUSCULAR HGB CONC 33.1 g/dl (32.2-35.5); MEAN CORPUSCULAR VOLUME 88.3 fl (79.4-94.8); MEAN PLATELET VOLUME 9.9 fl (9.4-12.3); MONOCYTES ABSOLUTE AUTO 0.69 K/mm3 (0.24-0.36); NEUTROPHILS ABSOLUTE AUTO 4.84 K/mm3 (1.56-6.13); NEUTROPHILS PERCENT AUTO 62.9 % (34.0-71.1); PLATELET COUNT,PLT 306 K/mm3 (182-369); RED BLOOD CELL COUNT 4.28 M/mm3 (3.98-5.22)
[2023-01-26 17:35] LABS: ANION GAP 13.5 (5-15); BILIRUBIN TOTAL 0.2 mg/dL (0.2-1.0); BUN/CREATININE RATIO 11.1 (14-18); CALCIUM 8.8 mg/dL (8.5-10.1); CREATININE 0.9 mg/dL (0.55-1.02); EST CRCL DRUG DOSING (CG) 78.51 mL/min; POTASSIUM,K 4.5 mEq/L (3.5-5.1)
[2023-01-26 18:09] LABS: A/G RATIO 0.6 (1-2); PROTEIN TOTAL,TP 7.7 g/dl (6.4-8.2)
== END 2023-01-26 18:45 | disposition home or self-care (01) ==
LOC: JD.ED 15:28
DX: O21.9 Vomiting of pregnancy, unspecified (principal); R55 Syncope and collapse; R94.6 Abnormal results of thyroid function studies; I10 Essential (primary) hypertension; Z3A.11 11 weeks gestation of pregnancy; E66.9 Obesity, unspecified; Z68.41 Body mass index [BMI] 40.0-44.9, adult; Z88.6 Allergy status to analgesic agent; Z79.899 Other long term (current) drug therapy; Z86.16 Personal history of COVID-19; Z90.49 Acquired absence of other specified parts of digestive tract
CPT/HCPCS: 36415; 80053; 84439; 84443; 84481; 84702; 85025; 86376; 96361; 96374; 96375; 99284; J1170; J2765; J7121

== ENCOUNTER 2023-02-05 17:21 | Emergency (ER) | payer MEDICAID ==
[2023-02-05] MEDS ORDERED: Sodium Chloride 0.9% 10 ML Syringe FLUSH PRN (17:35)
[2023-02-05 18:17] LABS: BASOPHILS ABSOLUTE AUTO 0.02 K/mm3 (0.01-0.08); BASOPHILS PERCENT AUTO 0.2 % (0.1-1.2); EOSINOPHILS ABSOLUTE AUTO 0.07 K/mm3 (0.04-0.36); EOSINOPHILS PERCENT AUTO 0.8 (0.7-5.8); HEMATOCRIT 38.7 % (34.1-44.9); HEMOGLOBIN 12.6 gm/dl (11.2-15.7); IMMATURE GRAN ABSOLUTE AUTO 0.01 K/mm3 (0.00-0.10); IMMATURE GRAN PERCENT AUTO 0.1 % (<=1.0); LYMPHOCYTES ABSOLUTE AUTO 2.75 K/mm3 (1.18-3.74); LYMPHOCYTES PERCENT AUTO 32.2 % (19.3-51.7); MEAN CORPUSCULAR HEMOGLOBIN 28.8 pg (25.6-32.2); MEAN CORPUSCULAR HGB CONC 32.6 g/dl (32.2-35.5); MEAN CORPUSCULAR VOLUME 88.4 fl (79.4-94.8); MEAN PLATELET VOLUME 9.8 fl (9.4-12.3); MONOCYTES ABSOLUTE AUTO 0.86 K/mm3 (0.24-0.36); MONOCYTES PERCENT AUTO 10.1 % (4.7-12.5); NEUTROPHILS ABSOLUTE AUTO 4.84 K/mm3 (1.56-6.13); NEUTROPHILS PERCENT AUTO 56.6 % (34.0-71.1); PLATELET COUNT,PLT 338 K/mm3 (182-369); RED BLOOD CELL COUNT 4.38 M/mm3 (3.98-5.22); WHITE BLOOD CELL COUNT,WBC 8.55 K/mm3 (3.98-10.04)
[2023-02-05 19:25] VITALS: BP 96/69; PULSE 69
== END 2023-02-05 19:20 | disposition home or self-care (01) ==
LOC: JD.ED 17:21
DX: O20.9 Hemorrhage in early pregnancy, unspecified (principal); O10.011 Pre-existing essential hypertension complicating pregnancy, first trimester; O99.211 Obesity complicating pregnancy, first trimester; Z3A.12 12 weeks gestation of pregnancy; Z88.8 Allergy status to other drugs, medicaments and biological substances; Z86.16 Personal history of COVID-19
CPT/HCPCS: 36415; 76817; 76817-26; 84702; 85025; 99283; 99284

== ENCOUNTER 2023-02-06 04:00 | Emergency (ER) | payer MEDICAID ==
[2023-02-06 04:20] VITALS: BP 114/72; PULSE 78
== END 2023-02-06 04:46 | disposition home or self-care (01) ==
LOC: JD.ED 04:00
DX: O20.9 Hemorrhage in early pregnancy, unspecified (principal); O10.911 Unspecified pre-existing hypertension complicating pregnancy, first trimester; O99.211 Obesity complicating pregnancy, first trimester; Z86.16 Personal history of COVID-19; Z98.890 Other specified postprocedural states; Z88.8 Allergy status to other drugs, medicaments and biological substances; Z3A.12 12 weeks gestation of pregnancy
CPT/HCPCS: 99282; 99283

== ENCOUNTER 2023-02-14 21:30 | Emergency (ER) | payer MEDICAID ==
[2023-02-14 21:43] VITALS: BP 128/70
[2023-02-14 22:20] LABS: BASOPHILS ABSOLUTE AUTO 0.01 K/mm3 (0.01-0.08); BASOPHILS PERCENT AUTO 0.1 % (0.1-1.2); EOSINOPHILS ABSOLUTE AUTO 0.03 K/mm3 (0.04-0.36); EOSINOPHILS PERCENT AUTO 0.3 (0.7-5.8); HEMATOCRIT 38.4 % (34.1-44.9); HEMOGLOBIN 12.5 gm/dl (11.2-15.7); IMMATURE GRAN ABSOLUTE AUTO 0.02 K/mm3 (0.00-0.10); IMMATURE GRAN PERCENT AUTO 0.2 % (<=1.0); LYMPHOCYTES ABSOLUTE AUTO 3.01 K/mm3 (1.18-3.74); LYMPHOCYTES PERCENT AUTO 31.6 % (19.3-51.7); MEAN CORPUSCULAR HGB CONC 32.6 g/dl (32.2-35.5); MEAN CORPUSCULAR VOLUME 89.1 fl (79.4-94.8); MEAN PLATELET VOLUME 9.5 fl (9.4-12.3); MONOCYTES PERCENT AUTO 7.4 % (4.7-12.5); NEUTROPHILS ABSOLUTE AUTO 5.75 K/mm3 (1.56-6.13); NEUTROPHILS PERCENT AUTO 60.4 % (34.0-71.1); PLATELET COUNT,PLT 306 K/mm3 (182-369); RED BLOOD CELL COUNT 4.31 M/mm3 (3.98-5.22); WHITE BLOOD CELL COUNT,WBC 9.52 K/mm3 (3.98-10.04)
== END 2023-02-14 23:55 | disposition home or self-care (01) ==
LOC: JD.ED 21:30
DX: O20.0 Threatened abortion (principal); O99.891 Other specified diseases and conditions complicating pregnancy; M54.50 Low back pain, unspecified; O10.911 Unspecified pre-existing hypertension complicating pregnancy, first trimester; O99.211 Obesity complicating pregnancy, first trimester; Z86.16 Personal history of COVID-19; Z88.8 Allergy status to other drugs, medicaments and biological substances; Z98.890 Other specified postprocedural states; W19.XXXA Unspecified fall, initial encounter; Z3A.13 13 weeks gestation of pregnancy
CPT/HCPCS: 36415; 76801; 76801-26; 84702; 85025; 86900; 86901; 99284

== ENCOUNTER 2023-03-15 00:13 | Emergency (ER) | payer BC, MEDICAID ==
[2023-03-15] MEDS ORDERED: Sodium Chloride 0.9% 1,000 ML IV ONE (00:46)
[2023-03-15] MEDS ORDERED: Ondansetron 4 MG/2 ML SDV IVPUSH ONE (00:46)
[2023-03-15 01:14] LABS: APPEARANCE,URINE CLEAR (Clear); BILIRUBIN,URINE NEGATIVE (Negative); COLOR,URINE YELLOW (Yellow); GLUCOSE,URINE NEGATIVE (Negative); KETONES,URINE NEGATIVE (Negative); LEUKOCYTE ESTERASE,URINE NEGATIVE (Negative); NITRITE,URINE NEGATIVE (Negative); OCCULT BLOOD,URINE NEGATIVE (Negative); PROTEIN,URINE NEGATIVE (Negative); UROBILINOGEN,URINE 0.2 (0.2-1.0)
[2023-03-15 01:23] LABS: RBC,URINE 0-5 /hpf (0-5); SQUAMOUS EPITHELIAL CELLS,UR 0-5 /hpf (0-5); WBC,URINE 0-5 /hpf (0-5)
[2023-03-15 01:24] LABS: BACTERIA,URINE FEW /hpf (FEW); MUCUS,URINE MODERATE /hpf (FEW)
[2023-03-15 01:26] LABS: BASOPHILS ABSOLUTE AUTO 0.01 K/mm3 (0.01-0.08); BASOPHILS PERCENT AUTO 0.1 % (0.1-1.2); EOSINOPHILS ABSOLUTE AUTO 0.09 K/mm3 (0.04-0.36); HEMATOCRIT 37.5 % (34.1-44.9); HEMOGLOBIN 12.2 gm/dl (11.2-15.7); IMMATURE GRAN ABSOLUTE AUTO 0.02 K/mm3 (0.00-0.10); IMMATURE GRAN PERCENT AUTO 0.2 % (<=1.0); LYMPHOCYTES ABSOLUTE AUTO 3.43 K/mm3 (1.18-3.74); LYMPHOCYTES PERCENT AUTO 36.3 % (19.3-51.7); MEAN CORPUSCULAR HEMOGLOBIN 29.3 pg (25.6-32.2); MEAN CORPUSCULAR HGB CONC 32.5 g/dl (32.2-35.5); MEAN CORPUSCULAR VOLUME 90.1 fl (79.4-94.8); MEAN PLATELET VOLUME 9.4 fl (9.4-12.3); MONOCYTES ABSOLUTE AUTO 0.73 K/mm3 (0.24-0.36); MONOCYTES PERCENT AUTO 7.7 % (4.7-12.5); NEUTROPHILS ABSOLUTE AUTO 5.17 K/mm3 (1.56-6.13); NEUTROPHILS PERCENT AUTO 54.7 % (34.0-71.1); PLATELET COUNT,PLT 279 K/mm3 (182-369); RED BLOOD CELL COUNT 4.16 M/mm3 (3.98-5.22); WHITE BLOOD CELL COUNT,WBC 9.45 K/mm3 (3.98-10.04)
[2023-03-15 01:46] LABS: A/G RATIO 0.6 (1-2); ALBUMIN 2.8 g/dl (3.4-5.0); ANION GAP 15.7 (5-15); BILIRUBIN TOTAL 0.1 mg/dL (0.2-1.0); BUN/CREATININE RATIO 15.7 (14-18); CALCIUM 9.1 mg/dL (8.5-10.1); CREATININE 0.7 mg/dL (0.55-1.02); EST CRCL DRUG DOSING (CG) 100.94 mL/min; POTASSIUM,K 3.7 mEq/L (3.5-5.1); PROTEIN TOTAL,TP 7.3 g/dl (6.4-8.2)
[2023-03-15 02:35] VITALS: BP 124/78; PULSE 61
== END 2023-03-15 02:30 | disposition home or self-care (01) ==
LOC: JD.ED 00:13
DX: O99.352 Diseases of the nervous system complicating pregnancy, second trimester (principal); G44.209 Tension-type headache, unspecified, not intractable; E66.9 Obesity, unspecified; I10 Essential (primary) hypertension; Z68.42 Body mass index [BMI] 45.0-49.9, adult; Z3A.18 18 weeks gestation of pregnancy; Z86.16 Personal history of COVID-19; Z88.5 Allergy status to narcotic agent
CPT/HCPCS: 36415; 80053; 81001; 85025; 96361; 96374; 99284; J2405; J7030

== ENCOUNTER 2023-03-30 17:02 | Emergency (ER) | payer BC, MEDICAID ==
[2023-03-30] MEDS ORDERED: Sodium Chloride 0.9% 10 ML Syringe FLUSH PRN (19:08)
[2023-03-30] MEDS ORDERED: Sodium Chloride 0.9% 1,000 ML IV STA (19:08)
[2023-03-30] MEDS ORDERED: HYDROmorphone 0.5 MG/0.5 ML Syringe IVPUSH ONE (19:09)
[2023-03-30 19:36] LABS: BASOPHILS PERCENT AUTO 0.2 % (0.0-1.0); EOSINOPHILS ABSOLUTE AUTO 0.1 K/mm3 (0.0-0.4); EOSINOPHILS PERCENT AUTO 0.7 % (0.0-6.0); HEMOGLOBIN 12.8 gm/dl (12.0-16.0); IMMATURE GRAN ABSOLUTE AUTO 0.04 K/mm3 (0.00-0.05); IMMATURE GRAN PERCENT AUTO 0.5 % (0.0-0.4); LYMPHOCYTES ABSOLUTE AUTO 2.7 K/mm3 (1.0-4.8); LYMPHOCYTES PERCENT AUTO 31.5 % (24.0-44.0); MEAN CORPUSCULAR HEMOGLOBIN 29.6 pg (28.0-32.0); MEAN CORPUSCULAR HGB CONC 32.8 g/dl (32.0-36.0); MEAN CORPUSCULAR VOLUME 90.1 fl (83.0-99.0); MEAN PLATELET VOLUME 9.6 fl (9.4-12.3); MONOCYTES ABSOLUTE AUTO 0.6 K/mm3 (0.0-0.8); MONOCYTES PERCENT AUTO 7.3 % (0.0-8.0); NEUTROPHILS ABSOLUTE AUTO 5.1 K/mm3 (1.8-7.7); NEUTROPHILS PERCENT AUTO 59.8 % (41.0-71.0); PLATELET COUNT,PLT 255 K/mm3 (150-400); RED BLOOD CELL COUNT 4.33 M/mm3 (4.10-5.30); WHITE BLOOD CELL COUNT,WBC 8.47 K/mm3 (3.9-11.3)
[2023-03-30 20:01] LABS: A/G RATIO 0.7 (1-2); BILIRUBIN TOTAL 0.1 mg/dL (0.2-1.0); BUN/CREATININE RATIO 11.4 (14-18); CALCIUM 9.1 mg/dL (8.5-10.1); CREATININE 0.7 mg/dL (0.55-1.02); EST CRCL DRUG DOSING (CG) 99.98 mL/min; PROTEIN TOTAL,TP 7.5 g/dl (6.4-8.2)
[2023-03-30 21:11] VITALS: BP 126/69; PULSE 85
== END 2023-03-30 21:10 | disposition home or self-care (01) ==
LOC: JD.ED 17:02
DX: O98.512 Other viral diseases complicating pregnancy, second trimester (principal); A08.4 Viral intestinal infection, unspecified; O99.282 Endocrine, nutritional and metabolic diseases complicating pregnancy, second trimester; E78.00 Pure hypercholesterolemia, unspecified; O10.012 Pre-existing essential hypertension complicating pregnancy, second trimester; O99.212 Obesity complicating pregnancy, second trimester; Z88.6 Allergy status to analgesic agent; Z86.16 Personal history of COVID-19; Z3A.19 19 weeks gestation of pregnancy
CPT/HCPCS: 36415; 80053; 83690; 85025; 96361; 96374; 99284; J1170; J3490; J7030

== ENCOUNTER 2023-06-22 08:50 | Emergency (ER) | payer SELFPAY ==
[2023-06-22 07:40] LABS: RED BLOOD CELL COUNT 3.72 M/mm3 (4.10-5.30); WHITE BLOOD CELL COUNT,WBC 7.79 K/mm3 (3.9-11.3)
[2023-06-22 07:41] LABS: BASOPHILS PERCENT AUTO 0.1 % (0.0-1.0); EOSINOPHILS PERCENT AUTO 0.4 % (0.0-6.0); IMMATURE GRAN ABSOLUTE AUTO 0.03 K/mm3 (0.00-0.05); IMMATURE GRAN PERCENT AUTO 0.4 % (0.0-0.4); LYMPHOCYTES ABSOLUTE AUTO 1.5 K/mm3 (1.0-4.8); LYMPHOCYTES PERCENT AUTO 19.1 % (24.0-44.0); MEAN CORPUSCULAR HEMOGLOBIN 29.3 pg (28.0-32.0); MEAN CORPUSCULAR VOLUME 88.7 fl (83.0-99.0); MEAN PLATELET VOLUME 10.1 fl (9.4-12.3); MONOCYTES ABSOLUTE AUTO 0.5 K/mm3 (0.0-0.8); NEUTROPHILS ABSOLUTE AUTO 5.8 K/mm3 (1.8-7.7); PLATELET COUNT,PLT 279 K/mm3 (150-400)
[2023-06-22 07:43] LABS: HEMOGLOBIN 10.9 gm/dl (12.0-16.0)
[2023-06-22 08:00] LABS: A/G RATIO 0.5 (1-2); ALANINE AMINOTRANSFERASE,ALT 23 U/L (14-59); ALBUMIN 2.3 g/dl (3.4-5.0); ALKALINE PHOSPHATASE 94 U/L (46-116); ANION GAP 15.7 (5-15); ASPARTATE AMNIOTRANSFERASE,AST 21 U/L (15-37); BILIRUBIN TOTAL 0.2 mg/dL (0.2-1.0); BLOOD UREA NITROGEN,BUN 6 mg/dL (7-18); BUN/CREATININE RATIO 7.5 (14-18); CALCIUM 8.7 mg/dL (8.5-10.1); CARBON DIOXIDE,CO2 20 mEq/L (21-32); CHLORIDE,CL 103 mEq/L (98-107); CREATININE 0.8 mg/dL (0.55-1.02); ESTIMATED GFR 98 mL/min (>60); GLUCOSE RANDOM 113 mg/dL (70-99); POTASSIUM,K 3.7 mEq/L (3.5-5.1); PROTEIN TOTAL,TP 6.8 g/dl (6.4-8.2); SODIUM,NA 135 mEq/L (136-145)
[2023-06-22 08:02] LABS: APPEARANCE,URINE CLEAR (Clear); BILIRUBIN,URINE 1+ (Negative); COLOR,URINE DARK YELLOW (Yellow); GLUCOSE,URINE NEGATIVE (Negative); KETONES,URINE TRACE (Negative); LEUKOCYTE ESTERASE,URINE NEGATIVE (Negative); NITRITE,URINE NEGATIVE (Negative); OCCULT BLOOD,URINE NEGATIVE (Negative); PH,URINE 5.5 (5.0-8.0); PROTEIN,URINE 2+ (Negative)
[2023-06-22 08:11] LABS: INR 0.93
[2023-06-22 08:13] LABS: PTT,PARTIAL THROMBOPLSTIN TIME 24.9 SECONDS (21.7-31.4)
[2023-06-22 08:19] LABS: BACTERIA,URINE MODERATE /hpf (FEW); MUCUS,URINE MANY /hpf (FEW); RBC,URINE 0-5 /hpf (0-5); WBC,URINE 0-5 /hpf (0-5)
[2023-06-22 08:20] LABS: BARBITURATE SCREEN,URINE NEGATIVE (CUTOFF=200); BENZODIAZEPINES SCREEN,URINE NEGATIVE (CUTOFF=150); BUPRENORPHINE SCREEN,URINE NEGATIVE (CUTOFF=10); METHADONE SCREEN, URINE NEGATIVE (CUTOFF=200); METHAMPHETAMINES SCREEN, URINE NEGATIVE (CUTOFF=500); OXYCODONE SCREEN,URINE NEGATIVE (CUT0FF=100); THC SCREEN,URINE 20 NG/ML NEGATIVE (CUTOFF=50)
[2023-06-22 08:21] LABS: AMPHETAMINES SCREEN, URINE NEGATIVE (CUTOFF=500)
[2023-06-22] MEDS ORDERED: Acetaminophen 325 MG Tab PO ONE (09:52)
[2023-06-22 10:14] VITALS: BP 116/63; PULSE 79
== END 2023-06-22 10:12 | disposition home or self-care (01) ==
LOC: JD.ED 08:50
DX: O9A.213 Injury, poisoning and certain other consequences of external causes complicating pregnancy, third trimester (principal); S00.93XA Contusion of unspecified part of head, initial encounter; O10.013 Pre-existing essential hypertension complicating pregnancy, third trimester; O99.213 Obesity complicating pregnancy, third trimester; Z86.16 Personal history of COVID-19; Z3A.32 32 weeks gestation of pregnancy; Z88.6 Allergy status to analgesic agent; Z68.31 Body mass index [BMI] 31.0-31.9, adult; X58.XXXA Exposure to other specified factors, initial encounter
CPT/HCPCS: 36415; 80053; 80306; 81001; 85025; 85384; 85610; 85730; 99284; A9270; 99282

== ENCOUNTER 2023-08-08 05:16 | Inpatient (IN) | payer BC, MEDICAID ==
[2023-08-08] MEDS ORDERED: Citric Acid/Sodium Citrate Solution 30 ML Cup PO ONE (05:18)
[2023-08-08] MEDS ORDERED: Metoclopramide 10 MG/2 ML SDV IVPUSH ONE (05:18)
[2023-08-08] MEDS ORDERED: Oxytocin/Lactated Ringers 30 UNIT/500 ML BAG IV SCH (05:30)
[2023-08-08] MEDS: Lactated Ringers 1,000 ML IV SCH ×2 (05:51→06:52)
[2023-08-08 06:03] LABS: BASOPHILS PERCENT AUTO 0.2 % (0.0-1.0); EOSINOPHILS PERCENT AUTO 0.4 % (0.0-6.0); HEMATOCRIT 34.7 % (37.0-47.0); HEMOGLOBIN 11.2 gm/dl (12.0-16.0); IMMATURE GRAN ABSOLUTE AUTO 0.02 K/mm3 (0.00-0.05); IMMATURE GRAN PERCENT AUTO 0.2 % (0.0-0.4); LYMPHOCYTES ABSOLUTE AUTO 2.3 K/mm3 (1.0-4.8); LYMPHOCYTES PERCENT AUTO 28.4 % (24.0-44.0); MEAN CORPUSCULAR HEMOGLOBIN 28.1 pg (28.0-32.0); MEAN CORPUSCULAR HGB CONC 32.3 g/dl (32.0-36.0); MEAN PLATELET VOLUME 10.5 fl (9.4-12.3); MONOCYTES ABSOLUTE AUTO 0.6 K/mm3 (0.0-0.8); MONOCYTES PERCENT AUTO 7.8 % (0.0-8.0); NEUTROPHILS ABSOLUTE AUTO 5.2 K/mm3 (1.8-7.7); PLATELET COUNT,PLT 292 K/mm3 (150-400); RED BLOOD CELL COUNT 3.99 M/mm3 (4.10-5.30)
[2023-08-08] MEDS ORDERED: Dextrose 5%-Lactated Ringers 1,000 ML IV SCH ×2 (06:45→10:03)
[2023-08-08] MEDS ORDERED: Morphine PF 10 MG/10 ML SDV ONE (07:19)
[2023-08-08] MEDS ORDERED: ceFAZolin 2 GM Vial ONE (07:57)
[2023-08-08] MEDS ORDERED: Oxytocin 10 Units/1 ML SDV ONE (08:05)
[2023-08-08] MEDS ORDERED: Lactated Ringers 1,000 ML ONE (08:07)
[2023-08-08] MEDS ORDERED: diphenhydrAMINE 50 MG/ML SDV IVPUSH PRN ×2 (08:27→10:03)
[2023-08-08] MEDS ORDERED: fentaNYL 100 MCG/2 ML SDV IVPUSH PRN ×2 (08:27)
[2023-08-08] MEDS ORDERED: HYDROmorphone 0.5 MG/0.5 ML Syringe IVPUSH PRN (08:27)
[2023-08-08] MEDS ORDERED: Meperidine 50 MG/ML Vial IVPUSH PRN (08:27)
[2023-08-08] MEDS ORDERED: Ondansetron 4 MG/2 ML SDV IVPUSH PRN ×2 (08:27)
[2023-08-08] MEDS ORDERED: Sodium Chloride 0.9% 10 ML Syringe FLUSH PRN (10:03)
[2023-08-08] MEDS ORDERED: ePHEDrine 50 MG/ML SDV IVPUSH PRN (10:03)
[2023-08-08] MEDS ORDERED: Naloxone 0.4 MG/ML SDV IVPUSH PRN (10:03)
[2023-08-08] MEDS: Acetaminophen/oxyCODONE 325-5 MG Tab PO PRN ×3 (11:29→21:31)
[2023-08-08 12:52] LABS: CREATININE,URINE RAND 267.3 mg/dL (30.0-125.0); PROTEIN,URINE RANDOM 70.3 mg/dL (0.0-11.8)
[2023-08-08 12:54] LABS: BASOPHILS PERCENT AUTO 0.2 % (0.0-1.0); EOSINOPHILS PERCENT AUTO 0.2 % (0.0-6.0); HEMATOCRIT 34.5 % (37.0-47.0); HEMOGLOBIN 11.2 gm/dl (12.0-16.0); IMMATURE GRAN ABSOLUTE AUTO 0.03 K/mm3 (0.00-0.05); IMMATURE GRAN PERCENT AUTO 0.3 % (0.0-0.4); LYMPHOCYTES ABSOLUTE AUTO 1.9 K/mm3 (1.0-4.8); LYMPHOCYTES PERCENT AUTO 16.3 % (24.0-44.0); MEAN CORPUSCULAR HEMOGLOBIN 28.4 pg (28.0-32.0); MEAN CORPUSCULAR HGB CONC 32.5 g/dl (32.0-36.0); MEAN CORPUSCULAR VOLUME 87.3 fl (83.0-99.0); MEAN PLATELET VOLUME 10.4 fl (9.4-12.3); MONOCYTES ABSOLUTE AUTO 0.6 K/mm3 (0.0-0.8); MONOCYTES PERCENT AUTO 5.4 % (0.0-8.0); NEUTROPHILS ABSOLUTE AUTO 9.1 K/mm3 (1.8-7.7); NEUTROPHILS PERCENT AUTO 77.6 % (41.0-71.0); PLATELET COUNT,PLT 261 K/mm3 (150-400); RED BLOOD CELL COUNT 3.95 M/mm3 (4.10-5.30); WHITE BLOOD CELL COUNT,WBC 11.67 K/mm3 (3.9-11.3)
[2023-08-08 13:17] LABS: A/G RATIO 0.5 (1-2); ALBUMIN 2.2 g/dl (3.4-5.0); ANION GAP 12.7 (5-15); BILIRUBIN TOTAL 0.3 mg/dL (0.2-1.0); BUN/CREATININE RATIO 11.7 (14-18); CALCIUM 8.6 mg/dL (8.5-10.1); CREATININE 0.6 mg/dL (0.55-1.02); EST CRCL DRUG DOSING (CG) 116.64 mL/min; POTASSIUM,K 3.7 mEq/L (3.5-5.1); PROTEIN TOTAL,TP 6.4 g/dl (6.4-8.2)
[2023-08-08] MEDS ORDERED: Lactated Ringers 500 ML IV ONE (20:08)
[2023-08-09] MEDS: Acetaminophen/oxyCODONE 325-5 MG Tab PO PRN ×5 (02:55→21:20)
[2023-08-09 06:01] LABS: HEMATOCRIT 31.8 % (37.0-47.0); HEMOGLOBIN 10.4 gm/dl (12.0-16.0); MEAN CORPUSCULAR HGB CONC 32.7 g/dl (32.0-36.0); MEAN CORPUSCULAR VOLUME 85.5 fl (83.0-99.0); MEAN PLATELET VOLUME 10.2 fl (9.4-12.3); PLATELET COUNT,PLT 244 K/mm3 (150-400); RED BLOOD CELL COUNT 3.72 M/mm3 (4.10-5.30); WHITE BLOOD CELL COUNT,WBC 9.51 K/mm3 (3.9-11.3)
[2023-08-09] MEDS ORDERED: Polyethylene Glycol 3350 Powder 17 GM Packet PO PRN (08:10)
[2023-08-09] MEDS: Docusate Sodium 100 MG Cap PO SCH ×2 (11:42→21:20)
[2023-08-09] MEDS ORDERED: Ondansetron 4 MG/2 ML SDV IVPUSH PRN (12:47)
[2023-08-10] MEDS: Acetaminophen/oxyCODONE 325-5 MG Tab PO PRN ×4 (01:30→15:09)
[2023-08-10] MEDS ORDERED: oxyCODONE 5 MG Tab PO PRN (09:16)
[2023-08-10] MEDS: Docusate Sodium 100 MG Cap PO SCH (09:17)
[2023-08-10 15:25] VITALS: BP 130/72; PULSE 78
== END 2023-08-10 16:19 | disposition home or self-care (01) | DRG 788 ==
LOC: JD.OB 05:16
PROVIDERS: ADMIT Obstetrics & Gynecology; ATTEND Obstetrics & Gynecology
PROC: 10D00Z1 Extraction of Products of Conception, Low, Open Approach (ICD-10-PCS; principal; 2023-08-08 08:00)
DX: O99.214 Obesity complicating childbirth (principal); E66.01 Morbid (severe) obesity due to excess calories; O34.211 Maternal care for low transverse scar from previous cesarean delivery; O36.5930 Maternal care for other known or suspected poor fetal growth, third trimester, not applicable or unspecified; Z37.0 Single live birth; Z98.890 Other specified postprocedural states; Z90.49 Acquired absence of other specified parts of digestive tract; Z3A.38 38 weeks gestation of pregnancy; Z90.3 Acquired absence of stomach [part of]; Z79.899 Other long term (current) drug therapy; Z86.16 Personal history of COVID-19
CPT/HCPCS: 36415; 59025; 80053; 82570; 82947; 84156; 85025; 85027; 86592; 86850; 86900; 86901; A9270-GY; J0690; J1170; J2274; J2405; J2590; J2765; J7120; J7121

== ENCOUNTER 2024-10-13 14:26 | Emergency (ER) | payer MEDICAID ==
[2024-10-13 15:02] LABS: BASOPHILS PERCENT AUTO 0.2 % (0.0-1.0); EOSINOPHILS ABSOLUTE AUTO 0.1 K/mm3 (0.0-0.4); EOSINOPHILS PERCENT AUTO 1.2 % (0.0-6.0); HEMOGLOBIN 12.3 gm/dl (12.0-16.0); IMMATURE GRAN ABSOLUTE AUTO 0.02 K/mm3 (0.00-0.05); IMMATURE GRAN PERCENT AUTO 0.3 % (0.0-0.4); LYMPHOCYTES ABSOLUTE AUTO 0.7 K/mm3 (1.0-4.8); LYMPHOCYTES PERCENT AUTO 12.1 % (24.0-44.0); MEAN CORPUSCULAR HEMOGLOBIN 29.7 pg (28.0-32.0); MEAN CORPUSCULAR HGB CONC 32.4 g/dl (32.0-36.0); MEAN CORPUSCULAR VOLUME 91.8 fl (83.0-99.0); MEAN PLATELET VOLUME 9.6 fl (9.4-12.3); MONOCYTES ABSOLUTE AUTO 0.4 K/mm3 (0.0-0.8); MONOCYTES PERCENT AUTO 6.8 % (0.0-8.0); NEUTROPHILS ABSOLUTE AUTO 4.7 K/mm3 (1.8-7.7); NEUTROPHILS PERCENT AUTO 79.4 % (41.0-71.0); PLATELET COUNT,PLT 244 K/mm3 (150-400); RED BLOOD CELL COUNT 4.14 M/mm3 (4.10-5.30); WHITE BLOOD CELL COUNT,WBC 5.87 K/mm3 (3.9-11.3)
[2024-10-13 15:14] LABS: A/G RATIO 0.8 (1-2); ALANINE AMINOTRANSFERASE,ALT 29 U/L (14-59); ALBUMIN 3.3 g/dl (3.4-5.0); ALKALINE PHOSPHATASE 68 U/L (46-116); ASPARTATE AMNIOTRANSFERASE,AST 20 U/L (15-37); BILIRUBIN TOTAL 0.3 mg/dL (0.2-1.0); BLOOD UREA NITROGEN,BUN 8 mg/dL (7-18); BUN/CREATININE RATIO 8.9 (14-18); CALCIUM 8.8 mg/dL (8.5-10.1); CARBON DIOXIDE,CO2 26 mEq/L (21-32); CHLORIDE,CL 104 mEq/L (98-107); CREATININE 0.9 mg/dL (0.55-1.02); EST CRCL DRUG DOSING (CG) 77.01 mL/min; ESTIMATED GFR 84 mL/min (>60); GLUCOSE RANDOM 78 mg/dL (70-99); PROTEIN TOTAL,TP 7.4 g/dl (6.4-8.2); SODIUM,NA 137 mEq/L (136-145)
[2024-10-13 15:20] LABS: TROPONIN I HIGH SENSITIVITY < 4 pg/mL (<=51)
[2024-10-13 15:59] LABS: CORONAVIRUS COVID-19 NAA NEGATIVE (NEGATIVE); INFLUENZA A NAA NEGATIVE (NEGATIVE); RESPIRATORY SYNCYTIAL VIR NAA NEGATIVE (NEGATIVE)
[2024-10-13] MEDS: Iopamidol 755 Mg/ML 100 ML Bottle IVPUSH ONE (16:08)
[2024-10-13] MEDS: Sodium Chloride 0.9% 10 ML Syringe FLUSH ONE (16:11)
[2024-10-13] MEDS: Sodium Chloride 0.9% 100 ML IV SCH (16:11)
[2024-10-13] MEDS: Albuterol/Ipratropium 3.0-0.5 MG/3 ML Neb Soln NEB ONE (16:40)
[2024-10-13] MEDS: Amoxicillin/Clavulanate K 875-125 MG Tab PO ONE (17:33)
[2024-10-13] MEDS: Azithromycin 250 MG Tab PO ONE (17:34)
[2024-10-13] MEDS: Alum Hydrox/Mag Hydrox/Simeth 30 ML, Lidocaine 2% 15 ML PO ONE (17:34)
[2024-10-13] MEDS: Famotidine 20 MG/2 ML SDV IVPUSH ONE (17:34)
[2024-10-13 18:39] VITALS: BP 140/81; PULSE 100
== END 2024-10-13 17:55 | disposition home or self-care (01) ==
LOC: JD.ED 14:26
DX: J18.9 Pneumonia, unspecified organism (principal); I10 Essential (primary) hypertension; E78.00 Pure hypercholesterolemia, unspecified; E66.9 Obesity, unspecified; Z88.6 Allergy status to analgesic agent; Z79.899 Other long term (current) drug therapy; Z86.16 Personal history of COVID-19; Z68.41 Body mass index [BMI] 40.0-44.9, adult
CPT/HCPCS: 0241U; 36415; 71045; 71275; 80053; 81025; 84484; 85025; 93005; 94640; 96374; 99285; A9270; J7620; Q9967